=== PATIENT | female | born 1945 | race Hispanic/Latino ===

== ENCOUNTER 2017-09-23 13:38 | Inpatient (IN) | payer MEDICARE, BC ==
[2017-09-23] MEDS ORDERED: Sodium Chloride 0.9% 1,000 ML IV ONE (14:26)
--- NOTE | 2017-09-23 14:26 | C.PDOC ---
History Of Present Illness History of breast cancer with right side mastectomy 06/01 Patient complains of feeling very weak and without energy for 4 weeks. She reports decreased appetite with weight loss over the last month. She has difficulty walking and is unable to stand up on her own from weakness; she also reports feeling lightheaded for 2 days. Patient is currently on chemotherapy and her last dose was over one week ago. Patient states she missed her dose this week because she felt too weak. She states last visit, she was informed her Hgb was low and she could use transfusion but she refused. She denies any fever, chills, chest pain, shortness of breath or abdominal pain. PMD: James Johnston Oncologist: Dr Yumiko Mosley Time Seen by Provider: 09/23/17 14:14 Chief Complaint (Nursing): Weakness/Neurological Deficit History Per: Patient History/Exam Limitations: no limitations Onset/Duration Of Symptoms: Days Current Symptoms Are (Timing): Still Present Past Medical History Reviewed: Historical Data, Nursing Documentation, Vital Signs Vital Signs: Last Vital Signs Temp 98.0 F 09/23/17 13:54 Pulse 128 H 09/23/17 13:54 Resp 20 09/23/17 13:54 BP 81/54 L 09/23/17 13:54 Pulse Ox 95 09/23/17 16:39 - Medical History PMH: CAD, HTN, Hypercholesterolemia Other Surgeries: mastectomy Family History: States: No Known Family Hx - Social History Hx Tobacco Use: Yes Hx Alcohol Use: No Hx Substance Use: No - Immunization History Hx Tetanus Toxoid Vaccination: No Hx Influenza Vaccination: No Hx Pneumococcal Vaccination: No Review Of Systems Except As Marked, All Systems Reviewed And Found Negative. Constitutional: Positive for: Weakness. Negative for: Fever, Chills Cardiovascular: Positive for: Light Headedness. Negative for: Chest Pain Respiratory: Negative for: Shortness of Breath Gastrointestinal: Negative for: Abdominal Pain Physical Exam - Physical Exam Appears: Non-toxic, Chronically Ill Skin: Warm, Dry, Pale Head: Atraumatic, Normacephalic Eye(s): bilateral: Normal Inspection Neck: Supple Chest: Other (mastectomy scar right chest; portcath right chest wall) Cardiovascular: Rhythm Irregular (irregularly irregular, tachycardic) Respiratory: Normal Breath Sounds, No Rales, No Rhonchi, No Wheezing Gastrointestinal/Abdominal: Normal Exam, Soft, No Tenderness, No Mass, No Guarding, No Rebound Back: Normal Inspection Extremity: Normal ROM, Pedal Edema, No Deformity Neurological/Psych: Oriented x3 ED Course And Treatment - Laboratory Results Result Diagrams: 09/23/17 15:08 09/23/17 15:08 ECG: Interpreted By Me, Viewed By Me ECG Rhythm: Atrial Fibrillation ECG Interpretation: No Acute Changes Rate From EC O2 Sat by Pulse Oximetry: 95 (RA) Pulse Ox Interpretation: Normal - Other Rad CXR X-Ray: Read By Radiologist Interpretation: PROCEDURE: CHEST RADIOGRAPH, 1 VIEW. HISTORY: weakness. COMPARISON: None available. FINDINGS: The right MediPort terminates in the SVC. LUNGS: The lungs are well inflated. The right lung is clear. There is confluent airspace disease in the left lower lobe. . PLEURA: No pneumothorax. Suspect small left pleural effusion. CARDIOVASCULAR: Normal. OSSEOUS STRUCTURES: No significant abnormalities. VISUALIZED UPPER ABDOMEN: Normal. OTHER FINDINGS: None. IMPRESSION: Confluent airspace disease in the left lower lobe may represent pneumonia and/or pleural effusion. Follow-up is advised. Medical Decision Making Medical Decision Making: Impression: Dehydration, cancer chemo effects Plan: -- IV Fluids -- Labs -- Urinalysis Progress: Case was discussed Dr Marissa Anderson Spoke with Dr Jose Mosley to discuss labs he wants the patient Transfuse [address] Aman Johnston to admit the patient. Disposition Counseled Patient/Family Regarding: Diagnosis, Need For Followup - Disposition Disposition: HOSPITALIZED Disposition Time: 16:00 Condition: STABLE - POA Present On Arrival: None - Clinical Impression Clinical Impression: Anemia, chronic disease, Breast cancer in female, Weakness - PA / ENVIRONMENTAL RESEARCH PROJECT MANAGER / Resident Statement MD/DO has reviewed & agrees with the documentation as recorded. - Scribe Statement The provider has reviewed the documentation as recorded by the Scribe (Yolette Walker) Provider Attestation: All medical record entries made by the Scribe were at my direction and personally dictated by me. I have reviewed the chart and agree that the record accurately reflects my personal performance of the history, physical exam, medical decision making, and the department course for this patient. I have also personally directed, reviewed, and agree with the discharge instructions and disposition. Decision To Admit - Pt Status Changed To: Hospital Disposition Of: Observation - . Bed Request Type: Regular Admitting Physician: James Johnston Patient Diagnosis: Anemia, chronic disease, Breast cancer in female, Weakness
[2017-09-23 15:13] LABS: BASO # 0.1 K/uL (0.0-0.2); EOS % 0.1 % (0.0-4.0); LYMPH # 0.7 K/uL (1.0-4.3); LYMPH % 5.1 % (20.0-40.0); MEAN CORPUSCULAR HEMOGLOBIN 30.8 pg (27.0-31.0); MEAN CORPUSCULAR HGB CONC 32.6 g/dL (33.0-37.0); MONO # 0.9 K/uL (0.0-0.8); NEUT # 11.3 K/uL (1.8-7.0); NEUT % 86.8 % (50.0-75.0); NRBC % 0.1 % (0.0-2.0); PLATELET COUNT 279 K/uL (130-400); RBC 2.51 Mil/uL (3.80-5.20); RED CELL DISTRIBUTION WIDTH 20.7 % (11.5-14.5)
[2017-09-23 15:16] LABS: HEMOGLOBIN 7.7 g/dL (11.0-16.0); MEAN CELL VOLUME 94.6 fL (81.0-99.0)
[2017-09-23 15:21] LABS: INR 2.6
[2017-09-23 15:26] LABS: PROTHROMBIN TIME 28.9 SECONDS (9.7-12.2)
--- NOTE | 2017-09-23 15:26 | RAD ---
PROCEDURE: CHEST RADIOGRAPH, 1 VIEW HISTORY: weakness COMPARISON: None available. FINDINGS: The right MediPort terminates in the SVC. LUNGS: The lungs are well inflated. The right lung is clear. There is confluent airspace disease in the left lower lobe. . PLEURA: No pneumothorax. Suspect small left pleural effusion. CARDIOVASCULAR: Normal. OSSEOUS STRUCTURES: No significant abnormalities. VISUALIZED UPPER ABDOMEN: Normal. OTHER FINDINGS: None. IMPRESSION: Confluent airspace disease in the left lower lobe may represent pneumonia and/or pleural effusion. Follow-up is advised.
[2017-09-23 15:32] LABS: BANDS 1 % (0-2); EOSINOPHIL 1 % (0-4); LYMPHOCYTE 3 % (20-40); MONOCYTE 6 % (0-10); NEUTROPHIL 89 % (50-75); PLATELET ESTIMATE NORMAL (NORMAL); TOTAL CELLS COUNTED 100
[2017-09-23 15:34] LABS: ANISOCYTOSIS SLIGHT; HYPOCHROMIC MODERATE; POIKILOCYTOSIS SLIGHT; TARGET CELLS MODERATE; TEARDROP CELLS SLIGHT
[2017-09-23 15:35] LABS: GIANT PLATELETS PRESENT; LARGE PLATELETS PRESENT
[2017-09-23 15:37] LABS: B-TYPE NATRIURETIC PEPTIDE 4710 pg/mL (0-900)
[2017-09-23 15:44] LABS: GFR AFRICAN-AMERICAN > 60; GFR NON-AFRICAN AMERICAN > 60
[2017-09-23 15:47] LABS: ALBUMIN 2.7 g/dL (3.5-5.0); ALT/SGPT 19 U/L (9-52); AST/SGOT 15 U/L (14-36); BLOOD UREA NITROGEN 17 mg/dL (7-17)
[2017-09-23 15:49] LABS: ALB/GLOB RATIO 1.1 (1.0-2.1)
[2017-09-23] MEDS ORDERED: Potassium Chloride 20 mEq ER Tab PO STA (18:33)
[2017-09-23 23:28] LABS: SQUAMOUS EPITHIAL 4 /hpf (0-5); URINE BACTERIA MOD (<OCC); URINE BILIRUBIN NEGATIVE (NEGATIVE); URINE BLOOD NEGATIVE (NEGATIVE); URINE CLARITY Hazy (Clear); URINE COLOR Amber (YELLOW); URINE GLUCOSE (UA) NORMAL (Normal); URINE LEUKOCYTE ESTERASE 2+ Leu/uL (Negative); URINE PROTEIN 2+ mg/dL (NEGATIVE)
[2017-09-24 06:03] LABS: BLOOD UREA NITROGEN 17 mg/dL (7-17); CALCIUM 7.7 mg/dl (8.6-10.4); GFR AFRICAN-AMERICAN > 60; GFR NON-AFRICAN AMERICAN > 60
--- NOTE | 2017-09-24 07:21 | HP ---
HISTORY OF PRESENT ILLNESS: This is a 72-year-old female who was brought in with history of generalized weakness. She was found to be anemic. She has been in the care of Dr. Mosley for CA of breast. She had a mastectomy done. She has had chemotherapy done. Previously, cardiac workup had shown that she was in atrial fibrillation and she was placed on a blood thinner. Echocardiogram had normal LV systolic function. She also has a poor . She needs transfusions, so she has been admitted. Her electrolytes were abnormal, potassium was 2.7. Blood pressure was 81/54. PERSONAL HISTORY: One pack per day smoker for many years. No ETOH abuse. ALLERGIES: DENIED. MEDICATIONS: At home include Crestor, Lasix, atenolol. PAST MEDICAL HISTORY: History of CA of breast. FAMILY HISTORY: Mother had diabetes, at 60. REVIEW OF SYSTEMS: Generalized weakness is noted. No fever. No chills. Positive for hearing loss. No visual disturbances. Pulmonary: Positive for cough. Cardiac: Denies any chest pain. Edema is noted. Dyspnea on exertion. History of hypertension and atrial fibrillation. GI: Negative for hematemesis or melena. Neurologic: Negative for TIAs or CVAs. Musculoskeletal: History of osteoarthritis of the knee. : Negative for hematuria. Psychiatric: No evidence of depression. PHYSICAL EXAMINATION: GENERAL: Shows elderly female, who is conscious, alert, and well oriented. Chronically sick looking in no acute distress. VITAL SIGNS: Blood pressure is 88/60, heart rate of 120 and irregular, respiratory rate of 24. HEENT: Head is normocephalic. Loss of hair. Eyes: No pallor. No icterus. Mouth: Complete dentures. LUNGS: Scattered rhonchi. HEART: PMI is not localized. S1 and S2 are irregular and tachycardic. No gallops. ABDOMEN: Soft. EXTREMITIES: No cyanosis or clubbing. 1 to 2+ edema is noted. Nonpitting. LABORATORY DATA: EKG: Atrial fibrillation with rapid ventricular rate. Nonspecific ST-T wave changes. Potassium was 2.7, hemoglobin is 7.7. Chest x-ray reported as nothing acute. Questionable soft left pleural effusion. PLAN: To control the rate. Transfusion as per Dr. Mosley. Correction of the electrolytes. Recheck potassium in the morning. James Johnston MD [facility] # [id number]
[2017-09-24 08:32] LABS: BASO # 0.1 K/uL (0.0-0.2); BASO % 0.8 % (0.0-2.0); EOS # 0.1 K/uL (0.0-0.7); EOS % 0.6 % (0.0-4.0); HEMOGLOBIN 8.3 g/dL (11.0-16.0); LYMPH # 0.7 K/uL (1.0-4.3); LYMPH % 7.4 % (20.0-40.0); MEAN CELL VOLUME 93.6 fL (81.0-99.0); MEAN CORPUSCULAR HGB CONC 33.1 g/dL (33.0-37.0); MEAN PLATELET VOLUME 7.9 fL (7.2-11.7); MONO % 10.2 % (0.0-10.0); NEUT # 7.9 K/uL (1.8-7.0); PLATELET COUNT 255 K/uL (130-400); RBC 2.67 Mil/uL (3.80-5.20); RED CELL DISTRIBUTION WIDTH 20.3 % (11.5-14.5); WHITE BLOOD COUNT 9.8 K/uL (4.8-10.8)
[2017-09-24 09:58] LABS: LYMPHOCYTE 9 % (20-40); MONOCYTE 9 % (0-10); MYELOCYTE 1 % (0-0); NEUTROPHIL 80 % (50-75); PLATELET ESTIMATE NORMAL (NORMAL); REACTIVE LYMPHOCYTES 1 % (0-0); TOTAL CELLS COUNTED 100
[2017-09-24 09:59] LABS: ANISOCYTOSIS SLIGHT; BURR CELLS SLIGHT; HYPOCHROMIC SLIGHT; POIKILOCYTOSIS SLIGHT; TARGET CELLS SLIGHT; TEARDROP CELLS SLIGHT
[2017-09-24] MEDS ORDERED: Potassium Chloride 20 mEq/15 ml LIQ UD PO STA (11:01)
--- NOTE | 2017-09-24 16:44 | CP.PCM.CON ---
<Jian Buitrago - Last Filed: 09/24/17 17:16> History of Present Illness - History of Present Illness History of Present Illness: Pulmonology Consult Note- Dr. Rosenbaum's service Reason for consult: pleural effusion noted on imaging 72 year old female with past medical history significant for breast cancer with mastectomy , HTN and atrial fibrillation presents with complaints of cough and generalized weakness over the past couple of weeks. Patient states that she has had the cough for approximately a week and a half. She states that she is having trouble bringing anything up though. She states that she has not tried to take any other medications to serve as an expectorant. Patient states that she receives chemotherapy one day a week. She just completed her seventh dose in this current round of therapy. She initially competed a 12 week course several months earlier. Patient currently denies chest pain, shortness of breath , palpitations at this time. PMHx- refer to above PSHx- right sided mastectomy Fam hx- maternal aunt had lung cancer Medications- Xarelto 15 mg Po daily, Bystolic 5 mg Po daily, Crestor 10 mg PO HS Social- Former smoker for 50 years. Patient quit 4 years ago (1ppd), denies alcohol or illicit drug use Allergies- 100% Wool (hives) PMD- Dr. Johnston (formerly Ronaldo) Oncologist- Dr. Mosley Review of Systems - Constitutional Constitutional: Weakness - EENT Nose/Mouth/Throat: absent: Nasal Congestion - Cardiovascular Cardiovascular: absent: Chest Pain, Dyspnea - Respiratory Respiratory: Cough. absent: Dyspnea Past Patient History - Past Social History Smoking Status: Former Smoker - CARDIAC Hx Hypercholesterolemia: Yes Hx Hypertension: Yes - HEMATOLOGICAL/ONCOLOGICAL Hx Cancer: Yes (right breast) - PSYCHIATRIC Hx Substance Use: No - SURGICAL HISTORY Hx Mastectomy: Yes (right) Other/Comment: port-a-cath Meds Allergies/Adverse Reactions: Allergies Allergy/AdvReac Type Severity Reaction Status Date / Time codeine Allergy Verified 09/23/17 14:02 - Medications Medications: Current Medications Azithromycin (Zithromax) 500 mg PO DAILY [facility] PRN Reason: Protocol Last Admin: 09/24/17 11:48 Dose: 500 mg Nebivolol (Bystolic) 5 mg PO DAILY [facility] Last Admin: 09/24/17 10:31 Dose: 5 mg Rosuvastatin Calcium (Crestor) 10 mg PO HS [facility] Physical Exam - Constitutional Appears: Chronically Ill - Head Exam Head Exam: ATRAUMATIC, NORMAL INSPECTION - Eye Exam Eye Exam: EOMI, Normal appearance - Neck Exam Neck exam: Positive for: Full Rom - Respiratory Exam Respiratory Exam: Decreased Breath Sounds (lower lung jones). absent: Wheezes - Cardiovascular Exam Cardiovascular Exam: Irregular Rhythm, +S1, +S2. absent: Systolic Murmur - Extremities Exam Extremities exam: Positive for: full ROM, pedal edema - Back Exam Back exam: FULL ROM - Neurological Exam Neurological exam: Alert, Oriented x3 - Psychiatric Exam Psychiatric exam: Normal Affect, Normal Mood - Skin Skin Exam: Dry, Normal Color, Warm Results - Vital Signs Recent Vital Signs: Last Vital Signs Temp 97.6 F 09/24/17 15:00 Pulse 79 09/24/17 15:00 Resp 18 09/24/17 15:00 BP 111/59 L 09/24/17 15:00 Pulse Ox 95 09/24/17 15:00 - Labs Result Diagrams: 09/24/17 08:18 09/24/17 05:49 Labs: Laboratory Results - last 24 hr 09/23/17 09/23/17 09/24/17 16:31 23:28 05:49 WBC RBC Hgb Hct MCV MCH MCHC RDW Plt Count MPV Neut % (Auto) Lymph % (Auto) [place] % (Auto) Eos % (Auto) Baso % (Auto) Neut # (Auto) Lymph # (Auto) [place] # (Auto) Eos # (Auto) Baso # (Auto) Neutrophils % (Manual) Lymphocytes % (Manual) Reactive Lymphs % Monocytes % (Manual) Myelocytes % Platelet Estimate Hypochromasia (manual) Poikilocytosis (manual Anisocytosis (manual) Target Cells Tear Drop Cells Cameron Cells Sodium 136 Potassium 3.1 L Chloride 100 Carbon Dioxide 30 Anion Gap 9 L BUN 17 Creatinine 0.7 Est GFR ( Amer) > 60 Est GFR (Non-Af Amer) > 60 Random Glucose 88 Calcium 7.7 L Urine Color Jolene Urine Clarity Hazy Urine pH 5.0 Ur Specific Gila 1.021 Urine Protein 2+ H Urine Glucose (UA) Normal Urine Ketones Negative Urine Blood Negative Urine Nitrate Negative Urine Bilirubin Negative Urine Urobilinogen 4.0 H Ur Leukocyte Esterase 2+ H Urine WBC (Auto) 90 H Urine RBC (Auto) 5 H Ur Squamous Epith Cells 4 Urine Bacteria Mod H Blood Type O NEGATIVE Antibody Screen Negative 09/24/17 08:18 WBC 9.8 RBC 2.67 L Hgb 8.3 L Hct 25.0 L MCV 93.6 MCH 31.0 MCHC 33.1 RDW 20.3 H Plt Count 255 MPV 7.9 Neut % (Auto) 81.0 H Lymph % (Auto) 7.4 L [place] % (Auto) 10.2 H Eos % (Auto) 0.6 Baso % (Auto) 0.8 Neut # (Auto) 7.9 H Lymph # (Auto) 0.7 L [place] # (Auto) 1.0 H Eos # (Auto) 0.1 Baso # (Auto) 0.1 Neutrophils % (Manual) 80 H Lymphocytes % (Manual) 9 L Reactive Lymphs % 1 H Monocytes % (Manual) 9 Myelocytes % 1 H Platelet Estimate Normal Hypochromasia (manual) Slight Poikilocytosis (manual Slight Anisocytosis (manual) Slight Target Cells Slight Tear Drop Cells Slight Talcott Cells Slight Sodium Potassium Chloride Carbon Dioxide Anion Gap BUN Creatinine Est GFR ( Amer) Est GFR (Non-Af Amer) Random Glucose Calcium Urine Color Urine Clarity Urine pH Ur Specific Gila Urine Protein Urine Glucose (UA) Urine Ketones Urine Blood Urine Nitrate Urine Bilirubin Urine Urobilinogen Ur Leukocyte Esterase Urine WBC (Auto) Urine RBC (Auto) Ur Squamous Epith Cells Urine Bacteria Blood Type Antibody Screen Assessment & Plan (1) Pleural effusion Assessment and Plan: CXR notes small left sided pleural effusion and questionable infiltrate . Started Zithromax PO. May benefit from Cough expectorant. Considerations for Lasix therapy Currently afebrile. No leukocytosis at the moment Status: Acute (2) Breast cancer in female Assessment and Plan: Continued chemotherapy regiment as per Oncologist Status: Chronic (3) Hypokalemia Assessment and Plan: Repleted at this time Continue to monitor Status: Acute (4) Weakness Assessment and Plan: Recommendations for physical therapy Status: Chronic <Dannie Rosenbaum - Last Filed: 09/24/17 18:36> Meds - Medications Medications: Current Medications Azithromycin (Zithromax) 500 mg PO DAILY [facility] PRN Reason: Protocol Last Admin: 09/24/17 11:48 Dose: 500 mg Nebivolol (Bystolic) 5 mg PO DAILY [facility] Last Admin: 09/24/17 10:31 Dose: 5 mg Rosuvastatin Calcium (Crestor) 10 mg PO HS [facility] Results - Vital Signs Recent Vital Signs: Last Vital Signs Temp 97.6 F 09/24/17 15:00 Pulse 79 09/24/17 15:00 Resp 18 09/24/17 15:00 BP 111/59 L 09/24/17 15:00 Pulse Ox 95 09/24/17 16:00 - Labs Result Diagrams: 09/24/17 08:18 09/24/17 05:49 Labs: Laboratory Results - last 24 hr 09/23/17 09/23/17 09/24/17 16:31 23:28 05:49 WBC RBC Hgb Hct MCV MCH MCHC RDW Plt Count MPV Neut % (Auto) Lymph % (Auto) [place] % (Auto) Eos % (Auto) Baso % (Auto) Neut # (Auto) Lymph # (Auto) [place] # (Auto) Eos # (Auto) Baso # (Auto) Neutrophils % (Manual) Lymphocytes % (Manual) Reactive Lymphs % Monocytes % (Manual) Myelocytes % Platelet Estimate Hypochromasia (manual) Poikilocytosis (manual Anisocytosis (manual) Target Cells Tear Drop Cells Cameron Cells Sodium 136 Potassium 3.1 L Chloride 100 Carbon Dioxide 30 Anion Gap 9 L BUN 17 Creatinine 0.7 Est GFR ( Amer) > 60 Est GFR (Non-Af Amer) > 60 Random Glucose 88 Calcium 7.7 L Urine Color Jolene Urine Clarity Hazy Urine pH 5.0 Ur Specific Gila 1.021 Urine Protein 2+ H Urine Glucose (UA) Normal Urine Ketones Negative Urine Blood Negative Urine Nitrate Negative Urine Bilirubin Negative Urine Urobilinogen 4.0 H Ur Leukocyte Esterase 2+ H Urine WBC (Auto) 90 H Urine RBC (Auto) 5 H Ur Squamous Epith Cells 4 Urine Bacteria Mod H Blood Type O NEGATIVE Antibody Screen Negative 09/24/17 08:18 WBC 9.8 RBC 2.67 L Hgb 8.3 L Hct 25.0 L MCV 93.6 MCH 31.0 MCHC 33.1 RDW 20.3 H Plt Count 255 MPV 7.9 Neut % (Auto) 81.0 H Lymph % (Auto) 7.4 L [place] % (Auto) 10.2 H Eos % (Auto) 0.6 Baso % (Auto) 0.8 Neut # (Auto) 7.9 H Lymph # (Auto) 0.7 L [place] # (Auto) 1.0 H Eos # (Auto) 0.1 Baso # (Auto) 0.1 Neutrophils % (Manual) 80 H Lymphocytes % (Manual) 9 L Reactive Lymphs % 1 H Monocytes % (Manual) 9 Myelocytes % 1 H Platelet Estimate Normal Hypochromasia (manual) Slight Poikilocytosis (manual Slight Anisocytosis (manual) Slight Target Cells Slight Tear Drop Cells Slight Cameron Cells Slight Sodium Potassium Chloride Carbon Dioxide Anion Gap BUN Creatinine Est GFR ( Amer) Est GFR (Non-Af Amer) Random Glucose Calcium Urine Color Urine Clarity Urine pH Ur Specific Gila Urine Protein Urine Glucose (UA) Urine Ketones Urine Blood Urine Nitrate Urine Bilirubin Urine Urobilinogen Ur Leukocyte Esterase Urine WBC (Auto) Urine RBC (Auto) Ur Squamous Epith Cells Urine Bacteria Blood Type Antibody Screen Attending/Attestation - Attestation I have personally seen and examined this patient.: Yes I have fully participated in the care of the patient.: Yes I have reviewed all pertinent clinical information: Yes
--- NOTE | 2017-09-24 21:45 | CP.PCM.PN ---
Subjective - Date & Time of Evaluation Date of Evaluation: 09/24/17 Time of Evaluation: 21:44 - Subjective Subjective: cough,hb up to 8.3.needs one more transfusion. Objective - Vital Signs/Intake and Output Vital Signs (last 24 hours): Temp Pulse Resp BP Pulse Ox 97.6 F 79 18 111/59 L 95 09/24/17 15:00 09/24/17 15:00 09/24/17 15:00 09/24/17 15:00 09/24/17 16:00 Intake and Output: 09/24/17 09/25/17 18:59 06:59 Intake Total 1250 Output Total 1225 Balance 25 - Medications Medications: Current Medications Azithromycin (Zithromax) 500 mg PO DAILY [facility] PRN Reason: Protocol Last Admin: 09/24/17 11:48 Dose: 500 mg Nebivolol (Bystolic) 5 mg PO DAILY [facility] Last Admin: 09/24/17 10:31 Dose: 5 mg Rosuvastatin Calcium (Crestor) 10 mg PO [facility] - Labs Labs: 09/24/17 08:18 09/24/17 05:49 PT 28.9 SECONDS (9.7-12.2) H 09/23/17 15:08 INR 2.6 09/23/17 15:08 APTT 46 SECONDS (21-34) H 09/23/17 15:08 - Constitutional Appears: No Acute Distress, Chronically Ill - Eye Exam Eye Exam: Normal appearance - Respiratory Exam Respiratory Exam: Rhonchi, Wheezes - Cardiovascular Exam Cardiovascular Exam: REGULAR RHYTHM - GI/Abdominal Exam GI & Abdominal Exam: Soft - Extremities Exam Extremities Exam: Pedal Edema - Neurological Exam Neurological Exam: Alert, Oriented x3 Assessment and Plan - Assessment and Plan (Free Text) Assessment: transfusion.to ct xarelto?. needs antibiotics.pul eval.rehab.
--- NOTE | 2017-09-25 02:32 | CON ---
DATE: 09/24/2017 REASON FOR CONSULTATION: The patient has invasive ductal carcinoma of the breast. HISTORY OF PRESENT ILLNESS: This is a 72-year-old female with history of invasive carcinoma of the breast with metastasis to the lymph nodes. The patient received neoadjuvant chemotherapy with Adriamycin and Cytoxan, every three weeks, four cycles, tolerated very well with excellent response. The lymph node almost resolved completely. The patient had lumpectomy done and then came for followup with me. The patient is receiving Taxol weekly, tolerating very well; however, the patient's hemoglobin has been always low after the surgery, it has not improved. Was complaining of feeling weak and tired for the last few weeks, was advised to go to the hospital for transfusion. Eventually, the patient came to the hospital because unable to walk around and increasing shortness of breath. The patient already admitted, received 1 unit of packed red blood cells, and I am called on consult for further evaluation and suggestions. PAST MEDICAL HISTORY: Significant for coronary artery disease, hypertension, hypercholesterolemia. PAST SURGICAL HISTORY: The patient had a mastectomy done. FAMILY HISTORY: Not contributory. SOCIAL HISTORY: Nonsmoker, no ethanol abuse. , has a handicapped son, and who is about to be placed into the half-way. REVIEW OF SYSTEMS: Denies any headache, dizziness, or blackouts. No chest pain or palpitation. Denies fever or chills. No cough or sputum. No abdominal pain. No nausea, vomiting, melena, hemoptysis, or hematemesis. No dysuria or hematuria. No change in the bowel habits. No change in the color of the stool. No tingling or numbness. PHYSICAL EXAMINATION: GENERAL: The patient is awake, alert, oriented, quiet, pleasant, not in acute distress. VITAL SIGNS: Pulse 80, respirations 16, blood pressure 110/72. HEAD: Normocephalic, atraumatic. EYES: Conjunctiva pale, sclera white, pupils reacting to light. EAR, NOSE, AND THROAT: Within normal limits. LUNGS: Bilaterally good air entry. Clear to auscultation and percussion. HEART: S1 and S2, regular. No gallop, no murmur. ABDOMEN: Soft, nondistended, nontender. No hepatosplenomegaly. DESIGN TRANSFERRER: No gross motor or sensory deficits. LYMPH NODES: No cervical or axillary lymph nodes palpable. LABORATORY DATA: WBC 13,000, hemoglobin 7700, platelet count 279,000. BUN 17, creatinine 0.9. IMPRESSION: 1. Invasive ductal carcinoma of the breast with metastasis to the lymph nodes. 2. Anemia secondary to the carcinoma of the breast and chemotherapy. PLAN: Clinical status discussed with the patient. The patient has already received 1 unit of packed red blood cells. We will give her the second unit of packed red blood cells. Discussed with the patient. Once the patient is clinically improved and discharge home, we will follow up in the office to continue the chemotherapy. The patient has understood and agreed with it. Thank you for letting me participate in the care of the patient, and I will follow up the patient with you. Yumiko Mosley MD
[2017-09-25 07:05] LABS: BASO # 0.1 K/uL (0.0-0.2); BASO % 1.2 % (0.0-2.0); EOS # 0.1 K/uL (0.0-0.7); EOS % 1.2 % (0.0-4.0); HEMOGLOBIN 9.4 g/dL (11.0-16.0); LYMPH # 1.1 K/uL (1.0-4.3); LYMPH % 12.2 % (20.0-40.0); MEAN CELL VOLUME 93.4 fL (81.0-99.0); MEAN CORPUSCULAR HEMOGLOBIN 31.3 pg (27.0-31.0); MEAN CORPUSCULAR HGB CONC 33.5 g/dL (33.0-37.0); MEAN PLATELET VOLUME 7.7 fL (7.2-11.7); MONO # 0.8 K/uL (0.0-0.8); MONO % 9.5 % (0.0-10.0); NEUT # 6.6 K/uL (1.8-7.0); NEUT % 75.9 % (50.0-75.0); RBC 2.99 Mil/uL (3.80-5.20); RED CELL DISTRIBUTION WIDTH 19.7 % (11.5-14.5); WHITE BLOOD COUNT 8.7 K/uL (4.8-10.8)
[2017-09-25 07:28] LABS: BLOOD UREA NITROGEN 18 mg/dL (7-17); GFR AFRICAN-AMERICAN > 60; GFR NON-AFRICAN AMERICAN > 60
--- NOTE | 2017-09-25 08:32 | CP.PCM.PN ---
Subjective - Date & Time of Evaluation Date of Evaluation: 09/25/17 - Subjective Subjective: patient seen and examined Sitting comfortably in no acute distress Patient states cough is improving Denies shortness of breath Afebrile Pending transfer to rehab Objective - Vital Signs/Intake and Output Vital Signs (last 24 hours): Temp Pulse Resp BP Pulse Ox 97.4 F L 67 20 118/69 96 09/25/17 04:00 09/25/17 04:00 09/25/17 04:00 09/25/17 04:00 09/25/17 07:00 Intake and Output: 09/25/17 09/25/17 06:59 18:59 Output Total 350 Balance -350 - Medications Medications: Current Medications Azithromycin (Zithromax) 500 mg PO [facility]ILY [facility] Reason: Protocol Last Admin: 09/24/17 11:48 Dose: 500 mg Nebivolol (Bystolic) 5 mg PO [facility]ILY [facility] Last Admin: 09/24/17 10:31 Dose: 5 mg Rosuvastatin Calcium (Crestor) [address] [facility] Last Admin: 09/24/17 22:14 Dose: 10 mg - Labs Labs: 09/25/17 06:29 09/25/17 06:29 PT 28.9 SECONDS (9.7-12.2) H 09/23/17 15:08 INR 2.6 09/23/17 15:08 APTT 46 SECONDS (21-34) H 09/23/17 15:08 - Head Exam Head Exam: ATRAUMATIC, NORMOCEPHALIC - ENT Exam ENT Exam: Mucous Membranes Moist - Respiratory Exam Respiratory Exam: Clear to Ausculation Bilateral - Cardiovascular Exam Cardiovascular Exam: REGULAR RHYTHM - GI/Abdominal Exam GI & Abdominal Exam: Soft, Normal Bowel Sounds - Neurological Exam Neurological Exam: Awake Assessment and Plan (1) Pneumonia Assessment & Plan: chest x-ray consistent with small left lung infiltrate Patient on azithromycin and clinically improving Continue antibiotics for 10 days Patient refusing antitussive As she feels cough is improving Status: Acute
[2017-09-25] MEDS ORDERED: Potassium Chloride 20 mEq ER Tab PO ONE (10:00)
--- NOTE | 2017-09-25 18:16 | CP.PCM.CON ---
History of Present Illness - History of Present Illness History of Present Illness: 72 year old female presents with complaints of cough and generalized weakness over the past couple of weeks. She just completed her seventh dose in this current round of chemotherapy. She initially competed a 12 week course several months earlier for breast ca WITH METS REFERRED FOR ID EVAL OF PNEUMONIA AND UTI IV RX ORDERED PMHx- breast cancer with mastectomy , HTN and atrial fibrillation PSHx- right sided mastectomy Fam hx- maternal aunt had lung cancer Medications- Xarelto 15 mg Po daily, Bystolic 5 mg Po daily, Crestor 10 mg PO HS Social- Former smoker for 50 years. Patient quit 4 years ago (1ppd), denies alcohol or illicit drug use Allergies- 100% Wool (hives) PMD- Dr. Johnston (formerly Ronaldo) Oncologist- Dr. Mosley Review of Systems - Review of Systems All systems: reviewed and no additional remarkable complaints except - Constitutional Constitutional: As Per HPI - EENT Eyes: absent: As Per HPI, Blind Spots, Blurred Vision, Change in Vision, Decreased Night Vision, Diplopia, Discharge, Dry Eye, Exophthalmos, Floaters, Irritation, Itchy Eyes, Loss of Peripheral Vision, Pain, Photophobia, Requires Corrective Lenses, Sees Flashes, Spots in Vision, Tunnel Vision, Other Visual Disturbances, Loss of Vision, Other Ears: absent: As Per HPI, Decreased Hearing, Ear Discharge, Ear Pain, Tinnitus, Abnormal Hearing, Disequilibrium, Dizziness, Other Nose/Mouth/Throat: absent: As Per HPI, Epistaxis, Nasal Congestion, Nasal Discharge, Nasal Obstruction, Nasal Trauma, Nose Pain, Post Nasal Drip, Sinus Pain, Sinus Pressure, Bleeding Gums, Change in Voice, Dental Pain, Dry Mouth, Dysphagia, Halitosis, Hoarsness, Lip Swelling, Mouth Lesions, Mouth Pain, Odynophagia, Sore Throat, Throat Swelling, Tongue Swelling, Facial Pain, Neck Pain, Neck Mass, Other - Breasts Breasts: absent: As Per HPI, Change in Shape, Mass, Pain, Nipple Discharge, Nipple Inversion, Skin Changes, Swelling, Other - Cardiovascular Cardiovascular: absent: As Per HPI, Acrocyanosis, Chest Pain, Chest Pain at Rest , Chest Pain with Activity, Claudication, Diaphoresis, Dyspnea, Dyspnea on Exertion, Edema, Irregular Heart Rhythm, Pain Radiating to Arm/Neck/Jaw, Leg Edema, Leg Ulcers, Lightheadedness, Orthopnea, Palpitations, Paroxysmal Nocturnal Dyspnea, Pedal Edema, Radiating Pain, Rapid Heart Rate, Slow Heart Rate, Syncope, Other - Respiratory Respiratory: As Per HPI - Gastrointestinal Gastrointestinal: absent: As Per HPI, Abdominal Pain, Belching, Bloating, Change in Bowel Habits, Change in Stool Character, Coffee Ground Emesis, Constipation, Cramping, Diarrhea, Dyspepsia, Dysphagia, Early Satiety, Excessive Flatus, Fecal Incontinence, Heartburn, Hematemesis, Hematochezia, Loose Stools, Melena, Nausea, Odynophagia, Temesmus, Vomiting, Other - Genitourinary Genitourinary: absent: As Per HPI, Change in Urinary Stream, Difficulty Urinating, Dysuria, Flank Pain, Hematuria, Pyuria, Nocturia, Urinary Incontinence, Urinary Frequency, Urinary Hesitance, Urinary Urgency, Voiding Freq/Small Amts, Freq UTI, Hx Renal/Bladder Calculi, Hx /Renal Surgery, Bladder Distension, Other - Reproductive: Female Reproductive:Female: absent: As Per HPI, Amenorrhea, Amenorrhea/ Control, Currently Menstual, Cycle <21 Days, Cycle >35 Days, Cycle Variable, Menses 1-7 Days, Menses >/= 8 Days, Menses Variable, Cycle > 4 Weeks Between, No Menses for 6 Months, Heavy Menses, Light Menses, Normal Menses, Spotting Between Cycles , S/P Hysterectomy, Menopausal, Post Menopausal, Premenarche, Abnormal Vaginal Bleeding, Dysmenorrhea, Dyspareunia, Genital Lesions, Genital Pruritis, Pelvic Pain, Prolapse Symptoms, Sexual Dysfunction, Vaginal Discharge, Vaginal Dryness , Vaginal Odor, Vaginal Pruritis, Other - Menstruation Menstruation: absent: As Per HPI, Amenorrhea, Amenorrhea/ Control, Currently Menstual, Cycle <21 Days, Cycle >35 Days, Cycle Variable, Menses 1-7 Days, Menses >/= 8 Days, Menses Variable, Cycle > 4 Weeks Between, No Menses for 6 Months, Heavy Menses, Light Menses, Normal Menses, Spotting Between Cycles , S/P Hysterectomy, Menopausal, Post Menopausal, Premenarche, Abnormal Vaginal Bleeding, Dysmenorrhea, Other - Musculoskeletal Musculoskeletal: absent: As Per HPI, Abnormal Gait, Arthralgias, Atrophy, Back Pain, Deformity, Joint Swelling, Limited Range of Motion, Loss of Height, Muscle Cramps, Muscle Weakness, Myalgias, Neck Pain, Numbness, Radiating Pain into Limb, Stiffness, Tingling, Other - Integumentary Integumentary: absent: As Per HPI, Acne, Alopecia, Bleeding Lesions, Change in Hair, Change in Nails, Change in Pigmentation, Changing Lesions, Dry Skin, Erythema, Furuncle, Hirsutism, Lesions, New Lesions, Non-Healing Lesions, Photosensitivity, Pruritus, Rash, Skin Pain, Skin Ulcer, Sores, Striae, Swelling , Unusual Bruising, Wounds, Jaundice, Other - Neurological Neurological: absent: As Per HPI, Abnormal Gait, Abnormal Hearing, Abnormal Movements, Abnormal Speech, Behavioral Changes, Burning Sensations, Confusion, Convulsions, Disequilibrium, Dizziness, Numbness, Focal Weakness, Frequent Falls , Headaches, Lack of Coordination, Loss of Vision, Memory Loss, Paresthesias, Radicular Pain, Restless Legs, Sensory Deficit, Syncope, Tingling, Tremor, Vertigo, Weakness, Other Visual Disturbances, Other - Psychiatric Psychiatric: absent: As Per HPI, Abnormal Sleep Pattern, Anhedonia, Anxiety, Auditory Hallucinations, Behavioral Changes, Change in Appetite, Change in Libido, Confusion, Depression, Difficulty Concentrating, Hallucinations, Homicidal Ideation, Hopelessness, Irritability, Memory Loss, Mood Swings, Panic Attacks, Paranoia, Suicidal Ideation, Visual Hallucinations, Tactile Hallucinations, Other - Endocrine Endocrine: absent: As Per HPI, Change in Body Appearance, Change in Libido, Cold Intolorance, Deepening of Voice, Excessive Sweating, Fatigue, Flushing, Heat Intolorance, Increase in Ring/Shoe/Hat Size, Palpitations, Polydipsia, Polyphagia, Polyuria, Other - Hematologic/Lymphatic Hematologic: absent: As Per HPI, Easy Bleeding, Easy Bruising, Lymphadenopathy, Other Past Patient History - Past Social History Smoking Status: Former Smoker - CARDIAC Hx Hypercholesterolemia: Yes Hx Hypertension: Yes - HEMATOLOGICAL/ONCOLOGICAL Hx Cancer: Yes (right breast) - MUSCULOSKELETAL/RHEUMATOLOGICAL Hx Falls: No - PSYCHIATRIC Hx Substance Use: No - SURGICAL HISTORY Hx Mastectomy: Yes (right) Other/Comment: port-a-cath Meds Allergies/Adverse Reactions: Allergies Allergy/AdvReac Type Severity Reaction Status Date / Time codeine Allergy Verified 09/23/17 14:02 - Medications Medications: Current Medications Azithromycin (Zithromax) 500 mg PO DAILY [facility] PRN Reason: Protocol Last Admin: 09/25/17 10:18 Dose: 500 mg Ceftriaxone Sodium 1 gm/ (Sodium Chloride) 100 mls @ 100 mls/hr IVPB Q24H [facility] PRN Reason: Protocol Last Admin: 09/25/17 16:55 Dose: 100 mls/hr Nebivolol (Bystolic) 5 mg PO DAILY [facility] Last Admin: 09/25/17 10:19 Dose: 5 mg Rosuvastatin Calcium (Crestor) 10 mg PO HS [facility] Last Admin: 09/24/17 22:14 Dose: 10 mg Physical Exam - Constitutional Appears: Non-toxic, Cachectic, Chronically Ill - Head Exam Head Exam: ATRAUMATIC, NORMAL INSPECTION, NORMOCEPHALIC - Eye Exam Eye Exam: EOMI, PERRL. absent: Scleral icterus - ENT Exam ENT Exam: Mucous Membranes Dry, Normal External Ear Exam, Normal Oropharynx - Neck Exam Neck exam: Negative for: Lymphadenopathy - Respiratory Exam Respiratory Exam: Decreased Breath Sounds, Prolonged Expiratory Phase, Rales, Rhonchi - Cardiovascular Exam Cardiovascular Exam: REGULAR RHYTHM, +S1, +S2 - GI/Abdominal Exam GI & Abdominal Exam: Diminished Bowel Sounds, Distended, Soft. absent: Rebound , Rigid, Tenderness - Rectal Exam Rectal Exam: Deferred - Exam Exam: NORMAL INSPECTION - Extremities Exam Extremities exam: Positive for: pedal pulses present. Negative for: calf tenderness, pedal edema, tenderness - Back Exam Back exam: absent: CVA tenderness (L), CVA tenderness (R) - Neurological Exam Neurological exam: Alert, CN II-XII Intact, Oriented x3, Reflexes Normal - Psychiatric Exam Psychiatric exam: Normal Mood - Skin Skin Exam: Dry Results - Vital Signs Recent Vital Signs: Last Vital Signs Temp 97.8 F 09/25/17 15:00 Pulse 70 09/25/17 15:00 Resp 18 09/25/17 15:00 BP 93/57 L 09/25/17 15:00 Pulse Ox 96 09/25/17 15:00 - Labs Result Diagrams: 09/25/17 06:29 09/25/17 06:29 Labs: Laboratory Results - last 24 hr 09/25/17 09/25/17 06:29 06:29 WBC 8.7 RBC 2.99 L Hgb 9.4 L Hct 27.9 L MCV 93.4 MCH 31.3 H MCHC 33.5 RDW 19.7 H Plt Count 244 MPV 7.7 Neut % (Auto) 75.9 H Lymph % (Auto) 12.2 L [place] % (Auto) 9.5 Eos % (Auto) 1.2 Baso % (Auto) 1.2 Neut # (Auto) 6.6 Lymph # (Auto) 1.1 [place] # (Auto) 0.8 Eos # (Auto) 0.1 Baso # (Auto) 0.1 Sodium 137 Potassium 3.5 L Chloride 100 Carbon Dioxide 30 Anion Gap 10 BUN 18 H Creatinine 0.8 Est GFR ( Amer) > 60 Est GFR (Non-Af Amer) > 60 Random Glucose 86 Calcium 8.0 L Assessment & Plan (1) Pleural effusion Status: Acute (2) Pneumonia Status: Acute (3) Breast cancer in female Status: Chronic - Assessment and Plan (Free Text) Assessment: CONT RX FOR UTI AND PNEUMONIA AWAIT CULTURES
[2017-09-26 08:25] LABS: BASO # 0.1 K/uL (0.0-0.2); BASO % 1.4 % (0.0-2.0); EOS # 0.1 K/uL (0.0-0.7); EOS % 1.2 % (0.0-4.0); LYMPH # 1.3 K/uL (1.0-4.3); MEAN CELL VOLUME 94.2 fL (81.0-99.0); MEAN CORPUSCULAR HEMOGLOBIN 31.2 pg (27.0-31.0); MEAN CORPUSCULAR HGB CONC 33.1 g/dL (33.0-37.0); MEAN PLATELET VOLUME 7.6 fL (7.2-11.7); MONO # 0.9 K/uL (0.0-0.8); NEUT # 7.4 K/uL (1.8-7.0); NEUT % 75.4 % (50.0-75.0); NRBC % 0.1 % (0.0-2.0); RBC 3.21 Mil/uL (3.80-5.20); RED CELL DISTRIBUTION WIDTH 19.5 % (11.5-14.5); WHITE BLOOD COUNT 9.8 K/uL (4.8-10.8)
[2017-09-26 08:33] LABS: BLOOD UREA NITROGEN 16 mg/dL (7-17); CALCIUM 8.2 mg/dl (8.6-10.4); GFR AFRICAN-AMERICAN > 60; GFR NON-AFRICAN AMERICAN > 60
--- NOTE | 2017-09-26 09:29 | CP.PCM.PN ---
Subjective - Date & Time of Evaluation Date of Evaluation: 09/26/17 Time of Evaluation: 09:29 - Subjective Subjective: Pulmonary, Covering Dr. Rosenbaum The patient was Seen and examined by me at the bedside, Events reviewed Patient feeling much better, comfortable, NAD Breathing unlabored, on room air O2 sat 95-100%. Denies any chest pain, SOB or Palpitations Cough improving Afebrile Objective - Vital Signs/Intake and Output Vital Signs (last 24 hours): Temp Pulse Resp BP Pulse Ox 98.0 F 84 18 136/71 94 L 09/26/17 07:45 09/26/17 08:00 09/26/17 07:45 09/26/17 07:45 09/26/17 07:45 Intake and Output: 09/26/17 09/26/17 06:59 18:59 Intake Total 450 Balance 450 - Medications Medications: Current Medications Azithromycin (Zithromax) 500 mg PO DAILY [facility] PRN Reason: Protocol Last Admin: 09/25/17 10:18 Dose: 500 mg Ceftriaxone Sodium 1 gm/ (Sodium Chloride) 100 mls @ 100 mls/hr IVPB Q24H [facility] PRN Reason: Protocol Last Admin: 09/25/17 16:55 Dose: 100 mls/hr Nebivolol (Bystolic) 5 mg PO DAILY [facility] Last Admin: 09/25/17 10:19 Dose: 5 mg Rosuvastatin Calcium (Crestor) 10 mg PO HS [facility] Last Admin: 09/25/17 22:14 Dose: 10 mg - Labs Labs: 09/26/17 08:14 09/26/17 08:14 PT 28.9 SECONDS (9.7-12.2) H 09/23/17 15:08 INR 2.6 09/23/17 15:08 APTT 46 SECONDS (21-34) H 09/23/17 15:08 - Constitutional Appears: Well, Non-toxic - Head Exam Head Exam: ATRAUMATIC, NORMAL INSPECTION - ENT Exam ENT Exam: Normal Exam - Neck Exam Neck Exam: Normal Inspection - Respiratory Exam Respiratory Exam: Rhonchi. absent: Accessory Muscle Use, Chest Wall Tenderness , Decreased Breath Sounds, Wheezes, Respiratory Distress - Cardiovascular Exam Cardiovascular Exam: REGULAR RHYTHM, RRR, +S1, +S2. absent: JVD - Extremities Exam Extremities Exam: Full ROM, Normal Capillary Refill, Normal Inspection. absent : Calf Tenderness, Joint Swelling, Pedal Edema - Back Exam Back Exam: absent: CVA tenderness (L), CVA tenderness (R) - Neurological Exam Neurological Exam: Alert, Awake, CN II-XII Intact, Motor Sensory Deficit, Normal Gait, Oriented x3 Assessment and Plan (1) Pneumonia Assessment & Plan: chest x-ray consistent with small left lung infiltrate Patient on azithromycin and clinically improving Continue antibiotics for 10 days Status: Acute (2) Pleural effusion associated with pulmonary infection Status: Acute (3) Anemia Status: Acute (4) Anemia, chronic disease Status: Acute (5) Pleural effusion Status: Acute
--- NOTE | 2017-09-26 12:23 | CP.PCM.PN ---
Subjective - Date & Time of Evaluation Date of Evaluation: 09/26/17 Time of Evaluation: 12:20 - Subjective Subjective: feels better.less cough. Objective - Vital Signs/Intake and Output Vital Signs (last 24 hours): Temp Pulse Resp BP Pulse Ox 98.0 F 84 18 136/71 94 L 09/26/17 07:45 09/26/17 08:00 09/26/17 07:45 09/26/17 07:45 09/26/17 07:45 Intake and Output: 09/26/17 09/26/17 06:59 18:59 Intake Total 450 Balance 450 - Medications Medications: Current Medications Azithromycin (Zithromax) 500 mg PO DAILY [facility] PRN Reason: Protocol Last Admin: 09/26/17 09:29 Dose: 500 mg Ceftriaxone Sodium 1 gm/ (Sodium Chloride) 100 mls @ 100 mls/hr IVPB Q24H [facility] PRN Reason: Protocol Last Admin: 09/25/17 16:55 Dose: 100 mls/hr Nebivolol (Bystolic) 5 mg PO DAILY [facility] Last Admin: 09/26/17 09:29 Dose: 5 mg Rosuvastatin Calcium (Crestor) 10 mg PO HS [facility] Last Admin: 09/25/17 22:14 Dose: 10 mg - Labs Labs: 09/26/17 08:14 09/26/17 08:14 PT 28.9 SECONDS (9.7-12.2) H 09/23/17 15:08 INR 2.6 09/23/17 15:08 APTT 46 SECONDS (21-34) H 09/23/17 15:08 - Constitutional Appears: No Acute Distress, Chronically Ill - Eye Exam Eye Exam: Normal appearance - Respiratory Exam Respiratory Exam: Rhonchi, Wheezes - Cardiovascular Exam Cardiovascular Exam: Irregular Rhythm (a,fib), REGULAR RHYTHM - GI/Abdominal Exam GI & Abdominal Exam: Soft - Extremities Exam Extremities Exam: absent: Pedal Edema - Neurological Exam Neurological Exam: Alert, Oriented x3 Assessment and Plan - Assessment and Plan (Free Text) Assessment: a,fib on tele.copd,pneumonia.ct same rx. Plan: cpm.
--- NOTE | 2017-09-26 18:46 | CP.PCM.PN ---
Subjective - Date & Time of Evaluation Date of Evaluation: 09/26/17 Time of Evaluation: 10:00 - Subjective Subjective: improving on IV rx no fever ' less sob Objective - Vital Signs/Intake and Output Vital Signs (last 24 hours): Temp Pulse Resp BP Pulse Ox 97.6 F 81 20 95/54 L 95 09/26/17 15:15 09/26/17 16:00 09/26/17 15:15 09/26/17 15:15 09/26/17 15:15 Intake and Output: 09/26/17 09/26/17 06:59 18:59 Intake Total 450 480 Balance 450 480 - Medications Medications: Current Medications Azithromycin (Zithromax) 500 mg PO DAILY [facility] PRN Reason: Protocol Last Admin: 09/26/17 09:29 Dose: 500 mg Ceftriaxone Sodium 1 gm/ (Sodium Chloride) 100 mls @ 100 mls/hr IVPB Q24H [facility] PRN Reason: Protocol Last Admin: 09/26/17 17:09 Dose: 100 mls/hr Nebivolol (Bystolic) 5 mg PO DAILY [facility] Last Admin: 09/26/17 09:29 Dose: 5 mg Rosuvastatin Calcium (Crestor) 10 mg PO HS [facility] Last Admin: 09/25/17 22:14 Dose: 10 mg - Labs Labs: 09/26/17 08:14 09/26/17 08:14 PT 28.9 SECONDS (9.7-12.2) H 09/23/17 15:08 INR 2.6 09/23/17 15:08 APTT 46 SECONDS (21-34) H 09/23/17 15:08 - Constitutional Appears: Non-toxic, Chronically Ill - Head Exam Head Exam: NORMOCEPHALIC - Eye Exam Eye Exam: PERRL - ENT Exam ENT Exam: Mucous Membranes Dry - Neck Exam Neck Exam: absent: Lymphadenopathy - Respiratory Exam Respiratory Exam: Decreased Breath Sounds - Cardiovascular Exam Cardiovascular Exam: REGULAR RHYTHM - GI/Abdominal Exam GI & Abdominal Exam: Distended - Rectal Exam Rectal Exam: Deferred Assessment and Plan (1) Pleural effusion Status: Acute (2) Pneumonia Status: Acute (3) Breast cancer in female Status: Chronic
[2017-09-27 07:24] LABS: BASO # 0.1 K/uL (0.0-0.2); BASO % 1.7 % (0.0-2.0); EOS # 0.1 K/uL (0.0-0.7); EOS % 1.2 % (0.0-4.0); HEMOGLOBIN 9.4 g/dL (11.0-16.0); LYMPH # 1.1 K/uL (1.0-4.3); LYMPH % 13.8 % (20.0-40.0); MEAN CELL VOLUME 94.7 fL (81.0-99.0); MEAN CORPUSCULAR HEMOGLOBIN 31.4 pg (27.0-31.0); MEAN CORPUSCULAR HGB CONC 33.1 g/dL (33.0-37.0); MEAN PLATELET VOLUME 8.3 fL (7.2-11.7); MONO # 0.7 K/uL (0.0-0.8); MONO % 8.5 % (0.0-10.0); NEUT # 6.2 K/uL (1.8-7.0); NEUT % 74.8 % (50.0-75.0); RBC 2.99 Mil/uL (3.80-5.20); RED CELL DISTRIBUTION WIDTH 19.5 % (11.5-14.5); WHITE BLOOD COUNT 8.3 K/uL (4.8-10.8)
[2017-09-27 08:28] LABS: ALBUMIN 2.5 g/dL (3.5-5.0); ALT/SGPT 26 U/L (9-52); AST/SGOT 25 U/L (14-36); BLOOD UREA NITROGEN 17 mg/dL (7-17); GFR AFRICAN-AMERICAN > 60; GFR NON-AFRICAN AMERICAN > 60
--- NOTE | 2017-09-27 12:33 | CP.PCM.PN ---
Subjective - Date & Time of Evaluation Date of Evaluation: 09/27/17 Time of Evaluation: 12:29 - Subjective Subjective: Pulmonary, Covering Dr. Rosenbaum The patient was Seen and examined by me at the bedside, Events reviewed Patient feeling much better, comfortable, NAD Breathing unlabored, on room air O2 sat 95-100%. Denies any chest pain, SOB or Palpitations Cough improving Afebrile Objective - Vital Signs/Intake and Output Vital Signs (last 24 hours): Temp Pulse Resp BP Pulse Ox 97.5 F L 87 20 145/77 95 09/27/17 07:00 09/27/17 07:00 09/27/17 07:00 09/27/17 07:00 09/27/17 07:00 Intake and Output: 09/27/17 09/27/17 06:59 18:59 Intake Total 540 Output Total 300 Balance 240 - Medications Medications: Current Medications Azithromycin (Zithromax) 500 mg PO DAILY [facility] PRN Reason: Protocol Last Admin: 09/27/17 10:17 Dose: 500 mg Ceftriaxone Sodium 1 gm/ (Sodium Chloride) 100 mls @ 100 mls/hr IVPB Q24H [facility] PRN Reason: Protocol Last Admin: 09/26/17 17:09 Dose: 100 mls/hr Nebivolol (Bystolic) 5 mg PO DAILY [facility] Last Admin: 09/27/17 10:17 Dose: 5 mg Rosuvastatin Calcium (Crestor) 10 mg PO [facility] Last Admin: 09/26/17 21:39 Dose: 10 mg - Labs Labs: 09/27/17 07:19 09/27/17 07:19 PT 28.9 SECONDS (9.7-12.2) H 09/23/17 15:08 INR 2.6 09/23/17 15:08 APTT 46 SECONDS (21-34) H 09/23/17 15:08 - Constitutional Appears: Well, Non-toxic, No Acute Distress, Chronically Ill - Head Exam Head Exam: ATRAUMATIC, NORMAL INSPECTION - Eye Exam Eye Exam: EOMI, Normal appearance Pupil Exam: NORMAL ACCOMODATION, PERRL - ENT Exam ENT Exam: Normal Exam - Neck Exam Neck Exam: Full ROM, Normal Inspection - Respiratory Exam Respiratory Exam: Clear to Ausculation Bilateral, NORMAL BREATHING PATTERN. absent: Accessory Muscle Use, Chest Wall Tenderness, Decreased Breath Sounds - Cardiovascular Exam Cardiovascular Exam: REGULAR RHYTHM, RRR, +S1, +S2. absent: JVD - GI/Abdominal Exam GI & Abdominal Exam: Soft, Normal Bowel Sounds - Extremities Exam Extremities Exam: Full ROM, Normal Capillary Refill, Normal Inspection. absent : Calf Tenderness, Joint Swelling, Pedal Edema - Back Exam Back Exam: absent: CVA tenderness (L), CVA tenderness (R) - Neurological Exam Neurological Exam: Alert, Awake, CN II-XII Intact, Motor Sensory Deficit, Normal Gait, Oriented x3 Assessment and Plan (1) Pneumonia Assessment & Plan: chest x-ray consistent with small left lung infiltrate Patient on azithromycin and clinically improving Continue antibiotics for 10 days Patient refusing antitussive As she feels cough is improving Status: Acute (2) Pleural effusion Status: Acute (3) Anemia Status: Acute (4) Breast cancer in female Status: Chronic
--- NOTE | 2017-09-27 19:06 | CP.PCM.PN ---
Subjective - Date & Time of Evaluation Date of Evaluation: 09/27/17 Time of Evaluation: 19:05 - Subjective Subjective: better,labs & vitla noted. Objective - Vital Signs/Intake and Output Vital Signs (last 24 hours): Temp Pulse Resp BP Pulse Ox 97.6 F 88 18 119/69 96 09/27/17 16:28 09/27/17 16:28 09/27/17 16:28 09/27/17 16:28 09/27/17 16:28 - Medications Medications: Current Medications Azithromycin (Zithromax) 500 mg PO DAILY [facility] PRN Reason: Protocol Last Admin: 09/27/17 10:17 Dose: 500 mg Ceftriaxone Sodium 1 gm/ (Sodium Chloride) 100 mls @ 100 mls/hr IVPB Q24H [facility] PRN Reason: Protocol Last Admin: 09/27/17 15:29 Dose: 100 mls/hr Nebivolol (Bystolic) 5 mg PO DAILY [facility] Last Admin: 09/27/17 10:17 Dose: 5 mg Rosuvastatin Calcium (Crestor) 10 mg PO [facility] Last Admin: 09/26/17 21:39 Dose: 10 mg - Labs Labs: 09/27/17 07:19 09/27/17 07:19 PT 28.9 SECONDS (9.7-12.2) H 09/23/17 15:08 INR 2.6 09/23/17 15:08 APTT 46 SECONDS (21-34) H 09/23/17 15:08 - Constitutional Appears: No Acute Distress, Chronically Ill - Head Exam Head Exam: NORMOCEPHALIC - Eye Exam Eye Exam: Normal appearance - Respiratory Exam Respiratory Exam: Rhonchi - Cardiovascular Exam Cardiovascular Exam: Irregular Rhythm - GI/Abdominal Exam GI & Abdominal Exam: Soft - Extremities Exam Extremities Exam: Pedal Edema - Neurological Exam Neurological Exam: Alert, Oriented x3 Assessment and Plan - Assessment and Plan (Free Text) Assessment: ct iv antibiotics.will transfer to rehab friday
--- NOTE | 2017-09-28 15:12 | CP.PCM.PN ---
Subjective - Date & Time of Evaluation Date of Evaluation: 09/28/17 Time of Evaluation: 08:00 - Subjective Subjective: LESS COUGH NO FEVER DENIESA CHEST PAIN NAD Objective - Vital Signs/Intake and Output Vital Signs (last 24 hours): Temp Pulse Resp BP Pulse Ox 97.7 F 90 20 147/73 96 09/28/17 07:00 09/28/17 07:53 09/28/17 07:00 09/28/17 07:00 09/28/17 07:00 - Medications Medications: Current Medications Azithromycin (Zithromax) 500 mg PO DAILY [facility] PRN Reason: Protocol Last Admin: 09/28/17 09:38 Dose: 500 mg Ceftriaxone Sodium 1 gm/ (Sodium Chloride) 100 mls @ 100 mls/hr IVPB Q24H [facility] PRN Reason: Protocol Last Admin: 09/27/17 15:29 Dose: 100 mls/hr Nebivolol (Bystolic) 5 mg PO DAILY [facility] Last Admin: 09/28/17 09:38 Dose: 5 mg Rosuvastatin Calcium (Crestor) 10 mg PO HS [facility] Last Admin: 09/27/17 21:58 Dose: 10 mg - Labs Labs: 09/27/17 07:19 09/27/17 07:19 PT 28.9 SECONDS (9.7-12.2) H 09/23/17 15:08 INR 2.6 09/23/17 15:08 APTT 46 SECONDS (21-34) H 09/23/17 15:08 - Constitutional Appears: Non-toxic, Chronically Ill - Head Exam Head Exam: NORMOCEPHALIC - Eye Exam Eye Exam: PERRL - ENT Exam ENT Exam: Mucous Membranes Dry - Neck Exam Neck Exam: absent: Lymphadenopathy - Respiratory Exam Respiratory Exam: Decreased Breath Sounds - Cardiovascular Exam Cardiovascular Exam: REGULAR RHYTHM - GI/Abdominal Exam GI & Abdominal Exam: Distended, Soft - Rectal Exam Rectal Exam: Deferred - Extremities Exam Extremities Exam: Pedal Edema - Back Exam Back Exam: absent: CVA tenderness (L), CVA tenderness (R) - Neurological Exam Neurological Exam: Alert, Awake, Oriented x3 Assessment and Plan (1) Pleural effusion Status: Acute (2) Pneumonia Status: Acute (3) Breast cancer in female Status: Chronic - Assessment and Plan (Free Text) Assessment: CONT IV RX ORDERED
[2017-09-29 01:45] VITALS: RESP 20
[2017-09-29 08:33] VITALS: O2SAT 95
--- NOTE | 2017-09-29 11:54 | CP.PCM.PN ---
Subjective - Date & Time of Evaluation Date of Evaluation: 09/29/17 Time of Evaluation: 09:00 - Subjective Subjective: improving on IV rx for d/c to SNF on IV rx Objective - Vital Signs/Intake and Output Vital Signs (last 24 hours): Temp Pulse Resp BP Pulse Ox 98 F 106 H 20 128/62 95 09/29/17 08:31 09/29/17 08:39 09/29/17 08:31 09/29/17 08:31 09/29/17 08:31 Intake and Output: 09/29/17 09/29/17 06:59 18:59 Intake Total 120 Balance 120 - Medications Medications: Current Medications Ceftriaxone Sodium 1 gm/ (Sodium Chloride) 100 mls @ 100 mls/hr IVPB Q24H [facility] PRN Reason: Protocol Last Admin: 09/28/17 16:02 Dose: 100 mls/hr Nebivolol (Bystolic) 5 mg PO DAILY [facility] Last Admin: 09/29/17 09:52 Dose: 5 mg Rosuvastatin Calcium (Crestor) 10 mg PO HS [facility] Last Admin: 09/28/17 21:14 Dose: 10 mg - Labs Labs: 09/27/17 07:19 09/27/17 07:19 PT 28.9 SECONDS (9.7-12.2) H 09/23/17 15:08 INR 2.6 09/23/17 15:08 APTT 46 SECONDS (21-34) H 09/23/17 15:08 - Constitutional Appears: Non-toxic, Chronically Ill - Head Exam Head Exam: NORMOCEPHALIC - Eye Exam Eye Exam: PERRL - ENT Exam ENT Exam: Mucous Membranes Dry - Neck Exam Neck Exam: absent: Lymphadenopathy - Respiratory Exam Respiratory Exam: Decreased Breath Sounds - Cardiovascular Exam Cardiovascular Exam: REGULAR RHYTHM - GI/Abdominal Exam GI & Abdominal Exam: Distended - Rectal Exam Rectal Exam: Deferred - Exam Exam: NORMAL INSPECTION Assessment and Plan (1) Pleural effusion Status: Acute (2) Pneumonia Status: Acute (3) Breast cancer in female Status: Chronic
[2017-09-29 13:05] LABS: BASO # 0.2 K/uL (0.0-0.2); BASO % 1.8 % (0.0-2.0); EOS # 0.1 K/uL (0.0-0.7); EOS % 0.9 % (0.0-4.0); HEMOGLOBIN 9.6 g/dL (11.0-16.0); LYMPH % 11.2 % (20.0-40.0); MEAN CORPUSCULAR HEMOGLOBIN 31.3 pg (27.0-31.0); MEAN PLATELET VOLUME 8.5 fL (7.2-11.7); MONO # 0.7 K/uL (0.0-0.8); MONO % 8.4 % (0.0-10.0); NEUT # 6.7 K/uL (1.8-7.0); NEUT % 77.7 % (50.0-75.0); RBC 3.08 Mil/uL (3.80-5.20); RED CELL DISTRIBUTION WIDTH 19.5 % (11.5-14.5); WHITE BLOOD COUNT 8.6 K/uL (4.8-10.8)
[2017-09-29 13:17] LABS: BLOOD UREA NITROGEN 14 mg/dL (7-17); CALCIUM 8.3 mg/dl (8.6-10.4); GFR AFRICAN-AMERICAN > 60; GFR NON-AFRICAN AMERICAN > 60
[2017-09-29 16:05] VITALS: BP 115/67; PULSE 75; TEMP 97.3
--- NOTE | 2017-09-29 16:55 | CP.PCM.PN ---
Subjective - Date & Time of Evaluation Date of Evaluation: 09/29/17 Time of Evaluation: 12:00 - Subjective Subjective: Patient seen today, states feels better, sob and cough improved ,denies any abdominal pain N/V/.D a febrile hgb - improved - 9.6>8.3>7.7 Objective - Vital Signs/Intake and Output Vital Signs (last 24 hours): Temp Pulse Resp BP Pulse Ox 97.3 F L 75 20 115/67 95 09/29/17 15:40 09/29/17 15:40 09/29/17 15:40 09/29/17 15:40 09/29/17 15:40 Intake and Output: 09/29/17 09/29/17 06:59 18:59 Intake Total 120 Balance 120 - Medications Medications: Current Medications Ceftriaxone Sodium 1 gm/ (Sodium Chloride) 100 mls @ 100 mls/hr IVPB Q24H [facility] PRN Reason: Protocol Last Admin: 09/29/17 16:08 Dose: 100 mls/hr Nebivolol (Bystolic) 5 mg PO DAILY [facility] Last Admin: 09/29/17 09:52 Dose: 5 mg Rosuvastatin Calcium (Crestor) 10 mg PO HS [facility] Last Admin: 09/28/17 21:14 Dose: 10 mg - Labs Labs: 09/29/17 12:58 09/29/17 12:58 PT 28.9 SECONDS (9.7-12.2) H 09/23/17 15:08 INR 2.6 09/23/17 15:08 APTT 46 SECONDS (21-34) H 09/23/17 15:08 - Constitutional Appears: Well, No Acute Distress - Respiratory Exam Respiratory Exam: Decreased Breath Sounds, NORMAL BREATHING PATTERN - Cardiovascular Exam Cardiovascular Exam: Irregular Rhythm - Neurological Exam Neurological Exam: Alert, Awake, Oriented x3 Assessment and Plan - Assessment and Plan (Free Text) Assessment: A/P 72 yr old female with pmhx of R breast cancer s/p mastectomy ,CAD, HTN, Hypercholesterolemia admitted with weakness and found to have a hgb of 7.7 s/p PRBC transfusion and hgb - UTI - on rocephin iv Patient accepted to [facility] at [facility], and pt in agreement D/w Dr. Hernandez, recommends to continue 1 more weeks of rocephin and cleared from ID standpoint D/w Dr. Johnston, stable for discharge to [facility] today under Dr. Adame service will repeat labs at [facility]
--- NOTE | 2017-09-30 09:19 | DS ---
Transfer summary to rehab. The patient was admitted on 09/23/2017. She was found to be anemic. She needed transfusion. She has a history of breast cancer. She also has a history of AFib, and she has been on Xarelto. The patient was admitted. Transfusions were given. The patient was seen by pulmonary change management consultant, Dr. Rosenbaum, because of pneumonia. The patient had diffuse coughing and wheezing. She was given azithromycin and continue with Bystolic along with Crestor. Heart rate has been stable. She has a left lower lobe infiltrate. She is currently stable and to be transferred to rehab, to be followed up with Dr. Adame. FINAL DIAGNOSES: Left lower lobe infiltrate, atrial fibrillation, and hypertension. James Johnston MD
== END 2017-09-29 18:34 | DRG 811 ==
LOC: C.ER 13:38 → C.9E 16:02 → C.6T 18:27 → OBSVTOIN 09-25 13:40 → C.6T 09-26 10:33
PROVIDERS: ADMIT Internal Medicine Cardiovascular Disease; ATTEND Internal Medicine Cardiovascular Disease
DX: D64.89 Other specified anemias (principal); J18.9 Pneumonia, unspecified organism; J44.0 Chronic obstructive pulmonary disease with (acute) lower respiratory infection; J90 Pleural effusion, not elsewhere classified; N39.0 Urinary tract infection, site not specified; D63.0 Anemia in neoplastic disease; E87.6 Hypokalemia; E86.0 Dehydration; F17.210 Nicotine dependence, cigarettes, uncomplicated; I10 Essential (primary) hypertension; I25.10 Atherosclerotic heart disease of native coronary artery without angina pectoris; I48.91 Unspecified atrial fibrillation; Z79.01 Long term (current) use of anticoagulants; Z85.3 Personal history of malignant neoplasm of breast; Z90.10 Acquired absence of unspecified breast and nipple

== ENCOUNTER 2017-12-11 11:18 | Inpatient (IN) | payer MEDICARE, BC ==
[2017-12-11] MEDS ORDERED: Sodium Chloride 0.9% 1,000 ML IV ONE ×3 (12:13→15:11)
--- NOTE | 2017-12-11 12:16 | C.PDOC ---
History Of Present Illness 72 y/o female, w/PMhx of right breast cancer, HTN, atrial fibrillation, and lymphedema, brought to ER by BLS s/p fall in her home today. Patient states that she felt weak and she collapsed. Patient reports that she called her son to get her a chair but he was not able to get a chair on time. Denies having head trauma, LOC, and headache. Of note, patient states that she injured her right arm a few months ago and she is not able to lift her arm. Chief Complaint (Nursing): Weakness/Neurological Deficit History Per: Patient History/Exam Limitations: no limitations Onset/Duration Of Symptoms: Hrs Current Symptoms Are (Timing): Still Present Severity: Moderate Past Medical History Reviewed: Historical Data, Nursing Documentation, Vital Signs Vital Signs: Last Vital Signs Temp 99.2 F 12/17/17 07:50 Pulse 95 H 12/17/17 07:50 Resp 20 12/17/17 07:50 BP 92/58 L 12/17/17 07:50 Pulse Ox 100 12/17/17 10:10 - Medical History PMH: CAD, HTN, Hypercholesterolemia Family History: States: No Known Family Hx - Social History Hx Tobacco Use: Yes Hx Alcohol Use: No Hx Substance Use: No - Immunization History Hx Tetanus Toxoid Vaccination: No Hx Influenza Vaccination: No Hx Pneumococcal Vaccination: No Review Of Systems Except As Marked, All Systems Reviewed And Found Negative. Constitutional: Positive for: Weakness. Negative for: Fever, Chills Neurological: Negative for: Headache Physical Exam - Physical Exam Appears: Non-toxic, No Acute Distress Skin: Normal Color, Warm, Dry Head: Atraumatic, Normacephalic Eye(s): bilateral: Normal Inspection Nose: Normal Oral Mucosa: Moist Neck: Supple Chest: Symmetrical Cardiovascular: Rhythm Regular Respiratory: Normal Breath Sounds, No Rales, No Rhonchi, No Wheezing Gastrointestinal/Abdominal: Normal Exam, Soft, No Tenderness, No Guarding, No Rebound Extremity: No Normal ROM (right arm: decreased ROM) Neurological/Psych: Oriented x3, Normal Speech ED Course And Treatment - Laboratory Results Result Diagrams: 12/16/17 07:07 12/16/17 07:07 ECG: Interpreted By Me, Viewed By Me ECG Rhythm: Atrial Fibrillation Interpretation Of ECG: Atrial Fibrillation with rapid ventricular response and normal axises Rate From EC O2 Sat by Pulse Oximetry: 100 (RA) Pulse Ox Interpretation: Normal Medical Decision Making Medical Decision Making: Impression: Right Breast Cancer, AFib with RVR Plan: --Labs --CXR --Cardizem IV --IV Fluids Updates: 13:36 Labs show WBC of 33 which causes concern for possible sepsis. Lactic acid test , Blood Culture, UA, and Urine Culture will be ordered. Patient will be treated with Vancomycin and Zosyn. Case discussed with who recommends consulting with and admitting patient to . Disposition - Disposition Disposition: HOSPITALIZED Disposition Time: 15:10 Condition: SERIOUS - POA Core Measure Indicators: Code Sepsis - Clinical Impression Clinical Impression: Sepsis, Rapid atrial fibrillation - Scribe Statement The provider has reviewed the documentation as recorded by the Scribe Margarita Castano Provider Attestation: All medical record entries made by the Scribe were at my direction and personally dictated by me. I have reviewed the chart and agree that the record accurately reflects my personal performance of the history, physical exam, medical decision making, and the department course for this patient. I have also personally directed, reviewed, and agree with the discharge instructions and disposition.
[2017-12-11 12:30] LABS: BASO # 0.2 K/uL (0.0-0.2); BASO % 0.7 % (0.0-2.0); EOS # 0.2 K/uL (0.0-0.7); EOS % 0.5 % (0.0-4.0); HEMOGLOBIN 10.1 g/dL (11.0-16.0); LYMPH # 0.4 K/uL (1.0-4.3); LYMPH % 1.2 % (20.0-40.0); MEAN CORPUSCULAR HEMOGLOBIN 30.1 pg (27.0-31.0); MEAN CORPUSCULAR HGB CONC 33.5 g/dL (33.0-37.0); MONO % 2.9 % (0.0-10.0); NEUT # 31.5 K/uL (1.8-7.0); NEUT % 94.7 % (50.0-75.0); RBC 3.35 Mil/uL (3.80-5.20); RED CELL DISTRIBUTION WIDTH 14.5 % (11.5-14.5)
[2017-12-11 12:40] LABS: ALBUMIN 2.9 g/dL (3.5-5.0); ALT/SGPT 29 U/L (9-52); AST/SGOT 28 U/L (14-36); BLOOD UREA NITROGEN 14 mg/dL (7-17); CALCIUM 9.1 mg/dl (8.6-10.4); GFR NON-AFRICAN AMERICAN > 60
[2017-12-11 12:42] LABS: MEAN CELL VOLUME 89.7 fL (81.0-99.0); PLATELET COUNT 327 K/uL (130-400); WHITE BLOOD COUNT 33.3 K/uL (4.8-10.8)
--- NOTE | 2017-12-11 12:42 | RAD ---
Date of service: 12/11/2017 HISTORY: collapsed COMPARISON: Chest radiograph dated 09/23/2017. FINDINGS: LUNGS: No active pulmonary disease. PLEURA: No significant pleural effusion identified, no pneumothorax apparent. CARDIOVASCULAR: Atherosclerotic aortic calcifications. Cardiomediastinal silhouette stably enlarged. OSSEOUS STRUCTURES: Unchanged. VISUALIZED UPPER ABDOMEN: Normal. OTHER FINDINGS: Right subclavian access chest port, unchanged. IMPRESSION: No active disease.
[2017-12-11 13:26] LABS: ANISOCYTOSIS SLIGHT; BANDS 1 % (0-2); HYPOCHROMIC SLIGHT; LYMPHOCYTE 2 % (20-40); MONOCYTE 2 % (0-10); NEUTROPHIL 95 % (50-75); PLATELET ESTIMATE NORMAL (NORMAL); POIKILOCYTOSIS SLIGHT; TOTAL CELLS COUNTED 100; TOXIC GRANULATION PRESENT
[2017-12-11 13:28] LABS: OVALOCYTES SLIGHT; TARGET CELLS SLIGHT
[2017-12-11] MEDS ORDERED: Piperacillin/Tazobact 3.375 GM in Sodium Chloride 100 ML IVPB ONE (13:35)
[2017-12-11 13:47] LABS: VENOUS BLOOD GAS PCO2 36 mmHg (40-60); VENOUS BLOOD GAS PO2 22 mm/Hg (30-55); VENOUS BLOOD PH 7.46 (7.32-7.43)
[2017-12-11] MEDS ORDERED: Vancomycin 1 gm/NS 200 ml 1 GM/200 ML BAG IVPB STA (13:47)
[2017-12-11] MEDS ORDERED: Piperacillin/Tazobact 3.375 gm 100 ML IVPB ONE (14:01)
[2017-12-11] MEDS ORDERED: Potassium Chloride 20 mEq ER Tab PO ONE (14:16)
[2017-12-11 14:19] LABS: SQUAMOUS EPITHIAL 117 /hpf (0-5); URINE BACTERIA MOD (<OCC); URINE BILIRUBIN NEGATIVE (NEGATIVE); URINE BLOOD 1+ (NEGATIVE); URINE CLARITY Turbid (Clear); URINE COLOR Amber (YELLOW); URINE GLUCOSE (UA) NORMAL (Normal); URINE LEUKOCYTE ESTERASE 3+ Leu/uL (Negative); URINE PROTEIN 1+ mg/dL (NEGATIVE); URINE UROBILINOGEN NORMAL mg/dL (0.2-1.0)
[2017-12-11] MEDS ORDERED: Magnesium Sulfate 1 gm in D5W 1 GM/100 ML BAG IVPB ONE ×2 (15:07→15:59)
[2017-12-11] MEDS: Piperacillin/Tazobact 3.375 GM in Sodium Chloride 100 ML IVPB SCH ×2 (15:15→21:03)
[2017-12-11] MEDS ORDERED: Iohexol 240 (50 ml) ONE (15:22)
--- NOTE | 2017-12-11 15:29 | CP.PCM.CON ---
<Jerry Bowman - Last Filed: 12/11/17 18:47> History of Present Illness - History of Present Illness History of Present Illness: ICU consult note CC "fell, diarrhea, weakness, chills" HPI: Patient is a 72 year old female with history of Afib currently on Xarelto, breast cancer treated with chemo who was brought in after patient reportedly fell while walking with a walker. She states her legs gave out because they felt weak and heavy. She denies hitting her head, denies feeling dizzy. She states she has had some diarrhea recently, her last bowel movement was 2 days ago. She states she has had no appetite and has not been eating well. She admits to recent chills, however denies fever, chest pain, shortness of breath, dysuria. She states she had took no medications prior to feeling weak today. She last took Xarelto last night. She last had chemo in September, she received 7 treatments and had 5 treatments left. As per patient, her oncologist chose to stop chemotherapy due to right axillary lymphedema. She is scheduled to start radiation soon. She was recently hospitalized here in September 2017 was admitted for weakness. During her prior admission, she was found to be anemic, received transfusions and was treated for left lower lobe pneumonia. She was discharged to rehab at [facility] afterward. PMD: Dr. James Johnston Oncologist: Dr. Mosley Patient's healthcare Proxy Donya . PMH: A fib, breast cancer last chemo on September, HTN, HLD PSH: tonsillectomy, right breast mastectomy, mara cath Social history: Lives at home with her son aged 42 who has mental illness. Former smoked 1ppd (smoked from age of 18, quit last January 2017) denies alcohol or drug use. Family history: CAD and DM Meds: Xarelto, Crestor, bystolic intermittently Allergies: codeine Review of Systems - Constitutional Constitutional: Chills, Weakness. absent: Fever, Increased Appetite - Cardiovascular Cardiovascular: absent: Chest Pain, Dyspnea, Palpitations - Respiratory Respiratory: absent: Cough, Dyspnea - Gastrointestinal Gastrointestinal: Diarrhea, Loose Stools. absent: Abdominal Pain, Nausea, Vomiting - Genitourinary Genitourinary: absent: Dysuria, Urinary Incontinence - Neurological Neurological: absent: Dizziness Past Patient History - Past Social History Smoking Status: Former Smoker - CARDIAC Hx Hypercholesterolemia: Yes Hx Hypertension: Yes - HEMATOLOGICAL/ONCOLOGICAL Hx Cancer: Yes (right breast) - MUSCULOSKELETAL/RHEUMATOLOGICAL Hx Falls: No - PSYCHIATRIC Hx Substance Use: No - SURGICAL HISTORY Hx Mastectomy: Yes (right) Other/Comment: port-a-cath Meds Allergies/Adverse Reactions: Allergies Allergy/AdvReac Type Severity Reaction Status Date / Time codeine AdvReac Verified 12/11/17 11:32 - Medications Medications: Current Medications Magnesium Sulfate/Dextrose (Magnesium Sulfate 1 Gm/100 Ml D5w) 1 gm in 100 mls @ 200 mls/hr IVPB ONCE ONE Stop: 12/11/17 15:36 Sodium Chloride (Sodium Chloride 0.9%) 1,000 mls @ 1,000 mls/hr IV .Q1H ONE Stop: 12/11/17 16:10 Last Admin: 12/11/17 15:14 Dose: 1,000 mls/hr Piperacillin Sod/Tazobactam (Sod 3.375 gm/ Sodium Chloride) 100 mls @ 200 mls/ hr IVPB Q6H [facility] PRN Reason: Protocol Last Admin: 12/11/17 15:15 Dose: Not Given Potassium Chloride (K-Dur 20 Meq Er Tab) 40 meq PO DAILY [facility] Verapamil HCl (Calan Sr Tab) 120 mg PO DAILY [facility] Physical Exam - Constitutional Appears: Chronically Ill - Head Exam Head Exam: ATRAUMATIC, NORMOCEPHALIC - Eye Exam Eye Exam: EOMI, PERRL. absent: Conjunctival injection, Scleral icterus Pupil Exam: PERRL - ENT Exam ENT Exam: Mucous Membranes Dry - Neck Exam Neck exam: Negative for: Lymphadenopathy - Respiratory Exam Respiratory Exam: Decreased Breath Sounds. absent: Rales, Rhonchi, Wheezes, Respiratory Distress, Stridor Additional comments: Lymphedema noted to right anterior axillary region extending into axilla with erythema, edema and warmth - Cardiovascular Exam Cardiovascular Exam: Irregular Rhythm, +S1, +S2 Additional comments: Right mara cath - GI/Abdominal Exam GI & Abdominal Exam: Normal Bowel Sounds, Soft. absent: Distended, Firm, Guarding, Tenderness - Extremities Exam Extremities exam: Positive for: pedal edema, pedal pulses present (2+ dorsalis pedis pulses present bilaterally. ). Negative for: calf tenderness - Back Exam Back exam: absent: CVA tenderness (L), CVA tenderness (R), rash noted, vertebral tenderness - Neurological Exam Neurological exam: Alert, Oriented x3 - Psychiatric Exam Psychiatric exam: Normal Affect, Normal Mood - Skin Skin Exam: Dry, Intact, Warm Results - Vital Signs Recent Vital Signs: Last Vital Signs Temp 99.6 F 12/11/17 12:56 Pulse 99 H 12/11/17 14:48 Resp 20 12/11/17 14:48 BP 82/45 L 12/11/17 14:48 Pulse Ox 100 12/11/17 13:50 - Labs Result Diagrams: 12/11/17 12:24 12/11/17 12:24 Labs: Laboratory Results - last 24 hr 12/11/17 12/11/17 12/11/17 12:24 12:24 13:42 WBC 33.3 H D RBC 3.35 L Hgb 10.1 L Hct 30.0 L MCV 89.7 D MCH 30.1 MCHC 33.5 RDW 14.5 Plt Count 327 D MPV 8.0 Neut % (Auto) 94.7 H Lymph % (Auto) 1.2 L Mccracken % (Auto) 2.9 Eos % (Auto) 0.5 Baso % (Auto) 0.7 Neut # (Auto) 31.5 H Lymph # (Auto) 0.4 L Mccracken # (Auto) 1.0 H Eos # (Auto) 0.2 Baso # (Auto) 0.2 Neutrophils % (Manual) 95 H Band Neutrophils % 1 Lymphocytes % (Manual) 2 L Monocytes % (Manual) 2 Toxic Granulation Present Platelet Estimate Normal Hypochromasia (manual) Slight Poikilocytosis (manual Slight Anisocytosis (manual) Slight Target Cells Slight Ovalocytes Slight pO2 22 L VBG pH 7.46 H VBG pCO2 36 L VBG HCO3 25.0 VBG Total CO2 26.7 VBG O2 Sat (Calc) 42.0 VBG Base Excess 2.0 VBG Potassium 3.2 L Glucose 120 H Lactate 3.7 H Sodium 130 L 129.0 L Potassium 3.0 L Chloride 93 L 97.0 L Carbon Dioxide 26 Anion Gap 15 BUN 14 Creatinine 0.9 Est GFR ( Amer) > 60 Est GFR (Non-Af Amer) > 60 Random Glucose 126 H Calcium 9.1 Phosphorus 2.8 Magnesium 1.3 L Total Bilirubin 0.9 AST 28 ALT 29 Alkaline Phosphatase 92 Troponin I < 0.0120 Total Protein 5.7 L Albumin 2.9 L Globulin 2.9 Albumin/Globulin Ratio 1.0 Venous Blood Potassium 3.2 L Urine Color Urine Clarity Urine pH Ur Specific Caney Urine Protein Urine Glucose (UA) Urine Ketones Urine Blood Urine Nitrate Urine Bilirubin Urine Urobilinogen Ur Leukocyte Esterase Urine WBC (Auto) Urine RBC (Auto) Ur Squamous Epith Cells Urine Bacteria 12/11/17 13:57 WBC RBC Hgb Hct MCV MCH MCHC RDW Plt Count MPV Neut % (Auto) Lymph % (Auto) Mccracken % (Auto) Eos % (Auto) Baso % (Auto) Neut # (Auto) Lymph # (Auto) Mccracken # (Auto) Eos # (Auto) Baso # (Auto) Neutrophils % (Manual) Band Neutrophils % Lymphocytes % (Manual) Monocytes % (Manual) Toxic Granulation Platelet Estimate Hypochromasia (manual) Poikilocytosis (manual Anisocytosis (manual) Target Cells Ovalocytes pO2 VBG pH VBG pCO2 VBG HCO3 VBG Total CO2 VBG O2 Sat (Calc) VBG Base Excess VBG Potassium Glucose Lactate Sodium Potassium Chloride Carbon Dioxide Anion Gap BUN Creatinine Est GFR ( Amer) Est GFR (Non-Af Amer) Random Glucose Calcium Phosphorus Magnesium Total Bilirubin AST ALT Alkaline Phosphatase Troponin I Total Protein Albumin Globulin Albumin/Globulin Ratio Venous Blood Potassium Urine Color Jolene Urine Clarity Turbid Urine pH 5.0 Ur Specific Caney 1.011 Urine Protein 1+ H Urine Glucose (UA) Normal Urine Ketones Negative Urine Blood 1+ H Urine Nitrate Negative Urine Bilirubin Negative Urine Urobilinogen Normal Ur Leukocyte Esterase 3+ H Urine WBC (Auto) 248 H Urine RBC (Auto) 14 H Ur Squamous Epith Cells 117 H Urine Bacteria Mod H Assessment & Plan - Assessment and Plan (Free Text) Assessment: 72 year old female with history of breast cancer s/p right mastectomy with lymphedema, A fib on [facility] who was presented with fall, generalized weakness, diarrhea and chills. Patient was found to be hypotensive despite IV fluids. CT of chest/abd/pelvis revealed large right breast mass vs. axillary lymph node measuring 8.6x6.6cm with numerous lymph nodes and bilateral pulmonary nodules, consistent with metastatic disease. Plan: Neuro: Alert and oriented x3 12/[address] No acute intracranial pathology. Cardiovascular EKG: A fib at 137. In ED, Cardizem 15mg IVP Hypotensive 84/38, despite 3L IV fluids Hx of A fib, hold Xarelto Currently rate controlled in 90s proBNP 6800 Troponin <0.0120 Crestor 10mg PO HS Verapamil 120mg PO daily [employer] Dr. James Johnston consulted, help appreciated Pulmonary On O2 via NC 12/11 CXR: no active disease 12/11 CT chest/abd/pelvis without contrast No abscess in the chest, abdomen or pelvis.Large right breast mass versus axillary node measuring 8.6 by 6.6 cm. Numerous right axillary, subpectoral and left hilar lymph nodes. Bilateral pulmonary nodules. These are consistent with metastatic disease.Patchy sclerosis in the right anterior 7th rib and inferior T11 vertebral body which may represent metastatic disease. GI Continue to monitor BMs F/u C diff studies 12/11 CT chest/abd/pelvis without contrast No abscess in the chest, abdomen or pelvis.Large right breast mass versus axillary node measuring 8.6 by 6.6 cm. Numerous right axillary, subpectoral and left hilar lymph nodes. Bilateral pulmonary nodules. These are consistent with metastatic disease.Patchy sclerosis in the right anterior 7th rib and inferior T11 vertebral body which may represent metastatic disease. ID Zosyn 3.375g IV, Vanco 1g IV x1 given in ED. WBC 33.3 Lactate 3.7 Zosyn 3.375g IV Q6 Vanco 1g IV Q12 UA 3+ leuk esterase, moderate bacteria, no nitrates, 1+ protein, 1+ blood Consider mara cath as source of infection Blood culture and urine culture sent Procalcitonin f/u ID Dr. Hernandez consulted, help appreciated Renal: BUN 14/Cr 0.9 UA 3+ leuk esterase, moderate bacteria, no nitrates, 1+ protein, 1+ blood Strict I & Os Continue to monitor electrolytes, Mag, K repleted Endo: Continue to maintain euglycemia monitor accuchecks Heme/Onc: Hb 10.1/Hct 30.0 Heme/Onc Dr. Mosley consulted, help appreciated. Palliative care consulted, help appreciated PPX: Protonix 40mg IV. Heparin not given at this time. Social: Health care proxy form signed. Palliative care consulted. Case discussed with Dr. Rhonda Jeff <Rhonda Jeff - Last Filed: 12/11/17 19:35> Meds - Medications Medications: Current Medications Piperacillin Sod/Tazobactam (Sod 3.375 gm/ Sodium Chloride) 100 mls @ 200 mls/ hr IVPB Q6H [facility] PRN Reason: Protocol Last Admin: 12/11/17 15:15 Dose: Not Given Vancomycin HCl 1 gm/ Sodium (Chloride) 200 mls @ 166.6 mls/hr IVPB Q12H [facility] PRN Reason: Protocol Sodium Chloride (Sodium Chloride 0.9%) 1,000 mls @ 42 mls/hr [id number] Last Admin: 12/11/17 17:54 Dose: Not Given Metronidazole (Flagyl) 500 mg in 100 mls @ 100 mls/hr IVPB Q8H [facility] PRN Reason: Protocol Last Admin: 12/11/17 19:05 Dose: 100 mls/hr Cefepime HCl (Maxipime Iv 2 Gm Premix) 2 gm in 100 mls @ 100 mls/hr IVPB Q8H [facility] PRN Reason: Protocol Stop: 12/16/17 19:01 Last Admin: 12/11/17 19:10 Dose: 100 mls/hr Pantoprazole Sodium (Protonix Inj) 40 mg [facility]P [facility] Rosuvastatin Calcium (Crestor) 10 mg PO HS [facility] Verapamil HCl (Calan Sr Tab) 120 mg PO [facility] Last Admin: 12/11/17 15:32 Dose: 120 mg Results - Vital Signs Recent Vital Signs: Last Vital Signs Temp 98.3 F 12/11/17 17:00 Pulse 63 12/11/17 19:20 Resp 20 12/11/17 19:20 BP 83/45 L 12/11/17 19:09 Pulse Ox 99 12/11/17 19:20 - Labs Result Diagrams: 12/11/17 12:24 12/11/17 12:24 Labs: Laboratory Results - last 24 hr 12/11/17 12/11/17 12/11/17 12:24 12:24 13:42 WBC 33.3 H D RBC 3.35 L Hgb 10.1 L Hct 30.0 L MCV 89.7 D MCH 30.1 MCHC 33.5 RDW 14.5 Plt Count 327 D MPV 8.0 Neut % (Auto) 94.7 H Lymph % (Auto) 1.2 L Mccracken % (Auto) 2.9 Eos % (Auto) 0.5 Baso % (Auto) 0.7 Neut # (Auto) 31.5 H Lymph # (Auto) 0.4 L Mccracken # (Auto) 1.0 H Eos # (Auto) 0.2 Baso # (Auto) 0.2 Neutrophils % (Manual) 95 H Band Neutrophils % 1 Lymphocytes % (Manual) 2 L Monocytes % (Manual) 2 Toxic Granulation Present Platelet Estimate Normal Hypochromasia (manual) Slight Poikilocytosis (manual Slight Anisocytosis (manual) Slight Target Cells Slight Ovalocytes Slight pO2 22 L VBG pH 7.46 H VBG pCO2 36 L VBG HCO3 25.0 VBG Total CO2 26.7 VBG O2 Sat (Calc) 42.0 VBG Base Excess 2.0 VBG Potassium 3.2 L Glucose 120 H Lactate 3.7 H Sodium 130 L 129.0 L Potassium 3.0 L Chloride 93 L 97.0 L Carbon Dioxide 26 Anion Gap 15 BUN 14 Creatinine 0.9 Est GFR ( Amer) > 60 Est GFR (Non-Af Amer) > 60 Random Glucose 126 H Lactic Acid Calcium 9.1 Phosphorus 2.8 Magnesium 1.3 L Total Bilirubin 0.9 AST 28 ALT 29 Alkaline Phosphatase 92 Troponin I < 0.0120 NT-Pro-B Natriuret Pep Total Protein 5.7 L Albumin 2.9 L Globulin 2.9 Albumin/Globulin Ratio 1.0 Procalcitonin Venous Blood Potassium 3.2 L Urine Color Urine Clarity Urine pH Ur Specific Caney Urine Protein Urine Glucose (UA) Urine Ketones Urine Blood Urine Nitrate Urine Bilirubin Urine Urobilinogen Ur Leukocyte Esterase Urine WBC (Auto) Urine RBC (Auto) Ur Squamous Epith Cells Urine Bacteria 12/11/17 12/11/17 12/11/17 13:57 15:43 15:55 WBC RBC Hgb Hct MCV MCH MCHC RDW Plt Count MPV Neut % (Auto) Lymph % (Auto) Mccracken % (Auto) Eos % (Auto) Baso % (Auto) Neut # (Auto) Lymph # (Auto) Mccracken # (Auto) Eos # (Auto) Baso # (Auto) Neutrophils % (Manual) Band Neutrophils % Lymphocytes % (Manual) Monocytes % (Manual) Toxic Granulation Platelet Estimate Hypochromasia (manual) Poikilocytosis (manual Anisocytosis (manual) Target Cells Ovalocytes pO2 VBG pH VBG pCO2 VBG HCO3 VBG Total CO2 VBG O2 Sat (Calc) VBG Base Excess VBG Potassium Glucose Lactate Sodium Potassium Chloride Carbon Dioxide Anion Gap BUN Creatinine Est GFR ( Amer) Est GFR (Non-Af Amer) Random Glucose Lactic Acid Calcium Phosphorus Magnesium Total Bilirubin AST ALT Alkaline Phosphatase Troponin I NT-Pro-B Natriuret Pep 6800 H Total Protein Albumin Globulin Albumin/Globulin Ratio Procalcitonin 1.69 H Venous Blood Potassium Urine Color Jolene Urine Clarity Turbid Urine pH 5.0 Ur Specific Caney 1.011 Urine Protein 1+ H Urine Glucose (UA) Normal Urine Ketones Negative Urine Blood 1+ H Urine Nitrate Negative Urine Bilirubin Negative Urine Urobilinogen Normal Ur Leukocyte Esterase 3+ H Urine WBC (Auto) 248 H Urine RBC (Auto) 14 H Ur Squamous Epith Cells 117 H Urine Bacteria Mod H 12/11/17 12/11/17 12/11/17 15:55 16:05 18:49 WBC RBC Hgb Hct MCV MCH MCHC RDW Plt Count MPV Neut % (Auto) Lymph % (Auto) Mccracken % (Auto) Eos % (Auto) Baso % (Auto) Neut # (Auto) Lymph # (Auto) Mccracken # (Auto) Eos # (Auto) Baso # (Auto) Neutrophils % (Manual) Band Neutrophils % Lymphocytes % (Manual) Monocytes % (Manual) Toxic Granulation Platelet Estimate Hypochromasia (manual) Poikilocytosis (manual Anisocytosis (manual) Target Cells Ovalocytes pO2 24 L VBG pH 7.40 VBG pCO2 41 VBG HCO3 23.8 VBG Total CO2 26.7 VBG O2 Sat (Calc) 43.0 VBG Base Excess 0.5 VBG Potassium 2.6 L Glucose 116 H Lactate 1.4 Sodium 131.0 L Potassium Chloride 101.0 Carbon Dioxide Anion Gap BUN Creatinine Est GFR ( Amer) Est GFR (Non-Af Amer) Random Glucose Lactic Acid 1.3 1.1 Calcium Phosphorus Magnesium Total Bilirubin AST ALT Alkaline Phosphatase Troponin I NT-Pro-B Natriuret Pep Total Protein Albumin Globulin Albumin/Globulin Ratio Procalcitonin Venous Blood Potassium 2.6 L Urine Color Urine Clarity Urine pH Ur Specific Caney Urine Protein Urine Glucose (UA) Urine Ketones Urine Blood Urine Nitrate Urine Bilirubin Urine Urobilinogen Ur Leukocyte Esterase Urine WBC (Auto) Urine RBC (Auto) Ur Squamous Epith Cells Urine Bacteria Assessment & Plan - Assessment and Plan (Free Text) Plan: Patinet seen and examined at bedside. Patient has h/o A-fib on NOAC. Patient has h/o metastatic breast ca with mets to lung. Patient admitted to [facility] for failure to thrive, generalized weakness dx with sepsis and hypotension/septic shock -Septic shock: suspect source urine, continue IVF, obtain CT abd/pelvis, r/o pylo, serial lactic, broad spectrum abx, id follow up -A-fib: rate controlled with varapamil, hold AC until retroperitonal bleeding ruled out -metastatic breast ca: poor prognosis, 2nd mets to lungs, obtain palliative and heme.onc eval -dvt ppx: scds/took NOAC today -pud ppx pepcid -Patient will benefit from ICU level care until etiology of weaknes sidentified. cc time 35 minutes - Date & Time Date: 12/11/17 Time: 19:35
[2017-12-11] MEDS: Verapamil 120 mg ER Tab PO SCH (15:32)
[2017-12-11 16:08] LABS: VENOUS BLOOD GAS BASE EXCESS 0.5 mmol/L (0.0-2.0); VENOUS BLOOD GAS PCO2 41 mmHg (40-60); VENOUS BLOOD GAS PO2 24 mm/Hg (30-55)
--- NOTE | 2017-12-11 16:52 | PCM.SEPTIC ---
<Jerry Bowman - Last Filed: 12/11/17 17:55> Sepsis Progress Note - Reassessment Type Date of Evaluation: 12/11/17 Reassessment Type: Non-invasive reassessment - Non Invasive Reassessment Were the most recent vital sign reviewed: Yes Vital Sign (Latest): Temp Pulse Resp BP Pulse Ox 98.2 F 81 20 86/44 L 99 12/11/17 15:32 12/11/17 16:30 12/11/17 16:30 12/11/17 16:30 12/11/17 16:30 Cardiovascular: Yes: Irregularly Irregular Respiratory: Yes: Decreased Breath Sounds Capillary Refill: Normal (Less than 2 sec) Pulses: Normal Radial, Normal Dorsalis Pedis, Decreased Posterior Tibialis Skin: Warm, Dry <Rhonda Jeff - Last Filed: 12/11/17 19:28> Sepsis Progress Note - Non Invasive Reassessment Vital Sign (Latest): Temp Pulse Resp BP Pulse Ox 98.3 F 63 20 83/45 L 99 12/11/17 17:00 12/11/17 19:20 12/11/17 19:20 12/11/17 19:09 12/11/17 19:20
[2017-12-11] MEDS ORDERED: Sodium Chloride 0.9% 1,000 ML IV SCH (17:15)
--- NOTE | 2017-12-11 17:21 | CT ---
Date of service: 12/11/2017 PROCEDURE: CT HEAD WITHOUT CONTRAST. HISTORY: sepsis COMPARISON: None available. TECHNIQUE: Axial computed tomography images were obtained through the head/brain without intravenous contrast. Radiation dose: Total exam DLP = 1332.2 mGy-cm. This CT exam was performed using one or more of the following dose reduction techniques: Automated exposure control, adjustment of the mA and/or kV according to patient size, and/or use of iterative reconstruction technique. FINDINGS: HEMORRHAGE: No intracranial hemorrhage. BRAIN: No mass effect or edema. Atrophy. Chronic microvascular ischemic changes. Bilateral basal ganglia lacunar infarctions. VENTRICLES: Unremarkable. No hydrocephalus. CALVARIUM: Unremarkable. PARANASAL SINUSES: Unremarkable as visualized. No significant inflammatory changes. MASTOID AIR CELLS: Unremarkable as visualized. No inflammatory changes. OTHER FINDINGS: None. IMPRESSION: No acute intracranial pathology.
--- NOTE | 2017-12-11 17:35 | CT ---
Date of service: 12/11/2017 PROCEDURE: CT Chest, Abdomen and Pelvis without intravenous contrast HISTORY: sepsis COMPARISON: None available. TECHNIQUE: Radiation dose: Total exam DLP = 1567.3 mGy-cm. This CT exam was performed using one or more of the following dose reduction techniques: Automated exposure control, adjustment of the mA and/or kV according to patient size, and/or use of iterative reconstruction technique. FINDINGS: LUNGS: Bilateral pulmonary metastases, the largest on the left is in the medial lower pole measuring up to 1.6 cm and the largest on the right is in the anterior apex measuring 1.4 cm. No focal consolidation. MEDIASTINUM: Cardiomegaly. Coronary arterial and valvular calcifications. Trace pericardial effusion. Right chest wall subclavian vein access chest port with catheter tip in the SVC. LYMPH NODES: Large right breast mass versus large right axillary node measuring 8.6 by 6.6 cm. Numerous right axillary and subpectoral nodes, customer sales representative node measures 2.6 x 2.4 cm, posterior to the breast mass along the superior margin. Left hilar adenopathy PLEURA: Trace bilateral pleural effusions. No pneumothorax. LIVER: Unremarkable. No gross lesion or ductal dilatation. GALLBLADDER AND BILE DUCTS: Unremarkable. PANCREAS: Unremarkable. No gross lesion or ductal dilatation. SPLEEN: Questionable soft tissue nodule versus splenule medial to the main spleen (series 6, image 45). ADRENALS: Unremarkable. No mass. KIDNEYS AND URETERS: Unremarkable. No hydronephrosis. No solid mass. VASCULATURE: Unremarkable. No aortic aneurysm. BOWEL: Unremarkable. No obstruction. No gross mural thickening. APPENDIX: Normal appendix. PERITONEUM: Anasarca. No free fluid. No free air. LYMPH NODES: Unremarkable. No enlarged lymph nodes. BLADDER: Unremarkable. REPRODUCTIVE: Unremarkable. BONES: No acute fracture. Patchy sclerosis at the costochondral junction of the right anterior 7th rib. Patchy sclerosis in the inferior aspect of the T11 vertebral body. OTHER FINDINGS: None. IMPRESSION: No abscess in the chest, abdomen or pelvis. Large right breast mass versus axillary node measuring 8.6 by 6.6 cm. Numerous right axillary, subpectoral and left hilar lymph nodes. Bilateral pulmonary nodules. These are consistent with metastatic disease. Patchy sclerosis in the right anterior 7th rib and inferior T11 vertebral body which may represent metastatic disease.
[2017-12-11] MEDS: Sodium Chloride 0.9% 1,000 ML IV SCH (17:54)
[2017-12-11] MEDS: metroNIDAZOLE IV 500 mg/100 ml 500 MG/100 ML BAG IVPB SCH (19:05)
[2017-12-11] MEDS: Cefepime IV 2 gm in Dextrose 2 GM/100 ML BAG IVPB SCH (19:10)
--- NOTE | 2017-12-11 22:03 | CP.PCM.PN ---
Subjective - Date & Time of Evaluation Date of Evaluation: 12/11/17 Time of Evaluation: 21:30 - Subjective Subjective: H&P dictated #[id number] Objective - Vital Signs/Intake and Output Vital Signs (last 24 hours): Temp Pulse Resp BP Pulse Ox 98.3 F 62 19 89/49 L 83 L 12/11/17 17:00 12/11/17 20:08 12/11/17 20:08 12/11/17 20:08 12/11/17 20:08 Intake and Output: 12/11/17 12/12/17 18:59 06:59 Intake Total 117 100 Output Total 0 0 Balance 117 100 - Medications Medications: Current Medications Piperacillin Sod/Tazobactam (Sod 3.375 gm/ Sodium Chloride) 100 mls @ 200 mls/ hr IVPB Q6H [facility] PRN Reason: Protocol Last Admin: 12/11/17 21:03 Dose: 200 mls/hr Vancomycin HCl 1 gm/ Sodium (Chloride) 200 mls @ 166.6 mls/hr IVPB Q12H [facility] PRN Reason: Protocol Sodium Chloride (Sodium Chloride 0.9%) 1,000 mls @ 42 mls/hr IV .[id number] [facility] Last Admin: 12/11/17 17:54 Dose: Not Given Metronidazole (Flagyl) 500 mg in 100 mls @ 100 mls/hr IVPB Q8H [facility] PRN Reason: Protocol Last Admin: 12/11/17 19:05 Dose: 100 mls/hr Cefepime HCl (Maxipime Iv 2 Gm Premix) 2 gm in 100 mls @ 100 mls/hr IVPB Q8H [facility] PRN Reason: Protocol Stop: 12/16/17 19:01 Last Admin: 12/11/17 19:10 Dose: 100 mls/hr Pantoprazole Sodium (Protonix Inj) 40 mg IVP DAILY [facility] Rosuvastatin Calcium (Crestor) 10 mg PO HS [facility] Last Admin: 12/11/17 21:02 Dose: 10 mg Verapamil HCl (Calan Sr Tab) 120 mg PO DAILY [facility] Last Admin: 12/11/17 15:32 Dose: 120 mg - Labs Labs: 12/11/17 12:24 12/11/17 12:24
[2017-12-12] MEDS: metroNIDAZOLE IV 500 mg/100 ml 500 MG/100 ML BAG IVPB SCH ×3 (02:31→18:06)
[2017-12-12] MEDS: Piperacillin/Tazobact 3.375 GM in Sodium Chloride 100 ML IVPB SCH ×2 (02:58→09:15)
[2017-12-12] MEDS: Cefepime IV 2 gm in Dextrose 2 GM/100 ML BAG IVPB SCH ×3 (03:11→19:01)
[2017-12-12] MEDS: Vancomycin 1 GM in Sodium Chloride 0.9% 200 ML IVPB SCH ×2 (04:33→15:10)
[2017-12-12 06:16] LABS: BASO # 0.1 K/uL (0.0-0.2); BASO % 0.3 % (0.0-2.0); EOS # 0.4 K/uL (0.0-0.7); EOS % 1.3 % (0.0-4.0); MONO % 3.5 % (0.0-10.0); RED CELL DISTRIBUTION WIDTH 14.5 % (11.5-14.5)
[2017-12-12 06:28] LABS: ALB/GLOB RATIO 0.9 (1.0-2.1); ALBUMIN 2.2 g/dL (3.5-5.0); ALT/SGPT 33 U/L (9-52); AST/SGOT 29 U/L (14-36); BLOOD UREA NITROGEN 15 mg/dL (7-17); CALCIUM 8.3 mg/dl (8.6-10.4); GFR NON-AFRICAN AMERICAN > 60
[2017-12-12 06:52] LABS: HEMOGLOBIN 8.2 g/dL (11.0-16.0); LYMPH # 0.7 K/uL (1.0-4.3); LYMPH % 2.2 % (20.0-40.0); MEAN CELL VOLUME 90.2 fL (81.0-99.0); MEAN CORPUSCULAR HEMOGLOBIN 29.9 pg (27.0-31.0); MEAN CORPUSCULAR HGB CONC 33.1 g/dL (33.0-37.0); MEAN PLATELET VOLUME 7.8 fL (7.2-11.7); MONO # 1.1 K/uL (0.0-0.8); NEUT # 28.9 K/uL (1.8-7.0); NEUT % 92.7 % (50.0-75.0); PLATELET COUNT 275 K/uL (130-400); RBC 2.75 Mil/uL (3.80-5.20); WHITE BLOOD COUNT 31.2 K/uL (4.8-10.8)
[2017-12-12] MEDS ORDERED: Potassium Chloride 20 mEq/15 ml LIQ UD PO ONE (07:16)
[2017-12-12 08:34] LABS: BANDS 6 % (0-2); EOSINOPHIL 1 % (0-4); LYMPHOCYTE 1 % (20-40); MONOCYTE 1 % (0-10); NEUTROPHIL 91 % (50-75); OVALOCYTES SLIGHT; PLATELET ESTIMATE NORMAL (NORMAL); TOTAL CELLS COUNTED 100
--- NOTE | 2017-12-12 09:02 | CP.CCUPN ---
Addendum entered and electronically signed by Jerry Bowman 12/12/17 16:29: Patient and health care proxy Donya was at bedside. Dr. Mosley spoke with patient and health care proxy about prognosis and patient chose to change status to DNR/DNI. After speaking to patient myself, patient confirmed this decision with nurse present. Case discussed with Dr. Rosenbaum Addendum entered and electronically signed by Jerry Bowman 12/12/17 16:00: Patient restarted on Xarelto. Patient refused Heparin SC Q8. Patient refusing SCDs of lower extremity since she has lower extremity pain. US of lower and upper extremities ordered, follow up on report. Case discussed with Dr. Rosenbaum. Original Note: <Jerry Bowman - Last Filed: 12/12/17 13:57> CCU Subjective - Physician Review Subjective (Free Text): 12/12/17 09:11 ICU progress note Patient seen and examined at bedside. She states she is hungry and would like to eat. She denies fevers, chills, headache, abdominal pain, chest pain, shortness of breath, nausea, vomiting, diarrhea. She states her legs feel weak, however is able to lift her legs. CCU Objective - Vital Signs / Intake & Output Vital Signs (Last 4 hours): Vital Signs Temp Pulse Resp BP Pulse Ox 12/12/17 08:26 102/58 L 12/12/17 08:00 98.7 F 81 27 H 92 L 12/12/17 07:09 79 22 94/61 L 99 12/12/17 06:09 72 19 87/39 L 99 12/12/17 06:00 75 20 99 12/12/17 05:08 74 21 98/58 L 98 Intake and Output (Last 8hrs): Intake & Output 12/11/17 12/12/17 12/12/17 22:59 06:59 14:59 Intake Total 759 510 204 Output Total 100 0 200 Balance 659 510 4 Weight 187 lb 187 lb Intake: Intake, IV Amount 459 510 84 Right Port-A-Cath 459 510 84 Oral 300 0 120 Output: Urine 100 0 200 Urine, Voided 100 0 200 Other: # Bowel Movements 0 0 0 - Physical Exam Head: Positive for: Atraumatic, Normocephalic Pupils: Positive for: PERRL Extroacular Muscles: Positive for: EOMI Conjunctiva: Positive for: Normal Mouth: Positive for: Dry Nose (External): Positive for: Atraumatic Neck: Negative for: Lymphadenopathy Respiratory/Chest: Positive for: Decreased Breath Sounds, Other (mara cath present on right anterior chest. Lymphedema present on right axillary region with erythema and edema. Right mastectomy with horizontal scar present. ). Negative for: Respiratory Distress, Rales, Retracting, Rhonchi, Tachypneic Cardiovascular: Positive for: Irregular Rhythm Abdomen: Positive for: Normal Bowel Sounds. Negative for: Tenderness, Distention Breast/Axillary: Positive for: Axillary Lymphad (on right ) Back: Negative for: Midline Tenderness Upper Extremity: Positive for: NORMAL PULSES (Radial pulses present. ) Lower Extremity: Positive for: NORMAL PULSES (dorsalis pedis pulses presents), Swelling (mild bilateral edema of lower extremities, chronic) Neurological: Positive for: GCS=15, Speech Normal Skin: Positive for: Warm, Dry, Normal Color Psychiatric: Positive for: Alert, Oriented x 3 - Medications Active Medications: Active Medications Generic Name Dose Route Start Last Admin Trade Name Freq PRN Reason Stop Dose Admin Heparin Sodium (Porcine) 5,000 units 12/12/17 14:00 Heparin SC Q8 RHODA Piperacillin Sod/Tazobactam 100 mls @ 200 mls/hr 12/11/17 15:15 12/12/17 02: 58 Sod 3.375 gm/ Sodium Chloride IVPB 200 mls/hr Q6H RHODA Administration Protocol Vancomycin HCl 1 gm/ Sodium 200 mls @ 166.6 mls/hr 12/12/17 04:00 12/12/17 04 :33 Chloride IVPB 166.6 mls/hr Q12H [facility]ODA Administration Protocol Sodium Chloride 1,000 mls @ 42 mls/hr 12/11/17 17:46 12/11/17 17:54 Sodium Chloride 0.9% IV Not Given .[id number] RHODA Metronidazole 500 mg in 100 mls @ 100 mls/hr 12/11/17 19:00 12/12/17 02:31 Flagyl IVPB 100 mls/hr Q8H [facility]ODA Administration Protocol Cefepime HCl 2 gm in 100 mls @ 100 mls/hr 12/11/17 19:15 12/12/17 03:11 Maxipime Iv 2 Gm Premix IVPB 12/16/17 19:01 100 mls/hr Q8H [facility]ODA Administration Protocol Pantoprazole Sodium 40 mg 12/12/17 10:00 Protonix Inj IVP DAILY RHODA Rosuvastatin Calcium 10 mg 12/11/17 22:00 12/11/17 21:02 Crestor PO 10 mg HS RHODA Administration Verapamil HCl 120 mg 12/11/17 14:45 12/11/17 15:32 Calan Sr Tab PO 120 mg DAILY RHODA Administration - Patient Studies Lab Studies: Lab Studies 12/12/17 12/12/17 12/11/17 Range/Units 06:02 06:01 22:41 WBC 31.2 H (4.8-10.8) K/uL RBC 2.75 L (3.80-5.20) Mil/uL Hgb 8.2 L (11.0-16.0) g/dL Hct 24.8 L (34.0-47.0) % MCV 90.2 (81.0-99.0) fL MCH 29.9 (27.0-31.0) pg MCHC 33.1 (33.0-37.0) g/dL RDW 14.5 (11.5-14.5) % Plt Count 275 (130-400) K/uL MPV 7.8 (7.2-11.7) fL Neut % (Auto) 92.7 H (50.0-75.0) % Lymph % (Auto) 2.2 L (20.0-40.0) % [place] % (Auto) 3.5 (0.0-10.0) % Eos % (Auto) 1.3 (0.0-4.0) % Baso % (Auto) 0.3 (0.0-2.0) % Neut # (Auto) 28.9 H (1.8-7.0) K/uL Lymph # (Auto) 0.7 L (1.0-4.3) K/uL [place] # (Auto) 1.1 H (0.0-0.8) K/uL Eos # (Auto) 0.4 (0.0-0.7) K/uL Baso # (Auto) 0.1 (0.0-0.2) K/uL Neutrophils % (Manual) 91 H (50-75) % Band Neutrophils % 6 H (0-2) % Lymphocytes % (Manual) 1 L (20-40) % Monocytes % (Manual) 1 (0-10) % Eosinophils % (Manual) 1 (0-4) % Toxic Granulation Platelet Estimate Normal (NORMAL) Hypochromasia (manual) Poikilocytosis (manual Anisocytosis (manual) Target Cells Ovalocytes Slight pO2 (30-55) mm/Hg VBG pH (7.32-7.43) VBG pCO2 (40-60) mmHg VBG HCO3 mmol/L VBG Total CO2 (22-28) mmol/L VBG O2 Sat (Calc) (40-65) % VBG Base Excess (0.0-2.0) mmol/L VBG Potassium (3.6-5.2) mmol/L Glucose (65-105) mg/dl Lactate (0.7-2.1) mmol/L Sodium 131 L (132-148) mmol/L Potassium 3.3 L (3.6-5.2) mmol/L Chloride 101 (98-107) mmol/L Carbon Dioxide 24 (22-30) mmol/L Anion Gap 10 (10-20) BUN 15 (7-17) mg/dL Creatinine 0.8 (0.7-1.2) mg/dL Est GFR ( Amer) > 60 Est GFR (Non-Af Amer) > 60 Random Glucose 93 (65-105) mg/dL Lactic Acid 1.1 (0.7-2.1) mmol/L Calcium 8.3 L (8.6-10.4) mg/dl Phosphorus 2.9 (2.5-4.5) mg/dL Magnesium 1.6 (1.6-2.3) mg/dL Total Bilirubin 0.6 (0.2-1.3) mg/dL AST 29 (14-36) U/L ALT 33 (9-52) U/L Alkaline Phosphatase 64 (38-126) U/L Troponin I < 0.0120 (0.00-0.120) ng/mL NT-Pro-B Natriuret Pep (0-900) pg/mL Total Protein 4.7 L (6.3-8.3) g/dL Albumin 2.2 L D (3.5-5.0) g/dL Globulin 2.5 (2.2-3.9) gm/dL Albumin/Globulin Ratio 0.9 L (1.0-2.1) Procalcitonin (0.19-0.49) NG/ML Venous Blood Potassium (3.6-5.2) mmol/L Urine Color (YELLOW) Urine Clarity (Clear) Urine pH (5.0-8.0) Ur Specific [place] (1.003-1.030) Urine Protein (NEGATIVE) mg/dL Urine Glucose (UA) (Normal) mg/dL Urine Ketones (NEGATIVE) mg/dL Urine Blood (NEGATIVE) Urine Nitrate (NEGATIVE) Urine Bilirubin (NEGATIVE) Urine Urobilinogen (0.2-1.0) mg/dL Ur Leukocyte Esterase (Negative) Rekha/uL Urine WBC (Auto) (0-5) /hpf Urine RBC (Auto) (0-3) /hpf Ur Squamous Epith Cells (0-5) /hpf Urine Bacteria (<OCC) 12/11/17 12/11/17 12/11/17 Range/Units 18:49 16:05 15:55 WBC (4.8-10.8) K/uL RBC (3.80-5.20) Mil/uL Hgb (11.0-16.0) g/dL Hct (34.0-47.0) % MCV (81.0-99.0) fL MCH (27.0-31.0) pg MCHC (33.0-37.0) g/dL RDW (11.5-14.5) % Plt Count (130-400) K/uL MPV (7.2-11.7) fL Neut % (Auto) (50.0-75.0) % Lymph % (Auto) (20.0-40.0) % [place] % (Auto) (0.0-10.0) % Eos % (Auto) (0.0-4.0) % Baso % (Auto) (0.0-2.0) % Neut # (Auto) (1.8-7.0) K/uL Lymph # (Auto) (1.0-4.3) K/uL [place] # (Auto) (0.0-0.8) K/uL Eos # (Auto) (0.0-0.7) K/uL Baso # (Auto) (0.0-0.2) K/uL Neutrophils % (Manual) (50-75) % Band Neutrophils % (0-2) % Lymphocytes % (Manual) (20-40) % Monocytes % (Manual) (0-10) % Eosinophils % (Manual) (0-4) % Toxic Granulation Platelet Estimate (NORMAL) Hypochromasia (manual) Poikilocytosis (manual Anisocytosis (manual) Target Cells Ovalocytes pO2 24 L (30-55) mm/Hg VBG pH 7.40 (7.32-7.43) VBG pCO2 41 (40-60) mmHg VBG HCO3 23.8 mmol/L VBG Total CO2 26.7 (22-28) mmol/L VBG O2 Sat (Calc) 43.0 (40-65) % VBG Base Excess 0.5 (0.0-2.0) mmol/L VBG Potassium 2.6 L (3.6-5.2) mmol/L Glucose 116 H (65-105) mg/dl Lactate 1.4 (0.7-2.1) mmol/L Sodium 131.0 L (132-148) mmol/L Potassium (3.6-5.2) mmol/L Chloride 101.0 (98-107) mmol/L Carbon Dioxide (22-30) mmol/L Anion Gap (10-20) BUN (7-17) mg/dL Creatinine (0.7-1.2) mg/dL Est GFR ( Amer) Est GFR (Non-Af Amer) Random Glucose (65-105) mg/dL Lactic Acid 1.1 1.3 (0.7-2.1) mmol/L Calcium (8.6-10.4) mg/dl Phosphorus (2.5-4.5) mg/dL Magnesium (1.6-2.3) mg/dL Total Bilirubin (0.2-1.3) mg/dL AST (14-36) U/L ALT (9-52) U/L Alkaline Phosphatase (38-126) U/L Troponin I (0.00-0.120) ng/mL NT-Pro-B Natriuret Pep (0-900) pg/mL Total Protein (6.3-8.3) g/dL Albumin (3.5-5.0) g/dL Globulin (2.2-3.9) gm/dL Albumin/Globulin Ratio (1.0-2.1) Procalcitonin (0.19-0.49) NG/ML Venous Blood Potassium 2.6 L (3.6-5.2) mmol/L Urine Color (YELLOW) Urine Clarity (Clear) Urine pH (5.0-8.0) Ur Specific [place] (1.003-1.030) Urine Protein (NEGATIVE) mg/dL Urine Glucose (UA) (Normal) mg/dL Urine Ketones (NEGATIVE) mg/dL Urine Blood (NEGATIVE) Urine Nitrate (NEGATIVE) Urine Bilirubin (NEGATIVE) Urine Urobilinogen (0.2-1.0) mg/dL Ur Leukocyte Esterase (Negative) Rekha/uL Urine WBC (Auto) (0-5) /hpf Urine RBC (Auto) (0-3) /hpf Ur Squamous Epith Cells (0-5) /hpf Urine Bacteria (<OCC) 12/11/17 12/11/17 12/11/17 Range/Units 15:55 15:43 13:57 WBC (4.8-10.8) K/uL RBC (3.80-5.20) Mil/uL Hgb (11.0-16.0) g/dL Hct (34.0-47.0) % MCV (81.0-99.0) fL MCH (27.0-31.0) pg MCHC (33.0-37.0) g/dL RDW (11.5-14.5) % Plt Count (130-400) K/uL MPV (7.2-11.7) fL Neut % (Auto) (50.0-75.0) % Lymph % (Auto) (20.0-40.0) % [place] % (Auto) (0.0-10.0) % Eos % (Auto) (0.0-4.0) % Baso % (Auto) (0.0-2.0) % Neut # (Auto) (1.8-7.0) K/uL Lymph # (Auto) (1.0-4.3) K/uL [place] # (Auto) (0.0-0.8) K/uL Eos # (Auto) (0.0-0.7) K/uL Baso # (Auto) (0.0-0.2) K/uL Neutrophils % (Manual) (50-75) % Band Neutrophils % (0-2) % Lymphocytes % (Manual) (20-40) % Monocytes % (Manual) (0-10) % Eosinophils % (Manual) (0-4) % Toxic Granulation Platelet Estimate (NORMAL) Hypochromasia (manual) Poikilocytosis (manual Anisocytosis (manual) Target Cells Ovalocytes pO2 (30-55) mm/Hg VBG pH (7.32-7.43) VBG pCO2 (40-60) mmHg VBG HCO3 mmol/L VBG Total CO2 (22-28) mmol/L VBG O2 Sat (Calc) (40-65) % VBG Base Excess (0.0-2.0) mmol/L VBG Potassium (3.6-5.2) mmol/L Glucose (65-105) mg/dl Lactate (0.7-2.1) mmol/L Sodium (132-148) mmol/L Potassium (3.6-5.2) mmol/L Chloride (98-107) mmol/L Carbon Dioxide (22-30) mmol/L Anion Gap (10-20) BUN (7-17) mg/dL Creatinine (0.7-1.2) mg/dL Est GFR ( Amer) Est GFR (Non-Af Amer) Random Glucose (65-105) mg/dL Lactic Acid (0.7-2.1) mmol/L Calcium (8.6-10.4) mg/dl Phosphorus (2.5-4.5) mg/dL Magnesium (1.6-2.3) mg/dL Total Bilirubin (0.2-1.3) mg/dL AST (14-36) U/L ALT (9-52) U/L Alkaline Phosphatase (38-126) U/L Troponin I (0.00-0.120) ng/mL NT-Pro-B Natriuret Pep 6800 H (0-900) pg/mL Total Protein (6.3-8.3) g/dL Albumin (3.5-5.0) g/dL Globulin (2.2-3.9) gm/dL Albumin/Globulin Ratio (1.0-2.1) Procalcitonin 1.69 H (0.19-0.49) NG/ML Venous Blood Potassium (3.6-5.2) mmol/L Urine Color Jolene (YELLOW) Urine Clarity Turbid (Clear) Urine pH 5.0 (5.0-8.0) Ur Specific [place] 1.011 (1.003-1.030) Urine Protein 1+ H (NEGATIVE) mg/dL Urine Glucose (UA) Normal (Normal) mg/dL Urine Ketones Negative (NEGATIVE) mg/dL Urine Blood 1+ H (NEGATIVE) Urine Nitrate Negative (NEGATIVE) Urine Bilirubin Negative (NEGATIVE) Urine Urobilinogen Normal (0.2-1.0) mg/dL Ur Leukocyte Esterase 3+ H (Negative) Rekha/uL Urine WBC (Auto) 248 H (0-5) /hpf Urine RBC (Auto) 14 H (0-3) /hpf Ur Squamous Epith Cells 117 H (0-5) /hpf Urine Bacteria Mod H (<OCC) 12/11/17 12/11/17 12/11/17 Range/Units 13:42 12:24 12:24 WBC 33.3 H D (4.8-10.8) K/uL RBC 3.35 L (3.80-5.20) Mil/uL Hgb 10.1 L (11.0-16.0) g/dL Hct 30.0 L (34.0-47.0) % MCV 89.7 D (81.0-99.0) fL MCH 30.1 (27.0-31.0) pg MCHC 33.5 (33.0-37.0) g/dL RDW 14.5 (11.5-14.5) % Plt Count 327 D (130-400) K/uL MPV 8.0 (7.2-11.7) fL Neut % (Auto) 94.7 H (50.0-75.0) % Lymph % (Auto) 1.2 L (20.0-40.0) % [place] % (Auto) 2.9 (0.0-10.0) % Eos % (Auto) 0.5 (0.0-4.0) % Baso % (Auto) 0.7 (0.0-2.0) % Neut # (Auto) 31.5 H (1.8-7.0) K/uL Lymph # (Auto) 0.4 L (1.0-4.3) K/uL [place] # (Auto) 1.0 H (0.0-0.8) K/uL Eos # (Auto) 0.2 (0.0-0.7) K/uL Baso # (Auto) 0.2 (0.0-0.2) K/uL Neutrophils % (Manual) 95 H (50-75) % Band Neutrophils % 1 (0-2) % Lymphocytes % (Manual) 2 L (20-40) % Monocytes % (Manual) 2 (0-10) % Eosinophils % (Manual) (0-4) % Toxic Granulation Present Platelet Estimate Normal (NORMAL) Hypochromasia (manual) Slight Poikilocytosis (manual Slight Anisocytosis (manual) Slight Target Cells Slight Ovalocytes Slight pO2 22 L (30-55) mm/Hg VBG pH 7.46 H (7.32-7.43) VBG pCO2 36 L (40-60) mmHg VBG HCO3 25.0 mmol/L VBG Total CO2 26.7 (22-28) mmol/L VBG O2 Sat (Calc) 42.0 (40-65) % VBG Base Excess 2.0 (0.0-2.0) mmol/L VBG Potassium 3.2 L (3.6-5.2) mmol/L Glucose 120 H (65-105) mg/dl Lactate 3.7 H (0.7-2.1) mmol/L Sodium 129.0 L 130 L (132-148) mmol/L Potassium 3.0 L (3.6-5.2) mmol/L Chloride 97.0 L 93 L (98-107) mmol/L Carbon Dioxide 26 (22-30) mmol/L Anion Gap 15 (10-20) BUN 14 (7-17) mg/dL Creatinine 0.9 (0.7-1.2) mg/dL Est GFR ( Amer) > 60 Est GFR (Non-Af Amer) > 60 Random Glucose 126 H (65-105) mg/dL Lactic Acid (0.7-2.1) mmol/L Calcium 9.1 (8.6-10.4) mg/dl Phosphorus 2.8 (2.5-4.5) mg/dL Magnesium 1.3 L (1.6-2.3) mg/dL Total Bilirubin 0.9 (0.2-1.3) mg/dL AST 28 (14-36) U/L ALT 29 (9-52) U/L Alkaline Phosphatase 92 (38-126) U/L Troponin I < 0.0120 (0.00-0.120) ng/mL NT-Pro-B Natriuret Pep (0-900) pg/mL Total Protein 5.7 L (6.3-8.3) g/dL Albumin 2.9 L (3.5-5.0) g/dL Globulin 2.9 (2.2-3.9) gm/dL Albumin/Globulin Ratio 1.0 (1.0-2.1) Procalcitonin (0.19-0.49) NG/ML Venous Blood Potassium 3.2 L (3.6-5.2) mmol/L Urine Color (YELLOW) Urine Clarity (Clear) Urine pH (5.0-8.0) Ur Specific [place] (1.003-1.030) Urine Protein (NEGATIVE) mg/dL Urine Glucose (UA) (Normal) mg/dL Urine Ketones (NEGATIVE) mg/dL Urine Blood (NEGATIVE) Urine Nitrate (NEGATIVE) Urine Bilirubin (NEGATIVE) Urine Urobilinogen (0.2-1.0) mg/dL Ur Leukocyte Esterase (Negative) Rekha/uL Urine WBC (Auto) (0-5) /hpf Urine RBC (Auto) (0-3) /hpf Ur Squamous Epith Cells (0-5) /hpf Urine Bacteria (<OCC) Laboratory Results - last 24 hr 12/11/17 12/11/17 12/11/17 12:24 12:24 13:42 WBC 33.3 H D RBC 3.35 L Hgb 10.1 L Hct 30.0 L MCV 89.7 D MCH 30.1 MCHC 33.5 RDW 14.5 Plt Count 327 D MPV 8.0 Neut % (Auto) 94.7 H Lymph % (Auto) 1.2 L [place] % (Auto) 2.9 Eos % (Auto) 0.5 Baso % (Auto) 0.7 Neut # (Auto) 31.5 H Lymph # (Auto) 0.4 L [place] # (Auto) 1.0 H Eos # (Auto) 0.2 Baso # (Auto) 0.2 Neutrophils % (Manual) 95 H Band Neutrophils % 1 Lymphocytes % (Manual) 2 L Monocytes % (Manual) 2 Eosinophils % (Manual) Toxic Granulation Present Platelet Estimate Normal Hypochromasia (manual) Slight Poikilocytosis (manual Slight Anisocytosis (manual) Slight Target Cells Slight Ovalocytes Slight pO2 22 L VBG pH 7.46 H VBG pCO2 36 L VBG HCO3 25.0 VBG Total CO2 26.7 VBG O2 Sat (Calc) 42.0 VBG Base Excess 2.0 VBG Potassium 3.2 L Glucose 120 H Lactate 3.7 H Sodium 130 L 129.0 L Potassium 3.0 L Chloride 93 L 97.0 L Carbon Dioxide 26 Anion Gap 15 BUN 14 Creatinine 0.9 Est GFR ( Amer) > 60 Est GFR (Non-Af Amer) > 60 Random Glucose 126 H Lactic Acid Calcium 9.1 Phosphorus 2.8 Magnesium 1.3 L Total Bilirubin 0.9 AST 28 ALT 29 Alkaline Phosphatase 92 Troponin I < 0.0120 NT-Pro-B Natriuret Pep Total Protein 5.7 L Albumin 2.9 L Globulin 2.9 Albumin/Globulin Ratio 1.0 Procalcitonin Venous Blood Potassium 3.2 L Urine Color Urine Clarity Urine pH Ur Specific [place] Urine Protein Urine Glucose (UA) Urine Ketones Urine Blood Urine Nitrate Urine Bilirubin Urine Urobilinogen Ur Leukocyte Esterase Urine WBC (Auto) Urine RBC (Auto) Ur Squamous Epith Cells Urine Bacteria 12/11/17 12/11/17 12/11/17 13:57 15:43 15:55 WBC RBC Hgb Hct MCV MCH MCHC RDW Plt Count MPV Neut % (Auto) Lymph % (Auto) [place] % (Auto) Eos % (Auto) Baso % (Auto) Neut # (Auto) Lymph # (Auto) [place] # (Auto) Eos # (Auto) Baso # (Auto) Neutrophils % (Manual) Band Neutrophils % Lymphocytes % (Manual) Monocytes % (Manual) Eosinophils % (Manual) Toxic Granulation Platelet Estimate Hypochromasia (manual) Poikilocytosis (manual Anisocytosis (manual) Target Cells Ovalocytes pO2 VBG pH VBG pCO2 VBG HCO3 VBG Total CO2 VBG O2 Sat (Calc) VBG Base Excess VBG Potassium Glucose Lactate Sodium Potassium Chloride Carbon Dioxide Anion Gap BUN Creatinine Est GFR ( Amer) Est GFR (Non-Af Amer) Random Glucose Lactic Acid Calcium Phosphorus Magnesium Total Bilirubin AST ALT Alkaline Phosphatase Troponin I NT-Pro-B Natriuret Pep 6800 H Total Protein Albumin Globulin Albumin/Globulin Ratio Procalcitonin 1.69 H Venous Blood Potassium Urine Color Jolene Urine Clarity Turbid Urine pH 5.0 Ur Specific [place] 1.011 Urine Protein 1+ H Urine Glucose (UA) Normal Urine Ketones Negative Urine Blood 1+ H Urine Nitrate Negative Urine Bilirubin Negative Urine Urobilinogen Normal Ur Leukocyte Esterase 3+ H Urine WBC (Auto) 248 H Urine RBC (Auto) 14 H Ur Squamous Epith Cells 117 H Urine Bacteria Mod H 12/11/17 12/11/17 12/11/17 15:55 16:05 18:49 WBC RBC Hgb Hct MCV MCH MCHC RDW Plt Count MPV Neut % (Auto) Lymph % (Auto) [place] % (Auto) Eos % (Auto) Baso % (Auto) Neut # (Auto) Lymph # (Auto) [place] # (Auto) Eos # (Auto) Baso # (Auto) Neutrophils % (Manual) Band Neutrophils % Lymphocytes % (Manual) Monocytes % (Manual) Eosinophils % (Manual) Toxic Granulation Platelet Estimate Hypochromasia (manual) Poikilocytosis (manual Anisocytosis (manual) Target Cells Ovalocytes pO2 24 L VBG pH 7.40 VBG pCO2 41 VBG HCO3 23.8 VBG Total CO2 26.7 VBG O2 Sat (Calc) 43.0 VBG Base Excess 0.5 VBG Potassium 2.6 L Glucose 116 H Lactate 1.4 Sodium 131.0 L Potassium Chloride 101.0 Carbon Dioxide Anion Gap BUN Creatinine Est GFR ( Amer) Est GFR (Non-Af Amer) Random Glucose Lactic Acid 1.3 1.1 Calcium Phosphorus Magnesium Total Bilirubin AST ALT Alkaline Phosphatase Troponin I NT-Pro-B Natriuret Pep Total Protein Albumin Globulin Albumin/Globulin Ratio Procalcitonin Venous Blood Potassium 2.6 L Urine Color Urine Clarity Urine pH Ur Specific [place] Urine Protein Urine Glucose (UA) Urine Ketones Urine Blood Urine Nitrate Urine Bilirubin Urine Urobilinogen Ur Leukocyte Esterase Urine WBC (Auto) Urine RBC (Auto) Ur Squamous Epith Cells Urine Bacteria 12/11/17 12/12/17 12/12/17 22:41 06:01 06:02 WBC 31.2 H RBC 2.75 L Hgb 8.2 L Hct 24.8 L MCV 90.2 MCH 29.9 MCHC 33.1 RDW 14.5 Plt Count 275 MPV 7.8 Neut % (Auto) 92.7 H Lymph % (Auto) 2.2 L [place] % (Auto) 3.5 Eos % (Auto) 1.3 Baso % (Auto) 0.3 Neut # (Auto) 28.9 H Lymph # (Auto) 0.7 L [place] # (Auto) 1.1 H Eos # (Auto) 0.4 Baso # (Auto) 0.1 Neutrophils % (Manual) 91 H Band Neutrophils % 6 H Lymphocytes % (Manual) 1 L Monocytes % (Manual) 1 Eosinophils % (Manual) 1 Toxic Granulation Platelet Estimate Normal Hypochromasia (manual) Poikilocytosis (manual Anisocytosis (manual) Target Cells Ovalocytes Slight pO2 VBG pH VBG pCO2 VBG HCO3 VBG Total CO2 VBG O2 Sat (Calc) VBG Base Excess VBG Potassium Glucose Lactate Sodium 131 L Potassium 3.3 L Chloride 101 Carbon Dioxide 24 Anion Gap 10 BUN 15 Creatinine 0.8 Est GFR ( Amer) > 60 Est GFR (Non-Af Amer) > 60 Random Glucose 93 Lactic Acid 1.1 Calcium 8.3 L Phosphorus 2.9 Magnesium 1.6 Total Bilirubin 0.6 AST 29 ALT 33 Alkaline Phosphatase 64 Troponin I < 0.0120 NT-Pro-B Natriuret Pep Total Protein 4.7 L Albumin 2.2 L D Globulin 2.5 Albumin/Globulin Ratio 0.9 L Procalcitonin Venous Blood Potassium Urine Color Urine Clarity Urine pH Ur Specific [place] Urine Protein Urine Glucose (UA) Urine Ketones Urine Blood Urine Nitrate Urine Bilirubin Urine Urobilinogen Ur Leukocyte Esterase Urine WBC (Auto) Urine RBC (Auto) Ur Squamous Epith Cells Urine Bacteria EKG/Cardiology Studies: Cardiology / EKG Studies 12/11/17 11:31 ELECTROCARDIOGRAM Stat Comment: Mode Of Transportation: BED Reason For Exam: chest pain 12/11/17 12:14 ELECTROCARDIOGRAM Stat Comment: Mode Of Transportation: BED Reason For Exam: chest pain 12/12/17 07:00 ELECTROCARDIOGRAM DAILY Comment: Mode Of Transportation: Reason For Exam: a fib Critical Care Progress Note - Nutrition Nutrition: Nutrition Category Date Time Status Regular Diet [DIET] Diets 12/11/17 Breakfast Active Assessment/Plan - Assessment and Plan (Free Text) Assessment: 72 year old female with history of breast cancer s/p right mastectomy with lymphedema, A fib on Xarelto, HLD who was presented with fall, generalized weakness, diarrhea and chills. Patient was found to be hypotensive despite IV fluids. CT of chest/abd/pelvis revealed large right breast mass vs. axillary lymph node measuring 8.6x6.6cm with numerous lymph nodes and bilateral pulmonary nodules, consistent with metastatic disease. Plan: Neuro: Alert and oriented x3 12/[address] No acute intracranial pathology. Cardiovascular Initially EKG: A fib at 137. 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 James Johnston consulted, help appreciated Heparin 5000mg SC Q8 Pulmonary On O2 via NC 12/11 CXR: no active disease 12/11 CT chest/abd/pelvis without contrast No abscess in the chest, abdomen or pelvis.Large right breast mass versus axillary node measuring 8.6 by 6.6 cm. Numerous right axillary, subpectoral and left hilar lymph nodes. Bilateral pulmonary nodules. These are consistent with metastatic disease.Patchy sclerosis in the right anterior 7th rib and inferior T11 vertebral body which may represent metastatic disease. GI Continue to monitor BMs F/u C diff studies 12/11 CT chest/abd/pelvis without contrast No abscess in the chest, abdomen or pelvis.Large right breast mass versus axillary node measuring 8.6 by 6.6 cm. Numerous right axillary, subpectoral and left hilar lymph nodes. Bilateral pulmonary nodules. These are consistent with metastatic disease.Patchy sclerosis in the right anterior 7th rib and inferior T11 vertebral body which may represent metastatic disease. ID WBC 31.2 Lactate 3.7 -->1.4 Cefepime, Flagyl and Vancomycin as per ID. UA 3+ leuk esterase, moderate bacteria, no nitrates, 1+ protein, 1+ blood Consider mara cath as source of infection Blood culture and urine culture sent Procalcitonin 1.[address] Jimenez consulted, help appreciated Renal: BUN 15/Cr 0.8 UA 3+ leuk esterase, moderate bacteria, no nitrates, 1+ protein, 1+ blood Strict I & Os Continue to monitor electrolytes, K repleted Endo: Continue to maintain euglycemia monitor accuchecks Heme/Onc: Hb 8.2/Hct 24.8 Heme/Onc Dr. Mosley consulted, help appreciated. Palliative care consulted, help appreciated PPX: Protonix 40mg IV. Heparin 5000mg SC Q8. Social: Health care proxy form signed. Palliative care consulted regarding goals of care. Case discussed with Dr. Rosenbaum. <Dannie Rosenbaum - Last Filed: 12/12/17 16:44> CCU Subjective - Physician Review Critical Care Time Spent (in minutes): 35 CCU Objective - Vital Signs / Intake & Output Vital Signs (Last 4 hours): Vital Signs Pulse Resp BP Pulse Ox 12/12/17 13:46 83 28 H 95/58 L 93 L 12/12/17 13:00 81 26 H 97 Intake and Output (Last 8hrs): Intake & Output 12/12/17 12/12/17 12/12/17 06:59 14:59 22:59 Intake Total 510 1106 Output Total 0 400 Balance 510 706 Weight 187 lb Intake: Intake, IV Amount 510 626 Right Port-A-Cath 510 626 Oral 0 480 Output: Urine 0 400 Urine, Voided 0 400 Other: # Voids Urine, Voided 1 # Bowel Movements 0 0 - Medications Active Medications: Active Medications Generic Name Dose Route Start Last Admin Trade Name Freq PRN Reason Stop Dose Admin Vancomycin HCl 1 gm/ Sodium 200 mls @ 166.6 mls/hr 12/12/17 04:00 12/12/17 15 :10 Chloride IVPB 166.6 mls/hr Q12H RHODA Administration Protocol Sodium Chloride 1,000 mls @ 42 mls/hr 12/11/17 17:46 12/11/17 17:54 Sodium Chloride 0.9% IV Not Given .[id number] RHODA Metronidazole 500 mg in 100 mls @ 100 mls/hr 12/11/17 19:00 12/12/17 10:06 Flagyl IVPB 100 mls/hr Q8H RHODA Administration Protocol Cefepime HCl 2 gm in 100 mls @ 100 mls/hr 12/11/17 19:15 12/12/17 11:41 Maxipime Iv 2 Gm Premix IVPB 12/16/17 19:01 100 mls/hr Q8H RHODA Administration Protocol Pantoprazole Sodium 40 mg 12/12/17 10:00 12/12/17 09:15 Protonix Inj IVP 40 mg DAILY [facility]ODA Administration Rivaroxaban 15 mg 12/12/17 16:00 Xarelto PO DAILY [facility]ODA Rosuvastatin Calcium 10 mg 12/11/17 22:00 12/11/17 21:02 Crestor PO 10 mg HS [facility]ODA Administration Verapamil HCl 120 mg 12/11/17 14:45 12/12/17 09:20 Calan Sr Tab PO 120 mg DAILY [facility]ODA Administration - Patient Studies Lab Studies: Microbiology Studies 12/11/17 13:10 Blood Culture - Preliminary Blood NO GROWTH AFTER 24 HOURS 12/11/17 13:00 Blood Culture - Preliminary Blood NO GROWTH AFTER 24 HOURS 12/11/17 13:57 Urine Culture - Final Urine No Growth (<1,000 CFU/ML) Lab Studies 12/12/17 12/12/17 12/12/17 Range/Units 12:29 10:54 06:02 WBC 31.2 H (4.8-10.8) K/uL RBC 2.75 L (3.80-5.20) Mil/uL Hgb 8.2 L (11.0-16.0) g/dL Hct 24.8 L (34.0-47.0) % MCV 90.2 (81.0-99.0) fL MCH 29.9 (27.0-31.0) pg MCHC 33.1 (33.0-37.0) g/dL RDW 14.5 (11.5-14.5) % Plt Count 275 (130-400) K/uL MPV 7.8 (7.2-11.7) fL Neut % (Auto) 92.7 H (50.0-75.0) % Lymph % (Auto) 2.2 L (20.0-40.0) % [place] % (Auto) 3.5 (0.0-10.0) % Eos % (Auto) 1.3 (0.0-4.0) % Baso % (Auto) 0.3 (0.0-2.0) % Neut # (Auto) 28.9 H (1.8-7.0) K/uL Lymph # (Auto) 0.7 L (1.0-4.3) K/uL [place] # (Auto) 1.1 H (0.0-0.8) K/uL Eos # (Auto) 0.4 (0.0-0.7) K/uL Baso # (Auto) 0.1 (0.0-0.2) K/uL Neutrophils % (Manual) 91 H (50-75) % Band Neutrophils % 6 H (0-2) % Lymphocytes % (Manual) 1 L (20-40) % Monocytes % (Manual) 1 (0-10) % Eosinophils % (Manual) 1 (0-4) % Platelet Estimate Normal (NORMAL) Ovalocytes Slight PT 15.6 H (9.7-12.2) SECONDS INR 1.4 APTT 35 H (21-34) SECONDS Sodium (132-148) mmol/L Potassium (3.6-5.2) mmol/L Chloride (98-107) mmol/L Carbon Dioxide (22-30) mmol/L Anion Gap (10-20) BUN (7-17) mg/dL Creatinine (0.7-1.2) mg/dL Est GFR ( Amer) Est GFR (Non-Af Amer) Random Glucose (65-105) mg/dL Lactic Acid (0.7-2.1) mmol/L Calcium (8.6-10.4) mg/dl Phosphorus (2.5-4.5) mg/dL Magnesium (1.6-2.3) mg/dL Total Bilirubin (0.2-1.3) mg/dL AST (14-36) U/L ALT (9-52) U/L Alkaline Phosphatase (38-126) U/L Troponin I (0.00-0.120) ng/mL Total Protein (6.3-8.3) g/dL Albumin (3.5-5.0) g/dL Globulin (2.2-3.9) gm/dL Albumin/Globulin Ratio (1.0-2.1) Vitamin B12 623 (239-931) pg/mL Folate 10.3 ng/mL Procalcitonin (0.19-0.49) NG/ML 12/12/17 12/11/17 12/11/17 Range/Units 06:01 22:41 18:49 WBC (4.8-10.8) K/uL RBC (3.80-5.20) Mil/uL Hgb (11.0-16.0) g/dL Hct (34.0-47.0) % MCV (81.0-99.0) fL MCH (27.0-31.0) pg MCHC (33.0-37.0) g/dL RDW (11.5-14.5) % Plt Count (130-400) K/uL MPV (7.2-11.7) fL Neut % (Auto) (50.0-75.0) % Lymph % (Auto) (20.0-40.0) % [place] % (Auto) (0.0-10.0) % Eos % (Auto) (0.0-4.0) % Baso % (Auto) (0.0-2.0) % Neut # (Auto) (1.8-7.0) K/uL Lymph # (Auto) (1.0-4.3) K/uL [place] # (Auto) (0.0-0.8) K/uL Eos # (Auto) (0.0-0.7) K/uL Baso # (Auto) (0.0-0.2) K/uL Neutrophils % (Manual) (50-75) % Band Neutrophils % (0-2) % Lymphocytes % (Manual) (20-40) % Monocytes % (Manual) (0-10) % Eosinophils % (Manual) (0-4) % Platelet Estimate (NORMAL) Ovalocytes PT (9.7-12.2) SECONDS INR APTT (21-34) SECONDS Sodium 131 L (132-148) mmol/L Potassium 3.3 L (3.6-5.2) mmol/L Chloride 101 (98-107) mmol/L Carbon Dioxide 24 (22-30) mmol/L Anion Gap 10 (10-20) BUN 15 (7-17) mg/dL Creatinine 0.8 (0.7-1.2) mg/dL Est GFR ( Amer) > 60 Est GFR (Non-Af Amer) > 60 Random Glucose 93 (65-105) mg/dL Lactic Acid 1.1 1.1 (0.7-2.1) mmol/L Calcium 8.3 L (8.6-10.4) mg/dl Phosphorus 2.9 (2.5-4.5) mg/dL Magnesium 1.6 (1.6-2.3) mg/dL Total Bilirubin 0.6 (0.2-1.3) mg/dL AST 29 (14-36) U/L ALT 33 (9-52) U/L Alkaline Phosphatase 64 (38-126) U/L Troponin I < 0.0120 (0.00-0.120) ng/mL Total Protein 4.7 L (6.3-8.3) g/dL Albumin 2.2 L D (3.5-5.0) g/dL Globulin 2.5 (2.2-3.9) gm/dL Albumin/Globulin Ratio 0.9 L (1.0-2.1) Vitamin B12 (239-931) pg/mL Folate ng/mL Procalcitonin (0.19-0.49) NG/ML 12/11/17 Range/Units 15:43 WBC (4.8-10.8) K/uL RBC (3.80-5.20) Mil/uL Hgb (11.0-16.0) g/dL Hct (34.0-47.0) % MCV (81.0-99.0) fL MCH (27.0-31.0) pg MCHC (33.0-37.0) g/dL RDW (11.5-14.5) % Plt Count (130-400) K/uL MPV (7.2-11.7) fL Neut % (Auto) (50.0-75.0) % Lymph % (Auto) (20.0-40.0) % [place] % (Auto) (0.0-10.0) % Eos % (Auto) (0.0-4.0) % Baso % (Auto) (0.0-2.0) % Neut # (Auto) (1.8-7.0) K/uL Lymph # (Auto) (1.0-4.3) K/uL [place] # (Auto) (0.0-0.8) K/uL Eos # (Auto) (0.0-0.7) K/uL Baso # (Auto) (0.0-0.2) K/uL Neutrophils % (Manual) (50-75) % Band Neutrophils % (0-2) % Lymphocytes % (Manual) (20-40) % Monocytes % (Manual) (0-10) % Eosinophils % (Manual) (0-4) % Platelet Estimate (NORMAL) Ovalocytes PT (9.7-12.2) SECONDS INR APTT (21-34) SECONDS Sodium (132-148) mmol/L Potassium (3.6-5.2) mmol/L Chloride (98-107) mmol/L Carbon Dioxide (22-30) mmol/L Anion Gap (10-20) BUN (7-17) mg/dL Creatinine (0.7-1.2) mg/dL Est GFR ( Amer) Est GFR (Non-Af Amer) Random Glucose (65-105) mg/dL Lactic Acid (0.7-2.1) mmol/L Calcium (8.6-10.4) mg/dl Phosphorus (2.5-4.5) mg/dL Magnesium (1.6-2.3) mg/dL Total Bilirubin (0.2-1.3) mg/dL AST (14-36) U/L ALT (9-52) U/L Alkaline Phosphatase (38-126) U/L Troponin I (0.00-0.120) ng/mL Total Protein (6.3-8.3) g/dL Albumin (3.5-5.0) g/dL Globulin (2.2-3.9) gm/dL Albumin/Globulin Ratio (1.0-2.1) Vitamin B12 (239-931) pg/mL Folate ng/mL Procalcitonin 1.69 H (0.19-0.49) NG/ML Laboratory Results - last 24 hr 12/11/17 12/11/17 12/11/17 15:43 18:49 22:41 WBC RBC Hgb Hct MCV MCH MCHC RDW Plt Count MPV Neut % (Auto) Lymph % (Auto) [place] % (Auto) Eos % (Auto) Baso % (Auto) Neut # (Auto) Lymph # (Auto) [place] # (Auto) Eos # (Auto) Baso # (Auto) Neutrophils % (Manual) Band Neutrophils % Lymphocytes % (Manual) Monocytes % (Manual) Eosinophils % (Manual) Platelet Estimate Ovalocytes PT INR APTT Sodium Potassium Chloride Carbon Dioxide Anion Gap BUN Creatinine Est GFR ( Amer) Est GFR (Non-Af Amer) Random Glucose Lactic Acid 1.1 1.1 Calcium Phosphorus Magnesium Total Bilirubin AST ALT Alkaline Phosphatase Troponin I Total Protein Albumin Globulin Albumin/Globulin Ratio Vitamin B12 Folate Procalcitonin 1.69 H 12/12/17 12/12/17 12/12/17 06:01 06:02 10:54 WBC 31.2 H RBC 2.75 L Hgb 8.2 L Hct 24.8 L MCV 90.2 MCH 29.9 MCHC 33.1 RDW 14.5 Plt Count 275 MPV 7.8 Neut % (Auto) 92.7 H Lymph % (Auto) 2.2 L [place] % (Auto) 3.5 Eos % (Auto) 1.3 Baso % (Auto) 0.3 Neut # (Auto) 28.9 H Lymph # (Auto) 0.7 L [place] # (Auto) 1.1 H Eos # (Auto) 0.4 Baso # (Auto) 0.1 Neutrophils % (Manual) 91 H Band Neutrophils % 6 H Lymphocytes % (Manual) 1 L Monocytes % (Manual) 1 Eosinophils % (Manual) 1 Platelet Estimate Normal Ovalocytes Slight PT 15.6 H INR 1.4 APTT 35 H Sodium 131 L Potassium 3.3 L Chloride 101 Carbon Dioxide 24 Anion Gap 10 BUN 15 Creatinine 0.8 Est GFR ( Amer) > 60 Est GFR (Non-Af Amer) > 60 Random Glucose 93 Lactic Acid Calcium 8.3 L Phosphorus 2.9 Magnesium 1.6 Total Bilirubin 0.6 AST 29 ALT 33 Alkaline Phosphatase 64 Troponin I < 0.0120 Total Protein 4.7 L Albumin 2.2 L D Globulin 2.5 Albumin/Globulin Ratio 0.9 L Vitamin B12 Folate Procalcitonin 12/12/17 12:29 WBC RBC Hgb Hct MCV MCH MCHC RDW Plt Count MPV Neut % (Auto) Lymph % (Auto) [place] % (Auto) Eos % (Auto) Baso % (Auto) Neut # (Auto) Lymph # (Auto) [place] # (Auto) Eos # (Auto) Baso # (Auto) Neutrophils % (Manual) Band Neutrophils % Lymphocytes % (Manual) Monocytes % (Manual) Eosinophils % (Manual) Platelet Estimate Ovalocytes PT INR APTT Sodium Potassium Chloride Carbon Dioxide Anion Gap BUN Creatinine Est GFR ( Amer) Est GFR (Non-Af Amer) Random Glucose Lactic Acid Calcium Phosphorus Magnesium Total Bilirubin AST ALT Alkaline Phosphatase Troponin I Total Protein Albumin Globulin Albumin/Globulin Ratio Vitamin B12 623 Folate 10.3 Procalcitonin EKG/Cardiology Studies: Cardiology / EKG Studies 12/12/17 07:00 ELECTROCARDIOGRAM DAILY Comment: Mode Of Transportation: Reason For Exam: a fib Critical Care Progress Note - Nutrition Nutrition: Nutrition Category Date Time Status Regular Diet [DIET] Diets 12/12/17 Breakfast Active Attending/Attestation - Attestation I have personally seen and examined this patient.: Yes I have fully participated in the care of the patient.: Yes I have reviewed all pertinent clinical information: Yes Notes (Text): 12/12/17 16:43 patient seen and examined in the intensive care unit. 2 year old female with history of breast cancer s/p right mastectomy with lymphedema, A fib on Xarelto, HLD who was presented with fall, generalized weakness, diarrhea and chills. Patient was found to be hypotensive despite IV fluids. CT of chest/abd/pelvis revealed large right breast mass vs. axillary lymph node measuring 8.6x6.6cm with numerous lymph nodes and bilateral pulmonary nodules, consistent with metastatic disease. Continue IV antibiotics Follow-up culture and sensitivity Patient started on xarelto for atrial fibrillation patient is refusing IV heparin patient is DNR/DNI
[2017-12-12] MEDS: Verapamil 120 mg ER Tab PO SCH (09:20)
--- NOTE | 2017-12-12 09:55 | HP ---
Copied To: Emerald Brand MD Attending MD: Emerald Brand MD CHIEF COMPLAINT: Status post fall at home. HISTORY OF PRESENT ILLNESS: Ms. Seth is a 72-year-old female with past medical history of hypertension, history of metastatic invasive ductal CA of the right breast with mets to the lymph nodes, status post neoadjuvant chemotherapy with Adriamycin and Cytoxan, followed by lumpectomy, has been receiving Taxol weekly until September when the patient was admitted to the hospital and was found to be anemic. After the patient was treated, she was admitted to subacute rehab at [facility] who was discharged to home on 11/17/2017 and her chemotherapy was on hold as the patient was not able to tolerate and scheduled for possible radiation therapy sometime next week. She developed atrial fibrillation in the month of 04/2017, who has been following up with Dr. James Johnston as primary care physician and Dr. Mosley as pocketed spring machine operator. Came into the ED after the patient had sustained a fall at home. I was asked by Dr. James Johnston to admit the patient to the hospital. As per the patient, she has been progressively getting weak, decreased appetite, not able to eat anything. This afternoon when she was walking from one room to the other, she felt very weak, her legs gave away and was not able to control and she fell to the ground. She denied any headache, dizziness, or associated chest pain, palpitations, or any nausea or vomiting or abdominal pain, diarrhea, or any other urinary incontinence associated with this fall. She was fully aware of the surroundings. Her son was home and was trying to help her, but there was no chair nearby, so she fell to the ground. Denied any other complaints, but for the past few days she has been feeling very weak and unable to tolerate any p.o. feeds. PAST MEDICAL HISTORY: Hypertension, hyperlipidemia, atrial fibrillation, right breast CA, status post mastectomy, and lymph node resection, developed lymphedema. PAST SURGICAL HISTORY: Right mastectomy. FAMILY HISTORY: Coronary artery disease. Mother had diabetes, who at the age of 50. PERSONAL HISTORY: She is . Her is currently at subacute rehab. Lives with her son and she takes care of her son. SOCIAL HISTORY: She quit smoking in 01/2017 after she was diagnosed with breast CA, smoked one pack per day for 54 years. Denies any alcohol or drug abuse. ALLERGIES: NO KNOWN DRUG ALLERGIES OTHER THAN DEVELOPING DEEP SEDATION WITH CODEINE. HOME MEDICATIONS: Include: Crestor 10 mg p.o. at bedtime, Bystolic 5 mg daily, Xarelto 15 mg daily. REVIEW OF SYSTEMS: As described in history of present illness. All other systems reviewed and were found to be negative. PHYSICAL EXAMINATION: GENERAL: Elderly female, lying in bed, in no acute distress. VITAL SIGNS: Blood pressure 95/51, pulse 69, respirations 20, temperature 99.8 degrees Fahrenheit, O2 saturations 98% on nasal cannula. HEENT: Pupils equal, round, and reacting to light and accommodation. Extraocular muscles intact. No icterus. Positive pallor. No oral thrush. No pharyngeal congestion. NECK: Supple. No JVD. CHEST: Right-sided Infusaport in place. No erythema at the port site, but there is swelling, redness, and warmth noted in the right axillary region. There is tenderness present. The swelling is hard, immobile, extending vertically along the axillary line. Right mastectomy sutures are healed. No oozing noted. LUNGS: Bilateral vesicular breath sounds. No wheezing. No rhonchi. CVS: S1, S2 present, irregular. ABDOMEN: Soft, nontender. Bowel sounds present. No guarding. No rigidity. No rebound tenderness noted. PREPARATION OPERATOR: Alert, awake, and oriented x3. No focal deficits noted. EXTREMITIES: No edema. Palpable peripheral pulses. LABORATORY DATA: Labs done from the emergency room: WBC 33.3, hemoglobin 10.1, hematocrit 30, platelets 327, bands 1. Sodium 130, potassium 3, chloride 93, bicarb 26, BUN 14, creatinine 0.9, glucose 126. Lactic acid on admission, it was 3.7, repeat one is 1.3. Calcium 9.1, phosphorus 2.8, magnesium 1.3. Total bilirubin 0.9. AST 28, ALT 29, alkaline phosphatase 92. Troponin less than 0.0120. ProBNP 6800. Total protein 5.7, albumin 2.9, procalcitonin 1.69. UA: Specific gravity 1.011, protein 1+, blood 1+, leukocyte esterase 3+, wbc 248, rbc 14. CT head, negative. CT scan of the abdomen, pelvis, and chest shows no abscess in the chest, abdomen, or pelvis. A large right breast mass versus axillary node measuring 8.6 cm x 6.6 cm, numerous right axillary subpectoral and left hilar lymph node, bilateral pulmonary nodules, these are consistent with metastatic disease, patchy sclerosis in the right anterior 7th rib and inferior T11 vertebral body, which may represent metastatic disease. Chest, no active disease. EKG: Atrial fibrillation with rapid ventricular rate at 137 beats per minute. ASSESSMENT: Elderly female with past medical history of hypertension, hyperlipidemia, atrial fibrillation, metastatic invasive ductal carcinoma of the right breast, status post neoadjuvant therapy, status post right mastectomy, received chemotherapy until September when she developed anemia and pneumonia. She was treated at [facility], sent to [facility] for rehab, discharged home from rehab on 11/17/2017. Since the hospital discharge, she was fairly in her usual state of health, but for the past few days has been having decreased appetite, feeling tired, weak, and today while she was walking at home, her legs gave away and fell to the ground. In the emergency department, the patient was found to be having right axillary mass with cellulitic changes and elevated white blood cell count, low hemoglobin and hematocrit, and electrolyte abnormality. Urinalysis consistent with possible urinary tract infection and elevated procalcitonin and initial elevation of lactate. The patient was also hypotensive despite fluid boluses, so the patient was resuscitated with fluid and the patient is being admitted to Intensive Care Unit for further management. 1. Possible sepsis, rule out secondary to urinary tract infection, right axillary mass with cellulitic changes. 2. Leucocytosis from sepsis. 3. Anemia. 4. Electrolyte imbalance. 5. Urinalysis consistent with urinary tract infection. 6. Hypotension from sepsis. 7. Atrial fibrillation with rapid ventricular rate. 8. History of metastatic right breast cancer. 9. Abnormal CT with new onset pulmonary nodules and right axillary mass consistent with metastasis and distant metastasis to the bone. 10. Hyperlipidemia. PLAN: The patient is being admitted to ICU, will do serial troponins, serial EKGs, and check echocardiogram. The patient received vancomycin and Zosyn in the emergency room, and also received Cardizem for AFib with rapid ventricular rate. We will continue with vancomycin 1 g IV every 12 hours. ID consult requested. Dr. Jimenez added Flagyl and cefepime 2 g IV every 8 hours. Received multiple fluid boluses. We will monitor blood pressure closely. We will consider pressors if persistently low blood pressures. We will do the branch culture. I will check stools for Clostridium difficile toxin. I will supplement magnesium and potassium. Repeat electrolytes in the morning. Request Cardiology evaluation with Dr. James Johnston and Hematology consult with Dr. Mosley. The patient claims that she has a living will, which is with her friend and also she appointed her as the patient's next of kin. She is not able to recall what she put in the living will. We will request the patient's friend to bring a copy of her living will to attach to the chart. I discussed with the patient at length. Overall, longtime prognosis is guarded. The patient understands her clinical condition. We will add further recommendations as her clinical course progresses. Emerald Brand MD
[2017-12-12] MEDS ORDERED: Potassium Chloride 20 mEq ER Tab PO SCH (10:00)
[2017-12-12] MEDS ORDERED: Magnesium Sulfate 1 gm in D5W 1 GM/100 ML BAG IVPB ONE (10:30)
--- NOTE | 2017-12-12 10:31 | CP.PCM.PN ---
Subjective - Date & Time of Evaluation Date of Evaluation: 12/12/17 Time of Evaluation: 10:31 - Subjective Subjective: Progress note dictated #[id number] Objective - Vital Signs/Intake and Output Vital Signs (last 24 hours): Temp Pulse Resp BP Pulse Ox 98.7 F 84 23 110/65 100 12/12/17 08:00 12/12/17 10:00 12/12/17 10:00 12/12/17 09:10 12/12/17 10:00 Intake and Output: 12/12/17 12/12/17 06:59 18:59 Intake Total 1152 648 Output Total 100 200 Balance 1052 448 - Medications Medications: Current Medications Heparin Sodium (Porcine) (Heparin) 5,000 units SC Q8 [facility]ODA Vancomycin HCl 1 gm/ Sodium (Chloride) 200 mls @ 166.6 mls/hr IVPB Q12H [facility]ODA PRN Reason: Protocol Last Admin: 12/12/17 04:33 Dose: 166.6 mls/hr Sodium Chloride (Sodium Chloride 0.9%) 1,000 mls @ 42 mls/hr IV .[id number] [facility] Last Admin: 12/11/17 17:54 Dose: Not Given Metronidazole (Flagyl) 500 mg in 100 mls @ 100 mls/hr IVPB Q8H [facility]ODA PRN Reason: Protocol Last Admin: 12/12/17 10:06 Dose: 100 mls/hr Cefepime HCl (Maxipime Iv 2 Gm Premix) 2 gm in 100 mls @ 100 mls/hr IVPB Q8H [facility]ODA PRN Reason: Protocol Stop: 12/16/17 19:01 Last Admin: 12/12/17 03:11 Dose: 100 mls/hr Magnesium Sulfate/Dextrose (Magnesium Sulfate 1 Gm/100 Ml D5w) 1 gm in 100 mls @ 200 mls/hr IVPB ONCE ONE Stop: 12/12/17 10:59 Potassium Chloride (Potassium Chloride 10 Meq/100 Ml) 10 meq in 100 mls @ 100 mls/hr IVPB ONCE ONE Stop: 12/12/17 11:29 Pantoprazole Sodium (Protonix Inj) 40 mg IVP DAILY [facility] Last Admin: 12/12/17 09:15 Dose: 40 mg Rosuvastatin Calcium (Crestor) 10 mg PO HS [facility] Last Admin: 12/11/17 21:02 Dose: 10 mg Verapamil HCl (Calan Sr Tab) 120 mg PO DAILY [facility]ODA Last Admin: 12/12/17 09:20 Dose: 120 mg - Labs Labs: 12/12/17 06:02 12/12/17 06:01
[2017-12-12 11:14] LABS: INR 1.4; PROTHROMBIN TIME 15.6 SECONDS (9.7-12.2)
--- NOTE | 2017-12-12 12:14 | CP.PCM.CON ---
History of Present Illness - History of Present Illness History of Present Illness: Palliative consult requested by Dr Lester Reason: Goals of care and advance care planning 72 year old female with history of breast cancer, HTN, A Fib who who was brought to ED via EMS after suffering a fall at home. She complained of weakness and inability to stand. She denied head injury, LOC, fever, nausea, vomiting, headache. Reports numbness in both feet and heavy feeling in both lower extremities, she has been experiencing difficultly walking, requires walker at home for ambulation. She also reports having injured her right arm a few months ago resulting in limited ROM. Workup revealed elevated lactic acid/ code sepsis implemented. CT of head showed no acute intracranial pathology. CT of chest/abdomen/pelvis showing large right breast mass vs axillary node 8.6cm /6.6cm, numerous right axillilary/subpectoral and left hilar lymph nodes, Bilateral pulmonary nodules which are consistent with metastatic disease, patchy sclerosis in right anterior 7thrib and inferior T11 vertebral body which probably represents metastatic disease. Labs:Wbc 33.3, Hgb 10.1, Plt 327, Na 131, K 3.3, Bun 15, Creat. 0.8, Lactic acid 1.3, Calcium 8.3, AST 29, ALT 33, BNP 6800. Urine+ blood, leukocytes, protein and bacteria /UC negative Echo:pending PMHx: A Fib on Xarelto, breast cancer > last chemo September( adriamycin/ cytoxin), anemia, right axillary lymphedema PSH: tonsillectomy, right mastectomy, port a cath Social History: Former smoker, no alcohol or drug use.Lives with her son who is 42 and has mental illness Family History: CAD, DM Advance Care Planning: The patient as an Advance Directive(copy is placed in chart), patients health surrogate is Donyasa Hernándezzeus. Review of Systems: As per HPI, 12 point review otherwise negative Past Patient History - Past Social History Smoking Status: Former Smoker - CARDIAC Hx Hypercholesterolemia: Yes Hx Hypertension: Yes - HEMATOLOGICAL/ONCOLOGICAL Hx Cancer: Yes (right breast) - MUSCULOSKELETAL/RHEUMATOLOGICAL Hx Falls: No - PSYCHIATRIC Hx Substance Use: No - SURGICAL HISTORY Hx Mastectomy: Yes (right) Other/Comment: port-a-cath - ANESTHESIA Hx Anesthesia: Yes Hx Anesthesia Reactions: No Hx Malignant Hyperthermia: No Has any member of the family had a problem w/ anesthesia?: No Meds Allergies/Adverse Reactions: Allergies Allergy/AdvReac Type Severity Reaction Status Date / Time codeine AdvReac Verified 12/11/17 11:32 - Medications Medications: Current Medications Heparin Sodium (Porcine) (Heparin) 5,000 units SC Q8 [facility] Vancomycin HCl 1 gm/ Sodium (Chloride) 200 mls @ 166.6 mls/hr IVPB Q12H [facility] PRN Reason: Protocol Last Admin: 12/12/17 04:33 Dose: 166.6 mls/hr Sodium Chloride (Sodium Chloride 0.9%) 1,000 mls @ 42 mls/hr IV .[id number] [facility] Last Admin: 12/11/17 17:54 Dose: Not Given Metronidazole (Flagyl) 500 mg in 100 mls @ 100 mls/hr IVPB Q8H [facility] PRN Reason: Protocol Last Admin: 12/12/17 10:06 Dose: 100 mls/hr Cefepime HCl (Maxipime Iv 2 Gm Premix) 2 gm in 100 mls @ 100 mls/hr IVPB Q8H [facility] PRN Reason: Protocol Stop: 12/16/17 19:01 Last Admin: 12/12/17 11:41 Dose: 100 mls/hr Pantoprazole Sodium (Protonix Inj) 40 mg IVP DAILY [facility] Last Admin: 12/12/17 09:15 Dose: 40 mg Rosuvastatin Calcium (Crestor) 10 mg PO HS [facility] Last Admin: 12/11/17 21:02 Dose: 10 mg Verapamil HCl (Calan Sr Tab) 120 mg PO DAILY [facility] Last Admin: 12/12/17 09:20 Dose: 120 mg Physical Exam - Constitutional Appears: No Acute Distress, Chronically Ill - Eye Exam Eye Exam: Normal appearance, PERRL - ENT Exam ENT Exam: Mucous Membranes Moist, Normal Oropharynx - Neck Exam Neck exam: Positive for: Normal Inspection - Respiratory Exam Respiratory Exam: Clear to Auscultation Bilateral, NORMAL BREATHING PATTERN - Cardiovascular Exam Cardiovascular Exam: Irregular Rhythm, +S1, +S2 - GI/Abdominal Exam GI & Abdominal Exam: Normal Bowel Sounds, Soft Additional comments: no tenderness or guarding - Extremities Exam Extremities exam: Positive for: pedal pulses present Additional comments: right arm lymphedema - Back Exam Back exam: NORMAL INSPECTION - Psychiatric Exam Psychiatric exam: Anxious, Depressed - Skin Skin Exam: Dry, Pallor, Warm - Additional Findings Additional findings: Palliative performance scale rating 40 % Results - Vital Signs Recent Vital Signs: Last Vital Signs Temp 98.7 F 12/12/17 08:00 Pulse 75 12/12/17 11:08 Resp 23 12/12/17 11:08 BP 83/56 L 12/12/17 11:08 Pulse Ox 100 12/12/17 11:08 - Labs Result Diagrams: 12/12/17 06:02 12/12/17 06:01 Labs: Laboratory Results - last 24 hr 12/11/17 12/11/17 12/11/17 12:24 12:24 13:42 WBC 33.3 H D RBC 3.35 L Hgb 10.1 L Hct 30.0 L MCV 89.7 D MCH 30.1 MCHC 33.5 RDW 14.5 Plt Count 327 D MPV 8.0 Neut % (Auto) 94.7 H Lymph % (Auto) 1.2 L Perkins % (Auto) 2.9 Eos % (Auto) 0.5 Baso % (Auto) 0.7 Neut # (Auto) 31.5 H Lymph # (Auto) 0.4 L Perkins # (Auto) 1.0 H Eos # (Auto) 0.2 Baso # (Auto) 0.2 Neutrophils % (Manual) 95 H Band Neutrophils % 1 Lymphocytes % (Manual) 2 L Monocytes % (Manual) 2 Eosinophils % (Manual) Toxic Granulation Present Platelet Estimate Normal Hypochromasia (manual) Slight Poikilocytosis (manual Slight Anisocytosis (manual) Slight Target Cells Slight Ovalocytes Slight PT INR APTT pO2 22 L VBG pH 7.46 H VBG pCO2 36 L VBG HCO3 25.0 VBG Total CO2 26.7 VBG O2 Sat (Calc) 42.0 VBG Base Excess 2.0 VBG Potassium 3.2 L Glucose 120 H Lactate 3.7 H Sodium 130 L 129.0 L Potassium 3.0 L Chloride 93 L 97.0 L Carbon Dioxide 26 Anion Gap 15 BUN 14 Creatinine 0.9 Est GFR ( Amer) > 60 Est GFR (Non-Af Amer) > 60 Random Glucose 126 H Lactic Acid Calcium 9.1 Phosphorus 2.8 Magnesium 1.3 L Total Bilirubin 0.9 AST 28 ALT 29 Alkaline Phosphatase 92 Troponin I < 0.0120 NT-Pro-B Natriuret Pep Total Protein 5.7 L Albumin 2.9 L Globulin 2.9 Albumin/Globulin Ratio 1.0 Procalcitonin Venous Blood Potassium 3.2 L Urine Color Urine Clarity Urine pH Ur Specific [place] Urine Protein Urine Glucose (UA) Urine Ketones Urine Blood Urine Nitrate Urine Bilirubin Urine Urobilinogen Ur Leukocyte Esterase Urine WBC (Auto) Urine RBC (Auto) Ur Squamous Epith Cells Urine Bacteria 12/11/17 12/11/17 12/11/17 13:57 15:43 15:55 WBC RBC Hgb Hct MCV MCH MCHC RDW Plt Count MPV Neut % (Auto) Lymph % (Auto) [place] % (Auto) Eos % (Auto) Baso % (Auto) Neut # (Auto) Lymph # (Auto) Perkins # (Auto) Eos # (Auto) Baso # (Auto) Neutrophils % (Manual) Band Neutrophils % Lymphocytes % (Manual) Monocytes % (Manual) Eosinophils % (Manual) Toxic Granulation Platelet Estimate Hypochromasia (manual) Poikilocytosis (manual Anisocytosis (manual) Target Cells Ovalocytes PT INR APTT pO2 VBG pH VBG pCO2 VBG HCO3 VBG Total CO2 VBG O2 Sat (Calc) VBG Base Excess VBG Potassium Glucose Lactate Sodium Potassium Chloride Carbon Dioxide Anion Gap BUN Creatinine Est GFR ( Amer) Est GFR (Non-Af Amer) Random Glucose Lactic Acid Calcium Phosphorus Magnesium Total Bilirubin AST ALT Alkaline Phosphatase Troponin I NT-Pro-B Natriuret Pep 6800 H Total Protein Albumin Globulin Albumin/Globulin Ratio Procalcitonin 1.69 H Venous Blood Potassium Urine Color Jolene Urine Clarity Turbid Urine pH 5.0 Ur Specific [place] 1.011 Urine Protein 1+ H Urine Glucose (UA) Normal Urine Ketones Negative Urine Blood 1+ H Urine Nitrate Negative Urine Bilirubin Negative Urine Urobilinogen Normal Ur Leukocyte Esterase 3+ H Urine WBC (Auto) 248 H Urine RBC (Auto) 14 H Ur Squamous Epith Cells 117 H Urine Bacteria Mod H 12/11/17 12/11/17 12/11/17 15:55 16:05 18:49 WBC RBC Hgb Hct MCV MCH MCHC RDW Plt Count MPV Neut % (Auto) Lymph % (Auto) Perkins % (Auto) Eos % (Auto) Baso % (Auto) Neut # (Auto) Lymph # (Auto) Perkins # (Auto) Eos # (Auto) Baso # (Auto) Neutrophils % (Manual) Band Neutrophils % Lymphocytes % (Manual) Monocytes % (Manual) Eosinophils % (Manual) Toxic Granulation Platelet Estimate Hypochromasia (manual) Poikilocytosis (manual Anisocytosis (manual) Target Cells Ovalocytes PT INR APTT pO2 24 L VBG pH 7.40 VBG pCO2 41 VBG HCO3 23.8 VBG Total CO2 26.7 VBG O2 Sat (Calc) 43.0 VBG Base Excess 0.5 VBG Potassium 2.6 L Glucose 116 H Lactate 1.4 Sodium 131.0 L Potassium Chloride 101.0 Carbon Dioxide Anion Gap BUN Creatinine Est GFR ( Amer) Est GFR (Non-Af Amer) Random Glucose Lactic Acid 1.3 1.1 Calcium Phosphorus Magnesium Total Bilirubin AST ALT Alkaline Phosphatase Troponin I NT-Pro-B Natriuret Pep Total Protein Albumin Globulin Albumin/Globulin Ratio Procalcitonin Venous Blood Potassium 2.6 L Urine Color Urine Clarity Urine pH Ur Specific [place] Urine Protein Urine Glucose (UA) Urine Ketones Urine Blood Urine Nitrate Urine Bilirubin Urine Urobilinogen Ur Leukocyte Esterase Urine WBC (Auto) Urine RBC (Auto) Ur Squamous Epith Cells Urine Bacteria 12/11/17 12/12/17 12/12/17 22:41 06:01 06:02 WBC 31.2 H RBC 2.75 L Hgb 8.2 L Hct 24.8 L MCV 90.2 MCH 29.9 MCHC 33.1 RDW 14.5 Plt Count 275 MPV 7.8 Neut % (Auto) 92.7 H Lymph % (Auto) 2.2 L Perkins % (Auto) 3.5 Eos % (Auto) 1.3 Baso % (Auto) 0.3 Neut # (Auto) 28.9 H Lymph # (Auto) 0.7 L [place] # (Auto) 1.1 H Eos # (Auto) 0.4 Baso # (Auto) 0.1 Neutrophils % (Manual) 91 H Band Neutrophils % 6 H Lymphocytes % (Manual) 1 L Monocytes % (Manual) 1 Eosinophils % (Manual) 1 Toxic Granulation Platelet Estimate Normal Hypochromasia (manual) Poikilocytosis (manual Anisocytosis (manual) Target Cells Ovalocytes Slight PT INR APTT pO2 VBG pH VBG pCO2 VBG HCO3 VBG Total CO2 VBG O2 Sat (Calc) VBG Base Excess VBG Potassium Glucose Lactate Sodium 131 L Potassium 3.3 L Chloride 101 Carbon Dioxide 24 Anion Gap 10 BUN 15 Creatinine 0.8 Est GFR ( Amer) > 60 Est GFR (Non-Af Amer) > 60 Random Glucose 93 Lactic Acid 1.1 Calcium 8.3 L Phosphorus 2.9 Magnesium 1.6 Total Bilirubin 0.6 AST 29 ALT 33 Alkaline Phosphatase 64 Troponin I < 0.0120 NT-Pro-B Natriuret Pep Total Protein 4.7 L Albumin 2.2 L D Globulin 2.5 Albumin/Globulin Ratio 0.9 L Procalcitonin Venous Blood Potassium Urine Color Urine Clarity Urine pH Ur Specific [place] Urine Protein Urine Glucose (UA) Urine Ketones Urine Blood Urine Nitrate Urine Bilirubin Urine Urobilinogen Ur Leukocyte Esterase Urine WBC (Auto) Urine RBC (Auto) Ur Squamous Epith Cells Urine Bacteria 12/12/17 10:54 WBC RBC Hgb Hct MCV MCH MCHC RDW Plt Count MPV Neut % (Auto) Lymph % (Auto) Perkins % (Auto) Eos % (Auto) Baso % (Auto) Neut # (Auto) Lymph # (Auto) Perkins # (Auto) Eos # (Auto) Baso # (Auto) Neutrophils % (Manual) Band Neutrophils % Lymphocytes % (Manual) Monocytes % (Manual) Eosinophils % (Manual) Toxic Granulation Platelet Estimate Hypochromasia (manual) Poikilocytosis (manual Anisocytosis (manual) Target Cells Ovalocytes PT 15.6 H INR 1.4 APTT 35 H pO2 VBG pH VBG pCO2 VBG HCO3 VBG Total CO2 VBG O2 Sat (Calc) VBG Base Excess VBG Potassium Glucose Lactate Sodium Potassium Chloride Carbon Dioxide Anion Gap BUN Creatinine Est GFR ( Amer) Est GFR (Non-Af Amer) Random Glucose Lactic Acid Calcium Phosphorus Magnesium Total Bilirubin AST ALT Alkaline Phosphatase Troponin I NT-Pro-B Natriuret Pep Total Protein Albumin Globulin Albumin/Globulin Ratio Procalcitonin Venous Blood Potassium Urine Color Urine Clarity Urine pH Ur Specific [place] Urine Protein Urine Glucose (UA) Urine Ketones Urine Blood Urine Nitrate Urine Bilirubin Urine Urobilinogen Ur Leukocyte Esterase Urine WBC (Auto) Urine RBC (Auto) Ur Squamous Epith Cells Urine Bacteria Assessment & Plan - Assessment and Plan (Free Text) Assessment: 72 year old female with history of advanced breast cancer, A Fib, HTN , deconditioning who is admitted with sepsis, hypotension, weakness and difficulty ambulating. The patient is alert oriented, cries easily. States she understands that she has breast cancer and that " the tumor may not be responding". She finds it difficult to talk about goals of care and advance care planning. States that she has an Advanced Directive and that her friend Donya knows what has to be done. Patient becomes very tearful when asked if she is DNR/DNI , unable to verbalize her wishes. Patient unsure as to wether she would consider additional chemotherapy if offered. She is scheduled to start radiation therapy next week but understands that her sepsis must resolve and that her weakened condition may prevent this from happening. She expressed that it "not okay to just give up". I explained that goals of care can change based on quality of life and disease progression and that it is okay to seek comfort measures if she is accepting to this. Patient also expressed psychosocial distress about her mentally impaired son who is home and will have no one to take care of him. Explained that social work case manager may be able to give her some guidance in this matter. Patients friend Donya (VIVIANA) at bedside for much of our conversation. I spoke with Donya privately and learned that the patient has always had difficulty facing difficult situations She indicated that the patient has no primary care doctor and had not sought medical care until she developed the beast mass.Donya recognizes that patient can no longer care for herself as well as her son and that life changing decisions will have to be made. Donya understands the gravity of situation and asked if patient was appropriate for hospice care. I verified that she was and explained hospice care in detail. Encouraged patient and family to follow up with oncology to determine wether she is a candidate for other treatment and if so, to decide impact of treatment on quality of life. Goals of care and advance care planning discussion, 50 minutes Plan: Goals of care and advance care planning: Advance Care Directive in chart Sepsis:Continue Cefepime, Flagyl, Vancomycin. ID consult pending for further recommendations A Fib: Continue Calan, Crestor, telemetry monitoring. Echo pending. Cardiology following. Gait dysfunction: PT /OT evaluation Anxiety/ Depression: Would consider starting anti depressive agent such as Remeron. Breast cancer: Follow up with oncologist for further recommendation Psychosocial Distress: Refer to for assist with community resources and family planning needs
[2017-12-12 14:03] LABS: FOLATE 10.3 ng/mL
--- NOTE | 2017-12-12 14:27 | CP.PCM.CON ---
History of Present Illness - History of Present Illness History of Present Illness: dictated Past Patient History - Past Social History Smoking Status: Former Smoker - CARDIAC Hx Hypercholesterolemia: Yes Hx Hypertension: Yes - HEMATOLOGICAL/ONCOLOGICAL Hx Cancer: Yes (right breast) - MUSCULOSKELETAL/RHEUMATOLOGICAL Hx Falls: No - PSYCHIATRIC Hx Substance Use: No - SURGICAL HISTORY Hx Mastectomy: Yes (right) Other/Comment: port-a-cath - ANESTHESIA Hx Anesthesia: Yes Hx Anesthesia Reactions: No Hx Malignant Hyperthermia: No Has any member of the family had a problem w/ anesthesia?: No Meds Allergies/Adverse Reactions: Allergies Allergy/AdvReac Type Severity Reaction Status Date / Time codeine AdvReac Verified 12/11/17 11:32 - Medications Medications: Current Medications Heparin Sodium (Porcine) (Heparin) 5,000 units SC Q8 [facility] Vancomycin HCl 1 gm/ Sodium (Chloride) 200 mls @ 166.6 mls/hr IVPB Q12H [facility] PRN Reason: Protocol Last Admin: 12/12/17 04:33 Dose: 166.6 mls/hr Sodium Chloride (Sodium Chloride 0.9%) 1,000 mls @ 42 mls/hr IV .[id number] [facility] Last Admin: 12/11/17 17:54 Dose: Not Given Metronidazole (Flagyl) 500 mg in 100 mls @ 100 mls/hr IVPB Q8H [facility] PRN Reason: Protocol Last Admin: 12/12/17 10:06 Dose: 100 mls/hr Cefepime HCl (Maxipime Iv 2 Gm Premix) 2 gm in 100 mls @ 100 mls/hr IVPB Q8H [facility] PRN Reason: Protocol Stop: 12/16/17 19:01 Last Admin: 12/12/17 11:41 Dose: 100 mls/hr Pantoprazole Sodium (Protonix Inj) 40 mg IVP DAILY [facility] Last Admin: 12/12/17 09:15 Dose: 40 mg Rosuvastatin Calcium (Crestor) 10 mg PO HS [facility] Last Admin: 12/11/17 21:02 Dose: 10 mg Verapamil HCl (Calan Sr Tab) 120 mg PO DAILY [facility] Last Admin: 12/12/17 09:20 Dose: 120 mg Results - Vital Signs Recent Vital Signs: Last Vital Signs Temp 99.1 F 12/12/17 12:00 Pulse 83 12/12/17 13:46 Resp 28 H 12/12/17 13:46 BP 95/58 L 12/12/17 13:46 Pulse Ox 93 L 12/12/17 13:46 - Labs Result Diagrams: 12/12/17 06:02 12/12/17 06:01 Labs: Laboratory Results - last 24 hr 12/11/17 12/11/17 12/11/17 12:24 15:43 15:55 WBC RBC Hgb Hct MCV MCH MCHC RDW Plt Count MPV Neut % (Auto) Lymph % (Auto) Dale % (Auto) Eos % (Auto) Baso % (Auto) Neut # (Auto) Lymph # (Auto) Dale # (Auto) Eos # (Auto) Baso # (Auto) Neutrophils % (Manual) Band Neutrophils % Lymphocytes % (Manual) Monocytes % (Manual) Eosinophils % (Manual) Platelet Estimate Ovalocytes PT INR APTT pO2 VBG pH VBG pCO2 VBG HCO3 VBG Total CO2 VBG O2 Sat (Calc) VBG Base Excess VBG Potassium Glucose Lactate Sodium 130 L Potassium 3.0 L Chloride 93 L Carbon Dioxide 26 Anion Gap 15 BUN 14 Creatinine 0.9 Est GFR ( Amer) > 60 Est GFR (Non-Af Amer) > 60 Random Glucose 126 H Lactic Acid Calcium 9.1 Phosphorus 2.8 Magnesium 1.3 L Total Bilirubin 0.9 AST 28 ALT 29 Alkaline Phosphatase 92 Troponin I < 0.0120 NT-Pro-B Natriuret Pep 6800 H Total Protein 5.7 L Albumin 2.9 L Globulin 2.9 Albumin/Globulin Ratio 1.0 Vitamin B12 Folate Procalcitonin 1.69 H Venous Blood Potassium 12/11/17 12/11/17 12/11/17 15:55 16:05 18:49 WBC RBC Hgb Hct MCV MCH MCHC RDW Plt Count MPV Neut % (Auto) Lymph % (Auto) Dale % (Auto) Eos % (Auto) Baso % (Auto) Neut # (Auto) Lymph # (Auto) Dale # (Auto) Eos # (Auto) Baso # (Auto) Neutrophils % (Manual) Band Neutrophils % Lymphocytes % (Manual) Monocytes % (Manual) Eosinophils % (Manual) Platelet Estimate Ovalocytes PT INR APTT pO2 24 L VBG pH 7.40 VBG pCO2 41 VBG HCO3 23.8 VBG Total CO2 26.7 VBG O2 Sat (Calc) 43.0 VBG Base Excess 0.5 VBG Potassium 2.6 L Glucose 116 H Lactate 1.4 Sodium 131.0 L Potassium Chloride 101.0 Carbon Dioxide Anion Gap BUN Creatinine Est GFR ( Amer) Est GFR (Non-Af Amer) Random Glucose Lactic Acid 1.3 1.1 Calcium Phosphorus Magnesium Total Bilirubin AST ALT Alkaline Phosphatase Troponin I NT-Pro-B Natriuret Pep Total Protein Albumin Globulin Albumin/Globulin Ratio Vitamin B12 Folate Procalcitonin Venous Blood Potassium 2.6 L 12/11/17 12/12/17 12/12/17 22:41 06:01 06:02 WBC 31.2 H RBC 2.75 L Hgb 8.2 L Hct 24.8 L MCV 90.2 MCH 29.9 MCHC 33.1 RDW 14.5 Plt Count 275 MPV 7.8 Neut % (Auto) 92.7 H Lymph % (Auto) 2.2 L [place] % (Auto) 3.5 Eos % (Auto) 1.3 Baso % (Auto) 0.3 Neut # (Auto) 28.9 H Lymph # (Auto) 0.7 L [place] # (Auto) 1.1 H Eos # (Auto) 0.4 Baso # (Auto) 0.1 Neutrophils % (Manual) 91 H Band Neutrophils % 6 H Lymphocytes % (Manual) 1 L Monocytes % (Manual) 1 Eosinophils % (Manual) 1 Platelet Estimate Normal Ovalocytes Slight PT INR APTT pO2 VBG pH VBG pCO2 VBG HCO3 VBG Total CO2 VBG O2 Sat (Calc) VBG Base Excess VBG Potassium Glucose Lactate Sodium 131 L Potassium 3.3 L Chloride 101 Carbon Dioxide 24 Anion Gap 10 BUN 15 Creatinine 0.8 Est GFR ( Amer) > 60 Est GFR (Non-Af Amer) > 60 Random Glucose 93 Lactic Acid 1.1 Calcium 8.3 L Phosphorus 2.9 Magnesium 1.6 Total Bilirubin 0.6 AST 29 ALT 33 Alkaline Phosphatase 64 Troponin I < 0.0120 NT-Pro-B Natriuret Pep Total Protein 4.7 L Albumin 2.2 L D Globulin 2.5 Albumin/Globulin Ratio 0.9 L Vitamin B12 Folate Procalcitonin Venous Blood Potassium 12/12/17 12/12/17 10:54 12:29 WBC RBC Hgb Hct MCV MCH MCHC RDW Plt Count MPV Neut % (Auto) Lymph % (Auto) [place] % (Auto) Eos % (Auto) Baso % (Auto) Neut # (Auto) Lymph # (Auto) [place] # (Auto) Eos # (Auto) Baso # (Auto) Neutrophils % (Manual) Band Neutrophils % Lymphocytes % (Manual) Monocytes % (Manual) Eosinophils % (Manual) Platelet Estimate Ovalocytes PT 15.6 H INR 1.4 APTT 35 H pO2 VBG pH VBG pCO2 VBG HCO3 VBG Total CO2 VBG O2 Sat (Calc) VBG Base Excess VBG Potassium Glucose Lactate Sodium Potassium Chloride Carbon Dioxide Anion Gap BUN Creatinine Est GFR ( Amer) Est GFR (Non-Af Amer) Random Glucose Lactic Acid Calcium Phosphorus Magnesium Total Bilirubin AST ALT Alkaline Phosphatase Troponin I NT-Pro-B Natriuret Pep Total Protein Albumin Globulin Albumin/Globulin Ratio Vitamin B12 623 Folate 10.3 Procalcitonin Venous Blood Potassium
--- NOTE | 2017-12-12 16:48 | VASCLAB ---
Date of service: 12/12/2017 PROCEDURE: Right Upper Extremity Venous Duplex Exam HISTORY: r/o dvt Right upper extremity edema, pain PRIORS: None. TECHNIQUE: Right upper extremity, internal jugular, subclavian, axillary, brachial, ulnar, radial, basilic and upper cephalic veins were evaluated. Flow was assessed with color Doppler, compressibility, assessment of phasic flow and augmentation response. Report prepared by Tal Monge, RVT FINDINGS: RIGHT: 1. Internal Jugular: 1.1. Compressibility - Fully compressible: Thrombus - None : Flow - Phasic: Augmentation -Normal: Reflux - . 2. Subclavian: 2.1. Compressibility - Fully compressible: Thrombus - None : Flow - Phasic: Augmentation -Normal: Reflux - . 3. Axillary: 3.1. Compressibility - Fully compressible: Thrombus - None : Flow - Phasic: Augmentation -Normal: Reflux - . 4. Brachial: 4.1. Compressibility - Fully compressible: Thrombus - None: Flow - Phasic: Augmentation -Normal: Reflux - . 5. Ulnar: 5.1. Compressibility - Fully compressible: Thrombus - None: Flow - : Augmentation -: Reflux - . 6. Radial: 6.1. Compressibility - Fully compressible: Thrombus - None: Flow - : Augmentation - : Reflux - . 7. Cephalic: 7.1. Compressibility - Fully compressible: Thrombus - None: Flow - : Augmentation -: Reflux - . 8. Basilic: 8.1. Compressibility - Fully compressible: Thrombus - None: Flow - : Augmentation -: Reflux - . OTHER FINDINGS: Right: There was an enlarged lymph node noted adjacent to the subclavian artery/vein within the subclavicular area, which measured 2.6x1.4 cm IMPRESSION: Right: No evidence of vein thrombosis of the right upper extremity. Normal venous flow noted in the left internal jugular and left subclavian veins.
--- NOTE | 2017-12-12 16:48 | VASCLAB ---
Date of service: 12/12/2017 PROCEDURE: Lower Extremity Venous Duplex Exam. HISTORY: r/o dvt B/L LE Edema, Pain PRIORS: None. TECHNIQUE: Bilateral common femoral, femoral, popliteal and posterior tibial, peroneal and great saphenous veins were evaluated. Flow was assessed with color Doppler, compressibility, assessment of phasic flow and augmentation response. Report prepared by Tal Monge, T FINDINGS: RIGHT: 1. Common Femoral Vein: 1.1. Compressibility - Fully compressible: Thrombus - None : Flow - Phasic: Augmentation -Normal: Reflux - . 2. Femoral Vein: 2.1. Compressibility - Fully compressible: Thrombus - None : Flow - Phasic: Augmentation -Normal: Reflux - . 3. Popliteal Vein: 3.1. Compressibility - Fully compressible: Thrombus - None : Flow - Phasic: Augmentation -Normal: Reflux - . 4. Posterior Tibial Vein: 4.1. Compressibility - Fully compressible: Thrombus - None: Flow - : Augmentation -: Reflux - . 5. Peroneal Vein: 5.1. Compressibility - Fully compressible: Thrombus - None: Flow - : Augmentation -: Reflux - None. 6. Great Saphenous Vein: 6.1. Compressibility - Fully compressible: Thrombus - None: Flow - Phasic: Augmentation - : Reflux - . LEFT: 1. Common Femoral Vein: 1.1. Compressibility - Fully compressible: Thrombus - None: Flow - Phasic: Augmentation -Normal: Reflux - . 2. Femoral Vein: 2.1. Compressibility - Fully compressible: Thrombus - None: Flow - Phasic: Augmentation -Normal: Reflux - . 3. Popliteal Vein: 3.1. Compressibility - Fully compressible: Thrombus - None : Flow - Phasic: Augmentation -Normal: Reflux - . 4. Posterior Tibial Vein: 4.1. Compressibility - Fully compressible: Thrombus - None: Flow - : Augmentation -: Reflux - . 5. Peroneal Vein: 5.1. Compressibility - Fully compressible: Thrombus - None: Flow - : Augmentation -: Reflux - . 6. Great Saphenous Vein: 6.1. Compressibility - Fully compressible: Thrombus - None: Flow - Phasic: Augmentation - : Reflux - . OTHER FINDINGS: Right: None significant. Left: None significant. IMPRESSION: Right: No evidence of deep or superficial vein thrombosis of the right lower extremity. Left: No evidence of deep or superficial vein thrombosis of the left lower extremity.
[2017-12-12] MEDS: Sodium Chloride 0.9% 1,000 ML IV SCH (19:02)
--- NOTE | 2017-12-12 19:47 | CARD ---
APPROVED REPORT Date of service: 12/11/2017 EKG Measurement Heart [id number] <Conclusion> Atrial fibrillation with rapid ventricular response Cannot rule out Inferior infarct, age undetermined Abnormal ECG
--- NOTE | 2017-12-13 00:26 | CON ---
Copied To: James Johnston MD Attending MD: James Johnston MD DATE: 12/12/2017 REQUESTING PHYSICIAN: Dr. Brand. HISTORY OF PRESENT ILLNESS: A 72-year-old female with a history of right breast cancer, status post chemotherapy, status post right mastectomy, was brought in the ER following a fall and possible syncope. She was found to be having white count of more than 30,000 with a shift to the left. Possible sepsis. She was being admitted to the ICU. She has a history of chronic atrial fibrillation. Had been on Xarelto, but because of repeated severe anemia requiring multiple transfusions, that was . She had a previous cardiac workup that had shown negative Myoview stress test and normal LV systolic function on echocardiogram. Echocardiogram repeated yesterday, again had shown normal LV systolic function with mild MR, TR, and mild pulmonary hypertension with pulmonary arterial systolic pressure of about 40 mmHg. PERSONAL HISTORY: Heavy smoker, more than one pack per day for more than 40 years. No ETOH abuse. ALLERGIES: Denied. FAMILY HISTORY: She is . Her had atrial fibrillation and CHF. Mother had diabetes. REVIEW OF SYSTEMS: Generalized weakness. No fever. No chills. Positive for hearing loss. No visual disturbances, cough. No hemoptysis. Denies any chest pain or shortness of breath. edema is noted. History of hypertension and AFib. Negative for hematemesis or melena. Negative for TIAs or CVAs. No urinary complaints. Musculoskeletal: History of arthritis involving the knee, also back pain. Psych: No evidence of depression. PHYSICAL EXAMINATION: GENERAL: Shows elderly white female who is conscious, alert, chronically sick-looking, in no acute distress. VITAL SIGNS: She is 5 feet 5 inches and weighs 187 pounds. Blood pressure is 88/60, heart rate of 84, atrial fibrillation on the monitor, respiratory rate of 20, afebrile. HEENT: Head is normocephalic, loss of hair is noted. Eyes, no pallor, no icterus. Mouth, complete dentures. LUNGS: Scattered rhonchi. HEART: PMI is not localized. S1, S2 distant and irregular. ABDOMEN: Soft , nontender. EXTREMITIES: No cyanosis or clubbing. 1+ edema is noted. Distal pulses are intact. LABORATORY DATA: EKG shows atrial fibrillation, nonspecific ST-T changes. Potassium is 3.3. White count was 33,000. Chest x-ray had shown she had no active disease. ASSESSMENT: A 72-year-old female with a history of carcinoma of the breast, anemia, chronic atrial fibrillation, has presented with possible sepsis. PLAN: To get an ID consult. Hematology followup. Care of plan was explained to the patient's family and her friend, who is the power of employment law attorney. We will follow. I thank you kindly. James Johnston MD
[2017-12-13] MEDS: Sodium Chloride 0.9% 1,000 ML IV SCH ×2 (01:02→16:28)
--- NOTE | 2017-12-13 02:01 | CON ---
Copied To: Yumiko Mosley MD Attending MD: Yumiko Mosley MD DATE: 12/12/2017 REASON FOR CONSULTATION: Metastatic carcinoma of the right breast. 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 The patient received chemotherapy with Adriamycin and Cytoxan every 3 weeks, 4 cycles, followed by simple mastectomy and a sentinel node biopsy. After the chemotherapy, sentinel node biopsies were negative. Tumor has improved significantly. The patient had a complete resection. The patient was started on a weekly Taxol. The patient received about 8 treatments, last treatment was about 3 months ago. The patient was admitted with severe weakness, tiredness, no energy, anemia, was treated, clinically improved, was sent to the rehab. The patient is in rehab for almost 3 months. The patient has not got out of bed. The patient now got admitted with fall, diarrhea, weakness, chills, found to have white cell counts about 32,000 most likely sepsis. I am called on consult. Meanwhile, the patient had a CAT scan of the chest done, which showed multiple pulmonary metastasis and also recurrent disease into the right chest wall, which was evaluated by the Radiation Oncology and was planning to do the radiation. Meanwhile, the patient got admitted. PAST MEDICAL HISTORY: Significant for atrial fibrillation, hypertension, hyperlipidemia. PAST SURGICAL HISTORY: Includes tonsillectomy, right breast mastectomy, Port-A-Cath placement. MEDICATIONS: The patient is on Xarelto, Crestor, Bystolic. SOCIAL HISTORY: Lives at home with her son, who has mental illness. is admitted to the detention. The patient is a former smoker. No drug abuse. No alcohol abuse. FAMILY HISTORY: Coronary artery disease and diabetes mellitus. ALLERGIES: CODEINE. REVIEW OF SYSTEMS: Denies any headache, dizziness or blackout. Does complain of pain in the legs. No abdominal pain. No nausea, vomiting, melena, hemoptysis or hematemesis. No dysuria or hematuria. The patient does have diarrhea. PHYSICAL EXAMINATION: GENERAL: The patient is awake, alert and oriented. Quiet, pleasant, very anxious, not in acute distress. VITAL SIGNS: Pulse 96, respiration 20, blood pressure 100/60, afebrile at present time. HEENT: Head is normocephalic and atraumatic. Eyes, conjunctivae pale. Sclerae white. Pupil reacting to light. Ear, nose, and throat normal. LUNGS: Decreased breath sound at both bases. HEART: S1 and S2, regular. No gallop. No murmur. ABDOMEN: Soft, nondistended, nontender. No hepatosplenomegaly. DIGITAL COLOR PRESS OPERATOR: No gross motor or sensory deficits. LYMPH NODE: No cervical, axillary or inguinal lymph nodes palpable. LABORATORY DATA: On 12/12/2017; WBC 31,200, 91% neutrophil, hemoglobin 8.2, platelet count 275,000. Sodium 131, potassium 3.3. Albumin is 2.2. CAT scan of the chest showed large right chest wall mass and multiple pulmonary nodules, metastatic disease. IMPRESSION: 1. Carcinoma of the breast with metastasis to the lung. 2. Anemia. 3. Reactive leukocytosis, neutrophilia. PLAN: Discussed the overall prognosis at length with the patient and the family. I explained to the patient that prognosis is very poor. Also explained to the patient that she has a mentally challenged son properly taken care and if any property, legal documents would be taken care. The patient has understood that. Continue antibiotics. Overall prognosis is very poor. No acute treatment from the chemo oncologically. Pain management as needed. Also discussed briefly about hospice care. Discussed at length with the patient's family also. The patient is agreed to further DNR. Discussed with the resident. Thank you for letting me participate in the care of this patient and I will follow up the patient with you. Yumiko Mosley MD cc: James Johnston MD
[2017-12-13] MEDS: metroNIDAZOLE IV 500 mg/100 ml 500 MG/100 ML BAG IVPB SCH ×3 (02:06→19:55)
--- NOTE | 2017-12-13 02:53 | PN ---
Copied To: Emerald Brand MD Attending MD: Emerald Brand MD DATE: 12/12/2017 SUBJECTIVE: The patient is seen and examined at bedside. The patient is feeling better than yesterday. This morning, claims that she had breakfast. She is feeling slightly better. Denies any headache, dizziness. Denies any chest pain, shortness of breath or wheezing. Denies any nausea, vomiting, abdominal pain, diarrhea or constipation, but complaining of bilateral lower extremity pain and unable to move the lower extremities secondary to pain. Denies any other neurologic symptoms. All other systems reviewed and was found to be negative. PHYSICAL EXAMINATION: GENERAL: An elderly female, lying in bed, in no acute distress. VITAL SIGNS: Blood pressure 111/54, pulse 75, respirations 20, temperature 98.4 degrees Fahrenheit, O2 sat is 97% on 3 L nasal cannula. Intake is 1269 mL, output is 100 mL. HEENT: Pupils are equal, round, reacting to light and accommodation. Extraocular muscles intact. No icterus. Positive pallor. No oral thrush. NECK: Supple. No JVD. LUNGS: Bilateral vesicular breath sounds. No wheezing. No rhonchi. CVS: S1, S2 present, irregular. ABDOMEN: Soft , nontender. Bowel sounds present. No guarding. No rigidity. No rebound tenderness noted. OSTEOPATHIC NEUROLOGIST: Alert, awake, oriented x3. No focal deficits noted. EXTREMITIES: Right upper extremity edema present in the upper arm. Lower extremities, minimal cellulitic changes, more in the right lower extremity. Palpable peripheral pulses. MEDICATIONS: Include Tylenol as needed, cefepime 2 g IV every 8 hours, Flagyl 500 mg IV every 8 hours, Protonix 40 mg IV daily, Xarelto 15 mg daily, Crestor 10 mg at bedtime IV fluids 42 mL an hour, vancomycin 1 g IV every 12 hours, verapamil 120 mg p.o. daily. LABORATORY DATA: Labs from today, WBC 31.2, hemoglobin 8.2, hematocrit 24.8, platelets 275, bands 6%. PT 15.6, INR 1.4, PTT 35. Sodium 131, potassium 3.3, chloride 101, bicarbonate 24, BUN 15, creatinine 0.8, glucose 93, lactate is 1.1, calcium 8.3, phosphorus 2.9, magnesium 1.6. AST 29, ALT 33, alkaline phosphatase 64, total protein 4.7, albumin 2.2, B12 of 623, folate 10.3. Urine culture negative. Blood culture x2 negative so far. Lower extremity Doppler, negative for any DVT. Upper extremity Doppler, negative for DVT. Echocardiogram was done pending results. ASSESSMENT AND PLAN: An elderly female with history of hypertension, hyperlipidemia, atrial fibrillation, recently diagnosed right breast carcinoma, status post neoadjuvant therapy, status post mastectomy, developed lymphedema. Chemotherapy discontinued and scheduled for possible radiation therapy sometime next week, admitted for sepsis, anemia, electrolyte imbalance, atrial fibrillation with rapid ventricular rate, now rate controlled. CT of the chest consistent with metastasis to lung and possible right axillary mass. The patient's blood pressure is still borderline, received verapamil this morning. We will continue with current antibiotics, Cefepime, vancomycin and Flagyl as per ID. Discussed with Dr. Jimenez. Her heart rates are controlled. I will continue deep vein thrombosis and gastrointestinal prophylaxis. The patient is refusing heparin. Restarted on Xarelto. We will follow up with Hematology and Cardiology. Palliative care consult requested. Discussed with the patient at length regarding her medical condition and poor prognosis. The patient understands her critical condition. We will continue with current therapy and supportive care. Emerald Brand MD
[2017-12-13] MEDS: Cefepime IV 2 gm in Dextrose 2 GM/100 ML BAG IVPB SCH (03:08)
[2017-12-13] MEDS: Vancomycin 1 GM in Sodium Chloride 0.9% 200 ML IVPB SCH ×2 (04:15→15:15)
[2017-12-13 06:43] LABS: BASO # 0.1 K/uL (0.0-0.2); BASO % 0.2 % (0.0-2.0); EOS # 0.6 K/uL (0.0-0.7); EOS % 1.7 % (0.0-4.0); HEMOGLOBIN 8.3 g/dL (11.0-16.0); LYMPH # 0.7 K/uL (1.0-4.3); LYMPH % 1.9 % (20.0-40.0); MEAN CELL VOLUME 90.1 fL (81.0-99.0); MEAN CORPUSCULAR HGB CONC 33.2 g/dL (33.0-37.0); MEAN PLATELET VOLUME 8.3 fL (7.2-11.7); MONO # 1.2 K/uL (0.0-0.8); MONO % 3.4 % (0.0-10.0); NEUT # 33.6 K/uL (1.8-7.0); NEUT % 92.8 % (50.0-75.0); PLATELET COUNT 273 K/uL (130-400); RBC 2.76 Mil/uL (3.80-5.20); RED CELL DISTRIBUTION WIDTH 14.5 % (11.5-14.5); WHITE BLOOD COUNT 36.2 K/uL (4.8-10.8)
[2017-12-13 06:51] LABS: IRON 18 ug/dL (37-170)
[2017-12-13 06:57] LABS: IRON 18 ug/dL (37-170)
[2017-12-13 06:59] LABS: ALB/GLOB RATIO 0.8 (1.0-2.1); ALBUMIN 2.3 g/dL (3.5-5.0); ALT/SGPT 26 U/L (9-52); AST/SGOT 22 U/L (14-36); BLOOD UREA NITROGEN 16 mg/dL (7-17); CALCIUM 8.8 mg/dl (8.6-10.4); GFR NON-AFRICAN AMERICAN > 60
[2017-12-13 07:00] LABS: % IRON SATURATION 12 (20-55); TOTAL IRON BINDING CAPACITY 148 ug/dL (250-450)
[2017-12-13 07:06] LABS: % IRON SATURATION 12 (20-55); TOTAL IRON BINDING CAPACITY 149 ug/dL (250-450)
[2017-12-13 08:38] LABS: NEUTROPHIL 88 % (50-75); TOTAL CELLS COUNTED 100
[2017-12-13 08:39] LABS: ANISOCYTOSIS SLIGHT; BANDS 4 % (0-2); LYMPHOCYTE 4 % (20-40); MONOCYTE 4 % (0-10); PLATELET ESTIMATE NORMAL (NORMAL)
[2017-12-13 08:40] LABS: BURR CELLS SLIGHT; OVALOCYTES SLIGHT; POIKILOCYTOSIS SLIGHT; TEARDROP CELLS SLIGHT
[2017-12-13] MEDS: Meropenem 1 GM in Sodium Chloride 0.9% 100 ML IVPB SCH ×2 (10:39→17:57)
[2017-12-13] MEDS: Verapamil 120 mg ER Tab PO SCH (10:39)
[2017-12-13] MEDS: Vancomycin 125 MG/5 ML SOLN (ORAL/RECTAL) PO SCH ×4 (10:40→21:28)
--- NOTE | 2017-12-13 14:07 | CP.PCM.PN ---
Subjective - Date & Time of Evaluation Date of Evaluation: 12/13/17 Time of Evaluation: 14:07 - Subjective Subjective: Progress notes dictated #[id number] Objective - Vital Signs/Intake and Output Vital Signs (last 24 hours): Temp Pulse Resp BP Pulse Ox 98.6 F 96 H 25 H 99/55 L 100 12/13/17 12:00 12/13/17 12:00 12/13/17 12:00 12/13/17 11:54 12/13/17 12:00 Intake and Output: 12/13/17 12/13/17 06:59 18:59 Intake Total 1016 668 Output Total 400 0 Balance 616 668 - Medications Medications: Current Medications Acetaminophen (Tylenol 325mg Tab) 650 mg PO Q6 PRN PRN Reason: Headache Last Admin: 12/12/17 18:09 Dose: 650 mg Vancomycin HCl 1 gm/ Sodium (Chloride) 200 mls @ 166.6 mls/hr IVPB Q12H [facility] PRN Reason: Protocol Last Admin: 12/13/17 04:15 Dose: 166.6 mls/hr Sodium Chloride (Sodium Chloride 0.9%) 1,000 mls @ 42 mls/hr IV .[id number] [facility] Last Admin: 12/13/17 01:02 Dose: 42 mls/hr Metronidazole (Flagyl) 500 mg in 100 mls @ 100 mls/hr IVPB Q8H [facility] PRN Reason: Protocol Last Admin: 12/13/17 10:40 Dose: 100 mls/hr Meropenem 1 gm/ Sodium (Chloride) 100 mls @ 100 mls/hr IVPB Q8H [facility] PRN Reason: Protocol Last Admin: 12/13/17 10:39 Dose: 100 mls/hr Pantoprazole Sodium (Protonix Inj) 40 mg IVP DAILY [facility] Last Admin: 12/13/17 10:39 Dose: 40 mg Rivaroxaban (Xarelto) 15 mg PO DAILY [facility] Last Admin: 12/13/17 10:39 Dose: 15 mg Rosuvastatin Calcium (Crestor) 10 mg PO HS [facility] Last Admin: 12/12/17 22:00 Dose: 10 mg Vancomycin HCl (Vancocin (Oral Or Rectal Use)) 125 mg PO QID [facility] PRN Reason: Protocol Last Admin: 12/13/17 13:22 Dose: 125 mg Verapamil HCl (Calan Sr Tab) 120 mg PO DAILY [facility] Last Admin: 12/13/17 10:39 Dose: 120 mg - Labs Labs: 12/13/17 06:34 12/13/17 06:28 PT 15.6 SECONDS (9.7-12.2) H 12/12/17 10:54 INR 1.4 12/12/17 10:54 APTT 35 SECONDS (21-34) H 12/12/17 10:54
--- NOTE | 2017-12-13 19:43 | PN ---
Copied To: Emerald Brand MD Attending MD: Emerald Brand MD DATE: 12/13/2017 SUBJECTIVE: The patient is seen and examined at bedside. The patient is still complaining of feeling tired, unable to get up and ambulate, but slightly better than yesterday. Denied sitting in the chair, cleaning, but she may not be able to stand on her feet. Denies any new complaints. PHYSICAL EXAMINATION: GENERAL: An elderly female, lying in bed, in no acute distress. VITAL SIGNS: Blood pressure 99/55, pulse 96, respirations 20, temperature 98.6 degrees Fahrenheit, O2 sat is 98% on 3 L nasal cannula. Intake is 3706 mL, output is 1200 mL. HEENT: Pupils equal, round, reacting to light and accommodation. Extraocular muscles intact. No icterus. Positive pallor. No oral thrush. No pharyngeal congestion. NECK: Supple. No JVD. LUNGS: Bilateral vesicular breath sounds. No wheezing. No rhonchi. CVS: S1 and S2 present, irregular. ABDOMEN: Soft, nontender. Bowel sounds present. No guarding. No rigidity. No rebound tenderness noted. SENIOR JAVA SOFTWARE DEVELOPER: Alert, awake, oriented x3. No focal deficits noted. EXTREMITIES: Right upper extremity is edematous and there is a mass in the right axillary region. Erythema is still present, warm to touch is present in the axillary area. MEDICATIONS: Include Protonix 40 mg daily, Xarelto 15 mg daily, Crestor 10 mg at bedtime, normal saline at 42 mL an hour, vancomycin 1 g IV every 12 hours, vancomycin p.o. 125 mg four times a day, verapamil 120 mg daily. LABORATORY DATA: Labs from this morning; WBC 36.2, hemoglobin 8.3, hematocrit 24.9, platelets 273. Sodium 130, potassium 4.4, chloride 101, bicarbonate 22, BUN , creatinine 0.8, glucose 100, calcium 8.8, phosphorous 2.7, magnesium 1.7, iron 18, TIBC 149, iron saturation 12%, total protein 5.1, albumin 2.3. Urine culture negative. Blood cultures are so far negative. Chest x-ray, no active disease. ASSESSMENT AND PLAN: An elderly female with history of hypertension, hyperlipidemia, atrial fibrillation, right breast disease, status post chemotherapy and mastectomy, for possible radiation next week, admitted to the hospital for sepsis, electrolyte imbalance, anemia, status post atrial fibrillation with rapid ventricular rate. Workup showed metastatic breast cancer with metastasis to the lung and right axillary mass with cellulitic changes. The patient is made do not resuscitate yesterday as per the patient's wishes. Oncologist spoke to the patient. Palliative care consult appreciated. Infectious Disease consult appreciated. Her heart rates are controlled. Blood pressure is on the lower side. Continue with current antibiotics as per Dr. Jimenez. Continue with meropenem 1 g intravenously every 8 hours, Flagyl intravenously and p.o., and vancomycin and stool for Clostridium difficile if not done. We will continue with deep venous thrombosis and gastrointestinal prophylaxis. We will request physical therapy continue with the supportive care and further recommendations as her clinical course progresses. Her overall long-term prognosis is guarded. Emerald Brand MD
--- NOTE | 2017-12-13 22:57 | CP.PCM.PN ---
Subjective - Date & Time of Evaluation Date of Evaluation: 12/13/17 Time of Evaluation: 16:00 - Subjective Subjective: dictated Objective - Vital Signs/Intake and Output Vital Signs (last 24 hours): Temp Pulse Resp BP Pulse Ox 98.4 F 89 24 89/53 L 98 12/13/17 16:00 12/13/17 18:00 12/13/17 18:00 12/13/17 15:54 12/13/17 18:00 Intake and Output: 12/13/17 12/14/17 18:59 06:59 Intake Total 1386 Output Total 450 Balance 936 - Medications Medications: Current Medications Acetaminophen (Tylenol 325mg Tab) 650 mg PO Q6 PRN PRN Reason: Headache Last Admin: 12/12/17 18:09 Dose: 650 mg Vancomycin HCl 1 gm/ Sodium (Chloride) 200 mls @ 166.6 mls/hr IVPB Q12H [facility] PRN Reason: Protocol Last Admin: 12/13/17 15:15 Dose: 166.6 mls/hr Sodium Chloride (Sodium Chloride 0.9%) 1,000 mls @ 42 mls/hr IV .[id number] [facility] Last Admin: 12/13/17 16:28 Dose: Not Given Metronidazole (Flagyl) 500 mg in 100 mls @ 100 mls/hr IVPB Q8H [facility] PRN Reason: Protocol Last Admin: 12/13/17 19:55 Dose: 100 mls/hr Meropenem 1 gm/ Sodium (Chloride) 100 mls @ 100 mls/hr IVPB Q8H [facility] PRN Reason: Protocol Last Admin: 12/13/17 17:57 Dose: 100 mls/hr Pantoprazole Sodium (Protonix Inj) 40 mg IVP DAILY [facility] Last Admin: 12/13/17 10:39 Dose: 40 mg Rivaroxaban (Xarelto) 15 mg PO DAILY [facility] Last Admin: 12/13/17 10:39 Dose: 15 mg Rosuvastatin Calcium (Crestor) 10 mg PO HS [facility] Last Admin: 12/13/17 21:27 Dose: 10 mg Vancomycin HCl (Vancocin (Oral Or Rectal Use)) 125 mg PO QID [facility] PRN Reason: Protocol Last Admin: 12/13/17 21:28 Dose: 125 mg Verapamil HCl (Calan Sr Tab) 120 mg PO DAILY [facility] Last Admin: 12/13/17 10:39 Dose: 120 mg - Labs Labs: 12/13/17 06:34 12/13/17 06:28 PT 15.6 SECONDS (9.7-12.2) H 12/12/17 10:54 INR 1.4 12/12/17 10:54 APTT 35 SECONDS (21-34) H 12/12/17 10:54
[2017-12-14] MEDS: Meropenem 1 GM in Sodium Chloride 0.9% 100 ML IVPB SCH ×3 (01:30→17:37)
--- NOTE | 2017-12-14 01:31 | PN ---
Copied To: Filipe Jimenez MD Attending MD: Filipe Jimenez MD DATE: 12/13/2017 SUBJECTIVE: The patient was seen in the ICU today and since then has been transferred to the floor as I am writing my note. The patient offered no new complaints. She says she never had diarrhea. Her white count has gone up. It could be related to her axillary mass and lymphadenopathy. PHYSICAL EXAMINATION: VITAL SIGNS: T-max is 98.4, pulse is 92, blood pressure was 99/55 this morning that was the last recorded here, respirations are 22 to 24. GENERAL: She appears to be in no acute respiratory distress. She is alert, awake. HEENT: Head is atraumatic, normocephalic. NECK: Supple. LUNGS: Clear. HEART: S1, S2 are present. CHEST: Has a right axillary mass and right arm swelling. Has lymphangitis. ABDOMEN: Soft, nontender. No guarding, no rigidity present. EXTREMITIES: Have no edema. LABORATORY DATA: Her white count has gone up to 36.2, hemoglobin is 8.3. ASSESSMENT AND PLAN: I added vancomycin orally, but it may be if the white count goes further, add clindamycin if it is just from lymphangitis. Blood cultures x2 are negative. Urine culture is negative. Methicillin-resistant Staphylococcus aureus is negative. We will continue with present antibiotics of vancomycin and meropenem and we will follow. I have also added vancomycin orally for now, just want to see if this will drop her white count. She is with breast malignancy with axillary lymphadenopathy and lymphatic spread of the breast cancer. Filipe Jimenez MD
[2017-12-14] MEDS: metroNIDAZOLE IV 500 mg/100 ml 500 MG/100 ML BAG IVPB SCH ×3 (02:30→19:00)
[2017-12-14] MEDS: Vancomycin 1 GM in Sodium Chloride 0.9% 200 ML IVPB SCH (04:00)
[2017-12-14 08:40] LABS: BASO # 0.1 K/uL (0.0-0.2); BASO % 0.4 % (0.0-2.0); EOS # 0.6 K/uL (0.0-0.7); LYMPH # 0.6 K/uL (1.0-4.3); MEAN CELL VOLUME 90.7 fL (81.0-99.0); MEAN CORPUSCULAR HEMOGLOBIN 30.3 pg (27.0-31.0); MEAN CORPUSCULAR HGB CONC 33.4 g/dL (33.0-37.0); MEAN PLATELET VOLUME 8.6 fL (7.2-11.7); MONO # 1.4 K/uL (0.0-0.8); MONO % 4.6 % (0.0-10.0); NEUT # 27.1 K/uL (1.8-7.0); PLATELET COUNT 279 K/uL (130-400); RBC 2.62 Mil/uL (3.80-5.20); RED CELL DISTRIBUTION WIDTH 14.7 % (11.5-14.5); WHITE BLOOD COUNT 29.8 K/uL (4.8-10.8)
[2017-12-14 09:06] LABS: ALB/GLOB RATIO 0.8 (1.0-2.1); ALBUMIN 2.1 g/dL (3.5-5.0); ALT/SGPT 25 U/L (9-52); AST/SGOT 17 U/L (14-36); BLOOD UREA NITROGEN 15 mg/dL (7-17); CALCIUM 8.8 mg/dl (8.6-10.4); GFR NON-AFRICAN AMERICAN > 60
--- NOTE | 2017-12-14 09:38 | CP.PCM.PN ---
Subjective - Date & Time of Evaluation Date of Evaluation: 12/14/17 Time of Evaluation: 09:38 - Subjective Subjective: Progress note dictated #[id number] Objective - Vital Signs/Intake and Output Vital Signs (last 24 hours): Temp Pulse Resp BP Pulse Ox 98.1 F 94 H 20 101/59 L 100 12/14/17 08:00 12/14/17 08:00 12/14/17 08:00 12/14/17 08:00 12/14/17 08:00 - Medications Medications: Current Medications Acetaminophen (Tylenol 325mg Tab) 650 mg PO Q6 PRN PRN Reason: Headache Last Admin: 12/12/17 18:09 Dose: 650 mg Sodium Chloride (Sodium Chloride 0.9%) 1,000 mls @ 42 mls/hr IV .[id number] [facility] Last Admin: 12/13/17 16:28 Dose: Not Given Metronidazole (Flagyl) 500 mg in 100 mls @ 100 mls/hr IVPB Q8H [facility] PRN Reason: Protocol Last Admin: 12/14/17 02:30 Dose: 100 mls/hr Meropenem 1 gm/ Sodium (Chloride) 100 mls @ 100 mls/hr IVPB Q8H [facility] PRN Reason: Protocol Last Admin: 12/14/17 01:30 Dose: 100 mls/hr Vancomycin/Sodium Chloride (Vancomycin 1 Gm/Ns 200 Ml) 1 gm in 200 mls @ 133 mls/hr IVPB DAILY [facility] PRN Reason: Protocol Stop: 12/19/17 10:01 Pantoprazole Sodium (Protonix Inj) 40 mg IVP DAILY [facility] Last Admin: 12/13/17 10:39 Dose: 40 mg Rivaroxaban (Xarelto) 15 mg PO DAILY [facility] Last Admin: 12/13/17 10:39 Dose: 15 mg Rosuvastatin Calcium (Crestor) 10 mg PO HS [facility] Last Admin: 12/13/17 21:27 Dose: 10 mg Vancomycin HCl (Vancocin (Oral Or Rectal Use)) 125 mg PO QID [facility] PRN Reason: Protocol Last Admin: 12/13/17 21:28 Dose: 125 mg Verapamil HCl (Calan Sr Tab) 120 mg PO DAILY [facility] Last Admin: 12/13/17 10:39 Dose: 120 mg - Labs Labs: 12/14/17 08:10 09/02/18 08:10 PT 15.6 SECONDS (9.7-12.2) H 12/12/17 10:54 INR 1.4 12/12/17 10:54 APTT 35 SECONDS (21-34) H 12/12/17 10:54
[2017-12-14] MEDS: Verapamil 120 mg ER Tab PO SCH (09:56)
[2017-12-14 10:05] LABS: LYMPHOCYTE 3 % (20-40); MONOCYTE 7 % (0-10); NEUTROPHIL 90 % (50-75); PLATELET ESTIMATE NORMAL (NORMAL); TOTAL CELLS COUNTED 100
[2017-12-14 10:06] LABS: ANISOCYTOSIS SLIGHT
[2017-12-14] MEDS: Vancomycin 125 MG/5 ML SOLN (ORAL/RECTAL) PO SCH ×4 (10:25→21:14)
[2017-12-14] MEDS: Vancomycin 1 gm/NS 200 ml 1 GM/200 ML BAG IVPB SCH (10:26)
--- NOTE | 2017-12-14 13:34 | PN ---
Copied To: Emerald Brand MD Attending MD: Emerald Brand MD DATE: 12/14/2017 SUBJECTIVE: The patient is seen and examined at bedside. The patient is being transferred to regular floor from ICU last night. She claims that she is feeling slightly better, able to turn in her bed, but not able to get up and sit in the bed. Denies any headache, dizziness. Denies any chest pain, shortness of breath, or wheezing. Denies any nausea, vomiting, abdominal pain, diarrhea, or constipation. Denies any other neurologic symptoms. Complaining lower extremity weakness and unable to get up on her feet. All other systems reviewed and was found to be negative. PHYSICAL EXAMINATION: GENERAL: An elderly female lying in bed in no acute distress. VITAL SIGNS: Blood pressure 101/59, pulse 94, respirations 20, temperature 98.1 degrees Fahrenheit, O2 saturation 100% on 2 L nasal cannula. HEENT: Pupils equal, round and reacting to light and accommodation. Extraocular muscles are intact. No icterus. Positive pallor. No oral thrush. No pharyngeal congestion. NECK: Supple. No JVD. LUNGS: Bilateral vesicular breath sounds. No wheezing. No rhonchi. Right axillary mass is increased in size since admission. There is warmth and erythema present. Tenderness present on palpation. No signs of oozing. No fluctuant areas noted. CVS: S1, S2 present, irregular. ABDOMEN: Soft, nontender. Bowel sounds are present. No guarding. No rigidity. No rebound tenderness noted. 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 No focal deficits noted. EXTREMITIES: No edema. Palpable peripheral pulses. MEDICATIONS: Include Tylenol 650 mg as needed, Meropenem 100 mg IV every 8 hours, Flagyl 500 mg IV every 8 hours, Protonix 40 mg IV, Xarelto 15 mg daily, Crestor 10 mg p.o. at bedtime, sodium chloride 42 mL/h, vancomycin 125 mg p.o. q.i.d. and vancomycin 1 g IV daily, verapamil 120 mg p.o. daily. LABORATORY DATA: Labs from this morning WBC 29.8, hemoglobin 8, hematocrit 23.8, platelets 279. Sodium 129, potassium 3.7, chloride 100, bicarb 21, BUN 15, creatinine 0.7, glucose 82, calcium 8.8, phosphorus 2.8, magnesium 1.6. AST 17, ALT 25, alkaline phosphatase 99, total protein 4.6, albumin 2.1. 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 Rule out abscess, hyponatremia, status post electrolyte imbalance, anemia. White count is slightly better than yesterday with change in her antibiotics, on p.o. and IV vancomycin and meropenem and Flagyl. We will continue with the current antibiotics. We will obtain ultrasound of the right axillary mass to rule out any abscess. 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 Rule out other causes. We will continue with other current medication. Continue with deep venous thrombosis and gastrointestinal prophylaxis. Her prognosis is guarded. The patient is made [id number]. We will request physical therapy and occupational therapy and the patient was also discussed regarding hospice care. We will talk to the patient regarding further treatment plans and discharge planning as per social media marketing manager. We will add further recommendation as her clinical course progresses. Emerald Brand MD
[2017-12-14] MEDS: Sodium Chloride 0.9% 1,000 ML IV SCH ×2 (14:36→17:15)
--- NOTE | 2017-12-14 15:49 | CARD ---
APPROVED REPORT Date of service: 12/12/2017 EXAM: Two-dimensional and M-mode echocardiogram with Doppler and color Doppler. Other Information Quality : GoodRhythm : INDICATION Peripheral Edema Pleural Effusion Atrial Fibrillation Cardiac Disease: CAD BREAST CA,SEPSIS RISK FACTORS Hypertension Hyperlipidemia 2D DIMENSIONS IVSd1.1 (0.7-1.1cm)LVDd5.2 (3.9-5.9cm) PWd1.1 (0.7-1.1cm)LVDs3.7 (2.5-4.0cm) FS (%) 28.7 %LVEF (%)54.9 (>50%) M-Mode DIMENSIONS TAPSE1.1 cm Aortic Valve AI P 1/2 [id number] Mitral Valve MV E Hjtsufzx284.7cm/sMV A Qxhrlhnw61.7cm/sE/A ratio1.3 TDI E/Lateral E'0.0E/Medial E'0.0 Tricuspid Valve TR Peak [id number]/sTR Peak [id number] GREAT VESSELS The aortic root is normal size. The aortic root displays moderate sclerocalcific changes of the aortic root. Dilated IVC with poor inspiration collapse is consistent with elevated right atrial pressure. <Conclusion> pt appears in a,fib. mildly dilated la & ra. normal size lv & rv. normal lv wall motion & systolic funciton with lvef of 50-55%. rv systolic function is mildly reduced. sclerotic trileaflet aortic valve with 1-2+ ai, sclerotic mitral & tv with mild tr & calculated pulmonary systolic pressures of 45 mm of hg,c/w moderate degree of pulmonary hypertension. The aortic root is normal size. The aortic root displays moderate sclerocalcific changes of the aortic root. Dilated IVC with poor inspiration collapse is consistent with elevated right atrial pressure.
--- NOTE | 2017-12-14 16:25 | CP.PCM.PN ---
Subjective - Date & Time of Evaluation Date of Evaluation: 12/14/17 Time of Evaluation: 16:24 - Subjective Subjective: leg pains. Objective - Vital Signs/Intake and Output Vital Signs (last 24 hours): Temp Pulse Resp BP Pulse Ox 98.7 F 78 20 98/57 L 99 12/14/17 15:00 12/14/17 15:00 12/14/17 15:00 12/14/17 15:00 12/14/17 15:00 Intake and Output: 12/14/17 12/14/17 06:59 18:59 Intake Total 1030 Output Total 2 Balance 1028 - Medications Medications: Current Medications Acetaminophen (Tylenol 325mg Tab) 650 mg PO Q6 PRN PRN Reason: Headache Last Admin: 12/12/17 18:09 Dose: 650 mg Sodium Chloride (Sodium Chloride 0.9%) 1,000 mls @ 42 mls/hr IV .[id number] [facility] Last Admin: 12/14/17 14:36 Dose: 42 mls/hr Metronidazole (Flagyl) 500 mg in 100 mls @ 100 mls/hr IVPB Q8H [facility] PRN Reason: Protocol Last Admin: 12/14/17 12:52 Dose: 100 mls/hr Meropenem 1 gm/ Sodium (Chloride) 100 mls @ 100 mls/hr IVPB Q8H [facility] PRN Reason: Protocol Last Admin: 12/14/17 10:52 Dose: 100 mls/hr Vancomycin/Sodium Chloride (Vancomycin 1 Gm/Ns 200 Ml) 1 gm in 200 mls @ 133 mls/hr IVPB DAILY [facility] PRN Reason: Protocol Stop: 12/19/17 10:01 Last Admin: 12/14/17 10:26 Dose: 133 mls/hr Pantoprazole Sodium (Protonix Ec Tab) 40 mg PO DAILY [facility] Rivaroxaban (Xarelto) 15 mg PO DAILY [facility] Last Admin: 12/14/17 09:56 Dose: 15 mg Rosuvastatin Calcium (Crestor) 10 mg PO HS [facility] Last Admin: 12/13/17 21:27 Dose: 10 mg Vancomycin HCl (Vancocin (Oral Or Rectal Use)) 125 mg PO QID [facility] PRN Reason: Protocol Last Admin: 12/14/17 14:35 Dose: 125 mg Verapamil HCl (Calan Sr Tab) 120 mg PO DAILY [facility] Last Admin: 12/14/17 09:56 Dose: 120 mg - Labs Labs: 12/14/17 08:10 12/14/17 08:10 PT 15.6 SECONDS (9.7-12.2) H 12/12/17 10:54 INR 1.4 12/12/17 10:54 APTT 35 SECONDS (21-34) H 12/12/17 10:54 - Constitutional Appears: No Acute Distress, Chronically Ill - Head Exam Head Exam: NORMOCEPHALIC - Neck Exam Neck Exam: Normal Inspection - Respiratory Exam Respiratory Exam: Decreased Breath Sounds - Cardiovascular Exam Cardiovascular Exam: Irregular Rhythm, Murmur - GI/Abdominal Exam GI & Abdominal Exam: Soft - Extremities Exam Extremities Exam: Pedal Edema - Neurological Exam Neurological Exam: Alert, Oriented x3 Assessment and Plan - Assessment and Plan (Free Text) Assessment: echo noted.overll stable cardiac meredith.supportive rx.
--- NOTE | 2017-12-14 22:35 | CP.PCM.PN ---
Subjective - Date & Time of Evaluation Date of Evaluation: 12/14/17 Time of Evaluation: 14:50 - Subjective Subjective: dictated Objective - Vital Signs/Intake and Output Vital Signs (last 24 hours): Temp Pulse Resp BP Pulse Ox 98.7 F 78 20 98/57 L 99 12/14/17 15:00 12/14/17 15:00 12/14/17 15:00 12/14/17 15:00 12/14/17 15:00 Intake and Output: 12/14/17 12/15/17 18:59 06:59 Intake Total 1030 Output Total 2 Balance 1028 - Medications Medications: Current Medications Acetaminophen (Tylenol 325mg Tab) 650 mg PO Q6 PRN PRN Reason: Headache Last Admin: 12/12/17 18:09 Dose: 650 mg Metronidazole (Flagyl) 500 mg in 100 mls @ 100 mls/hr IVPB Q8H [facility] PRN Reason: Protocol Last Admin: 12/14/17 19:00 Dose: 100 mls/hr Meropenem 1 gm/ Sodium (Chloride) 100 mls @ 100 mls/hr IVPB Q8H [facility] PRN Reason: Protocol Last Admin: 12/14/17 17:37 Dose: 100 mls/hr Vancomycin/Sodium Chloride (Vancomycin 1 Gm/Ns 200 Ml) 1 gm in 200 mls @ 133 mls/hr IVPB DAILY [facility] PRN Reason: Protocol Stop: 12/19/17 10:01 Last Admin: 12/14/17 10:26 Dose: 133 mls/hr Pantoprazole Sodium (Protonix Ec Tab) 40 mg PO DAILY [facility] Rivaroxaban (Xarelto) 15 mg PO DAILY [facility] Last Admin: 12/14/17 09:56 Dose: 15 mg Rosuvastatin Calcium (Crestor) 10 mg PO HS [facility] Last Admin: 12/14/17 21:12 Dose: 10 mg Tramadol HCl (Ultram) 50 mg PO TID PRN PRN Reason: Pain, moderate (4-7) Vancomycin HCl (Vancocin (Oral Or Rectal Use)) 125 mg PO QID [facility] PRN Reason: Protocol Last Admin: 12/14/17 21:14 Dose: 125 mg Verapamil HCl (Calan Sr Tab) 120 mg PO DAILY [facility] Last Admin: 12/14/17 09:56 Dose: 120 mg - Labs Labs: 12/14/17 08:10 12/14/17 08:10 PT 15.6 SECONDS (9.7-12.2) H 12/12/17 10:54 INR 1.4 12/12/17 10:54 APTT 35 SECONDS (21-34) H 12/12/17 10:54
[2017-12-15] MEDS: Meropenem 1 GM in Sodium Chloride 0.9% 100 ML IVPB SCH ×3 (02:30→18:03)
--- NOTE | 2017-12-15 03:02 | PN ---
Copied To: Filipe Jimenez MD Attending MD: Filipe Jimenez MD DATE: 12/14/2017 SUBJECTIVE: The patient was seen today. She was complaining of leg pain. She has been having leg pains because she has generalized edema. The patient otherwise was feeling better. She said her white count was down. PHYSICAL EXAMINATION: VITAL SIGNS: T-max is 98.7, pulse 78, blood pressure is 101/59, respirations are 20. HEENT: Head is atraumatic, normocephalic. GENERAL: She is alert, awake. NECK: Supple. LUNGS: Clear. HEART: S1, S2 are regular. CHEST: She has right axillary mass of lymph nodes with lymphangitis and cellulitis and had a high white count. This is from the breast cancer metastasis. ABDOMEN: Soft, nontender. No guarding, no rigidity present. EXTREMITIES: Remain with bilateral edema. LABORATORY DATA: Labs are noted. White count is 29.8 today, hemoglobin is 8, hematocrit 23.8, platelet count is 279. IMPRESSION AND PLAN: Impression is that blood cultures, urine culture, and methicillin-resistant Staphylococcus aureus are all negative. At this time, I will continue antibiotics as the white count is coming down. It may be partially related to the axillary lymphadenopathy and also to cellulitis, but her white count is improving on the current treatment. We will continue that for now. Filipe Jimenez MD
[2017-12-15] MEDS: metroNIDAZOLE IV 500 mg/100 ml 500 MG/100 ML BAG IVPB SCH ×3 (03:30→19:49)
[2017-12-15 06:37] LABS: ALB/GLOB RATIO 0.8 (1.0-2.1); ALT/SGPT 23 U/L (9-52); AST/SGOT 13 U/L (14-36); BLOOD UREA NITROGEN 15 mg/dL (7-17); CALCIUM 8.6 mg/dl (8.6-10.4); GFR NON-AFRICAN AMERICAN > 60
[2017-12-15 06:53] LABS: BASO # 0.1 K/uL (0.0-0.2); BASO % 0.4 % (0.0-2.0); EOS # 0.4 K/uL (0.0-0.7); EOS % 1.4 % (0.0-4.0); LYMPH # 0.7 K/uL (1.0-4.3); LYMPH % 2.7 % (20.0-40.0); MEAN CELL VOLUME 90.4 fL (81.0-99.0); MEAN CORPUSCULAR HEMOGLOBIN 30.3 pg (27.0-31.0); MEAN CORPUSCULAR HGB CONC 33.5 g/dL (33.0-37.0); MEAN PLATELET VOLUME 8.3 fL (7.2-11.7); MONO # 1.5 K/uL (0.0-0.8); MONO % 5.3 % (0.0-10.0); NEUT # 25.1 K/uL (1.8-7.0); NEUT % 90.2 % (50.0-75.0); PLATELET COUNT 278 K/uL (130-400); RBC 2.63 Mil/uL (3.80-5.20); RED CELL DISTRIBUTION WIDTH 14.8 % (11.5-14.5); WHITE BLOOD COUNT 27.8 K/uL (4.8-10.8)
[2017-12-15 08:53] LABS: BANDS 2 % (0-2); LYMPHOCYTE 2 % (20-40); MONOCYTE 3 % (0-10); NEUTROPHIL 93 % (50-75); TOTAL CELLS COUNTED 100
[2017-12-15 09:02] LABS: ANISOCYTOSIS SLIGHT; PLATELET ESTIMATE NORMAL (NORMAL)
[2017-12-15 09:03] LABS: GIANT PLATELETS PRESENT; LARGE PLATELETS PRESENT; POIKILOCYTOSIS SLIGHT; TOXIC GRANULATION PRESENT
[2017-12-15 09:04] LABS: BURR CELLS SLIGHT; HYPOCHROMIC SLIGHT; OVALOCYTES SLIGHT
[2017-12-15] MEDS: Verapamil 120 mg ER Tab PO SCH (10:31)
[2017-12-15] MEDS: Pantoprazole 40 mg EC Tab PO SCH (10:31)
[2017-12-15] MEDS: Vancomycin 125 MG/5 ML SOLN (ORAL/RECTAL) PO SCH ×3 (10:54→18:11)
[2017-12-15] MEDS: Vancomycin 1 gm/NS 200 ml 1 GM/200 ML BAG IVPB SCH (11:45)
--- NOTE | 2017-12-15 12:07 | CP.PCM.PN ---
Subjective - Date & Time of Evaluation Date of Evaluation: 12/15/17 Time of Evaluation: 12:07 - Subjective Subjective: Progress note dictated #[id number] Objective - Vital Signs/Intake and Output Vital Signs (last 24 hours): Temp Pulse Resp BP Pulse Ox 99 F 94 H 20 103/64 99 12/15/17 07:38 12/15/17 07:38 12/15/17 07:38 12/15/17 07:38 12/15/17 07:38 Intake and Output: 12/15/17 12/15/17 06:59 18:59 Intake Total 652 Balance 652 - Medications Medications: Current Medications Acetaminophen (Tylenol 325mg Tab) 650 mg PO Q6 PRN PRN Reason: Headache Last Admin: 12/12/17 18:09 Dose: 650 mg Metronidazole (Flagyl) 500 mg in 100 mls @ 100 mls/hr IVPB Q8H [facility] PRN Reason: Protocol Last Admin: 12/15/17 03:30 Dose: 100 mls/hr Meropenem 1 gm/ Sodium (Chloride) 100 mls @ 100 mls/hr IVPB Q8H [facility] PRN Reason: Protocol Last Admin: 12/15/17 10:30 Dose: 100 mls/hr Vancomycin/Sodium Chloride (Vancomycin 1 Gm/Ns 200 Ml) 1 gm in 200 mls @ 133 mls/hr IVPB DAILY [facility] PRN Reason: Protocol Stop: 12/19/17 10:01 Last Admin: 12/15/17 11:45 Dose: 133 mls/hr Pantoprazole Sodium (Protonix Ec Tab) 40 mg PO DAILY [facility] Last Admin: 12/15/17 10:31 Dose: 40 mg Rivaroxaban (Xarelto) 15 mg PO DAILY [facility] Last Admin: 12/15/17 10:31 Dose: 15 mg Rosuvastatin Calcium (Crestor) 10 mg PO HS [facility] Last Admin: 12/14/17 21:12 Dose: 10 mg Tramadol HCl (Ultram) 50 mg PO TID PRN PRN Reason: Pain, moderate (4-7) Vancomycin HCl (Vancocin (Oral Or Rectal Use)) 125 mg PO QID [facility] PRN Reason: Protocol Last Admin: 12/15/17 10:54 Dose: 125 mg Verapamil HCl (Calan Sr Tab) 120 mg PO DAILY [facility] Last Admin: 09/03/18 10:31 Dose: 120 mg - Labs Labs: 12/15/17 06:17 12/15/17 06:17 PT 15.6 SECONDS (9.7-12.2) H 12/12/17 10:54 INR 1.4 12/12/17 10:54 APTT 35 SECONDS (21-34) H 12/12/17 10:54
[2017-12-15] MEDS ORDERED: Magnesium Sulfate 1 gm in D5W 1 GM/100 ML BAG IVPB ONE (13:00)
[2017-12-15] MEDS: Potassium & Sodium Phosphate PO SCH ×3 (13:42→21:32)
[2017-12-15] MEDS: Clindamycin 300 MG in Sodium Chloride 0.9% 50 ML IVPB SCH (21:42)
--- NOTE | 2017-12-15 22:19 | PN ---
Copied To: Emerald Brand MD Attending MD: Emerald Brand MD DATE: 12/15/2017 SUBJECTIVE: The patient was seen and examined at bedside. The patient is feeling slightly better than yesterday. Denies any new complaints other than leg pain and weakness and unable to get out of the bed on her own. Has tenderness at the right axillary area. PHYSICAL EXAMINATION: GENERAL: Elderly female, lying in bed, in no acute distress. VITAL SIGNS: Blood pressure 107/64, pulse 94, temperature 100.3 degrees Fahrenheit, O2 saturation 96% on 2 L nasal cannula. HEENT: Pupils are equal, round and reacting to light and accommodation. Extraocular muscles are intact. No icterus. Positive pallor. No oral thrush. No pharyngeal congestion. NECK: Supple. No JVD. LUNGS: Bilateral vesicular breath sounds. No wheezing. No rhonchi. CARDIOVASCULAR SYSTEM: S1, S2 present, irregular. ABDOMEN: Soft, nontender. Bowel sounds are present. No guarding. No rigidity. No rebound tenderness noted. CENTRAL NERVOUS SYSTEM: Alert, awake, oriented x3. No focal deficits noted. EXTREMITIES: No edema. Palpable peripheral pulses. MEDICATIONS: Include Tylenol as needed, meropenem 1 g IV every 8 hours, Flagyl 500 mg IV every 8 hours, Protonix 40 mg daily, Neutra-Phos one pack p.o. four times a day, Xarelto 15 mg p.o. daily, Crestor 10 mg p.o. at bedtime, tramadol as needed for pain, vancomycin 125 mg p.o. four times a day with 1 g IV daily, verapamil 120 mg p.o. daily. LABORATORY DATA: Labs from this morning: WBC 27.9, hemoglobin 8, hematocrit 23.8, platelets 278. Sodium 128, potassium 3.8, chloride 100, bicarb 23, BUN 15, creatinine 0.7, glucose 95, calcium 8.6, phosphorus 2.2, magnesium 1.5. AST 13, ALT 23, alkaline phosphatase 77, total protein 4.6, albumin 2. Ultrasound of the right axillary mass still pending results. ASSESSMENT AND PLAN: Elderly female with a history of hypertension, hyperlipidemia, atrial fibrillation, right breast cancer metastatic to lungs and lymph nodes, admitted for falls, lower extremity weakness and sepsis with elevated white blood cell count, anemia, electrolyte imbalance, atrial fibrillation with rapid ventricular rate, now rate controlled. We will continue with current antibiotics as per Infectious Disease. The patient's white count is still high. Supplement of magnesium and phosphorus as ordered. We will follow up with ultrasound result to rule out any axillary abscess versus cellulitis. We will continue with verapamil for atrial fibrillation and Xarelto. We will continue with other supportive care. The patient is made Do Not Resuscitate. We will continue with deep venous thrombosis and gastrointestinal prophylaxis. We will add further recommendations as her clinical course progresses. Physical therapy requested. Prognosis is guarded. Emerald Brand MD
--- NOTE | 2017-12-16 01:55 | PN ---
Copied To: Filipe Jimenez MD Attending MD: Filipe Jimenez MD DATE: 12/15/2017 SUBJECTIVE: The patient was seen today. She was feeling cold and now she has spiked a temperature of 100.3. Respirations have been 94, blood pressure is 107/64, respirations are 20. She denies any diarrhea. She denies any urinary complaints. She does have an axillary mass with right arm lymphedema. PHYSICAL EXAMINATION: VITAL SIGNS: Show that she is febrile, heart rate of 94, blood pressure 107/64, respirations are 20. HEENT: Head is atraumatic, normocephalic. NECK: Supple. LUNGS: Clear. CHEST: She does have this right arm lymphedema, but there is no cellulitis at this time. Has axillary mass. ABDOMEN: Soft, nontender. No guarding, no rigidity present. EXTREMITIES: Bilateral extremities have lymphedema and edematous lower extremities. She has been on meropenem. She is on vancomycin. She is also on Flagyl IV, and she was on vancomycin by mouth, but there is no diarrhea reported. Labs are noted. Let me see her white count. Vancomycin trough was 20.8 yesterday, so I am going to hold that. The urine had shown pyuria, but the culture did not grow anything. Her sodium is 128, potassium 3.8, chlorides are 100, CO2 is 23. Her white count remains elevated at 27.8, hemoglobin 8, hematocrit 23.8, platelet count is 278. She does have a Port-A-Cath also. ASSESSMENT AND PLAN: At this time, I will change the antibiotics to clindamycin and Zosyn and discontinue the Flagyl and the vancomycin orally. If the lymphedema is causing the fevers, they may come down, otherwise this white count is most likely from the axillary mass. She has a Port-A-Cath that also needs to be looked into. We will follow and we will also get levels tomorrow and will follow. Filipe Jimenez MD
[2017-12-16] MEDS: Clindamycin 300 MG in Sodium Chloride 0.9% 50 ML IVPB SCH ×3 (05:15→21:10)
[2017-12-16 07:28] LABS: BASO # 0.1 K/uL (0.0-0.2); BASO % 0.4 % (0.0-2.0); EOS # 0.3 K/uL (0.0-0.7); EOS % 0.9 % (0.0-4.0); HEMOGLOBIN 8.3 g/dL (11.0-16.0); LYMPH # 0.8 K/uL (1.0-4.3); LYMPH % 2.6 % (20.0-40.0); MEAN CELL VOLUME 88.8 fL (81.0-99.0); MEAN CORPUSCULAR HGB CONC 33.7 g/dL (33.0-37.0); MEAN PLATELET VOLUME 8.3 fL (7.2-11.7); MONO # 1.7 K/uL (0.0-0.8); MONO % 5.6 % (0.0-10.0); NEUT # 27.6 K/uL (1.8-7.0); NEUT % 90.5 % (50.0-75.0); PLATELET COUNT 292 K/uL (130-400); RBC 2.75 Mil/uL (3.80-5.20); RED CELL DISTRIBUTION WIDTH 14.8 % (11.5-14.5); WHITE BLOOD COUNT 30.5 K/uL (4.8-10.8)
[2017-12-16 08:11] LABS: ALB/GLOB RATIO 0.9 (1.0-2.1); ALBUMIN 2.2 g/dL (3.5-5.0); ALT/SGPT 25 U/L (9-52); AST/SGOT 24 U/L (14-36); BLOOD UREA NITROGEN 13 mg/dL (7-17); CALCIUM 8.5 mg/dl (8.6-10.4); GFR NON-AFRICAN AMERICAN > 60
[2017-12-16 08:45] LABS: ANISOCYTOSIS SLIGHT; HYPOCHROMIC MODERATE; LYMPHOCYTE 2 % (20-40); MONOCYTE 4 % (0-10); NEUTROPHIL 94 % (50-75); OVALOCYTES SLIGHT; PLATELET ESTIMATE NORMAL (NORMAL); POIKILOCYTOSIS SLIGHT; TARGET CELLS SLIGHT; TOTAL CELLS COUNTED 100
[2017-12-16 08:46] LABS: BURR CELLS SLIGHT
[2017-12-16] MEDS: Vancomycin 1 gm/NS 200 ml 1 GM/200 ML BAG IVPB SCH (10:00)
--- NOTE | 2017-12-16 10:05 | CP.PCM.PN ---
Subjective - Date & Time of Evaluation Date of Evaluation: 12/16/17 Time of Evaluation: 10:04 - Subjective Subjective: Progress note dictated #[id number] Objective - Vital Signs/Intake and Output Vital Signs (last 24 hours): Temp Pulse Resp BP Pulse Ox 99 F 96 H 20 101/63 99 12/16/17 07:53 12/16/17 07:53 12/16/17 07:53 12/16/17 07:53 12/16/17 07:53 Intake and Output: 12/16/17 12/16/17 06:59 18:59 Intake Total 1000 Balance 1000 - Medications Medications: Current Medications Acetaminophen (Tylenol 325mg Tab) 650 mg PO Q6 PRN PRN Reason: Headache Last Admin: 12/12/17 18:09 Dose: 650 mg Vancomycin/Sodium Chloride (Vancomycin 1 Gm/Ns 200 Ml) 1 gm in 200 mls @ 133 mls/hr IVPB DAILY [facility] PRN Reason: Protocol Stop: 12/19/17 10:01 Last Admin: 12/15/17 11:45 Dose: 133 mls/hr Clindamycin Phosphate 300 mg/ (Sodium Chloride) 52 mls @ 100 mls/hr IVPB Q8 [facility] PRN Reason: Protocol Last Admin: 12/16/17 05:15 Dose: 100 mls/hr Pantoprazole Sodium (Protonix Ec Tab) 40 mg PO DAILY [facility] Last Admin: 12/15/17 10:31 Dose: 40 mg Potassium Phos/Sodium Phos (Neutra-Phos) 1 pkt PO QID [facility] Stop: 12/18/17 14:01 Last Admin: 12/15/17 21:32 Dose: 1 pkt Rivaroxaban (Xarelto) 15 mg PO DAILY [facility] Last Admin: 12/15/17 10:31 Dose: 15 mg Rosuvastatin Calcium (Crestor) 10 mg PO HS [facility] Last Admin: 12/15/17 21:24 Dose: 10 mg Tramadol HCl (Ultram) 50 mg PO TID PRN PRN Reason: Pain, moderate (4-7) Verapamil HCl (Calan Sr Tab) 120 mg PO DAILY [facility] Last Admin: 12/15/17 10:31 Dose: 120 mg - Labs Labs: 12/16/17 07:07 12/16/17 07:07 PT 15.6 SECONDS (9.7-12.2) H 12/12/17 10:54 INR 1.4 12/12/17 10:54 APTT 35 SECONDS (21-34) H 12/12/17 10:54
[2017-12-16] MEDS: Potassium & Sodium Phosphate PO SCH ×4 (10:30→21:11)
[2017-12-16] MEDS: Verapamil 120 mg ER Tab PO SCH (10:30)
[2017-12-16] MEDS: Pantoprazole 40 mg EC Tab PO SCH (10:30)
--- NOTE | 2017-12-16 14:39 | US ---
Date of service: 12/14/2017 PROCEDURE: HISTORY: right axillary swelling, r/o abscess. History states bilateral mastectomy -however the dated in the mastectomy is not specified. COMPARISON: CT chest abdomen and pelvis 12/11/2017 TECHNIQUE: Linear ray high-resolution scanning of the right axilla performed. Doppler applied FINDINGS: A large minimally heterogeneous mostly cystic appearing mass in the right axilla with some minimal internal vascularity is noted. This large right axillary mass measures 9.1 x 6.8 x 8.8 cm in size. Considerations are tumor recurrence, asymmetrically enlarged right necrotic appearing right axillary lymph node. , as well as right chest wall tumor recurrence and abscess together. Tumor an hematoma here are not excluded. (CT suggest additional right axillary and subpectoral lymph nodes much smaller than this larger mass. IMPRESSION: Large right axillary mass compatible with that seen on the CT from 12/11/2017. Differential considerations are: Tumor recurrence, asymmetrically enlarged right necrotic appearing right axillary lymph node. (Smaller metastatic lymphadenopathy noted in the vicinity) as well as right chest wall tumor recurrence and abscess together. Lymphadenopathy with hematoma complex not excluded. Recurrent suspect. . Although no comparison studies here are available. No osseous chest wall destruction appreciated on CT. If needed, consider right axillary aspiration/biopsy. BIRADS 4 Suspicious finding Recommendation: Consider right axillary mass biopsy for histology. -if clinically indicated. Case is presented to me for interpretation at this setting on 12/16/2017
--- NOTE | 2017-12-16 20:32 | CP.PCM.PN ---
Subjective - Date & Time of Evaluation Date of Evaluation: 12/16/17 Time of Evaluation: 14:00 - Subjective Subjective: dictated Objective - Vital Signs/Intake and Output Vital Signs (last 24 hours): Temp Pulse Resp BP Pulse Ox 98.6 F 86 20 96/57 L 95 12/16/17 16:41 12/16/17 16:41 12/16/17 16:41 12/16/17 16:41 12/16/17 16:41 Intake and Output: 12/16/17 12/17/17 18:59 06:59 Intake Total 472 Output Total 300 Balance 172 - Medications Medications: Current Medications Acetaminophen (Tylenol 325mg Tab) 650 mg PO Q6 PRN PRN Reason: Headache Last Admin: 12/12/17 18:09 Dose: 650 mg Vancomycin/Sodium Chloride (Vancomycin 1 Gm/Ns 200 Ml) 1 gm in 200 mls @ 133 mls/hr IVPB DAILY [facility] PRN Reason: Protocol Stop: 12/19/17 10:01 Last Admin: 12/16/17 10:00 Dose: 133 mls/hr Clindamycin Phosphate 300 mg/ (Sodium Chloride) 52 mls @ 100 mls/hr IVPB Q8 [facility] PRN Reason: Protocol Last Admin: 12/16/17 14:42 Dose: 100 mls/hr Aztreonam 2 gm/ Sodium (Chloride) 100 mls @ 200 mls/hr IVPB Q8H [facility] PRN Reason: Protocol Pantoprazole Sodium (Protonix Ec Tab) 40 mg PO DAILY [facility] Last Admin: 12/16/17 10:30 Dose: 40 mg Potassium Phos/Sodium Phos (Neutra-Phos) 1 pkt PO QID [facility] Stop: 12/18/17 14:01 Last Admin: 12/16/17 17:11 Dose: 1 pkt Rivaroxaban (Xarelto) 15 mg PO DAILY [facility] Last Admin: 12/16/17 10:30 Dose: 15 mg Rosuvastatin Calcium (Crestor) 10 mg PO HS [facility] Last Admin: 12/15/17 21:24 Dose: 10 mg Tramadol HCl (Ultram) 50 mg PO TID PRN PRN Reason: Pain, moderate (4-7) Last Admin: 12/16/17 11:47 Dose: 50 mg Verapamil HCl (Calan Sr Tab) 120 mg PO DAILY [facility] Last Admin: 12/16/17 10:30 Dose: 120 mg - Labs Labs: 12/16/17 07:07 12/16/17 07:07 PT 15.6 SECONDS (9.7-12.2) H 12/12/17 10:54 INR 1.4 12/12/17 10:54 APTT 35 SECONDS (21-34) H 12/12/17 10:54
[2017-12-16] MEDS: Aztreonam 2 GM in Sodium Chloride 0.9% 100 ML IVPB SCH (21:18)
--- NOTE | 2017-12-17 01:37 | PN ---
Copied To: Filipe Jimenez MD Attending MD: Filipe Jimenez MD DATE: 12/16/2017 INFECTIOUS DISEASE FOLLOWUP NOTE SUBJECTIVE: The patient was seen today. Her friend, Donya, was there and she was asking about how she is doing and I told her that the white count remains high inspite of multiple antibiotics. She has this recurrence of tumor in the axillary area. We were waiting for the ultrasound to be resulted. PHYSICAL EXAMINATION: VITAL SIGNS: T-max is 98.6 today, pulse 86, blood pressure now at the time I am dictating is 96/57, and respirations are 20. GENERAL: She was sick looking. She does not want to tell many problems, but her voice appeared as she was in pain, but she said she is not in pain. I guess she is aware of the eminent problems that may occur. HEENT: Head is atraumatic. Tongue is moist. NECK: Supple. CHEST: She was under multiple covers, right axilla. examined well on the right side of her breast. I am not sure. She says she is always fine. LUNGS: Clear. HEART: S1 and S2 are present. ABDOMEN: Soft and nontender. No guarding. No rigidity present. EXTREMITIES: Remain with bilateral lymphedema and edema. LABORATORY DATA: White count is 30.5, hemoglobin 8.3, hematocrit 24.5, platelet count is 292. ASSESSMENT AND PLAN: Yesterday, she spiked inspite of being on three good antibiotics, hence I decided to change it. The report of the breast ultrasound comes as follows: It says there is a large right axillary mass compatible with that is seen in the CT. Differential considerations are tumor recurrence asymmetrically and large right necrotic appearing right axillary lymph node. Similar metastatic lymphadenopathy noted in the vicinity as well as the right chest wall tumor recurrence and abscess together. Lymphadenopathy with hematoma complex not excluded. Recurrence suspect although no comparison studies have been available and if needed, considered right axillary aspiration or biopsy. I am not sure with this high white count, increasing is there and it is going to help us we do best as we aspirate something from there or it will worsen it. . She did have Doppler studies done, and Doppler studies show no evidence of vein thrombosis in the right upper extremity. Obviously, she does have right lymphedema, but no cellulitis noted. She also had abdominal CT and chest CT, but it shows no abscess in the chest, abdomen, and pelvis. We just talked about the breast thing and then it is sclerosis of the right anterior right rib, may represent metastatic disease. At this time, since her blood pressure is still running low, I added clindamycin but we did a low dose. She has been on antibiotics, but at this time, I would add Azactam also and continue vancomycin, clindamycin, and Azactam and to discuss with the primary together aspiration done, which may help her, I am not sure. May be a breast surgeon might help us out. Filipe Jimenez MD
[2017-12-17] MEDS: Aztreonam 2 GM in Sodium Chloride 0.9% 100 ML IVPB SCH ×3 (04:19→21:38)
[2017-12-17] MEDS: Clindamycin 300 MG in Sodium Chloride 0.9% 50 ML IVPB SCH ×3 (05:14→21:38)
--- NOTE | 2017-12-17 10:33 | CP.PCM.PN ---
Subjective - Date & Time of Evaluation Date of Evaluation: 12/17/17 Time of Evaluation: 10:33 - Subjective Subjective: Progress note dictated # [id number] Objective - Vital Signs/Intake and Output Vital Signs (last 24 hours): Temp Pulse Resp BP Pulse Ox 99.2 F 95 H 20 92/58 L 100 12/17/17 07:50 12/17/17 07:50 12/17/17 07:50 12/17/17 07:50 12/17/17 10:11 Intake and Output: 12/17/17 12/17/17 06:59 18:59 Intake Total 770 Balance 770 - Medications Medications: Current Medications Acetaminophen (Tylenol 325mg Tab) 650 mg PO Q6 PRN PRN Reason: Headache Last Admin: 12/12/17 18:09 Dose: 650 mg Vancomycin/Sodium Chloride (Vancomycin 1 Gm/Ns 200 Ml) 1 gm in 200 mls @ 133 mls/hr IVPB DAILY [facility] PRN Reason: Protocol Stop: 12/19/17 10:01 Last Admin: 12/16/17 10:00 Dose: 133 mls/hr Clindamycin Phosphate 300 mg/ (Sodium Chloride) 52 mls @ 100 mls/hr IVPB Q8 [facility] PRN Reason: Protocol Last Admin: 12/17/17 05:14 Dose: 100 mls/hr Aztreonam 2 gm/ Sodium (Chloride) 100 mls @ 200 mls/hr IVPB Q8H [facility] PRN Reason: Protocol Last Admin: 12/17/17 04:19 Dose: 200 mls/hr Pantoprazole Sodium (Protonix Ec Tab) 40 mg PO DAILY REPLACED BY [facility] Last Admin: 12/16/17 10:30 Dose: 40 mg Potassium Phos/Sodium Phos (Neutra-Phos) 1 pkt PO QID REPLACED BY [facility] Stop: 12/18/17 14:01 Last Admin: 12/16/17 21:11 Dose: 1 pkt Rivaroxaban (Xarelto) 15 mg PO DAILY REPLACED BY [facility] Last Admin: 12/16/17 10:30 Dose: 15 mg Rosuvastatin Calcium (Crestor) 10 mg PO HS REPLACED BY [facility] Last Admin: 12/16/17 21:11 Dose: 10 mg Tramadol HCl (Ultram) 50 mg PO TID PRN PRN Reason: Pain, moderate (4-7) Last Admin: 12/17/17 09:46 Dose: 50 mg Verapamil HCl (Calan Sr Tab) 120 mg PO DAILY [facility] Last Admin: 12/16/17 10:30 Dose: 120 mg - Labs Labs: 12/16/17 07:07 12/16/17 07:07 PT 15.6 SECONDS (9.7-12.2) H 12/12/17 10:54 INR 1.4 12/12/17 10:54 APTT 35 SECONDS (21-34) H 12/12/17 10:54
[2017-12-17] MEDS: Pantoprazole 40 mg EC Tab PO SCH (10:37)
[2017-12-17] MEDS: Verapamil 120 mg ER Tab PO SCH (10:37)
[2017-12-17] MEDS: Potassium & Sodium Phosphate PO SCH ×4 (10:37→21:40)
[2017-12-17 11:17] LABS: BASO # 0.1 K/uL (0.0-0.2); BASO % 0.2 % (0.0-2.0); EOS # 0.2 K/uL (0.0-0.7); EOS % 0.7 % (0.0-4.0); HEMOGLOBIN 8.4 g/dL (11.0-16.0); LYMPH # 0.7 K/uL (1.0-4.3); LYMPH % 2.1 % (20.0-40.0); MEAN CELL VOLUME 89.2 fL (81.0-99.0); MEAN CORPUSCULAR HEMOGLOBIN 29.4 pg (27.0-31.0); MONO # 1.3 K/uL (0.0-0.8); NEUT # 31.1 K/uL (1.8-7.0); PLATELET COUNT 265 K/uL (130-400); RBC 2.86 Mil/uL (3.80-5.20); RED CELL DISTRIBUTION WIDTH 14.8 % (11.5-14.5); WHITE BLOOD COUNT 33.5 K/uL (4.8-10.8)
[2017-12-17 11:33] LABS: BLOOD UREA NITROGEN 15 mg/dL (7-17); CALCIUM 8.9 mg/dl (8.6-10.4); GFR NON-AFRICAN AMERICAN > 60
[2017-12-17 11:51] LABS: ANISOCYTOSIS SLIGHT; BANDS 1 % (0-2); EOSINOPHIL 1 % (0-4); HYPOCHROMIC SLIGHT; LYMPHOCYTE 2 % (20-40); MONOCYTE 1 % (0-10); NEUTROPHIL 95 % (50-75); PLATELET ESTIMATE NORMAL (NORMAL); POIKILOCYTOSIS SLIGHT; TOTAL CELLS COUNTED 100
[2017-12-17 11:52] LABS: BURR CELLS SLIGHT; OVALOCYTES SLIGHT; TARGET CELLS SLIGHT; TEARDROP CELLS SLIGHT
--- NOTE | 2017-12-17 11:52 | CP.PCM.PN ---
Subjective - Date & Time of Evaluation Date of Evaluation: 12/17/17 Time of Evaluation: 11:50 - Subjective Subjective: pain all over,more in shoulder. Objective - Vital Signs/Intake and Output Vital Signs (last 24 hours): Temp Pulse Resp BP Pulse Ox 99.2 F 95 H 20 92/58 L 100 12/17/17 07:50 12/17/17 07:50 12/17/17 07:50 12/17/17 07:50 12/17/17 10:11 Intake and Output: 12/17/17 12/17/17 06:59 18:59 Intake Total 770 Balance 770 - Medications Medications: Current Medications Acetaminophen (Tylenol 325mg Tab) 650 mg PO Q6 PRN PRN Reason: Headache Last Admin: 12/12/17 18:09 Dose: 650 mg Vancomycin/Sodium Chloride (Vancomycin 1 Gm/Ns 200 Ml) 1 gm in 200 mls @ 133 mls/hr IVPB DAILY [facility] PRN Reason: Protocol Stop: 12/19/17 10:01 Last Admin: 12/16/17 10:00 Dose: 133 mls/hr Clindamycin Phosphate 300 mg/ (Sodium Chloride) 52 mls @ 100 mls/hr IVPB Q8 [facility] PRN Reason: Protocol Last Admin: 12/17/17 05:14 Dose: 100 mls/hr Aztreonam 2 gm/ Sodium (Chloride) 100 mls @ 200 mls/hr IVPB Q8H [facility] PRN Reason: Protocol Last Admin: 12/17/17 04:19 Dose: 200 mls/hr Pantoprazole Sodium (Protonix Ec Tab) 40 mg PO DAILY [facility] Last Admin: 12/17/17 10:37 Dose: 40 mg Potassium Phos/Sodium Phos (Neutra-Phos) 1 pkt PO QID [facility] Stop: 12/18/17 14:01 Last Admin: 12/17/17 10:37 Dose: 1 pkt Rivaroxaban (Xarelto) 15 mg PO DAILY [facility] Last Admin: 12/17/17 10:37 Dose: 15 mg Rosuvastatin Calcium (Crestor) 10 mg PO HS [facility] Last Admin: 12/16/17 21:11 Dose: 10 mg Tramadol HCl (Ultram) 50 mg PO TID PRN PRN Reason: Pain, moderate (4-7) Last Admin: 12/17/17 09:46 Dose: 50 mg Verapamil HCl (Calan Sr Tab) 120 mg PO DAILY [facility] Last Admin: 12/17/17 10:37 Dose: 120 mg - Labs Labs: 12/17/17 11:12 12/17/17 11:12 PT 15.6 SECONDS (9.7-12.2) H 12/12/17 10:54 INR 1.4 12/12/17 10:54 APTT 35 SECONDS (21-34) H 12/12/17 10:54 - Constitutional Appears: Chronically Ill - Head Exam Head Exam: NORMOCEPHALIC - ENT Exam ENT Exam: Normal Exam - Respiratory Exam Respiratory Exam: Rhonchi - Cardiovascular Exam Cardiovascular Exam: Irregular Rhythm, Murmur - GI/Abdominal Exam GI & Abdominal Exam: Soft - Neurological Exam Neurological Exam: Alert, Oriented x3 Assessment and Plan - Assessment and Plan (Free Text) Plan: chronic a,fib.sepsis.cpm.stable overall cardiac meredith.
[2017-12-17] MEDS: Vancomycin 1 gm/NS 200 ml 1 GM/200 ML BAG IVPB SCH (12:39)
--- NOTE | 2017-12-17 14:21 | US ---
Date of service: 12/17/2017 PROCEDURE: HISTORY: right axillary swelling, possible abscess. COMPARISON: CT chest abdomen and pelvis 12/11/2017 TECHNIQUE: Limited ultrasound scanning of the right axilla performed. Doppler applied FINDINGS: Again seen is a large heterogeneous mass which is predominant solid. Vascularity noted within the mass. Given oral findings in the patient history of metastatic breast cancer, this likely represents tumor recurrence. IMPRESSION: Large right axillary mass. The mass is heterogeneous in echotexture but overall solid. There are no drainable component to the mass.
--- NOTE | 2017-12-17 16:11 | CP.PCM.CON ---
History of Present Illness - History of Present Illness History of Present Illness: PGY-1 general surgery note for Dr Wilson Service CC: Rt Breast mass and lymphedema HPI: Patient is a 72 yo F with pmhx of Rt Breast CA s/p Mastectomy, afib, HTN, HLD that was admitted to the ER for feeling week and falling on 12/11. Patient is consulted for rt breast mass that she first noticed a couple of months ago. Patient states the pain is sharp, being 10/10 at worst and 0/10 when at rest. Patient says the pain gets worse when moving around and when there is pressure in the region of mass. Patient was recently seen by IR for fluid removal which was cancelled due to lack of fluid in mass area. Patient is patient of Oncology Dr Mosley. Patient had 7 sessions of chemotherapy, but has not completed all the sessions. Patient denies fever, chills, Nausea, vomiting, chest pain, palpitations, shortness of breath, diarrhea or constipation. Patient is labile and requested to be left alone and not to be asked any more questions. Patient is DNR/DNI. PMHX: Rt Breast CA, Afib, HTN, HLD Shx: Rt breast mastectomy, mara cath, tonsillectomy All: Codeine Social history: Former smoker 1ppd (smoked from age 18, quitted January 2017), denies alcohol or drug use. Family history: CAD and DM (mother) Review of Systems - Review of Systems All systems: reviewed and no additional remarkable complaints except Review of Systems: as mentioned in HPI Past Patient History - Past Social History Smoking Status: Former Smoker - CARDIAC Hx Hypercholesterolemia: Yes Hx Hypertension: Yes - HEMATOLOGICAL/ONCOLOGICAL Hx Cancer: Yes (right breast) - MUSCULOSKELETAL/RHEUMATOLOGICAL Hx Arthritis: Yes - PSYCHIATRIC Hx Substance Use: No - SURGICAL HISTORY Hx Mastectomy: Yes (right) Other/Comment: port-a-cath - ANESTHESIA Hx Anesthesia: Yes Hx Anesthesia Reactions: No Hx Malignant Hyperthermia: No Has any member of the family had a problem w/ anesthesia?: No Meds Allergies/Adverse Reactions: Allergies Allergy/AdvReac Type Severity Reaction Status Date / Time codeine AdvReac Verified 12/11/17 11:32 - Medications Medications: Current Medications Acetaminophen (Tylenol 325mg Tab) 650 mg PO Q6 PRN PRN Reason: Headache Last Admin: 12/12/17 18:09 Dose: 650 mg Vancomycin/Sodium Chloride (Vancomycin 1 Gm/Ns 200 Ml) 1 gm in 200 mls @ 133 mls/hr IVPB DAILY [facility] PRN Reason: Protocol Stop: 12/19/17 10:01 Last Admin: 12/17/17 12:39 Dose: 133 mls/hr Clindamycin Phosphate 300 mg/ (Sodium Chloride) 52 mls @ 100 mls/hr IVPB Q8 [facility] PRN Reason: Protocol Last Admin: 12/17/17 15:21 Dose: 100 mls/hr Aztreonam 2 gm/ Sodium (Chloride) 100 mls @ 200 mls/hr IVPB Q8H [facility] PRN Reason: Protocol Last Admin: 12/17/17 13:54 Dose: 200 mls/hr Pantoprazole Sodium (Protonix Ec Tab) 40 mg PO DAILY [facility] Last Admin: 12/17/17 10:37 Dose: 40 mg Potassium Phos/Sodium Phos (Neutra-Phos) 1 pkt PO QID [facility] Stop: 12/18/17 14:01 Last Admin: 12/17/17 13:54 Dose: 1 pkt Rivaroxaban (Xarelto) 15 mg PO DAILY [facility] Last Admin: 12/17/17 10:37 Dose: 15 mg Rosuvastatin Calcium (Crestor) 10 mg PO HS [facility] Last Admin: 12/16/17 21:11 Dose: 10 mg Tramadol HCl (Ultram) 50 mg PO TID PRN PRN Reason: Pain, moderate (4-7) Last Admin: 12/17/17 09:46 Dose: 50 mg Verapamil HCl (Calan Sr Tab) 120 mg PO DAILY [facility] Last Admin: 12/17/17 10:37 Dose: 120 mg Physical Exam - Constitutional Appears: No Acute Distress - Head Exam Head Exam: ATRAUMATIC, NORMAL INSPECTION, NORMOCEPHALIC - Eye Exam Eye Exam: EOMI, Normal appearance - ENT Exam ENT Exam: Mucous Membranes Moist, Normal Exam - Neck Exam Neck exam: Positive for: Normal Inspection Additional comments: right sided mara cath - Respiratory Exam Respiratory Exam: NORMAL BREATHING PATTERN. absent: Accessory Muscle Use, Respiratory Distress - GI/Abdominal Exam GI & Abdominal Exam: Soft - Extremities Exam Additional comments: bilateral Lower extremity edema - Neurological Exam Neurological exam: Alert, Oriented x3 - Psychiatric Exam Psychiatric exam: Agitated, Depressed - Skin Additional comments: Right lateral chest indurated mass, erythematous with surrounding erythema, purple discoloration, non tender to palpation, no open cuts or punctures noted, non bloody or nonpurulent. Results - Vital Signs Recent Vital Signs: Last Vital Signs Temp 99.2 F 12/17/17 07:50 Pulse 95 H 12/17/17 07:50 Resp 20 12/17/17 07:50 BP 92/58 L 12/17/17 07:50 Pulse Ox 100 12/17/17 10:11 - Labs Result Diagrams: 12/17/17 11:12 12/17/17 11:12 Labs: Laboratory Results - last 24 hr 12/17/17 12/17/17 12/17/17 10:00 11:12 11:12 WBC 33.5 H RBC 2.86 L Hgb 8.4 L Hct 25.5 L MCV 89.2 MCH 29.4 MCHC 33.0 RDW 14.8 H Plt Count 265 MPV 8.0 Neut % (Auto) 93.0 H Lymph % (Auto) 2.1 L [place] % (Auto) 4.0 Eos % (Auto) 0.7 Baso % (Auto) 0.2 Neut # (Auto) 31.1 H Lymph # (Auto) 0.7 L [place] # (Auto) 1.3 H Eos # (Auto) 0.2 Baso # (Auto) 0.1 Neutrophils % (Manual) 95 H Band Neutrophils % 1 Lymphocytes % (Manual) 2 L Monocytes % (Manual) 1 Eosinophils % (Manual) 1 Platelet Estimate Normal Hypochromasia (manual) Slight Poikilocytosis (manual Slight Anisocytosis (manual) Slight Target Cells Slight Tear Drop Cells Slight Ovalocytes Slight [place] Cells Slight Sodium 126 L Potassium 4.1 Chloride 96 L Carbon Dioxide 24 Anion Gap 10 BUN 15 Creatinine 0.8 Est GFR ( Amer) > 60 Est GFR (Non-Af Amer) > 60 Random Glucose 95 Calcium 8.9 Vancomycin Trough 10.1 H Assessment & Plan - Assessment and Plan (Free Text) Assessment: 72 yo female with pmhx of RT breast CA s/p RT mastectomy seen for rt breast mass Plan: -no surgical intervention at this time -patient to be discharged in hospice -pain management PRN Plan discussed with Dr Steve Randolph, PGY-1 - Date & Time Date: 12/17/17 Time: 14:30
--- NOTE | 2017-12-17 19:17 | CP.PCM.CON ---
History of Present Illness - History of Present Illness History of Present Illness: pt is seen and examined, full consult is dictated #[id number] 1. hyponatremia, r/o SIADH 2. metastatic breast ca 3.afib 4.Anemia with leukocytosis r/o sepsis or sec to Malignency check urine lytes, osm, serum osm, uric acid, serum cortisol, tsh bmp in am urine c/s start nacl 1 gm tab po tid high protein diet restrict fluids to 1 lit/day bmp in am f/u with Hospice, over all prognosis is very poor Past Patient History - Past Social History Smoking Status: Former Smoker - CARDIAC Hx Hypercholesterolemia: Yes Hx Hypertension: Yes - HEMATOLOGICAL/ONCOLOGICAL Hx Cancer: Yes (right breast) - MUSCULOSKELETAL/RHEUMATOLOGICAL Hx Arthritis: Yes - PSYCHIATRIC Hx Substance Use: No - SURGICAL HISTORY Hx Mastectomy: Yes (right) Other/Comment: port-a-cath - ANESTHESIA Hx Anesthesia: Yes Hx Anesthesia Reactions: No Hx Malignant Hyperthermia: No Has any member of the family had a problem w/ anesthesia?: No Meds Allergies/Adverse Reactions: Allergies Allergy/AdvReac Type Severity Reaction Status Date / Time codeine AdvReac Verified 12/11/17 11:32 - Medications Medications: Current Medications Acetaminophen (Tylenol 325mg Tab) 650 mg PO Q6 PRN PRN Reason: Headache Last Admin: 12/12/17 18:09 Dose: 650 mg Vancomycin/Sodium Chloride (Vancomycin 1 Gm/Ns 200 Ml) 1 gm in 200 mls @ 133 mls/hr IVPB DAILY [facility] PRN Reason: Protocol Stop: 12/19/17 10:01 Last Admin: 12/17/17 12:39 Dose: 133 mls/hr Clindamycin Phosphate 300 mg/ (Sodium Chloride) 52 mls @ 100 mls/hr IVPB Q8 [facility] PRN Reason: Protocol Last Admin: 12/17/17 15:21 Dose: 100 mls/hr Aztreonam 2 gm/ Sodium (Chloride) 100 mls @ 200 mls/hr IVPB Q8H [facility] PRN Reason: Protocol Last Admin: 12/17/17 13:54 Dose: 200 mls/hr Pantoprazole Sodium (Protonix Ec Tab) 40 mg PO DAILY [facility] Last Admin: 12/17/17 10:37 Dose: 40 mg Potassium Phos/Sodium Phos (Neutra-Phos) 1 pkt PO QID [facility] Stop: 12/18/17 14:01 Last Admin: 12/17/17 17:29 Dose: 1 pkt Rivaroxaban (Xarelto) 15 mg PO DAILY [facility] Last Admin: 12/17/17 10:37 Dose: 15 mg Rosuvastatin Calcium (Crestor) 10 mg PO HS [facility] Last Admin: 12/16/17 21:11 Dose: 10 mg Tramadol HCl (Ultram) 50 mg PO TID PRN PRN Reason: Pain, moderate (4-7) Last Admin: 12/17/17 09:46 Dose: 50 mg Verapamil HCl (Calan Sr Tab) 120 mg PO DAILY [facility] Last Admin: 12/17/17 10:37 Dose: 120 mg Results - Vital Signs Recent Vital Signs: Last Vital Signs Temp 98.1 F 12/17/17 16:00 Pulse 94 H 12/17/17 16:00 Resp 20 12/17/17 16:00 BP 104/68 12/17/17 16:00 Pulse Ox 96 12/17/17 16:00 - Labs Result Diagrams: 12/17/17 11:12 12/17/17 11:12 Labs: Laboratory Results - last 24 hr 12/17/17 12/17/17 12/17/17 10:00 11:12 11:12 WBC 33.5 H RBC 2.86 L Hgb 8.4 L Hct 25.5 L MCV 89.2 MCH 29.4 MCHC 33.0 RDW 14.8 H Plt Count 265 MPV 8.0 Neut % (Auto) 93.0 H Lymph % (Auto) 2.1 L [place] % (Auto) 4.0 Eos % (Auto) 0.7 Baso % (Auto) 0.2 Neut # (Auto) 31.1 H Lymph # (Auto) 0.7 L [place] # (Auto) 1.3 H Eos # (Auto) 0.2 Baso # (Auto) 0.1 Neutrophils % (Manual) 95 H Band Neutrophils % 1 Lymphocytes % (Manual) 2 L Monocytes % (Manual) 1 Eosinophils % (Manual) 1 Platelet Estimate Normal Hypochromasia (manual) Slight Poikilocytosis (manual Slight Anisocytosis (manual) Slight Target Cells Slight Tear Drop Cells Slight Ovalocytes Slight [place] Cells Slight Sodium 126 L Potassium 4.1 Chloride 96 L Carbon Dioxide 24 Anion Gap 10 BUN 15 Creatinine 0.8 Est GFR ( Amer) > 60 Est GFR (Non-Af Amer) > 60 Random Glucose 95 Calcium 8.9 Vancomycin Trough 10.1 H
--- NOTE | 2017-12-17 20:53 | PN ---
Copied To: Yumiko Mosley MD Attending MD: Yumiko Mosley MD DATE: 12/17/2017 REASON FOR CONSULTATION: Metastatic carcinoma of the breast to the lungs. SUBJECTIVE: A 72-year-old female, admitted with leukocytosis and possible sepsis. The patient has very extensive metastatic disease to the right chest wall and to the lung. The patient is already on antibiotics for almost 6 to 7 days. All the cultures are negative. The patient is afebrile. The patient does not look septic. The patient was sent for the aspiration of the mass in the right chest wall. It was not done because it is a solid mass and there is nothing to aspirate. REVIEW OF SYSTEMS: Denies any headache, dizziness, or blackouts. No chest pain or palpitation. No fever or chills. No cough or sputum. No dysuria or hematuria. PHYSICAL EXAMINATION: GENERAL: On examination, awake, alert, and oriented, quiet, pleasant, not in acute distress, very weak and tired. VITAL SIGNS: Temperature 99.9, pulse 90, respirations 20, blood pressure 101/53. HEENT: Head normocephalic and atraumatic. Eyes, conjunctivae are pale. Sclerae are white. Pupils reacting to light. Ears, nose, and throat are within normal limits. LUNGS: Bilaterally good air entry. Clear to auscultation and percussion. HEART: S1 and S2 regular. No gallop, no murmur. ABDOMEN: Soft, not distended, not tender, no hepatosplenomegaly. CENTRAL NERVOUS SYSTEM: No gross motor or sensory deficits. LYMPH NODES: No cervical, axillary, or inguinal lymph nodes palpable. LABORATORY DATA: WBC 33,500; neutrophils 31,100; hemoglobin 8.4; and platelet count 265,000. IMPRESSION: 1. Carcinoma of the breast, metastasis to the right chest wall and the lungs. 2. Reactive leukocytosis, neutrophilia. 3. Anemia. PLAN: The patient has very extensive metastatic disease of the breast to the lung and the chest wall. So far, the cultures are negative. In my opinion, antibiotics will be stopped. The patient has not responded . The patient is not febrile. The patient is not septic looking. The patient has received at least about 5 to 6 days of antibiotics. The patient has agreed to be on hospice care. I discussed with the nurse practitioner. We will get the hospice evaluation, and she will be transferred to the hospice unit as soon as possible. Thank you for letting me participate in the care of this patient, and I will follow up the patient with you. Yumiko Mosley MD
--- NOTE | 2017-12-17 21:35 | CP.PCM.PN ---
Subjective - Date & Time of Evaluation Date of Evaluation: 12/17/17 Time of Evaluation: 15:00 - Subjective Subjective: dictated Objective - Vital Signs/Intake and Output Vital Signs (last 24 hours): Temp Pulse Resp BP Pulse Ox 98.1 F 94 H 20 104/68 96 12/17/17 16:00 12/17/17 16:00 12/17/17 16:00 12/17/17 16:00 12/17/17 16:00 Intake and Output: 12/17/17 12/18/17 18:59 06:59 Intake Total 540 Balance 540 - Medications Medications: Current Medications Acetaminophen (Tylenol 325mg Tab) 650 mg PO Q6 PRN PRN Reason: Headache Last Admin: 12/12/17 18:09 Dose: 650 mg Vancomycin/Sodium Chloride (Vancomycin 1 Gm/Ns 200 Ml) 1 gm in 200 mls @ 133 mls/hr IVPB DAILY [facility] PRN Reason: Protocol Stop: 12/19/17 10:01 Last Admin: 12/17/17 12:39 Dose: 133 mls/hr Clindamycin Phosphate 300 mg/ (Sodium Chloride) 52 mls @ 100 mls/hr IVPB Q8 [facility] PRN Reason: Protocol Last Admin: 12/17/17 15:21 Dose: 100 mls/hr Aztreonam 2 gm/ Sodium (Chloride) 100 mls @ 200 mls/hr IVPB Q8H [facility] PRN Reason: Protocol Last Admin: 12/17/17 13:54 Dose: 200 mls/hr Pantoprazole Sodium (Protonix Ec Tab) 40 mg PO DAILY [facility] Last Admin: 12/17/17 10:37 Dose: 40 mg Potassium Phos/Sodium Phos (Neutra-Phos) 1 pkt PO QID [facility] Stop: 12/18/17 14:01 Last Admin: 12/17/17 17:29 Dose: 1 pkt Rivaroxaban (Xarelto) 15 mg PO DAILY [facility] Last Admin: 12/17/17 10:37 Dose: 15 mg Rosuvastatin Calcium (Crestor) 10 mg PO HS [facility] Last Admin: 12/16/17 21:11 Dose: 10 mg Tramadol HCl (Ultram) 50 mg PO TID PRN PRN Reason: Pain, moderate (4-7) Last Admin: 12/17/17 09:46 Dose: 50 mg Verapamil HCl (Calan Sr Tab) 120 mg PO DAILY [facility] Last Admin: 12/17/17 10:37 Dose: 120 mg - Labs Labs: 12/17/17 11:12 12/17/17 11:12 PT 15.6 SECONDS (9.7-12.2) H 12/12/17 10:54 INR 1.4 12/12/17 10:54 APTT 35 SECONDS (21-34) H 12/12/17 10:54
[2017-12-18] MEDS: Aztreonam 2 GM in Sodium Chloride 0.9% 100 ML IVPB SCH ×3 (04:09→21:00)
[2017-12-18] MEDS: Clindamycin 300 MG in Sodium Chloride 0.9% 50 ML IVPB SCH ×3 (05:33→21:31)
[2017-12-18 08:18] LABS: BLOOD UREA NITROGEN 17 mg/dL (7-17); CALCIUM 8.7 mg/dl (8.6-10.4); GFR NON-AFRICAN AMERICAN > 60
--- NOTE | 2017-12-18 08:43 | PN ---
DATE: 12/17/2017 SUBJECTIVE: The patient was seen and examined at bedside this morning. The patient denied any new complaints. Feeling better, but not able to turn in her bed with physical therapist. PHYSICAL EXAMINATION: GENERAL: Elderly female, lying in bed, in no acute distress. VITAL SIGNS: Blood pressure 104/68, pulse 94, respirations 20, temperature 98.1 degrees Fahrenheit, and O2 saturations 96% on nasal cannula. HEENT: Pupils are equal, round, and reacting to light and accommodation. Extraocular muscles intact. No icterus. Positive pallor. No oral thrush. No pharyngeal congestion. NECK: Supple. No JVD. LUNGS: Bilateral vesicular breath sounds. No wheezing. No rhonchi. CARDIOVASCULAR SYSTEM: S1 and S2 present, irregular. ABDOMEN: Soft, and nontender. Bowel sounds are present. No guarding. No rigidity. No rebound tenderness noted. CENTRAL NERVOUS SYSTEM: Alert, awake, and oriented x3. No focal deficits noted. EXTREMITIES: Edema present, right upper extremity edema present, right axillary neck tenderness present, slightly warm to touch and erythema present. MEDICATIONS: Include Tylenol 650 mg p.o. every 6 hours p.r.n., Azactam 2 g IV every 8 hours, clindamycin 300 mg IV every 8 hours, Protonix 40 mg daily, Neutra-Phos one pack p.o. 4 times a day, Xarelto 15 mg daily, Crestor 10 mg, verapamil 120 mg p.o. daily, tramadol as needed. LABORATORY DATA: Labs from this morning, WBC 33.5, hemoglobin 8.4, hematocrit 25.5, and platelets 265. Sodium 126, potassium 4.1, chloride 96, bicarb 24, BUN 15, creatinine 0.8, glucose 95, calcium 8.9. Breast ultrasound done from this morning, large right axillary mass. The mass is heterogenous echotexture, but overall solid. There is no drainable component to the mass. 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 I discussed with Dr. Shafer. As per Dr. Shafer, there was no drainable fluid in the right axillary mass. It looked all solid and necrotic lymph node, so the procedure was canceled. I discussed with Dr. Jimenez. Antibiotics were switched around. At this point, as there was no other source of infection, possibly her elevated white count is from the tumor and necrotic lymph nodes itself. Multiple antibiotics are not helping. May be the hospice care is a better way to proceed at this point. I discussed with the patient's power of earrings fabricator, Donya Goldstein. They will be looking for a hospice care close to the patient's power of earrings fabricator and we will also obtain surgical opinion with Dr. Wilson to see if any surgical intervention be attempted at this point, which may not be possible in my view, but we would get a surgeon's opinion. I discussed with Case Management regarding further care and discharge planning. The family's power of earrings fabricator will be meeting Hospice Care Team tomorrow. Prognosis is guarded. Continue with supportive care at this time. Emerald Brand MD
--- NOTE | 2017-12-18 09:32 | CP.PCM.PN ---
Subjective - Date & Time of Evaluation Date of Evaluation: 12/18/17 Time of Evaluation: 09:30 - Subjective Subjective: Progress note dictated #[id number] Objective - Vital Signs/Intake and Output Vital Signs (last 24 hours): Temp Pulse Resp BP Pulse Ox 98 F 96 H 20 95/61 L 98 12/18/17 07:40 12/18/17 07:40 12/18/17 07:40 12/18/17 07:40 12/18/17 07:40 Intake and Output: 12/18/17 12/18/17 06:59 18:59 Intake Total 250 Balance 250 - Medications Medications: Current Medications Acetaminophen (Tylenol 325mg Tab) 650 mg PO Q6 PRN PRN Reason: Headache Last Admin: 12/12/17 18:09 Dose: 650 mg Vancomycin/Sodium Chloride (Vancomycin 1 Gm/Ns 200 Ml) 1 gm in 200 mls @ 133 mls/hr IVPB DAILY [facility]ODA PRN Reason: Protocol Stop: 12/19/17 10:01 Last Admin: 12/17/17 12:39 Dose: 133 mls/hr Clindamycin Phosphate 300 mg/ (Sodium Chloride) 52 mls @ 100 mls/hr IVPB Q8 RHODA PRN Reason: Protocol Last Admin: 12/18/17 05:33 Dose: 100 mls/hr Aztreonam 2 gm/ Sodium (Chloride) 100 mls @ 200 mls/hr IVPB Q8H [facility]ODA PRN Reason: Protocol Last Admin: 12/18/17 04:09 Dose: 200 mls/hr Pantoprazole Sodium (Protonix Ec Tab) 40 mg PO DAILY REPLACED BY [facility] Last Admin: 12/17/17 10:37 Dose: 40 mg Potassium Phos/Sodium Phos (Neutra-Phos) 1 pkt PO QID REPLACED BY [facility] Stop: 12/18/17 14:01 Last Admin: 12/17/17 21:40 Dose: 1 pkt Rivaroxaban (Xarelto) 15 mg PO DAILY REPLACED BY [facility] Last Admin: 12/17/17 10:37 Dose: 15 mg Rosuvastatin Calcium (Crestor) 10 mg PO HS REPLACED BY [facility] Last Admin: 12/17/17 21:40 Dose: 10 mg Sodium Chloride (Sodium Chloride Tab) 1 gm PO Q8H REPLACED BY [facility] Last Admin: 12/18/17 08:14 Dose: Not Given Tramadol HCl (Ultram) 50 mg PO TID PRN PRN Reason: Pain, moderate (4-7) Last Admin: 12/17/17 09:46 Dose: 50 mg Verapamil HCl (Calan Sr Tab) 120 mg PO DAILY [facility]ODA Last Admin: 12/17/17 10:37 Dose: 120 mg - Labs Labs: 12/17/17 11:12 12/18/17 07:31 PT 15.6 SECONDS (9.7-12.2) H 12/12/17 10:54 INR 1.4 12/12/17 10:54 APTT 35 SECONDS (21-34) H 12/12/17 10:54
[2017-12-18] MEDS: Potassium & Sodium Phosphate PO SCH ×2 (09:45→14:41)
[2017-12-18] MEDS: Verapamil 120 mg ER Tab PO SCH (09:45)
[2017-12-18] MEDS: Pantoprazole 40 mg EC Tab PO SCH (09:46)
[2017-12-18] MEDS: Vancomycin 1 gm/NS 200 ml 1 GM/200 ML BAG IVPB SCH (09:55)
--- NOTE | 2017-12-18 12:16 | PN ---
DATE: 12/16/2017 SUBJECTIVE: The patient was seen and examined at bedside. The patient is feeling the same way as yesterday. Offers no new complaints other than leg pains and right axillary pain. PHYSICAL EXAMINATION: GENERAL: Elderly female, lying in bed, in no acute distress. VITAL SIGNS: Blood pressure 101/63, pulse 96, respirations 20, temperature 99 degrees Fahrenheit, O2 saturation 99% on 2 L nasal canula. HEENT: Pupils equal, round, and reacting to light and accommodation. Extraocular muscles intact. No icterus. Positive pallor. No oral thrush. No pharyngeal congestion. NECK: Supple. No JVD. LUNGS: Bilateral vesicular breath sounds. No wheezing. No rhonchi. CARDIOVASCULAR: S1 and S2 present. Irregular. ABDOMEN: Soft. Nontender. Bowel sounds are present. No guarding. No rigidity. No rebound tenderness noted. INTENSIVIST: Alert, awake, and oriented x3. No focal deficits noted. EXTREMITIES: Lower extremity edema present. Right upper extremity edema present. Right axillary nerve, which was warm to touch, erythema present, tenderness present. Nonfluctuant ____ MEDICATIONS: Include Tylenol 650 mg p.o. every 6 hours p.r.n., Clindamycin 300 mg IV every 8 hours, Protonix 40 mg daily, Xarelto 15 mg daily, Crestor 15 mg p.o. at bedtime, tramadol 50 mg p.o. t.i.d., vancomycin 1 g IV daily, verapamil 120 mg p.o. daily. LABORATORY DATA: Labs done from this morning: WBC 30.5, hemoglobin 8.3, hematocrit 24.5, platelets 292. Sodium 128, potassium 3.8, chloride 98, bicarbonate 23, BUN 13, creatinine 0.7, glucose 97, phosphorus 2.3, magnesium 1.6, alkaline phosphatase 129, total protein 4.7, albumin 2.2. Blood cultures and urine cultures negative. Ultrasound of the breast mass consistent with large right axillary nerve compatible with that seen on the CT. Differential include tumor recurrence enlarged right nephrotic appearance at axillary lymph node, small or metastatic lymphadenopathy as well as right chest wall tumor recurrence and abscess together, lymphadenopathy with hematoma complex not excluded, the recurrent suspected. ASSESSMENT AND PLAN: Elderly female with hypertension, hyperlipidemia, atrial fibrillation, right breast carcinoma that is next to the lung and lymph node, admitted for possible sepsis with elevated white blood cell count, right axillary mass with cellulitic changes. Ultrasound of the mass with possible abscess and necrotic tumor with persistently elevated white blood cell count. We will continue with current antibiotics as recommended by ID. We will discuss with ID and Interventional Radiology if the right axillary nerve be aspirated. We will continue with other supportive care. Continue with physical therapy and occupational therapy. We will add further recommendations as her clinical course progresses. Prognosis is guarded. We will discuss with power of filter plant supervisor regarding hospice care. Emerald Brand MD
--- NOTE | 2017-12-18 12:17 | CON ---
Copied To: Violeta Brand MD Attending MD: Violeta Brand MD DATE: 12/17/2017 LOCATION: The patient is located in room 360, bed A. REQUESTED BY: Emerald Brand MD. REASON FOR RENAL CONSULTATION: Hyponatremia, rule out SIADH, and for further evaluation. HISTORY OF PRESENT ILLNESS: Mrs. Seth is a 72-year-old elderly female with a past medical history significant for right breast cancer, hypertension, AFib, and lymphedema, brought to the ER by BLS, status post fall in her home on the day of admission on 12/11/2017. As per the patient, she felt very weak and she collapsed and she was receiving chemotherapy from Dr. Mosley. The patient is complaining of severe pain on the right axillary area and swelling and tenderness. Denies any fever. Denies any headache. Denies any dizziness. Denies any abdominal pain. Denies any nausea, vomiting, or diarrhea. The patient has complained swelling of the both lower extremities. PAST MEDICAL HISTORY: Significant for hypertension, hyperlipidemia, coronary artery disease, AFib, and lymphedema and breast CA. PAST SURGICAL HISTORY: Status post right mastectomy. ALLERGIES: NO KNOWN DRUG ALLERGIES. SOCIAL HISTORY: The patient is a smoker, smokes one pack per day since age 18. No alcohol abuse. No drug abuse. PERSONAL HISTORY: She is and she has one son, who is mentally challenged. MEDICATIONS: Her medications reviewed. Current medications include as follows: Azactam 2 g IV piggyback every 8 hours, verapamil 120 mg p.o. daily, clindamycin 300 mg IV piggyback every 8 hours, Crestor 10 mg at bedtime, Neutra-Phos one packet p.o. four times a day, Protonix 40 mg p.o. daily, Tylenol, tramadol 50 mg p.o. t.i.d., vancomycin 1 g daily, and Xarelto 15 mg p.o. daily. REVIEW OF SYSTEMS: Significant for bilateral leg swelling and also swelling and pain in the right axillary area and also on the right anterior chest wall and generalized weakness. All other review of systems reviewed and are as per HPI. PHYSICAL EXAMINATION: GENERAL: Mrs. Seth is a 72-year-old very pleasant elderly female, moderately built, moderately nourished, not in distress. VITAL SIGNS: As follows: Blood pressure 104/68, pulse 94, respirations 20, temperature 98.1, saturation 96% on nasal cannula 2 liters. Height 5 feet 5 inches and weight is 208 pounds. HEENT: Pupils normal and reactive to light and accommodation. Conjunctivae pink. Sclerae anicteric. Tongue is moist and trachea is midline. LUNGS: Symmetry on both sides. Bilateral breath sounds present. Clear to auscultation. CVS: [place] at the fifth intercostal space, midclavicular line. S1 and S2 audible. No murmur or gallop. The patient also has a mass on the right axillary area and also on the chest wall. Tenderness on palpation, moderate to severe. ABDOMEN: Normal in appearance, soft, tympanitic. No guarding. No hepatosplenomegaly. CATERERS HELPER: The patient is alert, awake, and oriented x3. Moving all extremities. EXTREMITIES: No cyanosis. No clubbing. The patient has 2+ edema in both lower extremities. Cranial nerves II through XII grossly intact. Sensory and motor system is within normal limits. LABORATORY DATA: Her lab data includes as follows: As of 12/17/2017, WBC 33.5, hemoglobin 8.4, hematocrit is 25.5, platelets 265, neutrophils 95, bands 1, lymph 2, monos 1, and eosinophil 1. Sodium is 126, potassium is 4.1, chloride 96, CO2 of 24, BUN 15, creatinine 0.8, glucose 95, and calcium 8.9. Other laboratory data: Serum osmolality 268 and uric acid is 4.4 and urine osmolality is 542. Urine sodium is 32. Urine potassium is 50.1. Urinalysis as of 12/11/2017, trent color, turbid, pH 5, specific gravity 1.011, protein 1+, glucose normal. Ketones negative, blood 1+, nitrites negative, bili negative, urobilinogen normal, leukocyte esterase 3+, wbc 248, rbc 14, and bacteria moderate. Other laboratory data, blood culture x2 negative day 5, as of 12/11/2017, and urine culture is negative. MRSA screening was negative twice on 12/11/2017 and 12/13/2017. Ultrasound of the breast as of 12/17/2017, large right axillary mass and the mass is iatrogenic in echotexture, but overall solid. There is no drainable component of the mass. Other laboratory data as of 12/16/2017, serum sodium is 128. As of 12/15/2017, sodium is 128. As of 12/14/2017, sodium is 129. As of 12/11/2017, sodium 130; 12/12/2017, sodium is 131; 12/13/2017, sodium is 130. ASSESSMENT AND PLAN: In summary, Mrs. Steh is a 72-year-old elderly female with a history of hypertension, atrial fibrillation, and breast carcinoma, status post right mastectomy, on chemotherapy, was admitted with weakness and status post fall in the house and bilateral leg swelling and also a large right axillary mass with WBC count more than 30,000 and low hemoglobin and hematocrit with a slow decrease in the serum sodium with low serum osmolality, high urine osmolality, and with urine sodium 132. 1. Hyponatremia, most likely secondary to syndrome of inappropriate secretion of antidiuretic hormone secretion secondary to malignancy and severe pain. 2. Right axillary mass, most likely malignancy secondary to breast carcinoma with metastatic breast carcinoma. 3. Atrial fibrillation. 4. Hypertension. Continue her current medication. Continue IV antibiotic, Azactam, clindamycin, and vancomycin as per Infectious Disease recommendations. We will also check TSH and serum cortisol level in a.m. and we will start sodium chloride tablets 1 g p.o. t.i.d. starting from tomorrow morning, and we will continue to monitor if serum soodium drops below 125, We will consider to add tolvaptan 30 mg p.o. x1 if serum sodium is less than 125 only, and also high-protein diet. We will follow with you. Thank you for allowing me to participate in your patient's care. Discussed with the PMD in rounds. Violeta Brand MD JESSIE
--- NOTE | 2017-12-18 12:18 | CON ---
Copied To: Filipe Jimenez MD Attending MD: Filipe Jimenez MD DATE: 12/12/2017 INFECTIOUS DISEASE CONSULT REQUESTED BY: Dr. Brand. HISTORY OF PRESENT ILLNESS: This is requested of Dr. Hernandez but I am covering him. She is a 72-year-old female. She has a history of atrial fib and has also breast cancer. She was treated with chemo in September and she says she was not able to take any more because she was getting very weak and right now she fell because she was having weakness in her lower extremities and had heavy legs with edema. She denies hitting her head. She was also having diarrhea and chills. Her white count is 31,000, hence I am asked to see her. She had recent diarrhea, last bowel movement but she says recently was 2 days ago. She has no appetite. She has not been eating and she denied any chest pain. No shortness of breath. She has been on Xarelto and she has been feeling very weak and she says that chemo was stopped in September as she could not handle it. She also has a right arm axillary lymphedema and she was scheduled to start radiation. She is also anemic, has had many transfusions and recently was treated for pneumonia and was discharged to [facility] after that and her oncologist is Dr. Mosley and her PMD is Dr. James Johnston. PAST MEDICAL HISTORY: Significant for a former smoker, hypertension, hypercholesterolemia cardiac meredith and hematological, she has a history of cancer right breast. Musculoskeletal, no history of fall, no substance abuse. PAST SURGICAL HISTORY: Significant for mastectomy, has a Port-A-Cath, has right arm . SOCIAL HISTORY: She lives at home with her son who has a mental illness. She is a former smoker, smoked for 18 years and quit last year. She denies any alcohol or drug abuse. FAMILY HISTORY: Significant for diabetes and coronary artery disease. MEDICATIONS: At home Bystolic, Xarelto and Crestor. In the ICU she was getting magnesium, sodium chloride, Zosyn, potassium, verapamil. ALLERGIES: SHE IS ALLERGIC TO CODEINE. REVIEW OF SYSTEM: CONSTITUTIONAL: She did come with weakness and chills. She had no fever and no appetite. CARDIOPULMONARY: She denied any chest pain. No shortness of breath. No palpitations. RESPIRATORY: No cough. No dyspnea. GI: She had diarrhea, loose stools and absent were abdominal pain, nausea and vomiting. URINARY: She had no dysuria and no urinary incontinence. PHYSICAL EXAMINATION: VITAL SIGNS: She has no fever. T-max is 98.4 right now, pulse is 75, she has 85/45 blood pressure is low, respirations are 24. GENERAL: She was answering questions. She was alert, awake and appeared however weak and frail. HEENT: Head is atraumatic, normocephalic. She had no icterus, had pallor, but eye movement were unremarkable. Mucous membrane was dry. NECK: Supple. JVP was flat. CHEST: She has a Port-A-Cath on the right side of the chest wall which was unremarkable, but the right axillary area was edematous and edema was present on the right arm. Lymphedema noted extending from the axilla into the arm and there was some erythema, edema and warmth also noted. LUNGS: Decreased breath sounds. No rhonchi. No rales. HEART: S1, S2 is irregularly irregular. No murmurs appreciated. ABDOMEN: Soft, nontender. No guarding, no rigidity present. Bowel sounds was gurgling. EXTREMITIES: Had bilateral edema 2+ and no calf tenderness present. She had no CVA tenderness present. ENGINEER FIRST ASSISTANT: She was alert, oriented x3. Her mood was normal. SKIN: Dry to note. LABORATORY DATA: Lab show white count is 31.2 today and her hemoglobin is 8.2, hematocrit 24.8, platelet count is 275, neutrophils is 91, bands are 6. INR is 1.4. Sodium 131, potassium 3.3, chloride 101, CO2 is 24, anion gap is 10, BUN is 15, creatinine is 0.8. Lactic acid is 1.1. Her B12 was 623, folate was 10.3. She also had Dopplers done of the lower extremities and Dopplers showed no evidence of venous thrombosis of the right upper extremity, normal venous flow noted in the left subclavian this was in the upper one. Right upper extremity there was an enlarged lymph node noted adjacent to the subclavian artery vein within the subclavian area which measured 2.6 x 1.4 cm and there was no evidence of venous thrombosis in the right upper extremity. She has lymphadenopathy in the axilla. She had a head CT chest, abdomen and pelvic CT done and that showed large right breast mass versus the same numerous right axillary lymph nodes representing breast mass along the superior margin left hilar adenopathy and impression showed that they are consistent with metastatic disease, patchy sclerosis in the right anterior 7th rib and inferior T11 vertebral body which may represent metastatic disease. ASSESSMENT AND PLAN: So she has metastatic disease with right axillary lymph node masses and medications meredith, she was on Zosyn and we changed it to cefepime and Flagyl, she is getting 2 gm every 8 as she is immunocompromised and she is on Flagyl at this time and vancomycin 1 gm every 12 for the cellulitis and mass in the right axilla and we are covering for the 31,000 white count also stool for C. diff has been ordered as there was a competent of diarrhea which was mentioned by this patient on admission; however, she did not give any history of taking any antibiotics, but since she has count more than 30,000, I would also check for C. diff. Blood culture x2 are negative. Urine culture is negative. MRSA is not detected unless this count I do not think is from the metastatic disease, it is from the cellulitis itself with the axillary mass. The patient has breast cancer with metastasis and lymphedema of the right arm. Filipe Jimenez MD
--- NOTE | 2017-12-18 13:11 | PN ---
DATE: 12/17/2017 SUBJECTIVE: The patient was seen today. She also went to obtain the abscess as they reported and called me and we discussed she does not have any abscess there. It is a solid mass of necrotic tissue, probably necrotic cancer right breast. There is a lump there. PHYSICAL EXAMINATION: GENERAL: She is awake, alert. The patient remains awake and oriented. VITAL SIGNS: T-max is 98.1, pulse 94, blood pressure 104/68, respirations are 20. BREASTS: She has a breast mass. Left breast is unremarkable. LUNGS: Clear. HEART: S1 and S2 are is regular. ABDOMEN: Soft and nontender. No guarding. No rigidity present. EXTREMITIES: Have bilateral edema. She also has a right upper arm edema, but no cellulitis on the forearm. LABORATORY DATA: White count is 33.5. It has gone up since yesterday and it is creeping up. Sodium is 126, potassium 4.1, chlorides are 96, BUN is 15, and creatinine 0.8. ASSESSMENT AND PLAN: So my plan is to continue present treatment. She is going to get a hospice evaluation. I will get a procalcitonin level tomorrow just to see if all this is related to infection or abscess and the patient with septic workup and did not find much on other cultures as well as the CAT scans, and so I am assuming it is because of the tumor and the other way could be that once the procalcitonin level comes back low one and we may start to discontinue antibiotics and put her on an oral antibiotic like Levaquin and If she is not allergic to it and I will evaluate. I will be away until Friday, Dr. Hernandez will be covering me. If need be, then he can be called. Filipe Jimenez MD
--- NOTE | 2017-12-18 19:29 | CP.PCM.PN ---
Subjective - Date & Time of Evaluation Date of Evaluation: 12/18/17 Time of Evaluation: 19:29 - Subjective Subjective: pt is seen and examined, follow up consult is dictated #[id number] will add [id number] mg po x1 today, bmp in am Objective - Vital Signs/Intake and Output Vital Signs (last 24 hours): Temp Pulse Resp BP Pulse Ox 99 F 94 H 20 103/61 95 12/18/17 16:00 12/18/17 16:00 12/18/17 16:00 12/18/17 16:00 12/18/17 16:00 Intake and Output: 12/18/17 12/19/17 18:59 06:59 Intake Total 1000 Balance 1000 - Medications Medications: Current Medications Acetaminophen (Tylenol 325mg Tab) 650 mg PO Q6 PRN PRN Reason: Headache Last Admin: 12/12/17 18:09 Dose: 650 mg Vancomycin/Sodium Chloride (Vancomycin 1 Gm/Ns 200 Ml) 1 gm in 200 mls @ 133 mls/hr IVPB DAILY [facility] PRN Reason: Protocol Stop: 12/19/17 10:01 Last Admin: 12/18/17 09:55 Dose: 133 mls/hr Clindamycin Phosphate 300 mg/ (Sodium Chloride) 52 mls @ 100 mls/hr IVPB Q8 [facility]ODA PRN Reason: Protocol Last Admin: 12/18/17 14:37 Dose: 100 mls/hr Aztreonam 2 gm/ Sodium (Chloride) 100 mls @ 200 mls/hr IVPB Q8H [facility]ODA PRN Reason: Protocol Last Admin: 12/18/17 13:34 Dose: 200 mls/hr Pantoprazole Sodium (Protonix Ec Tab) 40 mg PO DAILY [facility] Last Admin: 12/18/17 09:46 Dose: 40 mg Rivaroxaban (Xarelto) 15 mg PO DAILY [facility] Last Admin: 12/18/17 09:45 Dose: 15 mg Rosuvastatin Calcium (Crestor) 10 mg PO HS [facility] Last Admin: 12/17/17 21:40 Dose: 10 mg Sodium Chloride (Sodium Chloride Tab) 1 gm PO Q8H [facility] Last Admin: 12/18/17 16:00 Dose: 1 gm Tolvaptan (Samsca) 30 mg PO ONCE ONE Stop: 12/18/17 19:29 Tramadol HCl (Ultram) 50 mg PO TID PRN PRN Reason: Pain, moderate (4-7) Last Admin: 12/18/17 11:47 Dose: 50 mg Verapamil HCl (Calan Sr Tab) 120 mg PO DAILY [facility] Last Admin: 12/18/17 09:45 Dose: 120 mg - Labs Labs: 12/17/17 11:12 12/18/17 07:31 PT 15.6 SECONDS (9.7-12.2) H 12/12/17 10:54 INR 1.4 12/12/17 10:54 APTT 35 SECONDS (21-34) H 12/12/17 10:54
[2017-12-18] MEDS ORDERED: Tolvaptan 15 MG TAB PO ONE (20:00)
--- NOTE | 2017-12-19 02:18 | PN ---
DATE: 12/18/2017 SUBJECTIVE: The patient was seen and examined at bedside. The patient offers no new complaints. PHYSICAL EXAMINATION: GENERAL: Elderly female, lying in bed, in no acute distress. VITAL SIGNS: Blood pressure 103/61, pulse 94, respirations 20,temperature 99 degrees Fahrenheit, O2 sat 95% on 2 L nasal cannula. HEENT: Pupils equal, round, reacting to light and accommodation. Extraocular muscles intact. No icterus. Positive pallor. No oral thrush. No pharyngeal congestion. NECK: Supple. No JVD. LUNGS: Bilateral vesicular breath sounds. No wheezing. No rhonchi. CARDIOVASCULAR SYSTEM: S1, S2 present, irregular. ABDOMEN: Soft. Nontender. Bowel sounds present. No guarding. No rigidity. No rebound tenderness noted. CENTRAL NERVOUS SYSTEM: Alert, awake, oriented x3. No focal deficits noted. EXTREMITIES: Positive edema in the lower extremities and right upper extremity lymphedema present with right axillary mass, increasing in size, redness present, warm to touch and tenderness present. MEDICATIONS: Include Tylenol 650 mg p.o. every 6 hours p.r.n., Azactam 2 g IV every 8 hours, clindamycin 300 mg IV every 8 hours, Protonix 40 mg daily, Xarelto 15 mg daily, Crestor 10 mg at bedtime, sodium chloride tablet 1 g p.o. every 8 hours, Ultram 50 mg p.o. t.i.d., vancomycin 1 g IV daily, verapamil 120 mg daily. LABORATORY DATA: Labs from today: Sodium 127, potassium 4, chloride 97, bicarb 24, BUN 17, creatinine 0.7, glucose 76, calcium 8.7. Procalcitonin 1.8, free TSH 1.8, free a.m. cortisol 23.9. 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 The patient is Do Not Resuscitate and hospice placement is in progress. Discussed with the patient's power of corporate attorney, Constanza, last night at length and clarified all her questions and concerns. She will be meeting with hospice care nurse today. We will follow up with case management, director of social media marketing and for further hospice care arrangements. As per their request, we will not pursue any further aggressive measures. We will continue with supportive care. Prognosis is guarded. The patient and the patient's power of corporate attorney understand the poor prognosis. Emerald Brand MD
--- NOTE | 2017-12-19 02:58 | PN ---
DATE: 12/18/2017 FOLLOWUP RENAL CONSULTATION LOCATION: The patient is located in room 361, bed A. REQUESTED BY: Emerald Brand MD. REASON FOR RENAL FOLLOWUP: Hyponatremia, SIADH. HISTORY OF PRESENT ILLNESS: Mrs. Seth is a 72-year-old elderly female with a past medical history significant for hypertension, hyperlipidemia, coronary artery disease, breast CA, status post right mastectomy who was admitted with a syncopal episode and generalized weakness, on chemotherapy. Initial consultation was requested for evaluation of hyponatremia. The patient is not in distress. Denies any headache, dizziness. Denies any chest pain, palpitation. The patient has complaints of pain at the right axillary area with swelling. PHYSICAL EXAMINATION: VITAL SIGNS: As follows: Blood pressure 103/61, pulse 94, respirations 20, temperature 99, saturation 95% on 2 liters nasal cannula. Height 5 feet 5 inches and weight is 206 pounds. GENERAL: Mrs. Seth is a 72-year-old elderly female, moderately built, moderately nourished, not in acute distress. HEENT: Pupils normal and reactive to light and accommodation. Conjunctivae slightly pale. Sclerae anicteric. Tongue is moist. Trachea is midline. LUNGS: Symmetric on both sides. Bilateral breath sounds present. Clear to auscultation. CVS: [place] at the fifth intercostal space, midclavicular line. S1, S2 audible. No murmur or gallop. ABDOMEN: Normal in appearance. Soft, tympanitic. No guarding. No rigidity. No hepatosplenomegaly. OFFICE SERVICES MANAGER: The patient is alert, awake, oriented x3. Nonfocal neuro examination. Cranial nerves II through XII grossly intact. Sensory and motor system is within normal limits. EXTREMITIES: No cyanosis, no clubbing. The patient has a 2+ edema in both lower extremities. CURRENT MEDICATIONS Include as follows: Azactam 2 g every 8 hours, verapamil 120 mg p.o. daily, clindamycin 300 mg every 8 hours IV, Crestor 10 mg at bedtime, Protonix 40 mg p.o. daily, sodium chloride tablets 1 g p.o. every 8 hours, Tylenol and tramadol 50 mg p.o. t.i.d., vancomycin 1 g daily, Xarelto 50 mg p.o. daily. LABORATORY DATA: Include as follows: Sodium 127, potassium is 4, chloride 97, CO2 of 24, BUN 17, creatinine 0.7. Glucose 76, calcium 8.7. Serum osmolality as of 12/17/2017, 268, uric acid 4.4, and procalcitonin 1.83. TSH is 1.83. Serum cortisol 23.9. Urine osmolality 549, urine sodium is 32, urine potassium is 50.1. Vancomycin trough level was 10.1. IMPRESSION: In summary, Mrs. Seth is a 72-year-old elderly female with a history of hypertension, hyperlipidemia, atrial fibrillation, metastatic breast carcinoma, status post right mastectomy and chemotherapy who was admitted with weakness and syncopal episode, status post fall in the house with weakness and found to have elevated WBC count and now with low sodium. Hyponatremia, most likely secondary to SIADH, secondary to malignancy. Continue sodium chloride tablets, and will give tolvaptan 30 mg p.o. x1 dose and repeat BMP in a.m. and analgesics as needed. We will follow with you. Thank you for allowing me to participate in your patient's care. Overall prognosis is very poor. Continue IV antibiotics as per ID recommendation. Violeta Brand MD
[2017-12-19] MEDS: Aztreonam 2 GM in Sodium Chloride 0.9% 100 ML IVPB SCH ×2 (04:15→13:26)
[2017-12-19] MEDS: Clindamycin 300 MG in Sodium Chloride 0.9% 50 ML IVPB SCH ×2 (05:16→14:58)
[2017-12-19 08:14] LABS: BLOOD UREA NITROGEN 19 mg/dL (7-17); CALCIUM 8.6 mg/dl (8.6-10.4); GFR NON-AFRICAN AMERICAN > 60
[2017-12-19] MEDS: Pantoprazole 40 mg EC Tab PO SCH (10:16)
[2017-12-19] MEDS: Vancomycin 1 gm/NS 200 ml 1 GM/200 ML BAG IVPB SCH (10:16)
--- NOTE | 2017-12-19 11:41 | CP.PCM.PN ---
Subjective - Date & Time of Evaluation Date of Evaluation: 12/19/17 Time of Evaluation: 11:15 - Subjective Subjective: Progress note dictated #[id number] Objective - Vital Signs/Intake and Output Vital Signs (last 24 hours): Temp Pulse Resp BP Pulse Ox 98.2 F 100 H 20 108/65 96 12/19/17 08:00 12/19/17 08:00 12/19/17 08:00 12/19/17 08:00 12/19/17 08:00 Intake and Output: 12/19/17 12/19/17 06:59 18:59 Intake Total 810 Output Total 300 Balance 510 - Medications Medications: Current Medications Acetaminophen (Tylenol 325mg Tab) 650 mg PO Q6 PRN PRN Reason: Headache Last Admin: 12/12/17 18:09 Dose: 650 mg Clindamycin Phosphate 300 mg/ (Sodium Chloride) 52 mls @ 100 mls/hr IVPB Q8 [facility]ODA PRN Reason: Protocol Last Admin: 12/19/17 05:16 Dose: 100 mls/hr Aztreonam 2 gm/ Sodium (Chloride) 100 mls @ 200 mls/hr IVPB Q8H [facility]ODA PRN Reason: Protocol Last Admin: 12/19/17 04:15 Dose: 200 mls/hr Pantoprazole Sodium (Protonix Ec Tab) 40 mg PO DAILY RHODA Last Admin: 12/19/17 10:16 Dose: 40 mg Sodium Chloride (Sodium Chloride Tab) 1 gm PO Q8H RHODA Last Admin: 12/19/17 08:34 Dose: 1 gm Tramadol HCl (Ultram) 50 mg PO TID PRN PRN Reason: Pain, moderate (4-7) Last Admin: 12/18/17 11:47 Dose: 50 mg - Labs Labs: 12/17/17 11:12 12/19/17 06:55 PT 15.6 SECONDS (9.7-12.2) H 12/12/17 10:54 INR 1.4 12/12/17 10:54 APTT 35 SECONDS (21-34) H 12/12/17 10:54
--- NOTE | 2017-12-19 15:34 | CP.PCM.PCO ---
Physician Communication Note - Physician Communication Note Physician Communication Note: IV antibiotics discontinued as advised by DR CAO and DR Aman Johnston.
--- NOTE | 2017-12-20 03:22 | PN ---
DATE: 12/19/2017 SUBJECTIVE: The patient was seen and examined at bedside. Events from last night noted. The patient's power of senior attorney is requesting for subacute rehabilitation placement and pursue hospice care afterwards. The patient denies any new complaints. PHYSICAL EXAMINATION: GENERAL: Elderly female, lying in bed, in no acute distress. VITAL SIGNS: Blood pressure 108/65, pulse 100, respirations 18, temperature 98.2 degrees Fahrenheit, O2 saturations 96% on room air. HEENT: Pupils equal, round, and reactive to light and accommodation. Extraocular muscles are intact. No icterus. Positive pallor. No oral thrush. No pharyngeal congestion. NECK: Supple. No JVD. LUNGS: Bilateral vesicular breath sounds. No wheezing, no rhonchi. CVS: S1 and S2 present and regular. ABDOMEN: Soft and nontender. Bowel sounds are present. No guarding. No rigidity. No rebound tenderness noted. SCHOOL LIBRARIAN: Alert, awake, and oriented x3. No focal deficits noted. EXTREMITIES: Pedal edema present and right upper extremity lymphedema present. Right axillary mass with eczema noted. MEDICATIONS: Include Tylenol as needed, Protonix 40 mg daily, sodium chloride tablet, tramadol 50 mg t.i.d., Azactam 2 g IV every 8 hours, clindamycin 300 mg IV every 8 hours, Xarelto 15 mg daily, Crestor 10 mg p.o at bedtime, Vancomycin 1 gm IV daily, verapamil 120 mg daily. LABORATORY DATA: From today, sodium 129, potassium 3.9, chloride 96, bicarbonate 22, BUN 19, creatinine 0.8, glucose 119, calcium 8.6. ASSESSMENT AND PLAN: Elderly female with history of hypertension, hyperlipidemia, atrial fibrillation with metastatic breast carcinoma, admitted for elevated WBC count and right axillary mass with necrotic lymph nodes, hyponatremia, debility; and the patient's power of senior attorney looking for subacute rehab placement. Discussed with the power of senior attorney at length regarding the patient's discharge planning. I discussed with case management. We will follow up with Dr. Mosley and Dr. Jimenez in social services assistant looking into subacute rehab placement versus hospice care. I will continue with supportive care. We will add further recommendations. The patient is on poor prognosis, and power of senior attorney understands the patient's poor prognosis. Emerald Brand MD [facility] # [id number]
--- NOTE | 2017-12-20 09:44 | CP.PCM.PN ---
Subjective - Date & Time of Evaluation Date of Evaluation: 12/20/17 Time of Evaluation: 09:44 - Subjective Subjective: Progress note dictated #[id number] Objective - Vital Signs/Intake and Output Vital Signs (last 24 hours): Temp Pulse Resp BP Pulse Ox 98 F 106 H 20 106/69 96 12/20/17 07:28 12/20/17 07:28 12/20/17 07:28 12/20/17 07:28 12/20/17 07:28 Intake and Output: 12/20/17 12/20/17 06:59 18:59 Intake Total 440 Output Total 400 Balance 40 - Medications Medications: Current Medications Acetaminophen (Tylenol 325mg Tab) 650 mg PO Q6 PRN PRN Reason: Headache Last Admin: 12/12/17 18:09 Dose: 650 mg Linezolid (Zyvox 600mg/300ml D5w) 600 mg in 300 mls @ 200 mls/hr IVPB Q12H RHODA PRN Reason: Protocol Pantoprazole Sodium (Protonix Ec Tab) 40 mg PO DAILY RHODA Last Admin: 12/19/17 10:16 Dose: 40 mg Sodium Chloride (Sodium Chloride Tab) 1 gm PO Q8H RHODA Last Admin: 12/20/17 08:50 Dose: 1 gm Tramadol HCl (Ultram) 50 mg PO TID PRN PRN Reason: Pain, moderate (4-7) Last Admin: 12/20/17 05:53 Dose: 50 mg - Labs Labs: 12/17/17 11:12 12/19/17 06:55 PT 15.6 SECONDS (9.7-12.2) H 12/12/17 10:54 INR 1.4 12/12/17 10:54 APTT 35 SECONDS (21-34) H 12/12/17 10:54
[2017-12-20] MEDS: Pantoprazole 40 mg EC Tab PO SCH (10:12)
[2017-12-20] MEDS: Linezolid 600 mg in D5W 300 ml 600 MG/300 ML BAG IVPB SCH (12:04)
--- NOTE | 2017-12-20 20:27 | PN ---
DATE: 12/20/2017 SUBJECTIVE: The patient was seen and examined at bedside. The patient is a little drowsy, but arousable, complaining of right upper extremity swelling and pain. Denies any other complaint. PHYSICAL EXAMINATION: GENERAL: An elderly female, lying in bed, in no acute distress. VITAL SIGNS: Blood pressure 106/69, pulse 106, respirations 20, temperature 98 degrees Fahrenheit, and O2 saturations 96% on 2 L nasal cannula. HEENT: Pupils equal, round, and reacting to light and accommodation. Extraocular muscles intact. No icterus, no pallor. No oral thrush. No pharyngeal congestion. NECK: Supple, no JVD. LUNGS: Bilateral vesicular breath sounds. No wheezing, no rhonchi. CVS: S1 and S2 present, irregular. ABDOMEN: Soft and nontender. Bowel sounds present. No guarding, no rigidity, and no rebound tenderness noted. CENTRAL NERVOUS SYSTEMS: Drowsy, but arousable, oriented x3. No focal deficits noted. EXTREMITIES: Lower extremity edema present. Right upper extremity edema today is worse than yesterday, increased redness at the axillary region. LABORATORY DATA: Urine cultures from 12/17/2017 shows VRE and yeast species. MEDICATIONS: Include Tylenol as needed, Zyvox 600 mg IV every 12 hours, Protonix 40 mg daily, sodium chloride 1 g p.o. every 8 hours, and tramadol 50 mg p.o. t.i.d. as needed. ASSESSMENT AND PLAN: An elderly female with hypertension, hyperlipidemia, atrial fibrillation, metastatic right breast cancer with right axillary mass and right upper extremity lymphedema. Waiting for senior living versus hospice care placement. Discussed with [id number] yesterday. Social Service is working on discharge planning. Prognosis is poor. Continue with supportive care. Emerald Brand MD
[2017-12-21] MEDS: Linezolid 600 mg in D5W 300 ml 600 MG/300 ML BAG IVPB SCH ×2 (00:29→12:20)
[2017-12-21] MEDS: Pantoprazole 40 mg EC Tab PO SCH (10:10)
--- NOTE | 2017-12-21 12:20 | CP.PCM.PN ---
Subjective - Date & Time of Evaluation Date of Evaluation: 12/21/17 Time of Evaluation: 12:19 - Subjective Subjective: Progress note dictated #[id number] Objective - Vital Signs/Intake and Output Vital Signs (last 24 hours): Temp Pulse Resp BP Pulse Ox 98.1 F 119 H 20 101/59 L 97 12/21/17 08:00 12/21/17 08:00 12/21/17 08:00 12/21/17 08:00 12/21/17 08:00 Intake and Output: 12/21/17 12/21/17 06:59 18:59 Intake Total 240 420 Output Total 600 750 Balance -360 -330 - Medications Medications: Current Medications Acetaminophen (Tylenol 325mg Tab) 650 mg PO Q6 PRN PRN Reason: Headache Last Admin: 12/12/17 18:09 Dose: 650 mg Linezolid (Zyvox 600mg/300ml D5w) 600 mg in 300 mls @ 200 mls/hr IVPB Q12H RHODA PRN Reason: Protocol Last Admin: 12/21/17 00:29 Dose: 200 mls/hr Pantoprazole Sodium (Protonix Ec Tab) 40 mg PO DAILY RHODA Last Admin: 12/21/17 10:10 Dose: 40 mg Sodium Chloride (Sodium Chloride Tab) 1 gm PO Q8H RHODA Last Admin: 12/21/17 08:13 Dose: 1 gm Tramadol HCl (Ultram) 50 mg PO TID PRN PRN Reason: Pain, moderate (4-7) Last Admin: 12/20/17 05:53 Dose: 50 mg - Labs Labs: 12/17/17 11:12 12/19/17 06:55 PT 15.6 SECONDS (9.7-12.2) H 12/12/17 10:54 INR 1.4 12/12/17 10:54 APTT 35 SECONDS (21-34) H 12/12/17 10:54
--- NOTE | 2017-12-21 16:14 | CP.PCM.PN ---
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 zyvox added Objective - Vital Signs/Intake and Output Vital Signs (last 24 hours): Temp Pulse Resp BP Pulse Ox 98.1 F 119 H 20 101/59 L 97 12/21/17 08:00 12/21/17 08:00 12/21/17 08:00 12/21/17 08:00 12/21/17 08:00 Intake and Output: 12/21/17 12/21/17 06:59 18:59 Intake Total 240 1030 Output Total 600 1050 Balance -360 -20 - Medications Medications: Current Medications Acetaminophen (Tylenol 325mg Tab) 650 mg PO Q6 PRN PRN Reason: Headache Last Admin: 12/12/17 18:09 Dose: 650 mg Linezolid (Zyvox 600mg/300ml D5w) 600 mg in 300 mls @ 200 mls/hr IVPB Q12H RHODA PRN Reason: Protocol Last Admin: 12/21/17 12:20 Dose: 200 mls/hr Pantoprazole Sodium (Protonix Ec Tab) 40 mg PO DAILY RHODA Last Admin: 12/21/17 10:10 Dose: 40 mg Sodium Chloride (Sodium Chloride Tab) 1 gm PO Q8H RHODA Last Admin: 12/21/17 08:13 Dose: 1 gm Tramadol HCl (Ultram) 50 mg PO TID PRN PRN Reason: Pain, moderate (4-7) Last Admin: 12/20/17 05:53 Dose: 50 mg - Labs Labs: 12/17/17 11:12 12/19/17 06:55 PT 15.6 SECONDS (9.7-12.2) H 12/12/17 10:54 INR 1.4 12/12/17 10:54 APTT 35 SECONDS (21-34) H 12/12/17 10:54
[2017-12-22] MEDS: Linezolid 600 mg in D5W 300 ml 600 MG/300 ML BAG IVPB SCH ×2 (00:22→12:09)
--- NOTE | 2017-12-22 01:06 | PN ---
DATE: 12/21/2017 SUBJECTIVE: The patient was seen and examined at bedside. The patient offers no new complaints. Right upper extremity swelling is worse than yesterday. Complains of pain. No other complaints. PHYSICAL EXAMINATION: GENERAL: Elderly female, lying in bed in no acute distress. VITAL SIGNS: Blood pressure 101/58, pulse 102, respirations 20, temperature 98.2 degrees Fahrenheit, O2 sat 99% on 2 liters nasal cannula. HEENT: Pupils equal and reacting to light and accommodation. Extraocular muscles intact. No icterus. Positive pallor. No oral thrush. No pharyngeal congestion. NECK: Supple. No JVD. LUNGS: Bilateral vesicular breath sounds. No wheezing. No rhonchi. CVS: S1, S2 present. Regular. ABDOMEN: Soft, nontender, bowel sounds present. No guarding. No rigidity. No rebound tenderness noted. PATIENT CARRIER: Alert, awake, and oriented x3. No focal deficits noted. EXTREMITIES: Edematous. Right upper extremity swelling increased. MEDICATIONS: Include Tylenol as needed, Zyvox 600 mg IV every 8 hours, Protonix 40 mg daily, sodium chloride 1 g p.o. every 8 hours, tramadol 50 mg p.o. t.i.d. as needed. ASSESSMENT AND PLAN: Elderly female with history of hypertension, hyperlipidemia, metastatic right breast cancer with right axillary mass, lymphedema, elevated WBC count, hyponatremia, waiting for subacute rehab versus hospice transfer. Follow up with director of social media marketing. Continue with current management. Prognosis is poor. Emerald Brand MD
[2017-12-22] MEDS: Pantoprazole 40 mg EC Tab PO SCH (10:40)
--- NOTE | 2017-12-22 13:48 | CP.PCM.PN ---
Subjective - Date & Time of Evaluation Date of Evaluation: 12/22/17 Time of Evaluation: 13:48 - Subjective Subjective: Progress note dictated # [id number] Objective - Vital Signs/Intake and Output Vital Signs (last 24 hours): Temp Pulse Resp BP Pulse Ox 97.9 F 110 H 20 97/61 L 97 12/22/17 09:53 12/22/17 09:53 12/22/17 09:53 12/22/17 09:53 12/22/17 09:53 Intake and Output: 12/22/17 12/22/17 06:59 18:59 Intake Total 300 400 Output Total 500 800 Balance -200 -400 - Medications Medications: Current Medications Acetaminophen (Tylenol 325mg Tab) 650 mg PO Q6 PRN PRN Reason: Headache Last Admin: 12/12/17 18:09 Dose: 650 mg Linezolid (Zyvox 600mg/300ml D5w) 600 mg in 300 mls @ 200 mls/hr IVPB Q12H RHODA PRN Reason: Protocol Last Admin: 12/22/17 12:09 Dose: 200 mls/hr Pantoprazole Sodium (Protonix Ec Tab) 40 mg PO DAILY RHODA Last Admin: 12/22/17 10:40 Dose: 40 mg Sodium Chloride (Sodium Chloride Tab) 1 gm PO Q8H RHODA Last Admin: 12/22/17 08:55 Dose: 1 gm Tramadol HCl (Ultram) 50 mg PO TID PRN PRN Reason: Pain, moderate (4-7) Last Admin: 12/20/17 05:53 Dose: 50 mg - Labs Labs: 12/17/17 11:12 12/19/17 06:55 PT 15.6 SECONDS (9.7-12.2) H 12/12/17 10:54 INR 1.4 12/12/17 10:54 APTT 35 SECONDS (21-34) H 12/12/17 10:54
[2017-12-23] MEDS: Linezolid 600 mg in D5W 300 ml 600 MG/300 ML BAG IVPB SCH ×2 (00:45→12:12)
--- NOTE | 2017-12-23 06:51 | PN ---
DATE: 12/22/2017 SUBJECTIVE: The patient was seen and examined at bedside. The patient offers no new complaints. PHYSICAL EXAMINATION: GENERAL: An elderly female lying bed in no acute distress. VITAL SIGNS: Blood pressure 101/68, pulse 103, respirations 20, temperature 98.7 degrees Fahrenheit, O2 saturation is on 96% on 2 L nasal cannula. HEENT: Pupils equal, round and reacting to light and accommodation. Extraocular muscles are intact. No icterus. No pallor. No oral thrush. No pharyngeal congestion. NECK: Supple. No JVD. LUNGS: Bilateral vesicular breath sounds. No wheezing. No rhonchi. CVS: S1, S2 present, irregular. ABDOMEN: Soft and nontender. Bowel sounds present. No guarding. No rigidity. No rebound tenderness noted. INSURANCE BUSINESS ANALYST: Alert, awake and oriented x 3. No focal deficits noted. EXTREMITIES: Bilateral lower extremity edema and upper extremity lymphedema present. Right axillary mass present. MEDICATIONS: Acetaminophen as needed, Zyvox 600 mg IV every 12 hours, Protonix 40 mg daily, sodium chloride tablet 1 gm p.o. every 8 hours, tramadol 50 mg p.o. t.i.d. ASSESSMENT AND PLAN: Elderly female with past medical history of hypertension, hyperlipidemia, atrial fibrillation, metastatic right breast cancer with right axillary mass awaiting for subacute rehab versus hospice placement. Prognosis is guarded. Continue with supportive care. Emerald Brand MD
[2017-12-23 09:22] LABS: ALB/GLOB RATIO 0.7 (1.0-2.1); ALBUMIN 2.3 g/dL (3.5-5.0); ALT/SGPT 14 U/L (9-52); AST/SGOT 26 U/L (14-36); BLOOD UREA NITROGEN 17 mg/dL (7-17); CALCIUM 10.3 mg/dl (8.6-10.4); GFR NON-AFRICAN AMERICAN > 60
[2017-12-23] MEDS: Pantoprazole 40 mg EC Tab PO SCH (10:04)
--- NOTE | 2017-12-23 10:19 | CP.PCM.PN ---
Subjective - Date & Time of Evaluation Date of Evaluation: 12/23/17 Time of Evaluation: 10:19 - Subjective Subjective: Progress note dictated #[id number] Objective - Vital Signs/Intake and Output Vital Signs (last 24 hours): Temp Pulse Resp BP Pulse Ox 97.8 F 111 H 20 104/69 97 12/23/17 08:09 12/23/17 08:09 12/23/17 08:09 12/23/17 08:09 12/23/17 08:09 Intake and Output: 12/23/17 12/23/17 06:59 18:59 Intake Total 740 Output Total 650 Balance 90 - Medications Medications: Current Medications Acetaminophen (Tylenol 325mg Tab) 650 mg PO Q6 PRN PRN Reason: Headache Last Admin: 12/12/17 18:09 Dose: 650 mg Linezolid (Zyvox 600mg/300ml D5w) 600 mg in 300 mls @ 200 mls/hr IVPB Q12H RHODA PRN Reason: Protocol Last Admin: 12/23/17 00:45 Dose: 200 mls/hr Pantoprazole Sodium (Protonix Ec Tab) 40 mg PO DAILY RHODA Last Admin: 12/23/17 10:04 Dose: 40 mg Sodium Chloride (Sodium Chloride Tab) 1 gm PO Q8H RHODA Last Admin: 12/23/17 08:04 Dose: 1 gm Tramadol HCl (Ultram) 50 mg PO TID PRN PRN Reason: Pain, moderate (4-7) Last Admin: 12/23/17 05:20 Dose: 50 mg - Labs Labs: 12/17/17 11:12 12/23/17 08:39 PT 15.6 SECONDS (9.7-12.2) H 12/12/17 10:54 INR 1.4 12/12/17 10:54 APTT 35 SECONDS (21-34) H 12/12/17 10:54
--- NOTE | 2017-12-23 23:59 | PN ---
DATE: 12/23/2017 SUBJECTIVE: The patient was seen and examined at bedside. The patient offers no new complaints. Obviously confused but knows where she is and oriented to person. PHYSICAL EXAMINATION: GENERAL: Elderly female, lying in bed, in no acute distress. VITAL SIGNS: Blood pressure 104/69, pulse 111, respirations 20, temperature 97.8 degrees Fahrenheit, O2 sat is 97% on 2 liters nasal cannula. HEENT: Pupils are equal, round, and reacting to light and accommodation. Extraocular muscles are intact. No icterus. Positive pallor. No oral thrush. No pharyngeal congestion. Dry mucous membranes. NECK: Supple. No JVD. LUNGS: Bilateral vesicular breath sounds. No wheezing. No rhonchi. CARDIOVASCULAR SYSTEM: S1 and S2 present, irregular. ABDOMEN: Soft. Nontender. Bowel sounds present. No guarding. No rigidity. No rebound tenderness noted. CENTRAL NERVOUS SYSTEM: Alert, awake, and oriented x2. No focal deficits noted. EXTREMITIES: Lower extremity edema and upper right extremity edema present. Right axillary mass with minimal erythematous changes. MEDICATIONS: Include Tylenol as needed, Zyvox 600 mg IV every 12 hours, Protonix 40 mg daily, sodium chloride tablet 1 g p.o. every 8 hours, tramadol 50 mg p.o. t.i.d. LABORATORY DATA: No new labs from today. ASSESSMENT AND PLAN: Elderly female with history of hypertension, hyperlipidemia, atrial fibrillation, metastatic right breast cancer with metastasis to the lung and bone, right axillary mass, lymphedema, hyponatremia, urinary tract infection with vancomycin-resistant enterococcus. Awaiting for subacute rehabilitation placement. Discussed with case management. The patient is being accepted to [facility] but wanted the urine to be repeated and cleared of vancomycin-resistant enterococcus, so urinalysis and urine culture were reordered. If urine culture is negative, [facility] is willing to accept the patient for subacute rehabilitation placement. Discussed with power of securities attorney, clarified all the requests and signed consent. Emerald Brand MD
[2017-12-24] MEDS: Linezolid 600 mg in D5W 300 ml 600 MG/300 ML BAG IVPB SCH ×2 (00:30→12:01)
[2017-12-24] MEDS: Pantoprazole 40 mg EC Tab PO SCH (10:41)
--- NOTE | 2017-12-24 11:00 | CP.PCM.PN ---
Subjective - Date & Time of Evaluation Date of Evaluation: 12/24/17 Time of Evaluation: 11:00 - Subjective Subjective: Progress note dictated #[id number] Objective - Vital Signs/Intake and Output Vital Signs (last 24 hours): Temp Pulse Resp BP Pulse Ox 97.5 F L 110 H 20 100/58 L 100 12/24/17 08:00 12/24/17 08:00 12/24/17 08:00 12/24/17 08:00 12/24/17 08:00 Intake and Output: 12/24/17 12/24/17 06:59 18:59 Intake Total 740 Output Total 500 Balance 240 - Medications Medications: Current Medications Acetaminophen (Tylenol 325mg Tab) 650 mg PO Q6 PRN PRN Reason: Headache Last Admin: 12/12/17 18:09 Dose: 650 mg Linezolid (Zyvox 600mg/300ml D5w) 600 mg in 300 mls @ 200 mls/hr IVPB Q12H [facility] PRN Reason: Protocol Last Admin: 12/24/17 00:30 Dose: 200 mls/hr Pantoprazole Sodium (Protonix Ec Tab) 40 mg PO DAILY [facility] Last Admin: 12/24/17 10:41 Dose: 40 mg Sodium Chloride (Sodium Chloride Tab) 1 gm PO Q8H [facility] Last Admin: 12/24/17 08:06 Dose: 1 gm Tramadol HCl (Ultram) 50 mg PO TID PRN PRN Reason: Pain, moderate (4-7) Last Admin: 12/23/17 05:20 Dose: 50 mg - Labs Labs: 12/17/17 11:12 12/23/17 08:39 PT 15.6 SECONDS (9.7-12.2) H 12/12/17 10:54 INR 1.4 12/12/17 10:54 APTT 35 SECONDS (21-34) H 12/12/17 10:54
--- NOTE | 2017-12-24 22:31 | PN ---
DATE: 12/24/2017 SUBJECTIVE: The patient was seen and examined this morning at bedside. The patient was drowsy, arousable. Denies any new complaints. PHYSICAL EXAMINATION: GENERAL: Elderly female, lying in bed, in no distress. VITAL SIGNS: Blood pressure 100/58, pulse 110, respirations 20, temperature 97.5 degrees Fahrenheit, O2 sat is 97% on 2 L nasal cannula. HEENT: Pupils equal, round, and reacting to light and accommodation. Extraocular muscles intact. No icterus. Positive pallor. No oral thrush. No pharyngeal congestion. NECK: Supple. No JVD. LUNGS: Bilateral vesicular breath sounds. No wheezing. No rhonchi. CARDIOVASCULAR SYSTEM: S1, S2 present, regular. ABDOMEN: Soft and nontender. Bowel sounds present. No guarding. No rigidity. No rebound tenderness noted. CENTRAL NERVOUS SYSTEM: Drowsy. Oriented x3. No focal deficits noted. EXTREMITIES: Edema of the lower extremities and right upper extremity lymphedema present. The right axillary mass present with erythema. MEDICATIONS: Include Tylenol 650 mg p.o. every 6 hours p.r.n., Zyvox 600 mg IV every 12 hours, Protonix 40 mg daily, sodium chloride tablet 1 g p.o. every 8 hours, tramadol 50 mg p.o. t.i.d. LABORATORY DATA: Accu-Cheks, 94, 108, 97, 95, 89. Urine culture, pending results. ASSESSMENT AND PLAN: Elderly female with a history of hypertension, hyperlipidemia, atrial fibrillation, metastatic breast cancer, vancomycin-resistant enterococcus in the urine, awaiting for subacute rehabilitation placement for repeat urine culture results. If negative, the patient may be transferred to subacute rehabilitation. We will continue with supportive care. Emerald Brand MD
[2017-12-25] MEDS: Linezolid 600 mg in D5W 300 ml 600 MG/300 ML BAG IVPB SCH ×3 (00:30→23:59)
[2017-12-25] MEDS: Pantoprazole 40 mg EC Tab PO SCH (09:45)
--- NOTE | 2017-12-25 09:48 | CP.PCM.PN ---
Subjective - Date & Time of Evaluation Date of Evaluation: 12/25/17 Time of Evaluation: 09:47 - Subjective Subjective: Progress note dictated #[id number] Objective - Vital Signs/Intake and Output Vital Signs (last 24 hours): Temp Pulse Resp BP Pulse Ox 98.8 F 109 H 20 104/67 96 12/25/17 08:00 12/25/17 08:00 12/25/17 08:00 12/25/17 08:00 12/25/17 08:00 Intake and Output: 12/25/17 12/25/17 06:59 18:59 Intake Total 700 Output Total 300 Balance 400 - Medications Medications: Current Medications Acetaminophen (Tylenol 325mg Tab) 650 mg PO Q6 PRN PRN Reason: Headache Last Admin: 12/12/17 18:09 Dose: 650 mg Linezolid (Zyvox 600mg/300ml D5w) 600 mg in 300 mls @ 200 mls/hr IVPB Q12H [facility] PRN Reason: Protocol Last Admin: 12/25/17 00:30 Dose: 200 mls/hr Pantoprazole Sodium (Protonix Ec Tab) 40 mg PO DAILY [facility] Last Admin: 12/25/17 09:45 Dose: 40 mg Sodium Chloride (Sodium Chloride Tab) 1 gm PO Q8H [facility] Last Admin: 12/25/17 08:44 Dose: 1 gm Tramadol HCl (Ultram) 50 mg PO TID PRN PRN Reason: Pain, moderate (4-7) Last Admin: 12/23/17 05:20 Dose: 50 mg - Labs Labs: 12/17/17 11:12 12/23/17 08:39 PT 15.6 SECONDS (9.7-12.2) H 12/12/17 10:54 INR 1.4 12/12/17 10:54 APTT 35 SECONDS (21-34) H 12/12/17 10:54
--- NOTE | 2017-12-26 01:41 | PN ---
DATE: 12/25/2017 SUBJECTIVE: The patient was seen and examined at bedside. The patient offers no new complaints. PHYSICAL EXAMINATION: GENERAL: Lying in bed, in no acute distress. VITAL SIGNS: Blood pressure 116/72, pulse 123, respirations 20, temperature 97.8 degrees Fahrenheit, O2 sat is 99% on 2 L nasal cannula. HEENT: Pupils equal, round, reacting to light and accommodation. Extraocular muscles intact. No icterus. No pallor. Dry mucous membranes. NECK: Supple. No JVD. LUNGS: Bilateral vesicular breath sounds. No wheezing. No rhonchi. CARDIOVASCULAR SYSTEM: S1, S2 present, irregular. ABDOMEN: Soft, nontender. Bowel sounds present. No guarding. No rigidity. No rebound tenderness noted. CENTRAL NERVOUS SYSTEM: Alert, awake, oriented x3. No focal deficits noted. EXTREMITIES: Edema present. MEDICATIONS: Include Tylenol 650 mg p.o. every 6 hours p.r.n., Zyvox 600 mg IV every 12 hours, Protonix 40 mg daily, sodium chloride 1 g p.o. every 8 hours, Ultram 50 mg p.o. t.i.d. LABORATORY DATA: Glucose is 91, 107, 91, 91, and 99. Urine culture repeat negative for VRE. ASSESSMENT AND PLAN: Elderly female with history of hypertension, hyperlipidemia, atrial fibrillation, metastatic breast carcinoma with metastasis to the bone and lung, and right axillary mass, vancomycin-resistant enterococcus urinary tract infection. Repeat cultures negative. Hyponatremia, improved. Awaiting for subacute rehabilitation placement. The patient may be transferred to subacute rehabilitation when bed available. Emerald Brand MD
[2017-12-26] MEDS: Pantoprazole 40 mg EC Tab PO SCH (09:31)
--- NOTE | 2017-12-26 09:35 | CP.PCM.PN ---
Subjective - Date & Time of Evaluation Date of Evaluation: 12/26/17 Time of Evaluation: 09:35 - Subjective Subjective: Progress note dictated #[id number] Objective - Vital Signs/Intake and Output Vital Signs (last 24 hours): Temp Pulse Resp BP Pulse Ox 98.3 F 122 H 20 97/61 L 95 12/26/17 08:50 12/26/17 08:50 12/26/17 08:50 12/26/17 08:50 12/26/17 08:50 Intake and Output: 12/26/17 12/26/17 06:59 18:59 Intake Total 250 300 Output Total 200 600 Balance 50 -300 - Medications Medications: Current Medications Acetaminophen (Tylenol 325mg Tab) 650 mg PO Q6 PRN PRN Reason: Headache Last Admin: 12/12/17 18:09 Dose: 650 mg Linezolid (Zyvox 600mg/300ml D5w) 600 mg in 300 mls @ 200 mls/hr IVPB Q12H [facility] PRN Reason: Protocol Last Admin: 12/25/17 23:59 Dose: 200 mls/hr Pantoprazole Sodium (Protonix Ec Tab) 40 mg PO DAILY [facility] Last Admin: 12/26/17 09:31 Dose: 40 mg Sodium Chloride (Sodium Chloride Tab) 1 gm PO Q8H [facility] Last Admin: 12/26/17 09:31 Dose: 1 gm Tramadol HCl (Ultram) 50 mg PO TID PRN PRN Reason: Pain, moderate (4-7) Last Admin: 12/23/17 05:20 Dose: 50 mg - Labs Labs: 12/17/17 11:12 12/23/17 08:39 PT 15.6 SECONDS (9.7-12.2) H 12/12/17 10:54 INR 1.4 12/12/17 10:54 APTT 35 SECONDS (21-34) H 12/12/17 10:54
[2017-12-26] MEDS: Linezolid 600 mg in D5W 300 ml 600 MG/300 ML BAG IVPB SCH (12:09)
[2017-12-27] MEDS: Pantoprazole 40 mg EC Tab PO SCH (10:32)
--- NOTE | 2017-12-27 11:45 | CP.PCM.PN ---
Subjective - Date & Time of Evaluation Date of Evaluation: 12/27/17 Time of Evaluation: 11:45 - Subjective Subjective: Progress note dictated #[id number] Objective - Vital Signs/Intake and Output Vital Signs (last 24 hours): Temp Pulse Resp BP Pulse Ox 98 F 125 H 20 108/68 97 12/27/17 07:58 12/27/17 07:58 12/27/17 07:58 12/27/17 07:58 12/27/17 07:58 Intake and Output: 12/27/17 12/27/17 06:59 18:59 Intake Total 450 Output Total 700 Balance -250 - Medications Medications: Current Medications Acetaminophen (Tylenol 325mg Tab) 650 mg PO Q6 PRN PRN Reason: Headache Last Admin: 12/12/17 18:09 Dose: 650 mg Pantoprazole Sodium (Protonix Ec Tab) 40 mg PO DAILY [facility] Last Admin: 12/27/17 10:32 Dose: 40 mg Sodium Chloride (Sodium Chloride Tab) 1 gm PO Q8H [facility] Last Admin: 12/27/17 09:00 Dose: 1 gm Tramadol HCl (Ultram) 50 mg PO TID PRN PRN Reason: Pain, moderate (4-7) Last Admin: 12/23/17 05:20 Dose: 50 mg - Labs Labs: 12/17/17 11:12 12/23/17 08:39 PT 15.6 SECONDS (9.7-12.2) H 12/12/17 10:54 INR 1.4 12/12/17 10:54 APTT 35 SECONDS (21-34) H 12/12/17 10:54
--- NOTE | 2017-12-27 19:49 | PN ---
DATE: 12/27/2017 SUBJECTIVE: The patient was seen and examined at bedside. The patient denies any new complaints. PHYSICAL EXAMINATION: GENERAL: On examination, an elderly female, lying in bed, in no acute distress. VITAL SIGNS: Blood pressure 108/68, pulse , respirations 20, temperature 98 degrees Fahrenheit, and O2 saturation is 97% on 2 L nasal cannula. HEENT: Pupils equal, round, and reacting to light and accommodation. Extraocular muscles are intact. No icterus. Positive pallor. No oral thrush. Denture are loose. NECK: Supple. No JVD. LUNGS: Bilateral vesicular breath sounds. No wheezing. No rhonchi. CVS: S1 and S2 present, regular. ABDOMEN: Soft and nontender. Bowel sounds are present. No guarding, no rigidity, and no rebound tenderness noted. CENTRAL NERVOUS SYSTEM: Alert, awake, and oriented x3. No focal deficits noted. EXTREMITIES: Edema of the upper and lower extremities noted. Right axillary mass noted. MEDICATIONS: Include Tylenol as needed, Protonix 40 mg daily, sodium chloride tablet 1 g p.o. every 8 hours, and tramadol 50 mg p.o. daily and then t.i.d. p.r.n. for pain. ASSESSMENT AND PLAN: An elderly female with past medical history of hypertension, hyperlipidemia, atrial fibrillation, metastatic right breast carcinoma with right axillary mass next to bone and lung, hyponatremia, and anemia. The patient is awaiting for subacute rehab placement/hospice placement. Awaiting for social service's clearance. I discussed with the power of litigation attorney, who is at bedside, clarified all their concerns and questions. As her dentures are loose, then change the regular diet to pureed diet and will give tramadol 50 mg p.o. daily as THE PATIENT IS ALLERGIC TO CODEINE and keep p.r.n. order if needed. Prognosis is guarded. Emerald Brand MD
[2017-12-28] MEDS: Pantoprazole 40 mg EC Tab PO SCH (09:04)
--- NOTE | 2017-12-28 13:09 | CP.PCM.PN ---
Subjective - Date & Time of Evaluation Date of Evaluation: 12/28/17 Time of Evaluation: 13:08 - Subjective Subjective: Progress note dictated #[id number] Objective - Vital Signs/Intake and Output Vital Signs (last 24 hours): Temp Pulse Resp BP Pulse Ox 98.1 F 100 H 20 108/69 98 12/28/17 08:07 12/28/17 08:07 12/28/17 08:07 12/28/17 08:07 12/28/17 08:07 Intake and Output: 12/28/17 12/28/17 06:59 18:59 Intake Total 450 Output Total 450 Balance 0 - Medications Medications: Current Medications Pantoprazole Sodium (Protonix Ec Tab) 40 mg PO DAILY [facility] Last Admin: 12/28/17 09:04 Dose: 40 mg Sodium Chloride (Sodium Chloride Tab) 1 gm PO Q8H [facility] Last Admin: 12/28/17 09:00 Dose: 1 gm Tramadol HCl (Ultram) 50 mg PO TID PRN PRN Reason: Pain, moderate (4-7) Last Admin: 12/23/17 05:20 Dose: 50 mg Tramadol HCl (Ultram) 50 mg PO DAILY [facility] Last Admin: 12/28/17 09:05 Dose: 50 mg - Labs Labs: 12/17/17 11:12 12/23/17 08:39 PT 15.6 SECONDS (9.7-12.2) H 12/12/17 10:54 INR 1.4 12/12/17 10:54 APTT 35 SECONDS (21-34) H 12/12/17 10:54
--- NOTE | 2017-12-28 17:20 | PN ---
DATE: 12/28/2017 SUBJECTIVE: The patient was seen and examined at bedside. The patient is drowsy, arousable. Offers no new complaints. PHYSICAL EXAMINATION: GENERAL: An elderly female, lying in bed, in no acute distress. VITAL SIGNS: Blood pressure 108/69, pulse 100, respirations 20, temperature 98.9 degrees Fahrenheit, O2 saturations 98% on 2 liters nasal canula. HEENT: Pupils equal, round, and reacting to light and accommodation. Extraocular muscles are intact. No icterus. Positive pallor. No oral thrush. Dry mucous membranes. NECK: Supple. No JVD. LUNGS: Bilateral vesicular breath sounds. No wheezing, no rhonchi. CVS: S1 and S2 present, irregular. ABDOMEN: Soft, nontender. Bowel sounds present. No guarding, no rigidity, no rebound tenderness noted. TREASURY AGENT: Drowsy, but arousable, oriented x3. No focal deficits noted. EXTREMITIES: Edema of all the extremities. MEDICATIONS: Include: Protonix 40 mg daily, sodium chloride tablet 1 g p.o. every 8 hours, tramadol 50 mg p.o. t.i.d. as needed, then 50 mg p.o. daily. ASSESSMENT AND PLAN: An elderly female with hypertension and hyperlipidemia, atrial fibrillation, metastatic breast carcinoma with metastasis to lung and bone, anemia, status post Vancomycin-resistant enterococcal urinary tract infection, off Zyvox. Awaiting for subacute rehabilitation versus hospice placement. Discussed with the patient's power of criminal attorney yesterday at length to clarify all the concerns and questions. Prognosis is guarded. Emerald Brand MD
[2017-12-29] MEDS: Pantoprazole 40 mg EC Tab PO SCH (09:44)
--- NOTE | 2017-12-29 10:11 | PN ---
DATE: 12/26/2017 SUBJECTIVE: The patient was seen and examined at bedside. The patient offers no new complaints. PHYSICAL EXAMINATION: GENERAL: Elderly female, lying in bed, in no acute distress. VITAL SIGNS: Blood pressure 98/56, pulse 120, respirations 20, temperature 98.9 degrees Fahrenheit, O2 sat is 96% on 2 liters nasal cannula. HEENT: Pupils equal, round, and reacting to light and accommodation. Extraocular muscles intact. No icterus. Positive pallor. No oral thrush. No pharyngeal congestion. NECK: Supple. No JVD. LUNGS: Bilateral vesicular breath sounds. No wheezing. No rhonchi. CVS: S1, S2 present. Irregularly irregular. ABDOMEN: Soft, nontender. Bowel sounds present. No guarding. No rigidity. No rebound tenderness noted. CASH TELLER: Alert, awake, oriented x3. No focal deficits noted. EXTREMITIES: Lower extremity edema and upper extremity edema present. MEDICATIONS: Include Tylenol as needed, Protonix 40 mg daily, sodium chloride tablets 1 g p.o. every 8 hours, tramadol 50 mg p.o. t.i.d. ASSESSMENT AND PLAN: An elderly female with history of hypertension, hyperlipidemia, atrial fibrillation, metastatic right breast cancer, status post mastectomy, status post chemotherapy; admitted for sepsis, atrial fibrillation with rapid ventricular rate, right axillary mass, hyponatremia, disorder, vancomycin-resistant enterococcus in the urinary tract infection. All her medications discontinued as per family's wishes. Repeat urine culture negative for vancomycin-resistant enterococcus. The patient is on Zyvox, awaiting for subacute rehab placement versus hospital care. I will follow up with Security Vehicle Patrol Officer for discharge planning. Emerald Brand MD
--- NOTE | 2017-12-29 11:01 | CP.PCM.PN ---
Subjective - Date & Time of Evaluation Date of Evaluation: 12/29/17 Time of Evaluation: 11:01 - Subjective Subjective: Progress note dictated #[id number] Objective - Vital Signs/Intake and Output Vital Signs (last 24 hours): Temp Pulse Resp BP Pulse Ox 97.6 F 97 H 20 105/64 97 12/29/17 08:00 12/29/17 08:00 12/29/17 08:00 12/29/17 08:00 12/29/17 08:00 Intake and Output: 12/29/17 12/29/17 06:59 18:59 Intake Total 400 Output Total 900 Balance -500 - Medications Medications: Current Medications Pantoprazole Sodium (Protonix Ec Tab) 40 mg PO DAILY [facility] Last Admin: 12/29/17 09:44 Dose: 40 mg Sodium Chloride (Sodium Chloride Tab) 1 gm PO Q8H [facility] Last Admin: 12/29/17 08:43 Dose: 1 gm Tramadol HCl (Ultram) 50 mg PO TID PRN PRN Reason: Pain, moderate (4-7) Last Admin: 12/23/17 05:20 Dose: 50 mg Tramadol HCl (Ultram) 50 mg PO DAILY [facility] Last Admin: 12/29/17 09:44 Dose: 50 mg - Labs Labs: 12/17/17 11:12 12/23/17 08:39 PT 15.6 SECONDS (9.7-12.2) H 12/12/17 10:54 INR 1.4 12/12/17 10:54 APTT 35 SECONDS (21-34) H 12/12/17 10:54
--- NOTE | 2017-12-29 22:02 | PN ---
DATE: 12/29/2017 SUBJECTIVE: The patient was seen and examined at bedside. The patient offers no new complaints. PHYSICAL EXAMINATION: GENERAL: An elderly female, lying in bed, in no acute distress. VITAL SIGNS: Blood pressure 100/59, pulse 110, respirations 20, temperature 97.6 degrees Fahrenheit, O2 saturations 97% on 2 liters nasal canula. HEENT: Pupils equal, round, and reacting to light and accommodation. Extraocular muscles are intact. No icterus. No pallor. No oral thrush. No pharyngeal congestion. NECK: Supple. No JVD. LUNGS: Bilateral vesicular breath sounds. No wheezing, no rhonchi. CVS: S1 and S2 present, irregularly irregular. ABDOMEN: Soft, nontender. Bowel sounds present. No guarding, no rigidity, no rebound tenderness noted. STILL OPERATOR BRANDY: Drowsy, but arousable, responding to questions appropriately, oriented x3. No focal deficits noted. EXTREMITIES: Generalized edema noted. MEDICATIONS: Protonix 40 mg daily, sodium chloride 1 gm p.o. every 8 hours, Ultram 50 mg p.o. daily. ASSESSMENT AND PLAN: An elderly female with hypertension, hyperlipidemia, atrial fibrillation with rapid ventricular rate, metastatic breast carcinoma with metastasis to lung and bone, waiting for subacute rehabilitation placement status post urinary tract infection, hyponatremia. Follow up with [facility] for discharge planning. Continue with supportive care. Prognosis is guarded. Emerald Brand MD
[2017-12-30] MEDS: Pantoprazole 40 mg EC Tab PO SCH (09:36)
--- NOTE | 2017-12-30 10:03 | CP.PCM.PN ---
Subjective - Date & Time of Evaluation Date of Evaluation: 12/30/17 Time of Evaluation: 10:03 - Subjective Subjective: Progress note dictated #[id number] Objective - Vital Signs/Intake and Output Vital Signs (last 24 hours): Temp Pulse Resp BP Pulse Ox 98.7 F 111 H 20 98/61 L 96 12/30/17 08:09 12/30/17 08:09 12/30/17 08:09 12/30/17 08:09 12/30/17 08:09 Intake and Output: 12/30/17 12/30/17 06:59 18:59 Intake Total 540 Output Total 850 Balance -310 - Medications Medications: Current Medications Sodium Chloride (Sodium Chloride Tab) 1 gm PO Q8H [facility] Last Admin: 12/30/17 08:36 Dose: 1 gm Tramadol HCl (Ultram) 50 mg PO DAILY [facility] Last Admin: 12/30/17 09:35 Dose: 50 mg - Labs Labs: 12/17/17 11:12 12/23/17 08:39 PT 15.6 SECONDS (9.7-12.2) H 12/12/17 10:54 INR 1.4 12/12/17 10:54 APTT 35 SECONDS (21-34) H 12/12/17 10:54
--- NOTE | 2017-12-30 23:07 | PN ---
DATE: 12/30/2017 SUBJECTIVE: The patient was seen and examined at bedside. The patient offered no new complaints. Lying in bed, in no acute distress. PHYSICAL EXAMINATION: VITAL SIGNS: Blood pressure is 98/61, pulse 111, respirations 20, temperature 98.7 degrees Fahrenheit, O2 saturations 96% on 2 liters nasal cannula. HEENT: Pupils are equal, round, and reacting to light and accommodation. Extraocular muscles are intact. No icterus. Positive pallor. No oral thrush. No pharyngeal congestion. NECK: Supple. No JVD. LUNGS: Bilateral vesicular breath sounds. No wheezing. No rhonchi. CARDIOVASCULAR SYSTEM: S1 and S2 present, irregular. ABDOMEN: Soft, nontender. Bowel sounds present. No guarding. No rigidity. No rebound tenderness noted. CENTRAL NERVOUS SYSTEM: Alert, awake, oriented x3. No focal deficits noted. EXTREMITIES: Generalized edema noted. Accu-Cheks, 106, 104, 133, 112, and 109. ASSESSMENT AND PLAN: An elderly female with a history of hypertension, hyperlipidemia, atrial fibrillation, metastatic breast carcinoma with metastasis to lung and bone, hyponatremia, vancomycin-resistant enterococcal urinary tract infection, right axillary mass. Continue with current pain medication. Awaiting for subacute rehabilitation versus hospice placement. We will follow up with social staff worker. Emerald Brand MD
--- NOTE | 2017-12-31 09:53 | CP.PCM.PN ---
Subjective - Date & Time of Evaluation Date of Evaluation: 12/31/17 Time of Evaluation: 09:52 - Subjective Subjective: Progress note dictated #[id number] Objective - Vital Signs/Intake and Output Vital Signs (last 24 hours): Temp Pulse Resp BP Pulse Ox 98.2 F 80 20 93/58 L 94 L 12/31/17 08:24 12/31/17 08:24 12/31/17 08:24 12/31/17 08:24 12/31/17 08:24 Intake and Output: 12/31/17 12/31/17 06:59 18:59 Intake Total 560 Output Total 900 Balance -340 - Medications Medications: Current Medications Sodium Chloride (Sodium Chloride Tab) 1 gm PO Q8H [facility] Last Admin: 12/31/17 08:55 Dose: 1 gm Tramadol HCl (Ultram) 50 mg PO TID [facility] - Labs Labs: 12/17/17 11:12 12/23/17 08:39 PT 15.6 SECONDS (9.7-12.2) H 12/12/17 10:54 INR 1.4 12/12/17 10:54 APTT 35 SECONDS (21-34) H 12/12/17 10:54
--- NOTE | 2018-01-01 00:52 | PN ---
DATE: 12/31/2017 SUBJECTIVE: The patient was seen and examined at bedside. The patient offers no new complaints, lying in bed, in no acute distress. PHYSICAL EXAMINATION: VITAL SIGNS: Blood pressure 100/67, pulse 80, respirations 20, temperature 99.3 degree Fahrenheit, O2 stats 96% on 2 liter nasal canula. HEENT: Pupils are equal, round, and reacting to light and accommodation. Extraocular muscles intact. No icterus. Positive pallor. mucous membranes. No oral thrush. NECK: Supple. No JVD. LUNGS: Bilateral vesicular breath sounds. No wheezing. No rhonchi. CVS: S1 and S2 present. Irregularly irregular. ABDOMEN: Soft, nontender. Bowel sounds present. No guarding. No rigidity. No rebound tenderness noted. WEB SITE ADMIN: Drowsy, but arousable, oriented x3. No focal deficits noted. EXTREMITIES: Generalized edema. Left and right upper extremity lymphedema and right axillary mass. MEDICATIONS: Include tramadol 50 mg p.o. t.i.d., sodium chloride 1 g p.o. every 8 hours. ASSESSMENT AND PLAN: An elderly female with history of hypertension, hyperlipidemia, atrial fibrillation, right breast cancer with metastatic lesions to lung and the bone, anemia, status post vancomycin-resistant enterococci urinary tract infection, awaiting for subacute rehab verus hospice placement, psychiatric social worker supervisor to follow with rehab placement. The patient may be transferred to subacute rehab when bed available. Emerald Brand MD
--- NOTE | 2018-01-01 09:52 | CP.PCM.PN ---
Subjective - Date & Time of Evaluation Date of Evaluation: 01/01/18 Time of Evaluation: 09:52 - Subjective Subjective: Progress note dictated #[id number] Objective - Vital Signs/Intake and Output Vital Signs (last 24 hours): Temp Pulse Resp BP Pulse Ox 98.5 F 130 H 20 83/52 L 96 01/01/18 08:00 01/01/18 08:00 01/01/18 08:00 01/01/18 08:00 01/01/18 08:00 Intake and Output: 01/01/18 01/01/18 06:59 18:59 Intake Total 340 Output Total 650 Balance -310 - Medications Medications: Current Medications Sodium Chloride (Sodium Chloride Tab) 1 gm PO Q8H [facility] Last Admin: 01/01/18 08:24 Dose: 1 gm Tramadol HCl (Ultram) 50 mg PO TID [facility] Last Admin: 12/31/17 17:26 Dose: 50 mg - Labs Labs: 12/17/17 11:12 12/23/17 08:39 PT 15.6 SECONDS (9.7-12.2) H 12/12/17 10:54 INR 1.4 12/12/17 10:54 APTT 35 SECONDS (21-34) H 12/12/17 10:54
--- NOTE | 2018-01-02 01:19 | PN ---
DATE: 01/01/2018 SUBJECTIVE: The patient was seen and examined at bedside. The patient is drowsy, arousable, saying that she wants to sleep. Denies any complains. PHYSICAL EXAMINATION: GENERAL: Elderly female, lying in bed, in no acute distress. VITAL SIGNS: Blood pressure 90/67, pulse 123, respirations 20, temperature 98.4 degree Fahrenheit, O2 sat is 96% on 2 liters nasal canula. HEENT: Pupils are equal, round, and reacting to light and accommodation. Extraocular muscles intact. No icterus. No pallor. No oral thrush. No pharyngeal congestion. NECK: Supple. No JVD. LUNGS: Bilateral vesicular breath sounds. No wheezing. No rhonchi. CARDIOVASCULAR SYSTEM: S1 and S2 present, regular. ABDOMEN: Soft. Bowel sounds present. No guarding. No rigidity. No rebound tenderness noted. CENTRAL NERVOUS SYSTEM: Drowsy, but arousable. Responding to appropriately. EXTREMITIES: Edema of the upper and lower extremities. LABORATORY DATA: No new labs. ASSESSMENT AND PLAN: Elderly female with hypertension, hyperlipidemia, atrial fibrillation, metastatic breast cancer with metastasis to lung and bone, hyponatremia, status post vancomycin-resistant enterococci urinary tract infection. The patient is for possible transfer to subacute rehab, awaiting for clearance from social welfare research worker. The patient has become hypotensive and tachycardic. Discussed with the patient's power of tax associate attorney, Constanza Christine, and the patient's critical condition is notified to the patient's power of tax associate attorney. She does not want any further testing be done and agreed for reevaluation of hospice care, notified the patient's RN, Chidi, for reevaluation of hospice. It was never entered. I called the case management later in the afternoon, at which point she initiated the process, and she called hospice services for reevaluation, awaiting for hospice reevaluation. The patient's condition is critical. Prognosis is guarded. Emerald Brand MD
--- NOTE | 2018-01-02 10:06 | CP.PCM.PN ---
Subjective - Date & Time of Evaluation Date of Evaluation: 01/02/18 Time of Evaluation: 10:06 - Subjective Subjective: Progress note dictated #[id number] Objective - Vital Signs/Intake and Output Vital Signs (last 24 hours): Temp Pulse Resp BP Pulse Ox 98.3 F 130 H 20 90/51 L 95 01/02/18 08:00 01/02/18 00:00 01/02/18 08:00 01/02/18 08:00 01/02/18 08:00 Intake and Output: 01/02/18 01/02/18 06:59 18:59 Intake Total 120 Output Total 300 Balance -180 - Medications Medications: Current Medications Tramadol HCl (Ultram) 50 mg PO TID [facility] Last Admin: 01/01/18 17:12 Dose: 50 mg - Labs Labs: 12/17/17 11:12 12/23/17 08:39 PT 15.6 SECONDS (9.7-12.2) H 12/12/17 10:54 INR 1.4 12/12/17 10:54 APTT 35 SECONDS (21-34) H 12/12/17 10:54
--- NOTE | 2018-01-03 00:25 | PN ---
DATE: 01/02/2018 SUBJECTIVE: The patient was seen and examined at bedside. The patient's clinical condition remains the same. Offers no new complaints. PHYSICAL EXAMINATION: GENERAL: Elderly female, lying in bed, in no acute distress. VITAL SIGNS: Blood pressure 90/51, pulse 130, respirations 20, temperature 98.3 degrees Fahrenheit, O2 saturation 95% on 2 liters nasal cannula. HEENT: Pupils equal, round, and reacting to light and accommodation. Extraocular muscles intact. No icterus. Positive pallor. Dry mucous membranes. No oral thrush. NECK: Supple. No JVD. LUNGS: Bilateral vesicular breath sounds. Bilateral basilar crackles heard. CARDIOVASCULAR SYSTEM: S1 and S2 present, irregular. ABDOMEN: Soft and nontender. Bowel sounds are present. No guarding. No rigidity. No rebound tenderness noted. CENTRAL NERVOUS SYSTEM: Drowsy, arousable, responding to questions appropriately. Oriented x3. No focal deficits noted. EXTREMITIES: Generalized edema with right axillary mass and worsening right upper extremity swelling. MEDICATIONS: Include tramadol 50 mg p.o. t.i.d. ASSESSMENT AND PLAN: Elderly female with history of hypertension, hyperlipidemia, atrial fibrillation, metastatic right breast carcinoma with right axillary mass, metastasis to lung and bone, status post vancomycin-resistant enterococcal urinary tract infection, generalized edema, hyponatremia. Awaiting for subacute rehabilitation placement. Hospice re-evaluation was done this morning. Follow up with social work professor regarding discharge planning. Continue with supportive care. Prognosis guarded. Emerald Brand MD
--- NOTE | 2018-01-03 10:41 | CP.PCM.PN ---
Subjective - Date & Time of Evaluation Date of Evaluation: 01/03/18 Time of Evaluation: 10:40 - Subjective Subjective: Progress note dictated #[id number] Objective - Vital Signs/Intake and Output Vital Signs (last 24 hours): Temp Pulse Resp BP Pulse Ox 98.5 F 135 H 20 91/56 L 98 01/03/18 08:00 01/03/18 08:00 01/03/18 08:00 01/03/18 08:00 01/03/18 08:00 Intake and Output: 01/03/18 01/03/18 06:59 18:59 Intake Total 200 180 Output Total 250 500 Balance -50 -320 - Medications Medications: Current Medications Tramadol HCl (Ultram) 50 mg PO TID [facility] Last Admin: 01/03/18 10:29 Dose: 50 mg - Labs Labs: 12/17/17 11:12 12/23/17 08:39 PT 15.6 SECONDS (9.7-12.2) H 12/12/17 10:54 INR 1.4 12/12/17 10:54 APTT 35 SECONDS (21-34) H 12/12/17 10:54
--- NOTE | 2018-01-03 16:13 | PN ---
DATE: 01/03/2018 SUBJECTIVE: The patient was seen and examined at bedside. The patient is drowsy, lethargic, arousable, responding to questions appropriately. She offers no new complaints. PHYSICAL EXAMINATION: GENERAL: An elderly female, lying in bed, in no acute distress. VITAL SIGNS: Blood pressure 91/56, pulse 135, respirations 20, temperature 98.5 degrees Fahrenheit, O2 saturations 98% on room air. HEENT: Pupils are equal, round, and reacting to light and accommodation. Extraocular muscles intact. No icterus. Positive pallor. No oral thrush. Dry mucous membranes. NECK: Supple. No JVD. LUNGS: Bilateral vesicular breath sounds. Bilateral basal crackles heard. CVS: S1 and S2 present, regular. ABDOMEN: Soft, and nontender. Bowel sounds present. No guarding, no rigidity, no rebound tenderness noted. JOURNAL CLERK: Lethargic, arousable, responding to questions appropriately. EXTREMITIES: Lower extremity edema and upper extremity edema with right axillary mass. LABORATORY DATA: No new labs. ASSESSMENT AND PLAN: An elderly female with hypertension, hyperlipidemia, atrial fibrillation, metastatic right breast cancer with metastasis to lung, bone, and right axillary mass, status post vancomycin-resistant enterococcal urinary tract infection, hyponatremia, awaiting for subacute rehab versus hospice placement. We will follow up with social media marketing analyst for discharge planning. Emerald Brand MD
--- NOTE | 2018-01-04 13:16 | CP.PCM.PN ---
Subjective - Date & Time of Evaluation Date of Evaluation: 01/04/18 Time of Evaluation: 13:16 - Subjective Subjective: Progress note dictated #[id number] Objective - Vital Signs/Intake and Output Vital Signs (last 24 hours): Temp Pulse Resp BP Pulse Ox 98.2 F 123 H 20 93/60 L 96 01/04/18 08:09 01/04/18 08:09 01/04/18 08:09 01/04/18 08:09 01/04/18 08:09 Intake and Output: 01/04/18 01/04/18 06:59 18:59 Intake Total 100 Output Total 500 Balance -400 - Medications Medications: Current Medications Tramadol HCl (Ultram) 50 mg PO TID [facility] Last Admin: 01/04/18 10:54 Dose: 50 mg - Labs Labs: 12/17/17 11:12 12/23/17 08:39 PT 15.6 SECONDS (9.7-12.2) H 12/12/17 10:54 INR 1.4 12/12/17 10:54 APTT 35 SECONDS (21-34) H 12/12/17 10:54
--- NOTE | 2018-01-04 21:23 | PN ---
DATE: 01/04/2018 SUBJECTIVE: The patient was seen and examined at bedside. The patient's mental status remains the same, arousable, answering to questions, but lethargic. Offers no new complaints. PHYSICAL EXAMINATION: GENERAL: An elderly female, lying in bed, in no acute distress. VITAL SIGNS: Blood pressure 93/60, pulse 123, respirations 20, temperature 98.2 degrees Fahrenheit, O2 saturations 96% on 2 liters nasal cannula. HEENT: Pupils are equal, round, and reacting to light and accommodation. Extraocular muscles intact. Positive icterus. No pallor. No oral thrush. Dry mucous membranes. NECK: Supple. No JVD. LUNGS: Bilateral vesicular breath sounds. No wheezing. No rhonchi. Basal crackles heard. CARDIOVASCULAR SYSTEM: S1 and S2 present. Pulse is irregularly irregular. ABDOMEN: Soft and nontender. Bowel sounds present. CENTRAL NERVOUS SYSTEM: Lethargic, arousable, oriented x3. EXTREMITIES: Right upper extremity lymphatic edema with right axillary mass. Lower extremity swelling noted. ASSESSMENT AND PLAN: An elderly female with hypertension, hyperlipidemia, atrial fibrillation, metastatic breast cancer with metastasis to lung and bone, hyponatremia, vancomycin-resistant enterococcal urinary tract infection. The patient is awaiting subacute rehabilitation verus hospice placement. We will follow up with high school social studies teacher. The patient's power of district attorney at bedside discussed with all the family members and clarified all the concerns and questions. Continue with supportive care. As per power of district attorney, the patient is not allergic to codeine. We will follow up with pharmacy and try to give morphine as needed. Emerald Brand MD
--- NOTE | 2018-01-05 09:35 | CP.PCM.PN ---
Subjective - Date & Time of Evaluation Date of Evaluation: 01/05/18 Time of Evaluation: 09:35 - Subjective Subjective: Progress note dictated #[id number] Objective - Vital Signs/Intake and Output Vital Signs (last 24 hours): Temp Pulse Resp BP Pulse Ox 98.1 F 110 H 20 107/60 96 01/05/18 08:28 01/05/18 08:28 01/05/18 08:28 01/05/18 08:28 01/05/18 08:28 Intake and Output: 01/05/18 01/05/18 06:59 18:59 Intake Total 100 0 Output Total 200 500 Balance -100 -500 - Medications Medications: Current Medications Tramadol HCl (Ultram) 50 mg PO TID [facility] Last Admin: 01/04/18 17:23 Dose: Not Given - Labs Labs: 12/17/17 11:12 12/23/17 08:39 PT 15.6 SECONDS (9.7-12.2) H 12/12/17 10:54 INR 1.4 12/12/17 10:54 APTT 35 SECONDS (21-34) H 12/12/17 10:54
--- NOTE | 2018-01-06 01:45 | PN ---
DATE: 01/05/2018 SUBJECTIVE: The patient was seen and examined at bedside. Patient offers no new complaints. Lying in bed, in no acute distress. PHYSICAL EXAMINATION: VITAL SIGNS: Blood pressure 95/55, pulse 111, respirations 20, temperature 98 degrees Fahrenheit, O2 saturation 98% on room air. HEENT: Pupils equal, round, and reacting to light and accommodation. Extraocular muscles intact. No icterus. Positive pallor. No oral thrush. Dry mucous membranes. NECK: Supple. No JVD. LUNGS: Bilateral vesicular breath sounds. Bilateral basilar crackles heard. CVS: S1 and S2 present. Irregular. ABDOMEN: Soft. Nontender. Bowel sounds present. No guarding. No rigidity. No rebound tenderness noted. LEAD DATA ENTRY OPERATOR: Drowsy, but arousable, answering to questions appropriately. No focal deficits noted. EXTREMITIES: Bilateral lower extremity edema noted. Upper extremity edema with right upper extremity lymphedema and right axillary mass. MEDICATIONS: Ultram 50 mg p.o. t.i.d., morphine 1 mg IV every 6 hours p.r.n. ASSESSMENT AND PLAN: Elderly female with history of hypertension, hyperlipidemia, atrial fibrillation, metastatic right breast cancer with right axillary mass, mets to lung and the bone, status post vancomycin-resistant enterococci urinary tract infection, hyponatremia, awaiting for subacute rehabilitation versus hospice placement. We will continue with supportive care. Discussed with the patient's power of tax attorney yesterday. The patient was given one dose of morphine this afternoon, and the patient tolerated without any side effects. We will start the patient on as needed morphine for pain. I will continue with supportive care. Emerald Brand MD
--- NOTE | 2018-01-06 10:00 | CP.PCM.PN ---
Subjective - Date & Time of Evaluation Date of Evaluation: 01/06/18 Time of Evaluation: 10:00 - Subjective Subjective: Progress note dictated #[id number] Objective - Vital Signs/Intake and Output Vital Signs (last 24 hours): Temp Pulse Resp BP Pulse Ox 98.6 F 119 H 20 101/68 95 01/06/18 00:00 01/06/18 00:00 01/06/18 00:00 01/06/18 00:00 01/06/18 00:00 Intake and Output: 01/06/18 01/06/18 06:59 18:59 Intake Total 220 Output Total 801 Balance -581 - Medications Medications: Current Medications Morphine Sulfate (Morphine) 1 mg IVP Q6 PRN PRN Reason: Pain, severe (8-10) Last Admin: 01/06/18 03:03 Dose: 1 mg Tramadol HCl (Ultram) 50 mg PO TID [facility] Last Admin: 01/06/18 09:43 Dose: 50 mg - Labs Labs: 12/17/17 11:12 12/23/17 08:39 PT 15.6 SECONDS (9.7-12.2) H 12/12/17 10:54 INR 1.4 12/12/17 10:54 APTT 35 SECONDS (21-34) H 12/12/17 10:54
--- NOTE | 2018-01-07 00:23 | PN ---
DATE: 01/06/2018 SUBJECTIVE: The patient was seen and examined at bedside. The patient remains lethargic, arousable. Offers no new complaints. PHYSICAL EXAMINATION: GENERAL: Elderly female, lying in bed, in no acute distress. VITAL SIGNS: Blood pressure 120/60, pulse 105, respirations 20, temperature 98.5 degrees Fahrenheit, O2 sat is 96% on 2 L nasal cannula. HEENT: Pupils equal, round, reacting to light and accommodation. Extraocular muscles intact. No icterus. Positive pallor. No oral thrush. NECK: Supple. No JVD. LUNGS: Bilateral vesicular breath sounds. No wheezing. No rhonchi. CARDIOVASCULAR SYSTEM: S1 and S2 present, irregular. ABDOMEN: Soft, nontender. Bowel sounds present. No guarding. No rigidity. No rebound tenderness noted. CENTRAL NERVOUS SYSTEM: Lethargic, arousable, responding to all the questions appropriately. No focal deficits. EXTREMITIES: Lower extremity edema and right upper extremity edema, right axillary mass. MEDICATIONS: Include morphine 1 mg IV push every 6 hours p.r.n., tramadol 50 mg p.o. t.i.d. ASSESSMENT AND PLAN: Elderly female with history of hypertension, hyperlipidemia, atrial fibrillation, metastatic right breast carcinoma with metastasis to lung and the bone, right axillary mass, right upper extremity lymphedema, status post vancomycin-resistant enterococcal urinary tract infection, status post hyponatremia. Awaiting for subacute rehabilitation/hospice placement. We will continue with supportive care with morphine and Ultram as needed. Follow up with community mental health social worker regarding hospice/rehab placement. Emerald Brand MD
--- NOTE | 2018-01-07 12:37 | CP.PCM.PN ---
Subjective - Date & Time of Evaluation Date of Evaluation: 01/07/18 Time of Evaluation: 12:36 - Subjective Subjective: Progress note dictated #[id number] Objective - Vital Signs/Intake and Output Vital Signs (last 24 hours): Temp Pulse Resp BP Pulse Ox 98.5 F 119 H 19 103/60 95 01/07/18 07:47 01/07/18 07:47 01/07/18 07:47 01/07/18 07:47 01/07/18 07:47 Intake and Output: 01/07/18 01/07/18 06:59 18:59 Output Total 200 Balance -200 - Medications Medications: Current Medications Morphine Sulfate (Morphine) 1 mg IVP Q6 PRN PRN Reason: Pain, severe (8-10) Last Admin: 01/06/18 03:03 Dose: 1 mg Tramadol HCl (Ultram) 50 mg PO TID [facility] Last Admin: 01/07/18 09:48 Dose: 50 mg - Labs Labs: 12/17/17 11:12 12/23/17 08:39 PT 15.6 SECONDS (9.7-12.2) H 12/12/17 10:54 INR 1.4 12/12/17 10:54 APTT 35 SECONDS (21-34) H 12/12/17 10:54
--- NOTE | 2018-01-08 00:51 | PN ---
DATE: 01/07/2018 SUBJECTIVE: The patient was seen and examined at bedside. The patient remains lethargic, but arousable. Offers no new complaints. PHYSICAL EXAMINATION: GENERAL: Elderly female, lying in bed, in no acute distress. VITAL SIGNS: Blood pressure 103/60, pulse 119, respirations 19, temperature 98.5 degrees Fahrenheit, O2 sat is 95% on nasal cannula. HEENT: Pupils equal, round, reacting to light and accommodation. Extraocular muscles intact. No icterus. Positive pallor. No oral thrush. No pharyngeal congestion. NECK: Supple. No JVD. LUNGS: Bilateral vesicular breath sounds. No wheezing. No rhonchi. CARDIOVASCULAR SYSTEM: S1 and S2 present, irregular. ABDOMEN: Soft, nontender. Bowel sounds present. No guarding. No rigidity. No rebound tenderness noted. CENTRAL NERVOUS SYSTEM: Lethargic, arousable. Moving the extremities. EXTREMITIES: Lower extremity edema present and right upper extremity lymphedema with right axillary mass. MEDICATIONS: Include morphine 1 mg IV push every 6 hours p.r.n., tramadol 50 mg p.o. t.i.d. ASSESSMENT AND PLAN: Elderly female with history of hypertension, hyperlipidemia, atrial fibrillation, metastatic breast cancer with right axillary mass, metastasis to lung and bone, status post vancomycin-resistant enterococcal urinary tract infection. Awaiting for subacute rehabilitation versus hospice placement. Follow up with social media developer for discharge. Discussed with case management this morning. The patient may be transferred to subacute rehabilitation when bed available. Emerald Brand MD
--- NOTE | 2018-01-08 11:36 | CP.PCM.PN ---
Subjective - Date & Time of Evaluation Date of Evaluation: 01/08/18 Time of Evaluation: 11:36 - Subjective Subjective: Progress note dictated #[id number] Objective - Vital Signs/Intake and Output Vital Signs (last 24 hours): Temp Pulse Resp BP Pulse Ox 98.7 F 106 H 20 94/61 L 97 01/08/18 08:02 01/08/18 08:02 01/08/18 08:02 01/08/18 08:02 01/08/18 08:02 Intake and Output: 01/08/18 01/08/18 06:59 18:59 Output Total 825 Balance -825 - Medications Medications: Current Medications Morphine Sulfate (Morphine) 1 mg IVP Q6 PRN PRN Reason: Pain, severe (8-10) Last Admin: 01/06/18 03:03 Dose: 1 mg Tramadol HCl (Ultram) 50 mg PO TID [facility] Last Admin: 01/08/18 10:32 Dose: 50 mg - Labs Labs: 12/17/17 11:12 12/23/17 08:39 PT 15.6 SECONDS (9.7-12.2) H 12/12/17 10:54 INR 1.4 12/12/17 10:54 APTT 35 SECONDS (21-34) H 12/12/17 10:54
--- NOTE | 2018-01-09 02:38 | PN ---
DATE: 01/08/2018 SUBJECTIVE: The patient was seen and examined at bedside. The patient is lethargic, opening her eyes upon calling her name. Denies any complaints. PHYSICAL EXAMINATION: GENERAL: Elderly female, lying in bed, in no acute distress. VITAL SIGNS: Blood pressure 90/56, pulse 130, respirations 20, temperature 99.9 degrees Fahrenheit, O2 sat 100% on room air. HEENT: Pupils equal, round, and reacting to light and accommodation. Extraocular muscles intact. No icterus. Positive pallor. No oral thrush. No pharyngeal congestion. NECK: Supple. No JVD. LUNGS: Bilateral vesicular breath sounds. No wheezing. No rhonchi. CARDIOVASCULAR SYSTEM: S1 and S2 present, irregular. ABDOMEN: Soft, nontender. Bowel sounds present. No guarding. No rigidity. No rebound tenderness noted. CENTRAL NERVOUS SYSTEM: Lethargic, arousable. No focal deficits noted. EXTREMITIES: Edema of the lower extremities, edema of the upper extremities, right axillary mass, and right upper extremity lymphedema. MEDICATIONS: Include morphine 1 mg IV push every 6 hours p.r.n. and tramadol 50 mg p.o. t.i.d. ASSESSMENT AND PLAN: Elderly male with hypertension, hyperlipidemia, atrial fibrillation, metastatic right breast cancer, status post vancomycin-resistant enterococcal urinary tract infection. The patient is waiting for subacute rehabilitation versus hospice placement. Emerald Brand MD
--- NOTE | 2018-01-09 11:14 | CP.PCM.PN ---
Subjective - Date & Time of Evaluation Date of Evaluation: 01/09/18 Time of Evaluation: 11:14 - Subjective Subjective: Progress note dictated #[id number] Objective - Vital Signs/Intake and Output Vital Signs (last 24 hours): Temp Pulse Resp BP Pulse Ox 98.2 F 98 H 20 90/59 L 97 01/09/18 07:40 01/09/18 07:40 01/09/18 07:40 01/09/18 07:40 01/09/18 07:40 Intake and Output: 01/09/18 01/09/18 06:59 18:59 Intake Total 100 Output Total 800 Balance -700 - Medications Medications: Current Medications Morphine Sulfate (Morphine) 1 mg IVP Q6 PRN PRN Reason: Pain, severe (8-10) Last Admin: 01/06/18 03:03 Dose: 1 mg Tramadol HCl (Ultram) 50 mg PO TID [facility] Last Admin: 01/09/18 10:03 Dose: 50 mg - Labs Labs: 12/17/17 11:12 12/23/17 08:39 PT 15.6 SECONDS (9.7-12.2) H 12/12/17 10:54 INR 1.4 12/12/17 10:54 APTT 35 SECONDS (21-34) H 12/12/17 10:54
--- NOTE | 2018-01-10 00:01 | PN ---
DATE: 01/09/2018 SUBJECTIVE: The patient was seen and examined at bedside. The patient is lethargic. Opening eyes upon calling her name. Denies any complaints. PHYSICAL EXAMINATION: GENERAL: Elderly female, lying in bed, in no acute distress. VITAL SIGNS: Blood pressure 89/54, pulse 112, respirations 20, temperature 99.9 degrees Fahrenheit and O2 sat 99% on nasal cannula. HEENT: Pupils are reacting to light and accommodation. Extraocular muscles intact, no icterus. Positive pallor. No oral thrush. No pharyngeal congestion. NECK: Supple. No JVD. LUNGS: Bilateral vesicular breath sounds. No wheezing. No rhonchi. CARDIOVASCULAR SYSTEM: S1 and S2 present, regular. ABDOMEN: Soft. Nontender. Bowel sounds present. No guarding. No rigidity. No rebound tenderness noted. CENTRAL NERVOUS SYSTEM: Lethargic, arousable to verbal commands. EXTREMITIES: Edema of the upper and lower extremities. Right upper extremities lymphedema with right axillary mass. MEDICATIONS: Tramadol 50 mg p.o. t.i.d. and morphine 1 mg IV every 6 hours p.r.n. ASSESSMENT AND PLAN: Elderly female with history of hypertension, hyperlipemia, atrial fibrillation, metastatic right breast cancer with right axillary mass, metastasis to lung and bone, status post vancomycin-resistant Enterococcus urinary tract infection, hyponatremia, decubitus ulcer awaiting for subacute rehab versus hospice placement. Discussed with vp digital marketing social media and crm. Prognosis is guarded. Emerald Brand MD
--- NOTE | 2018-01-10 12:47 | CP.PCM.PN ---
Subjective - Date & Time of Evaluation Date of Evaluation: 01/10/18 Time of Evaluation: 12:46 - Subjective Subjective: Progress note dictated #[id number] Objective - Vital Signs/Intake and Output Vital Signs (last 24 hours): Temp Pulse Resp BP Pulse Ox 98.2 F 132 H 20 89/54 L 94 L 01/10/18 07:35 01/10/18 07:35 01/10/18 07:35 01/10/18 07:35 01/10/18 07:35 Intake and Output: 01/10/18 01/10/18 06:59 18:59 Output Total 300 Balance -300 - Medications Medications: Current Medications Morphine Sulfate (Morphine) 1 mg IVP Q4 PRN PRN Reason: Pain, severe (8-10) Tramadol HCl (Ultram) 50 mg PO TID [facility] Last Admin: 01/10/18 10:34 Dose: Not Given - Labs Labs: 12/17/17 11:12 12/23/17 08:39 PT 15.6 SECONDS (9.7-12.2) H 12/12/17 10:54 INR 1.4 12/12/17 10:54 APTT 35 SECONDS (21-34) H 12/12/17 10:54
--- NOTE | 2018-01-10 17:03 | PN ---
DATE: 01/10/2018 SUBJECTIVE: The patient is seen and examined at bedside. The patient is opening her eyes upon calling her name, offers no complaints. PHYSICAL EXAMINATION: GENERAL: Elderly female, lying in bed, in no acute distress. VITAL SIGNS: Blood pressure 89/54, pulse 132, respirations 20, temperature 98.2 degrees Fahrenheit. O2 sat is 94% on 2 L nasal cannula. HEENT: Pupils equal, reacting to light and accommodation. Extraocular muscles intact. No icterus. Positive pallor. Dry mucous membranes. NECK: Supple. No JVD. LUNGS: Bilateral vesicular breath sounds. No wheezing. No rhonchi. CVS: S1 and S2 present, irregular. ABDOMEN: Soft, nontender. Bowel sounds present. No guarding. No rigidity. No rebound tenderness noted. FUEL CELL BATTERY TECHNICIAN: Lethargic, opening her eyes to calling her by name. Moving extremities. EXTREMITIES: Bilateral lower extremity edema and upper right extremity lymphedema present. LABORATORY DATA: No new labs. ASSESSMENT AND PLAN: Elderly female with history of hypertension, hyperlipidemia, atrial fibrillation, metastatic right breast carcinoma with right axillary mass and status post vancomycin-resistant enterococci urinary tract infection, hyponatremia. Awaiting for subacute versus office placement. Continue with supportive care. Prognosis is poor. Emerald Brand MD
--- NOTE | 2018-01-11 18:40 | CP.PCM.PN ---
Subjective - Date & Time of Evaluation Date of Evaluation: 01/11/18 Time of Evaluation: 18:40 - Subjective Subjective: Progress note dictated #[id number] Objective - Vital Signs/Intake and Output Vital Signs (last 24 hours): Temp Pulse Resp BP Pulse Ox 99.4 F 128 H 20 88/53 L 100 01/11/18 15:05 01/11/18 15:05 01/11/18 15:05 01/11/18 15:05 01/11/18 15:05 Intake and Output: 01/11/18 01/11/18 06:59 18:59 Intake Total 0 150 Output Total 100 300 Balance -100 -150 - Medications Medications: Current Medications Morphine Sulfate (Morphine) 1 mg IVP Q4 PRN PRN Reason: Pain, severe (8-10) Tramadol HCl (Ultram) 50 mg PO TID [facility] Last Admin: 01/11/18 17:25 Dose: Not Given - Labs Labs: 12/17/17 11:12 12/23/17 08:39 PT 15.6 SECONDS (9.7-12.2) H 12/12/17 10:54 INR 1.4 12/12/17 10:54 APTT 35 SECONDS (21-34) H 12/12/17 10:54
--- NOTE | 2018-01-11 23:43 | PN ---
DATE: 01/11/2018 SUBJECTIVE: The patient was seen and examined at bedside. The patient's mental status remains the same, lethargic, opening eyes upon calling her names, offers no new complaints. PHYSICAL EXAMINATION: GENERAL: Elderly female, lying in bed, in no acute distress. VITAL SIGNS: Blood pressure 88/53, pulse 128, respirations 20, temperature 99.4 degrees Fahrenheit, O2 saturation is 100% on 2 L nasal cannula. HEENT: Pupils equal, round, and reacting to light and accommodation. Extraocular muscles intact. No icterus. Positive pallor. No oral thrush. Dry mucous membrane. NECK: Supple. No JVD. LUNGS: Bilateral vesicular breath sounds. No wheezing. No rhonchi. CVS: S1 and S2 present. Irregular. ABDOMEN: Soft. Nontender. Bowel sounds present. No guarding. No rigidity. No rebound tenderness noted. COPY COORDINATOR: Lethargic. Arousable. Moving extremities. EXTREMITIES: Lower extremity edema and upper extremity edema with right lymphedema and right axillary mass. MEDICATIONS: Include morphine 1 mg IV push every 4 hours p.r.n., Ultram 50 mg p.o. 3 times daily. 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 We will continue with supportive care. Prognosis is guarded. Discussed with the patient's POA yesterday. Emerald Brand MD
--- NOTE | 2018-01-12 11:16 | CP.PCM.PN ---
Subjective - Date & Time of Evaluation Date of Evaluation: 01/12/18 Time of Evaluation: 11:16 - Subjective Subjective: Progress note dictated # [id number] Objective - Vital Signs/Intake and Output Vital Signs (last 24 hours): Temp Pulse Resp BP Pulse Ox 98.1 F 144 H 20 87/55 L 98 01/12/18 07:52 01/12/18 07:52 01/12/18 07:52 01/12/18 07:52 01/12/18 07:52 Intake and Output: 01/12/18 01/12/18 06:59 18:59 Intake Total 0 Output Total 500 Balance -500 - Medications Medications: Current Medications Morphine Sulfate (Morphine) 1 mg IVP Q4 PRN PRN Reason: Pain, severe (8-10) Tramadol HCl (Ultram) 50 mg PO TID [facility] Last Admin: 01/12/18 10:53 Dose: Not Given - Labs Labs: 12/17/17 11:12 12/23/17 08:39 PT 15.6 SECONDS (9.7-12.2) H 12/12/17 10:54 INR 1.4 12/12/17 10:54 APTT 35 SECONDS (21-34) H 12/12/17 10:54
--- NOTE | 2018-01-12 21:30 | PN ---
DATE: 01/12/2018 SUBJECTIVE: The patient was seen and examined at bedside this morning. The patient's mental status remains the same. Very lethargic; arousable to verbal commands. No new complaints. PHYSICAL EXAMINATION: GENERAL: Elderly female, lying in bed, in no acute distress. VITAL SIGNS: Blood pressure 87/55, pulse 144, respirations 20, temperature 98.7 degrees Fahrenheit, O2 saturation is 98% on 2 L nasal cannula. HEENT: Pupils equal, round, and reacting to light and accommodation. Extraocular muscles intact. No icterus. Positive pallor. NECK: Supple. No JVD. LUNGS: Bilateral vesicular breath sounds. No wheezing. No rhonchi. CVS: S1 and S2 present. Irregular. ABDOMEN: Soft. Nontender. Bowel sounds present. No guarding. No rigidity. No rebound tenderness noted. 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 Arousable. Moving extremities. EXTREMITIES: Generalized edema and decubitus ulcer. MEDICATIONS: Include morphine 1 mg as needed, Ultram 50 mg p.o. 3 times daily. ASSESSMENT AND PLAN: Elderly female with history of hypertension, hyperlipidemia, atrial fibrillation, metastatic breast cancer with right axillary mass, metastases to lung and the bone, status post vancomycin-resistant enterococcal urinary tract infection, hyponatremia. Awaiting for hospice versus subacute rehab placement. Prognosis is guarded. Continue with supportive care. Awaiting for transport to [facility]. Emerald Brand MD
--- NOTE | 2018-01-13 10:23 | CP.PCM.PN ---
Subjective - Date & Time of Evaluation Date of Evaluation: 01/13/18 Time of Evaluation: 10:22 - Subjective Subjective: Progress note dictated #[id number] Objective - Vital Signs/Intake and Output Vital Signs (last 24 hours): Temp Pulse Resp BP Pulse Ox 98.1 F 147 H 20 93/54 L 95 01/13/18 08:05 01/13/18 08:05 01/13/18 08:05 01/13/18 08:05 01/13/18 08:05 Intake and Output: 01/13/18 01/13/18 06:59 18:59 Intake Total 0 0 Output Total 0 201 Balance 0 -201 - Medications Medications: Current Medications Morphine Sulfate (Morphine) 1 mg IVP Q4 PRN PRN Reason: Pain, severe (8-10) Tramadol HCl (Ultram) 50 mg PO TID [facility] Last Admin: 01/12/18 18:16 Dose: Not Given - Labs Labs: 12/17/17 11:12 12/23/17 08:39 PT 15.6 SECONDS (9.7-12.2) H 12/12/17 10:54 INR 1.4 12/12/17 10:54 APTT 35 SECONDS (21-34) H 12/12/17 10:54
--- NOTE | 2018-01-13 14:58 | PN ---
DATE: 01/13/2018 SUBJECTIVE: The patient is seen and examined at bedside. The patient's mental status remains the same. Lethargic, arousable to often calling her name, not able to communicate as before. PHYSICAL EXAMINATION: GENERAL: Elderly female lying in bed, in no acute distress. VITAL SIGNS: Blood pressure 93/54, pulse 147, respirations 20, temperature 98.1 degrees Fahrenheit, and O2 sat 95% on 2 liters nasal cannula. HEENT: Pupils reacting to light and accommodation. Extraocular muscles intact. No icterus. No pallor. Dry mucous membranes. NECK: Supple. No JVD. LUNGS: Bilateral vesicular breath sounds. No wheezing. No rhonchi. CVS: S1 and S2 present, regular. ABDOMEN: Soft and nontender. Bowel sounds present. No guarding. No rigidity. No rebound tenderness noted. MICROFICHE CAMERA OPERATOR: Lethargic, arousable to name, moving extremities. EXTREMITIES: Lower extremity edema and upper extremity edema with right upper extremity lymphedema. Right axillary mass. MEDICATIONS: Include morphine 1 mg IV push every 4 hours p.r.n. and Ultram 50 mg p.o. three times a day. ASSESSMENT AND PLAN: Elderly female with history of hypertension, hyperlipidemia, atrial fibrillation, metastatic breast cancer, metastasis to lung and the bone, status post vancomycin-resistant Enterococcal urinary tract infection, hyponatremia, anemia, awaiting for subacute rehab placement versus hospice treatment. The patient's prognosis is guarded. Continue with supportive care. Continue with the pain medication as needed. Emerald Brand MD
--- NOTE | 2018-01-14 10:36 | CP.PCM.PN ---
Subjective - Date & Time of Evaluation Date of Evaluation: 01/14/18 Time of Evaluation: 10:36 - Subjective Subjective: Progress note dictated #[id number] discharge summary dictated #[id number] Objective - Vital Signs/Intake and Output Vital Signs (last 24 hours): Temp Pulse Resp BP Pulse Ox 99.1 F 70 22 69/49 L 88 L 01/14/18 07:22 01/14/18 07:22 01/14/18 07:22 01/14/18 07:22 01/14/18 07:22 Intake and Output: 01/14/18 01/14/18 06:59 18:59 Intake Total 0 Output Total 100 Balance -100 - Medications Medications: Current Medications Morphine Sulfate (Morphine) 1 mg IVP Q4 PRN PRN Reason: Pain, severe (8-10) Tramadol HCl (Ultram) 50 mg PO TID [facility] Last Admin: 01/13/18 17:33 Dose: Not Given - Labs Labs: 12/17/17 11:12 12/23/17 08:39 PT 15.6 SECONDS (9.7-12.2) H 12/12/17 10:54 INR 1.4 12/12/17 10:54 APTT 35 SECONDS (21-34) H 12/12/17 10:54
[2018-01-14 12:57] VITALS: BP 75/44; PULSE 148; RESP 20; TEMP 97.9; O2SAT 98
--- NOTE | 2018-01-14 13:13 | CP.PCM.PN ---
Subjective - Date & Time of Evaluation Date of Evaluation: 01/14/18 Time of Evaluation: 13:00 - Subjective Subjective: RATE REVIEWER NOTES Patient seen today, lathargic, hypotension noted [facility] hospice rep . here to see patient also POA present in the room POA agrees for inpatient hospice and signed paper work Hospice recommends to start on morphin drip for pain control the above plan discussed with Dr. Paz and agrees Objective - Vital Signs/Intake and Output Vital Signs (last 24 hours): Temp Pulse Resp BP Pulse Ox 97.9 F 148 H 20 75/44 L 98 01/14/18 12:00 01/14/18 12:00 01/14/18 12:00 01/14/18 12:00 01/14/18 12:00 Intake and Output: 01/14/18 01/14/18 06:59 18:59 Intake Total 0 Output Total 100 Balance -100 - Medications Medications: Current Medications Morphine Sulfate (Morphine) 1 mg IVP Q4 PRN PRN Reason: Pain, severe (8-10) Last Admin: 01/14/18 12:40 Dose: 1 mg Tramadol HCl (Ultram) 50 mg PO TID [facility] Last Admin: 01/14/18 10:53 Dose: Not Given - Labs Labs: 12/17/17 11:12 12/23/17 08:39 PT 15.6 SECONDS (9.7-12.2) H 12/12/17 10:54 INR 1.4 12/12/17 10:54 APTT 35 SECONDS (21-34) H 12/12/17 10:54
[2018-01-14] MEDS ORDERED: Morphine Sulfate 250 MG in Dextrose 5% In Water 240 ML IV PRN (14:00)
--- NOTE | 2018-01-14 18:42 | PN ---
DATE: 01/14/2018 SUBJECTIVE: The patient was seen and examined at bedside. The patient is more lethargic and not even opening her eyes when called by her name, unable to review any of the other systems. PHYSICAL EXAMINATION: GENERAL: Elderly female lying in bed, in no acute distress. VITAL SIGNS: Blood pressure 69/49, pulse 70, respirations 22, temperature 99.1 degrees Fahrenheit, and O2 sat 88% on nasal cannula. HEENT: Pupils reacting to light and accommodation. Extraocular muscles intact. NECK: Supple. No JVD. LUNGS: Bilateral vesicular breath sounds. No wheezing. No rhonchi. CVS: S1 and S2 present, irregular. ABDOMEN: Soft. Bowel sounds present. No guarding. No rigidity. OUTSOLE SPLICER: Lethargic, unarousable. EXTREMITIES: Edema of the extremities noted. MEDICATIONS: Include morphine 1 mg IV push every 4 hours p.r.n., tramadol 50 mg p.o. three times a day. ASSESSMENT AND PLAN: Elderly female with history of hypertension, hyperlipidemia, atrial fibrillation, metastatic breast carcinoma with metastasis to lung and the bone, status post vancomycin-resistant enterococci urinary tract infection, status post hyponatremia, and electrolyte imbalance, awaiting for hospice placement. Prognosis is guarded. Continue with supportive care. Emerald Brand MD
--- NOTE | 2018-01-20 08:35 | DS ---
DISCHARGE DIAGNOSES: Metastatic right breast cancer with metastasis to the lungs, bone, and right axillary mass; unresponsive state on hospice, under hospice care; hypertension; hyperlipidemia; atrial fibrillation with rapid ventricular rate. HISTORY OF PRESENT ILLNESS: Ms. 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 The patient was admitted to the hospital on 12/11/2017 with generalized fatigue, weakness, and not able to ambulate in the house. In the ED, the patient was found to be in atrial fibrillation with rapid ventricular rate, anemia, and patient was found to be having elevated WBC count, and the patient was being admitted for further management. On the day of discharge, the patient was unresponsive, not opening her eyes to verbal commands or deep painful stimuli. REVIEW OF SYSTEMS: Unable to obtain any review of systems. PHYSICAL EXAMINATION: GENERAL: Elderly female, lying in bed, in no acute distress. VITAL SIGNS: Blood pressure 85/60, respirations 20, temperature 98.4 degrees Fahrenheit, O2 sat is 98% on room air. HEENT: Pupils are reacting to light and accommodation. Extraocular muscles intact. NECK: Supple. No JVD. LUNGS: Bilateral basal crackles heard. CVS: S1, S2 present, irregular. ABDOMEN: Soft. Bowel sounds present. No guarding. No rigidity. No rebound tenderness noted. 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 EXTREMITIES: Edema. LABORATORY DATA: There were no labs done. HOSPITAL COURSE: The patient was admitted on 12/11/2017 for elevated WBC count, anemia, electrolyte imbalance, UTI, sepsis, atrial fibrillation with rapid ventricular rate. The patient was started on broad spectrum antibiotics, was given Cardizem. The patient's electrolytes were corrected, and the patient was evaluated by Oncology, Cardiology, and ID; and the patient developed hyponatremia. After extensive workup, there was no obvious source of infection found, and Dr. Mosley discussed with the patient's next of kin, and the patient was made DNR/DRI. Hospital course was complicated by VRE UTI. The patient was initially accepted to subacute rehab while patient was waiting for paper work to be completed by the patient's consumer attorney. The patient's condition worsened, and the patient is becoming unresponsive and hypotensive, tachycardiac at which point, the patient was reevaluated by hospice, and the patient was considered for acute inpatient hospice, and the patient is being discharged to hospice care. Emerald Brand MD
== END 2018-01-14 15:15 | disposition hospice, inpatient (51) | DRG 872 ==
LOC: C.ER 11:18 → C.9I 15:10 → C.3T 12-13 18:17
PROVIDERS: ADMIT Internal Medicine; ATTEND Internal Medicine
DX: A41.9 Sepsis, unspecified organism (principal); N39.0 Urinary tract infection, site not specified; C79.51 Secondary malignant neoplasm of bone; E22.2 Syndrome of inappropriate secretion of antidiuretic hormone; C79.89 Secondary malignant neoplasm of other specified sites; C77.3 Secondary and unspecified malignant neoplasm of axilla and upper limb lymph nodes; L03.111 Cellulitis of right axilla; C78.02 Secondary malignant neoplasm of left lung; C78.01 Secondary malignant neoplasm of right lung; Z51.5 Encounter for palliative care; C50.811 Malignant neoplasm of overlapping sites of right female breast; Z66 Do not resuscitate; I48.2 Chronic atrial fibrillation; I89.0 Lymphedema, not elsewhere classified; Z16.21 Resistance to vancomycin; I25.10 Atherosclerotic heart disease of native coronary artery without angina pectoris; F17.210 Nicotine dependence, cigarettes, uncomplicated; Z53.9 Procedure and treatment not carried out, unspecified reason; I10 Essential (primary) hypertension; B95.2 Enterococcus as the cause of diseases classified elsewhere; Z79.01 Long term (current) use of anticoagulants; Z92.21 Personal history of antineoplastic chemotherapy; Z87.440 Personal history of urinary (tract) infections; E78.5 Hyperlipidemia, unspecified

== ENCOUNTER 2018-01-14 15:09 | Inpatient (IN) | payer OTHER ==
[2018-01-14] MEDS ORDERED: Morphine Sulfate 250 MG in Dextrose 5% In Water 240 ML IV PRN (16:08)
[2018-01-15 00:54] VITALS: RESP 20
[2018-01-15 09:41] VITALS: BP 60/30; PULSE 93; TEMP 98.5; O2SAT 90
--- NOTE | 2018-01-15 10:47 | CP.PCM.PN ---
Subjective - Date & Time of Evaluation Date of Evaluation: 01/15/18 Time of Evaluation: 10:47 Objective - Vital Signs/Intake and Output Vital Signs (last 24 hours): Temp Pulse Resp BP Pulse Ox 98.5 F 93 H 20 60/30 L 90 L 01/15/18 07:00 01/15/18 07:00 01/15/18 07:00 01/15/18 07:00 01/15/18 07:00 Intake and Output: 01/15/18 01/15/18 06:59 18:59 Intake Total 8 Output Total 0 Balance 8 - Medications Medications: Current Medications Acetaminophen (Tylenol 650 Mg Supp) 650 mg AR Q6 PRN PRN Reason: Fever >100.4 F Morphine Sulfate 250 mg/ (Dextrose) 250 mls @ 1 mls/hr IV .Q24H PRN; Protocol PRN Reason: Pain, moderate (4-7) Last Admin: 01/14/18 18:06 Dose: 1 mg/hr, 1 mls/hr Lorazepam (Ativan) 1 mg IVP Q6H PRN PRN Reason: Anxiety Scopolamine (Transderm-Scop) 1 patch TD Q3D [facility] Last Admin: 01/14/18 16:30 Dose: 1 patch
--- NOTE | 2018-01-15 18:33 | CP.PCM.PRO ---
Pronouncement of Note - Clinical Findings Physical Exam: No Response Verbal/Painful Stimuli, Absent Peripheral Puls es{Carotid & Femoral}, Absent Heart & Breath Sounds, No Pupillary Light Reflex, No Corneal Reflex, Pupils Fixed & Dilated, Absence of Vital Signs - Pronouncement Time Time of Pronouncement of : 17:00 - Notifications Pronouncement Notifications: Family Notified (POA notified), Atending Notified House Builder Notified: No - Autopsy Autopsy Requested: No - [place] [id number]
--- NOTE | 2018-01-20 06:57 | DS ---
DISCHARGE DIAGNOSES: Metastatic right breast cancer with axillary mass, metastasis to lung and the bone, hypertension, hyperlipidemia, atrial fibrillation with rapid ventricular rate, cardiopulmonary arrest, under hospice care, on morphine drip. HISTORY OF PRESENT ILLNESS: Ms. Seth is a 72-year-old female with past medical history of hypertension, hyperlipidemia, metastatic breast cancer, status post chemotherapy, radiation therapy, and surgery with recurrent metastatic breast cancer with axillary mass, metastasis to lung and the bone, has been in the hospital, and patient is being accepted to hospice care on 01/14/2018, and the patient was started on morphine drip. The patient was unresponsive, not responding to any verbal commands. The patient was pronounced at 5 p.m. on 01/15/2018. The patient did not have respirations. Pupils were dilated and fixed and unresponsive. Blood pressure was not recordable as documented by the house physician. The patient's next of kin was notified at that time. certificate was completed in [facility]. Emerald Brand MD
== END 2018-01-15 21:05 | DRG 598 ==
LOC: C.3T 15:09
PROVIDERS: ADMIT Internal Medicine; ATTEND Internal Medicine
DX: C50.911 Malignant neoplasm of unspecified site of right female breast (principal); C79.51 Secondary malignant neoplasm of bone; C78.00 Secondary malignant neoplasm of unspecified lung; Z51.5 Encounter for palliative care; R50.9 Fever, unspecified; F41.9 Anxiety disorder, unspecified; E78.5 Hyperlipidemia, unspecified; I10 Essential (primary) hypertension; Z92.21 Personal history of antineoplastic chemotherapy; I48.91 Unspecified atrial fibrillation